=== PATIENT | male | born 1990 | race Two or more races ===

== ENCOUNTER → 2021-01-23 14:27 | Outpatient (BNVA) | payer OTHER, MEDICARE, SELFPAY | PROVIDERS: PCP Internal Medicine; Visit Provider Internal Medicine | DX: I50.9 Heart failure, unspecified (principal); E66.01 Morbid (severe) obesity due to excess calories; E11.8 Type 2 diabetes mellitus with unspecified complications | CPT/HCPCS: 93005; 99202 ==

== ENCOUNTER 2021-05-31 10:37 | Emergency (ER) | payer OTHER, SELFPAY ==
--- NOTE | ~2021-05-31 | XR_ITS ---
EXAMINATION: XR CHEST CLINICAL INFORMATION: Shortness of breath COMPARISON: 06/20/2018 TECHNIQUE: Frontal view of the chest was obtained. FINDINGS: No significant abnormality is noted involving the heart, lungs, mediastinum, bony thorax or soft tissues. XR/XR chest 1V IMPRESSION: Unremarkable examination.
[2021-05-31 11:16] VITALS: BP 125/59; PULSE 120; RESP 22; TEMP 35.5; O2SAT 93; BMI 57.6
--- NOTE | 2021-05-31 12:25 | ECG_ITS ---
Test Reason : SOB Blood Pressure : / mmHG Vent. Rate : 102 BPM Atrial Rate : 102 BPM P-R Int : 146 ms QRS Dur : 078 ms QT Int : 332 ms P-R-T Axes : 034 002 013 degrees QTc Int : 432 ms Sinus tachycardia Otherwise normal ECG Heart rate has increased Referred By: Marilyn No Electronically Signed By:SUJATHA CORBETT MD
--- NOTE | 2021-05-31 12:40 | ED.GENADULT ---
HPI - General Adult General Chief complaint: General Medical Stated complaint: facial pain, lt leg pain, hand numbness Time Seen by Provider: 05/31/21 11:54 History of Present Illness HPI narrative: Patient is a 30-year-old male with a history diabetes morbid obesity history fatty liver. History of congestive heart failure. Presents today with having generalized body aches. Leg swelling. Arm pain. Jaw pain. Generalized malaise. Patient did not receive his coronavirus vaccine. Positive feeling weak. No new medication. Patient been compliant with medication. He is not on any blood thinners. He is from home. Related Data Home Medications Medication Instructions Recorded Confirmed insulin glargine U-300 conc 300 24 unit SUBCUT BEDTIME ml 11/01/20 01/23/21 unit/mL (3 mL) subcutaneous pen insulin lispro 100 unit/mL 8 unit SUBCUT TID 11/01/20 01/23/21 subcutaneous pen (Humalog KwikPen (U-100) Insulin) Previous Rx's Medication Instructions Recorded carvedilol 3.125 mg tablet 3.125 mg PO BID 30 Days #60 tab 11/01/20 furosemide 40 mg tablet 40 mg PO DAILY 30 Days #30 tab 11/01/20 lisinopril 2.5 mg tablet 2.5 mg PO DAILY 30 Days #30 tab 11/01/20 blood sugar diagnostic (FreeStyle #100 ea 01/03/21 Lite Strips) lancets 28 gauge (FreeStyle #100 ea 01/03/21 Lancets) Allergies Allergy/AdvReac Type Severity Reaction Status Date / Time morphine AdvReac Unknown projectile Verified 01/23/21 14:41 vomiting Review of Systems Review of Systems: Positive generalized malaise Question minimal cough Positive leg swelling Positive arm swelling Positive chronic shortness of breath All systems reviewed otherwise negative Yes all other systems are reviewed and are negative [facility] Past Medical History Medical History (Updated 05/31/21 @ 13:59 by Marilyn No MD) Congestive heart failure (CHF) Diabetes mellitus Hypertriglyceridemia Morbid obesity with BMI of 50.0-59.9, adult Non-alcoholic fatty liver disease Surgical History History of ankle surgery (~06/29/12) Hx of excision of mass (~03/30/18) Family History Family History Mother IBS (irritable bowel syndrome) Father No problems noted. Social History Social History (Updated 01/23/21 @ 14:40 by HELEN Vizcaino) Alcohol intake: never Patient Tobacco Use Status: Never used Tobacco Advance Directives: No Advance Directives Information Provided: No Physical Exam Vital Signs: Vital Signs: Last Vital Signs Temp 96 F L 05/31/21 11:16 Pulse 120 H 05/31/21 11:16 Resp 22 H 05/31/21 11:16 BP 125/59 L 05/31/21 11:16 Pulse Ox 93 05/31/21 11:16 Body Mass Index 57.6 Appearance: Alert. Oriented X3. No acute distress. Eyes: Pupils equal, round and reactive to light. ENT: Pharynx normal. Neck: Normal inspection. Neck supple. No lymph nodes noted. No crepitus CVS: Normal heart rate and rhythm. Pulses normal. Normal S1 and S2 Respiratory: No respiratory distress. Breath sounds normal. No Wheezing. No rales Abdomen: Soft and nontender. No rigidity. No distention. good BS x4 Skin: Skin warm and dry. Normal skin color. Normal skin turgor. Extremities: No lower extremity edema. Neurovascular intact to all extremities. No Lacerations. No Rash Neuro: Oriented X 3. No motor deficit. No sensory deficit. Moving all extermities. No slurred speech Medical Decision Making MDM Narrative Medical decision making narrative: Patient's BNP is normal there is no evidence of congestive heart failure. EKG showed a sinus pattern heart rate was 100 CT QRS QT within normal limits. Patient's electrolytes unremarkable. COVID test was negative. Sugar was 300. Will need follow-up on an outpatient basis. Patient is in stable condition. Will discharge home. Lab Data Result diagrams: 05/31/21 12:56 05/31/21 12:56 Labs: Lab Results 05/31/21 05/31/21 05/31/21 Range/Units 12:56 12:56 12:56 WBC 10.5 (4.8-10.8) X10*3/uL RBC 5.19 (4.60-5.80) X10*6/uL Hgb 14.8 (14.0-18.0) g/dl Hct 46.2 (42.0-52.0) % MCV 89.0 (80.0-98.0) fL MCH 28.5 (27.0-33.0) pg MCHC 32.0 (31.0-36.0) g/dl RDW 11.8 (11.0-16.0) % Plt Count 296 (160-400) X10*3/uL MPV 11.0 (9.4-12.4) fL Immature Gran % (Auto) 0.5 H (0.0-0.4) % Neut % (Auto) 65.4 (45-73) % Lymph % (Auto) 24.8 (20-40) % [place] % (Auto) 6.8 (2-11) % Eos % (Auto) 1.9 (0-4) % Baso % (Auto) 0.6 (0-2) % Lymph # (Auto) 2.6 (1.2-4.9) X10*3/uL [place] # (Auto) 0.7 (0.1-1.2) X10*3/uL Eos # (Auto) 0.2 (0.0-0.4) X10*3/uL Baso # (Auto) 0.1 (0.0-0.2) X10*3/uL Abs Immat Gran (auto) 0.05 H (0.00-0.03) X10*3/uL Absolute Neuts (auto) 6.9 (2.0-8.3) x10*3/uL Absolute Nucleated RBC 0.000 (0.0-0.012) X10*3/uL Nucleated RBC % (auto) 0.0 (0.0-0.2) /100WBC Sodium 134 L (135-145) mmol/L Potassium 4.6 (3.3-5.1) mmol/L Chloride 100 (96-108) mmol/L Carbon Dioxide 23 (22-29) mmol/L Anion Gap 16 (12-20) BUN 11 (9-16) mg/dL Creatinine 1.13 (0.5-1.4) mg/dL Estim Creat Clear Calc 162.3 Estimated GFR > 60 Random Glucose 307 H (60-115) mg/dL Calcium 9.0 (8.4-10.2) mg/dL Total Bilirubin 0.8 (0.0-1.0) mg/dL Direct Bilirubin 0.3 (0.0-0.5) mg/dL AST 50 H (5-37) U/L ALT 156 H (0-40) U/L Alkaline Phosphatase 91 (39-117) U/L Troponin I High Sens (<3.5-35.0) ng/L B-Natriuretic Peptide < 10 (<100) pg/mL Total Protein 7.1 (6.5-8.0) g/dL Albumin 4.4 (3.5-5.0) g/dL Influenza Type A (PCR) (Negative) Influenza Type B (PCR) (Negative) RSV RNA Qual (PCR) (Negative) SARS-CoV-2 RNA (RT-PCR) (Negative) 05/31/21 05/31/21 Range/Units 12:56 12:57 WBC (4.8-10.8) X10*3/uL RBC (4.60-5.80) X10*6/uL Hgb (14.0-18.0) g/dl Hct (42.0-52.0) % MCV (80.0-98.0) fL MCH (27.0-33.0) pg MCHC (31.0-36.0) g/dl RDW (11.0-16.0) % Plt Count (160-400) X10*3/uL MPV (9.4-12.4) fL Immature Gran % (Auto) (0.0-0.4) % Neut % (Auto) (45-73) % Lymph % (Auto) (20-40) % [place] % (Auto) (2-11) % Eos % (Auto) (0-4) % Baso % (Auto) (0-2) % Lymph # (Auto) (1.2-4.9) X10*3/uL [place] # (Auto) (0.1-1.2) X10*3/uL Eos # (Auto) (0.0-0.4) X10*3/uL Baso # (Auto) (0.0-0.2) X10*3/uL Abs Immat Gran (auto) (0.00-0.03) X10*3/uL Absolute Neuts (auto) (2.0-8.3) x10*3/uL Absolute Nucleated RBC (0.0-0.012) X10*3/uL Nucleated RBC % (auto) (0.0-0.2) /100WBC Sodium (135-145) mmol/L Potassium (3.3-5.1) mmol/L Chloride (96-108) mmol/L Carbon Dioxide (22-29) mmol/L Anion Gap (12-20) BUN (9-16) mg/dL Creatinine (0.5-1.4) mg/dL Estim Creat Clear Calc Estimated GFR Random Glucose (60-115) mg/dL Calcium (8.4-10.2) mg/dL Total Bilirubin (0.0-1.0) mg/dL Direct Bilirubin (0.0-0.5) mg/dL AST (5-37) U/L ALT (0-40) U/L Alkaline Phosphatase (39-117) U/L Troponin I High Sens 3.7 (<3.5-35.0) ng/L B-Natriuretic Peptide (<100) pg/mL Total Protein (6.5-8.0) g/dL Albumin (3.5-5.0) g/dL Influenza Type A (PCR) NEGATIVE (Negative) Influenza Type B (PCR) NEGATIVE (Negative) RSV RNA Qual (PCR) NEGATIVE (Negative) SARS-CoV-2 RNA (RT-PCR) NEGATIVE (Negative) Discharge Plan Discharge Clinical Impression: Type 2 diabetes mellitus with unspecified complications, Morbid obesity due to excess calories Patient Disposition: Home, Self-Care Instructions: Diabetes and Exercise (ED), Diabetes and Nutrition (ED) Prescriptions: No Action (DME) FreeStyle Lite Strips Strip See Rx Instructions .ROUTE .MEDSUPPLY Qty: 100 RF: 12 (DME) lancets [FreeStyle Lancets] 28 gauge misc See Rx Instructions .ROUTE .MEDSUPPLY Qty: 100 RF: 12 insulin lispro [Humalog KwikPen Insulin] 100 unit/mL insulin pen 8 unit subcut TID RF: 0 insulin glargine U-300 conc 300 unit/mL (3 mL) insulin pen 24 unit subcut BEDTIME RF: 0 carvedilol 3.125 mg tablet 3.125 mg PO BID 30 Days Qty: 60 RF: 3 furosemide 40 mg tablet 40 mg PO DAILY 30 Days Qty: 30 RF: 3 lisinopril 2.5 mg tablet 2.5 mg PO DAILY 30 Days Qty: 30 RF: 3 Referrals: Antonio Ames MD [Primary Care Provider] - 2 days
[2021-05-31 13:05] LABS: MANUAL DIFF FLAG NO
[2021-05-31 13:07] LABS: Basophils Absolute Auto 0.1 X10*3/uL (0.0-0.2); Basophils Percent Auto 0.6 % (0-2); Eosinophils Absolute Auto 0.2 X10*3/uL (0.0-0.4); Eosinophils Percent Auto 1.9 % (0-4); Hematocrit 46.2 % (42.0-52.0); Hemoglobin 14.8 g/dl (14.0-18.0); Imm Gran Abs Auto 0.05 X10*3/uL (0.00-0.03); Imm Gran Pct Auto 0.5 % (0.0-0.4); Lymphocytes Absolute Auto 2.6 X10*3/uL (1.2-4.9); Lymphocytes Percent Auto 24.8 % (20-40); Mean Corpuscular Hemoglobin 28.5 pg (27.0-33.0); Monocytes Absolute Auto 0.7 X10*3/uL (0.1-1.2); Monocytes Percent Auto 6.8 % (2-11); Neutrophils Absolute Auto 6.9 x10*3/uL (2.0-8.3); Neutrophils Percent Auto 65.4 % (45-73); Platelet Count 296 X10*3/uL (160-400); Red Blood Count 5.19 X10*6/uL (4.60-5.80); Red Cell Distribution Width 11.8 % (11.0-16.0); White Blood Count 10.5 X10*3/uL (4.8-10.8)
[2021-05-31 13:24] LABS: B Type Natriuretic Peptide < 10 pg/mL (<100); Troponin-I High Sensitivity 3.7 ng/L (<3.5-35.0)
[2021-05-31 13:28] LABS: Alanine Aminotransferase 156 U/L (0-40); Albumin Level 4.4 g/dL (3.5-5.0); Alkaline Phosphatase 91 U/L (39-117); Anion Gap 16 (12-20); Aspartate Amino Transferase 50 U/L (5-37); Bilirubin Direct 0.3 mg/dL (0.0-0.5); Bilirubin Total 0.8 mg/dL (0.0-1.0); Blood Urea Nitrogen 11 mg/dL (9-16); Carbon Dioxide 23 mmol/L (22-29); Chloride 100 mmol/L (96-108); Creatinine Clr Calc Pharmacy 162.3; Estimated Glomerular Filt Rate > 60; Glucose Random 307 mg/dL (60-115); Potassium 4.6 mmol/L (3.3-5.1); Sodium 134 mmol/L (135-145); Total Protein 7.1 g/dL (6.5-8.0)
--- NOTE | 2021-05-31 13:41 | PC.NURSE ---
pt came to ed with c/o left lower back pain that radiates down his left leg. facial pain relating to toothache. sob when he ambulates short distances. left arm numbness that he said is chronic. pt stated this has been going on for a while and he was planning on going to the doctor on this coming Wednesday but he could not deal with the pain much longer. he denied headache/dizziness/n/v. no fever/chills. no apparent distress noted, pt alert and oriented, vss.
[2021-05-31 13:48] LABS: Influenza A PCR NEGATIVE (Negative); Influenza B PCR NEGATIVE (Negative); Resp Syncy Virus RNA Qual PCR NEGATIVE (Negative); SARS COV2 PCR INHOUSE NEGATIVE (Negative)
--- NOTE | 2021-05-31 14:29 | ED.GENADULT ---
HPI - General Adult General Chief complaint: General Medical Stated complaint: facial pain, lt leg pain, hand numbness Time Seen by Provider: 05/31/21 11:54 Related Data Home Medications Medication Instructions Recorded Confirmed insulin glargine U-300 conc 300 24 unit SUBCUT BEDTIME ml 11/01/20 01/23/21 unit/mL (3 mL) subcutaneous pen insulin lispro 100 unit/mL 8 unit SUBCUT TID 11/01/20 01/23/21 subcutaneous pen (Humalog KwikPen (U-100) Insulin) Previous Rx's Medication Instructions Recorded carvedilol 3.125 mg tablet 3.125 mg PO BID 30 Days #60 tab 11/01/20 furosemide 40 mg tablet 40 mg PO DAILY 30 Days #30 tab 11/01/20 lisinopril 2.5 mg tablet 2.5 mg PO DAILY 30 Days #30 tab 11/01/20 blood sugar diagnostic (FreeStyle #100 ea 01/03/21 Lite Strips) lancets 28 gauge (FreeStyle #100 ea 01/03/21 Lancets) Allergies Allergy/AdvReac Type Severity Reaction Status Date / Time morphine AdvReac Unknown projectile Verified 01/23/21 14:41 vomiting PMFSH Past Medical History Medical History (Updated 05/31/21 @ 13:59 by Marilyn No MD) Congestive heart failure (CHF) Diabetes mellitus Hypertriglyceridemia Morbid obesity with BMI of 50.0-59.9, adult Non-alcoholic fatty liver disease Surgical History History of ankle surgery (~06/29/12) Hx of excision of mass (~03/30/18) Family History Family History Mother IBS (irritable bowel syndrome) Father No problems noted. Social History Social History (Updated 01/23/21 @ 14:40 by HELEN Vizcaino) Alcohol intake: never Patient Tobacco Use Status: Never used Tobacco Advance Directives: No Advance Directives Information Provided: No Physical Exam Vital Signs: Vital Signs: Last Vital Signs Temp 96 F L 05/31/21 11:16 Pulse 120 H 05/31/21 11:16 Resp 22 H 05/31/21 11:16 BP 125/59 L 05/31/21 11:16 Pulse Ox 93 05/31/21 11:16 Body Mass Index 57.6 Medical Decision Making Lab Data Result diagrams: 05/31/21 12:56 05/31/21 12:56 Labs: Lab Results 05/31/21 05/31/21 05/31/21 Range/Units 12:56 12:56 12:56 WBC 10.5 (4.8-10.8) X10*3/uL RBC 5.19 (4.60-5.80) X10*6/uL Hgb 14.8 (14.0-18.0) g/dl Hct 46.2 (42.0-52.0) % MCV 89.0 (80.0-98.0) fL MCH 28.5 (27.0-33.0) pg MCHC 32.0 (31.0-36.0) g/dl RDW 11.8 (11.0-16.0) % Plt Count 296 (160-400) X10*3/uL MPV 11.0 (9.4-12.4) fL Immature Gran % (Auto) 0.5 H (0.0-0.4) % Neut % (Auto) 65.4 (45-73) % Lymph % (Auto) 24.8 (20-40) % [place] % (Auto) 6.8 (2-11) % Eos % (Auto) 1.9 (0-4) % Baso % (Auto) 0.6 (0-2) % Lymph # (Auto) 2.6 (1.2-4.9) X10*3/uL [place] # (Auto) 0.7 (0.1-1.2) X10*3/uL Eos # (Auto) 0.2 (0.0-0.4) X10*3/uL Baso # (Auto) 0.1 (0.0-0.2) X10*3/uL Abs Immat Gran (auto) 0.05 H (0.00-0.03) X10*3/uL Absolute Neuts (auto) 6.9 (2.0-8.3) x10*3/uL Absolute Nucleated RBC 0.000 (0.0-0.012) X10*3/uL Nucleated RBC % (auto) 0.0 (0.0-0.2) /100WBC Sodium 134 L (135-145) mmol/L Potassium 4.6 (3.3-5.1) mmol/L Chloride 100 (96-108) mmol/L Carbon Dioxide 23 (22-29) mmol/L Anion Gap 16 (12-20) BUN 11 (9-16) mg/dL Creatinine 1.13 (0.5-1.4) mg/dL Estim Creat Clear Calc 162.3 Estimated GFR > 60 Random Glucose 307 H (60-115) mg/dL Calcium 9.0 (8.4-10.2) mg/dL Total Bilirubin 0.8 (0.0-1.0) mg/dL Direct Bilirubin 0.3 (0.0-0.5) mg/dL AST 50 H (5-37) U/L ALT 156 H (0-40) U/L Alkaline Phosphatase 91 (39-117) U/L Troponin I High Sens (<3.5-35.0) ng/L B-Natriuretic Peptide < 10 (<100) pg/mL Total Protein 7.1 (6.5-8.0) g/dL Albumin 4.4 (3.5-5.0) g/dL Influenza Type A (PCR) (Negative) Influenza Type B (PCR) (Negative) RSV RNA Qual (PCR) (Negative) SARS-CoV-2 RNA (RT-PCR) (Negative) 05/31/21 05/31/21 Range/Units 12:56 12:57 WBC (4.8-10.8) X10*3/uL RBC (4.60-5.80) X10*6/uL Hgb (14.0-18.0) g/dl Hct (42.0-52.0) % MCV (80.0-98.0) fL MCH (27.0-33.0) pg MCHC (31.0-36.0) g/dl RDW (11.0-16.0) % Plt Count (160-400) X10*3/uL MPV (9.4-12.4) fL Immature Gran % (Auto) (0.0-0.4) % Neut % (Auto) (45-73) % Lymph % (Auto) (20-40) % [place] % (Auto) (2-11) % Eos % (Auto) (0-4) % Baso % (Auto) (0-2) % Lymph # (Auto) (1.2-4.9) X10*3/uL [place] # (Auto) (0.1-1.2) X10*3/uL Eos # (Auto) (0.0-0.4) X10*3/uL Baso # (Auto) (0.0-0.2) X10*3/uL Abs Immat Gran (auto) (0.00-0.03) X10*3/uL Absolute Neuts (auto) (2.0-8.3) x10*3/uL Absolute Nucleated RBC (0.0-0.012) X10*3/uL Nucleated RBC % (auto) (0.0-0.2) /100WBC Sodium (135-145) mmol/L Potassium (3.3-5.1) mmol/L Chloride (96-108) mmol/L Carbon Dioxide (22-29) mmol/L Anion Gap (12-20) BUN (9-16) mg/dL Creatinine (0.5-1.4) mg/dL Estim Creat Clear Calc Estimated GFR Random Glucose (60-115) mg/dL Calcium (8.4-10.2) mg/dL Total Bilirubin (0.0-1.0) mg/dL Direct Bilirubin (0.0-0.5) mg/dL AST (5-37) U/L ALT (0-40) U/L Alkaline Phosphatase (39-117) U/L Troponin I High Sens 3.7 (<3.5-35.0) ng/L B-Natriuretic Peptide (<100) pg/mL Total Protein (6.5-8.0) g/dL Albumin (3.5-5.0) g/dL Influenza Type A (PCR) NEGATIVE (Negative) Influenza Type B (PCR) NEGATIVE (Negative) RSV RNA Qual (PCR) NEGATIVE (Negative) SARS-CoV-2 RNA (RT-PCR) NEGATIVE (Negative) Discharge Plan Discharge Clinical Impression: Type 2 diabetes mellitus with unspecified complications, Morbid obesity due to excess calories Patient Disposition: Home, Self-Care Instructions: Diabetes and Nutrition (ED), Diabetes and Exercise (ED) Prescriptions: No Action (DME) FreeStyle Lite Strips Strip See Rx Instructions .ROUTE .MEDSUPPLY Qty: 100 RF: 12 (DME) lancets [FreeStyle Lancets] 28 gauge misc See Rx Instructions .ROUTE .MEDSUPPLY Qty: 100 RF: 12 insulin lispro [Humalog KwikPen Insulin] 100 unit/mL insulin pen 8 unit subcut TID RF: 0 insulin glargine U-300 conc 300 unit/mL (3 mL) insulin pen 24 unit subcut BEDTIME RF: 0 carvedilol 3.125 mg tablet 3.125 mg PO BID 30 Days Qty: 60 RF: 3 furosemide 40 mg tablet 40 mg PO DAILY 30 Days Qty: 30 RF: 3 lisinopril 2.5 mg tablet 2.5 mg PO DAILY 30 Days Qty: 30 RF: 3 Referrals: Antonio Ames MD [Primary Care Provider] - 2 days
[2021-05-31 14:31] VITALS: BP 121/81; PULSE 99; RESP 18; TEMP 37.1
--- NOTE | 2021-05-31 14:57 | PC.NURSE ---
pt medically cleared for discharge, discharge summary given and explained to pt, pt c/o of tooth pain, reports he will call dentist on Wednesday. pt alert and oriented, vss.
== END 2021-05-31 15:00 | disposition home or self-care (01) ==
PROVIDERS: Emergency Provider Emergency Medicine Emergency Medical Services; PCP Internal Medicine
DX: M79.10 Myalgia, unspecified site (principal); E11.9 Type 2 diabetes mellitus without complications; E66.01 Morbid (severe) obesity due to excess calories; R06.02 Shortness of breath; Z20.822 Contact with and (suspected) exposure to COVID-19; Z79.899 Other long term (current) drug therapy; Z79.4 Long term (current) use of insulin
CPT/HCPCS: 0241U; 36415; 71045; 80048; 80076; 83880; 84484; 85025; 93005; 99283; 99284

== ENCOUNTER 2021-11-14 20:46 | Emergency (ER) | payer OTHER, SELFPAY ==
[2021-11-14 21:23] VITALS: BP 113/81; PULSE 118; RESP 22; TEMP 37.1; O2SAT 98; BMI 53.1
--- NOTE | 2021-11-14 23:03 | ED_ITS ---
HPI - Dental/Oral General Chief complaint: Dental/Oral Stated complaint: jaw/dental pain Time Seen by Provider: 11/14/21 23:03 Source: patient Mode of arrival: ambulatory Limitations: no limitations History of Present Illness HPI Narrative: Patient's history of dental caries for some time lately getting worse since yesterday been feeling more pain in the right lower molar no fever no chills patient is planning to see a dentist soon Related Data Home Medications Medication Instructions Recorded Confirmed insulin glargine U-300 conc 300 See Rx Instructions SUBCUT BEDTIME 06/12/21 06/12/21 unit/mL (3 mL) subcutaneous pen ml insulin lispro 100 unit/mL 10 unit SUBCUT TID ml 06/12/21 06/12/21 subcutaneous pen (Humalog KwikPen (U-100) Insulin) Previous Rx's Medication Instructions Recorded carvedilol 3.125 mg tablet 3.125 mg PO BID 30 Days #60 tab 11/01/20 furosemide 40 mg tablet 40 mg PO DAILY 30 Days #30 tab 11/01/20 lisinopril 2.5 mg tablet 2.5 mg PO DAILY 30 Days #30 tab 11/01/20 amoxicillin 875 mg-potassium 1 tab PO BID 7 Days #14 tab 06/12/21 clavulanate 125 mg tablet (Augmentin) blood sugar diagnostic (FreeStyle #100 ea 06/12/21 Lite Strips) blood-glucose meter (FreeStyle #1 ea 06/12/21 [place]) lancets 28 gauge (FreeStyle #100 ea 06/12/21 Lancets) amoxicillin 875 mg-potassium 1 tab PO BID #20 tab 11/14/21 clavulanate 125 mg tablet oxycodone-acetaminophen 5 mg-325 1 tab PO Q6H PRN #20 tab 11/14/21 mg tablet (Percocet) Allergies Allergy/AdvReac Type Severity Reaction Status Date / Time morphine AdvReac Unknown projectile Verified 11/14/21 21:25 vomiting Review of Systems Review of Systems: Yes all other systems are reviewed and are negative PMFSH Past Medical History Medical History Congestive heart failure (CHF) Diabetes mellitus Hypertriglyceridemia Morbid obesity with BMI of 50.0-59.9, adult Non-alcoholic fatty liver disease Surgical History History of ankle surgery (~06/29/12) Hx of excision of mass (~03/30/18) Family History Family History Mother IBS (irritable bowel syndrome) Father No problems noted. Social History Social History Alcohol intake: never Patient Tobacco Use Status: Never used Tobacco Advance Directives: No Advance Directives Information Provided: Yes Physical Exam Vital Signs: Vital Signs: Last Vital Signs Temp 98.8 F 11/14/21 21:23 Pulse 118 H 11/14/21 21: Resp 22 H 11/14/21 21:23 BP 113/81 11/14/21 21:23 Pulse Ox 98 11/14/21 21:23 BMI result Body Mass Index 53.1 Const: General: well developed and in distress Orientation/consciousness: patient oriented x3 HEENT: Teeth image: 1. Caried tooth right lower 2nd molar patient does not have 3rd molar no gum swelling no pus discharge Throat: Yes posterior oropharynx normal Resp: Effort & Inspection: normal respiratory effort Auscultation: clear to auscultation bilaterally Cardio: Palpation: normal PMI Rate: regular rate Rhythm: regular rhythm Heart sounds: S1 normal heart sound present and S2 normal heart sound present Neuro: General: patient oriented x3 MDM - Dental/Oral MDM Narrative Medical decision making narrative: Patient with dental caries will give Augmentin and oxycodone advised to follow up with dentist Discharge Plan Discharge Clinical Impression: Dental caries Patient Disposition: Home, Self-Care Instructions: Toothache (ED) Additional Instructions: Take antibiotics and pain medicine as prescribed Follow up with dentist Prescriptions: New oxycodone-acetaminophen [Percocet] 5-325 mg tablet 1 tab PO Q6H PRN (Reason: pain) Qty: 20 0RF amoxicillin-pot clavulanate 875-125 mg tablet 1 tab PO BID Qty: 20 0RF No Action carvedilol 3.125 mg tablet 3.125 mg PO BID 30 Days Qty: 60 3RF Rx Instructions: must administer with a meal/food furosemide 40 mg tablet 40 mg PO DAILY 30 Days Qty: 30 3RF lisinopril 2.5 mg tablet 2.5 mg PO DAILY 30 Days Qty: 30 3RF insulin glargine U-300 conc 300 unit/mL (3 mL) insulin pen See Rx Instructions subcut BEDTIME 0RF Rx Instructions: subcut bedtime; insulin lispro [Humalog KwikPen Insulin] 100 unit/mL insulin pen 10 unit subcut TID 0RF (DME) FreeStyle Lite Strips Strip See Rx Instructions .ROUTE .MEDSUPPLY Qty: 100 12RF Rx Instructions: As directed- test blood sugar 3 times a day (DME) lancets [FreeStyle Lancets] 28 gauge misc See Rx Instructions .ROUTE .MEDSUPPLY Qty: 100 12RF Rx Instructions: As directed-test blood sugar 3 times a day (DME) blood-glucose meter [FreeStyle [place]] Kit See Rx Instructions .Route Qty: 1 0RF Rx Instructions: As directed amoxicillin-pot clavulanate [Augmentin] 875-125 mg tablet 1 tab PO BID 7 Days Qty: 14 0RF Interventions: ED Discharge Assessment Last Done: 11/14/21 23:30 Discharge Date/Time: 11/14/21 23:31
[2021-11-14] MEDS: Amoxicillin/Potassium Clav 875 MG TABLET PO (23:22)
== END 2021-11-14 23:31 | disposition home or self-care (01) ==
PROVIDERS: Emergency Provider Internal Medicine
DX: K02.9 Dental caries, unspecified (principal); K08.89 Other specified disorders of teeth and supporting structures; Z79.899 Other long term (current) drug therapy
CPT/HCPCS: 99283

== ENCOUNTER 2021-11-22 00:46 | Emergency (ER) | payer OTHER, SELFPAY ==
[2021-11-22 00:59] VITALS: BP 129/63; PULSE 116; RESP 20; TEMP 37.1; O2SAT 95; BMI 52.9
[2021-11-22] MEDS: Acetaminophen 325 MG TABLET 975 MG PO (01:16)
[2021-11-22] MEDS: Ketorolac Tromethamine 15 MG/ML VIAL IM (01:16)
--- NOTE | 2021-11-22 01:16 | ED.DENTAL ---
HPI - Dental/Oral General Chief complaint: Dental/Oral Stated complaint: dental pain Time Seen by Provider: 11/22/21 00:48 Source: patient Mode of arrival: ambulatory History of Present Illness HPI Narrative: 31-year-old male with history of diabetes and dental infection, last seen on 11/14 and at that time was discharged with Augmentin and Percocet. Patient states that he is able to breathe and swallow easily and does not have any difficulty with opening his mouth and denies any fever or chills but states that he has been taking the antibiotic daily and not twice a day. And is currently experiencing tooth discomfort, specifically at the right lower edge of his jaw. Related Data Home Medications Medication Instructions Recorded Confirmed insulin glargine U-300 conc 300 See Rx Instructions SUBCUT BEDTIME 06/12/21 06/12/21 unit/mL (3 mL) subcutaneous pen ml insulin lispro 100 unit/mL 10 unit SUBCUT TID ml 06/12/21 06/12/21 subcutaneous pen (Humalog KwikPen (U-100) Insulin) Previous Rx's Medication Instructions Recorded carvedilol 3.125 mg tablet 3.125 mg PO BID 30 Days #60 tab 11/01/20 furosemide 40 mg tablet 40 mg PO DAILY 30 Days #30 tab 11/01/20 lisinopril 2.5 mg tablet 2.5 mg PO DAILY 30 Days #30 tab 11/01/20 amoxicillin 875 mg-potassium 1 tab PO BID 7 Days #14 tab 06/12/21 clavulanate 125 mg tablet (Augmentin) blood sugar diagnostic (FreeStyle #100 ea 06/12/21 Lite Strips) blood-glucose meter (FreeStyle #1 ea 06/12/21 [place]) lancets 28 gauge (FreeStyle #100 ea 06/12/21 Lancets) amoxicillin 875 mg-potassium 1 tab PO BID #20 tab 11/14/21 clavulanate 125 mg tablet oxycodone-acetaminophen 5 mg-325 1 tab PO Q6H PRN #20 tab 11/14/21 mg tablet (Percocet) ketorolac 10 mg tablet 10 mg PO Q6H PRN 5 Days #20 tab 11/22/21 Allergies Allergy/AdvReac Type Severity Reaction Status Date / Time morphine AdvReac Unknown projectile Verified 11/14/21 21:25 vomiting Review of Systems Review of Systems: Pertinent positives and negatives as stated in HPI 10 point review of systems is otherwise negative. [facility] Past Medical History Source: nursing notes reviewed Medical History Congestive heart failure (CHF) Diabetes mellitus Hypertriglyceridemia Morbid obesity with BMI of 50.0-59.9, adult Non-alcoholic fatty liver disease Surgical History History of ankle surgery (~06/29/12) Hx of excision of mass (~03/30/18) Family History Family History Mother IBS (irritable bowel syndrome) Father No problems noted. Social History Social History Alcohol intake: never Patient Tobacco Use Status: Never used Tobacco Advance Directives: No Physical Exam Vital Signs: Vital Signs: Last Vital Signs Temp 98.8 F 11/22/21 00:59 Pulse 116 H 11/22/21 00:59 Resp 20 11/22/21 00:59 BP 129/63 11/22/21 00:59 Pulse Ox 95 11/22/21 00:59 BMI result Body Mass Index 52.9 VITAL SIGNS: Reviewed. GENERAL: Well developed, well nourished, in no acute distress. HEAD: Normocephalic/atraumatic EYES: PERRLA, EOMI EARS: Ext canals without abnormality OROPHARYNX: no oral lesions noted, posterior pharynx clear , dental infection noted at right lower posterior molar, no trismus or pooling of secretions, submandibular adenopathy NECK: Supple, no adenopathy LUNGS: Normal breath sounds. No adventitious sounds or accessory muscle use. SpO2<95> CARDIOVASCULAR: Regular rate and rhythm without noted murmurs ABDOMEN: Soft, non-tender, non-distended with bowel sounds. NEUROLOGIC: Alert and oriented x 4. Strength and sensation to light touch were grossly intact x 4. Course Course Course Narrative: 31-year-old male with history and clinical presentation consistent with dental infection and inappropriate use of antibiotics, patient was provided with counseling regarding the appropriate frequency the antibiotic, in addition he was instructed on using saline gargles and rinses within the mouth and provided with combination analgesics here in the emergency room. He does have a dental appointment for 11/24. He is otherwise discharged home in stable condition. Discharge Plan Discharge Clinical Impression: Dental infection, Diabetes mellitus Patient Disposition: Home, Self-Care Instructions: Dental Abscess (ED), Diabetes and Your Mouth (ED) Additional Instructions: 1. Resume all home medications as prescribed. 2. Please take the antibiotic twice a day until it is completely gone. 3. Keep your scheduled appointment with your dentist on 11/24. 4. Recommend saline gargles by using warm tap water with table salt, 3 to 4 times a day. Return to the emergency room if you experience sudden worsening of any of your symptoms. Prescriptions: New ketorolac 10 mg tablet 10 mg PO Q6H PRN (Reason: pain) 5 Days Qty: 20 0RF Rx Instructions: patient received Toradol in the emergency room. No Action oxycodone-acetaminophen [Percocet] 5-325 mg tablet 1 tab PO Q6H PRN (Reason: pain) Qty: 20 0RF amoxicillin-pot clavulanate 875-125 mg tablet 1 tab PO BID Qty: 20 0RF carvedilol 3.125 mg tablet 3.125 mg PO BID 30 Days Qty: 60 3RF Rx Instructions: must administer with a meal/food furosemide 40 mg tablet 40 mg PO DAILY 30 Days Qty: 30 3RF lisinopril 2.5 mg tablet 2.5 mg PO DAILY 30 Days Qty: 30 3RF insulin glargine U-300 conc 300 unit/mL (3 mL) insulin pen See Rx Instructions subcut BEDTIME 0RF Rx Instructions: subcut bedtime; insulin lispro [Humalog KwikPen Insulin] 100 unit/mL insulin pen 10 unit subcut TID 0RF (DME) FreeStyle Lite Strips Strip See Rx Instructions .ROUTE .MEDSUPPLY Qty: 100 12RF Rx Instructions: As directed- test blood sugar 3 times a day (DME) lancets [FreeStyle Lancets] 28 gauge misc See Rx Instructions .ROUTE .MEDSUPPLY Qty: 100 12RF Rx Instructions: As directed-test blood sugar 3 times a day (DME) blood-glucose meter [FreeStyle [place]] Kit See Rx Instructions .Route Qty: 1 0RF Rx Instructions: As directed amoxicillin-pot clavulanate [Augmentin] 875-125 mg tablet 1 tab PO BID 7 Days Qty: 14 0RF Referrals: Antonio Ames MD [Primary Care Provider] -
[2021-11-22 01:36] VITALS: PULSE 106
== END 2021-11-22 01:38 | disposition home or self-care (01) ==
PROVIDERS: Emergency Provider Student in an Organized Health Care Education/Training Program; PCP Internal Medicine
DX: K04.7 Periapical abscess without sinus (principal); E11.9 Type 2 diabetes mellitus without complications
CPT/HCPCS: 96372; 99284; J1885

== ENCOUNTER 2021-12-15 19:00 | Emergency (ER) | payer OTHER, SELFPAY ==
--- NOTE | ~2021-12-15 | XR_ITS ---
EXAMINATION: XR CHEST CLINICAL INFORMATION: Difficulty breathing COMPARISON: 05/31/2021 TECHNIQUE: 2 views of the chest were obtained. FINDINGS: Aside from hypoinflated lungs, no significant abnormality is noted involving the heart, lungs, mediastinum, bony thorax or soft tissues. XR/XR chest 2V IMPRESSION: No acute intrathoracic disease
[2021-12-15 19:11] VITALS: BP 118/88; BP 140/59; PULSE 105; PULSE 130; RESP 18; TEMP 37; O2SAT 90; O2SAT 94; BMI 54.1
--- NOTE | 2021-12-15 19:14 | ECG_ITS ---
Test Reason : ATHSMA Blood Pressure : / mmHG Vent. Rate : 103 BPM Atrial Rate : 103 BPM P-R Int : 154 ms QRS Dur : 088 ms QT Int : 336 ms P-R-T Axes : 028 -06 020 degrees QTc Int : 440 ms Sinus tachycardia Otherwise normal ECG When compared with ECG of 31-MAY-2021 12:46, No significant change was found Referred By: Generic ED Physician Electronically Signed By:Chevy Botello
--- NOTE | 2021-12-15 19:25 | ED.ASTHMA ---
HPI - Asthma General Chief Complaint: Asthma Stated Complaint: DIFF BREATHIN HR 180 PER EMS Time Seen by Provider: 12/15/21 19:25 Source: patient Mode of arrival: EMS Limitations: no limitations History of Present Illness HPI Narrative: patient complaining of chest pain and cough. Cough is a week long, chest pain started yesterday. Patient denies fever, not vaccinated against covid. Patient denies sick contacts. MD complaint: shortness of breath and wheezing Onset (ago): week(s) Severity: moderate Associated symptoms: productive cough Asthma History: childhood onset Related Data Home Medications Medication Instructions Recorded Confirmed insulin glargine U-300 conc 300 See Rx Instructions SUBCUT BEDTIME 06/12/21 06/12/21 unit/mL (3 mL) subcutaneous pen ml insulin lispro 100 unit/mL 10 unit SUBCUT TID ml 06/12/21 06/12/21 subcutaneous pen (Humalog KwikPen (U-100) Insulin) Previous Rx's Medication Instructions Recorded carvedilol 3.125 mg tablet 3.125 mg PO BID 30 Days #60 tab 11/01/20 furosemide 40 mg tablet 40 mg PO DAILY 30 Days #30 tab 11/01/20 lisinopril 2.5 mg tablet 2.5 mg PO DAILY 30 Days #30 tab 11/01/20 amoxicillin 875 mg-potassium 1 tab PO BID 7 Days #14 tab 06/12/21 clavulanate 125 mg tablet (Augmentin) blood sugar diagnostic (FreeStyle #100 ea 06/12/21 Lite Strips) blood-glucose meter (FreeStyle #1 ea 06/12/21 [place]) lancets 28 gauge (FreeStyle #100 ea 06/12/21 Lancets) amoxicillin 875 mg-potassium 1 tab PO BID #20 tab 11/14/21 clavulanate 125 mg tablet oxycodone-acetaminophen 5 mg-325 1 tab PO Q6H PRN #20 tab 11/14/21 mg tablet (Percocet) ketorolac 10 mg tablet 10 mg PO Q6H PRN 5 Days #20 tab 11/22/21 albuterol sulfate 90 mcg/actuation 2 puff INHALATION Q6H PRN #8.5 g 12/15/21 aerosol inhaler Allergies Allergy/AdvReac Type Severity Reaction Status Date / Time morphine AdvReac Unknown projectile Verified 11/14/21 21:25 vomiting Review of Systems Constitutional: Constitutional: Reports no additional constitutional complaints Eyes: Eyes: Reports no additional eye complaints ENT: Denies dizziness Cardiovascular: Cardiovascular: Reports no additional cardiovascular complaints Respiratory: Respiratory: Reports as per HPI Gastrointestinal: Gastrointestinal: Reports no additional gastrointestinal complaints Musculoskeletal: Musculoskeletal: Reports no additional musculoskeletal complaints Integumentary/Breasts: Skin/Breast: Denies rash Neurologic: Reports system reviewed and no additional complaints, except as documented, Denies dizziness and Denies Sensory deficit (Neuro) Psychiatric: Psychiatric: Denies anxiety [facility] Past Medical History Medical History Congestive heart failure (CHF) Diabetes mellitus Hypertriglyceridemia Morbid obesity with BMI of 50.0-59.9, adult Non-alcoholic fatty liver disease Surgical History History of ankle surgery (~06/29/12) Hx of excision of mass (~03/30/18) Family History Family History Mother IBS (irritable bowel syndrome) Father No problems noted. Social History Social History Alcohol intake: never Patient Tobacco Use Status: Never used Tobacco Use of substances other than those prescribed or required for medical reasons: No Advance Directives: No Advance Directives Information Provided: No Physical Exam Vital Signs: Vital Signs: Last Vital Signs Temp 98.7 F 12/15/21 21:37 Pulse 101 H 12/15/21 21:37 Resp 18 12/15/21 21:37 BP 106/66 12/15/21 21:37 Pulse Ox 95 12/15/21 21:37 BMI result Body Mass Index 54.1 Const: Nutritional Appearance: obese Orientation/consciousness: oriented to person and patient oriented x3 Limitations: no limitations HEENT: Head: Yes normal to inspection Ears: external ears normal General nose exam: Normal external nose present Mouth: Normal oral and palatal mucosa present and oropharynx normal Throat: Yes posterior oropharynx normal Eyes: General: appearance normal, both eyes and all related structures Neck: Other: supple Neck: Yes normal visual inspection Chest: Chest palpation & inspection: normal inspection of the chest Resp: Other: slight wheeze Cardio: Jugular venous distension: no JVD Rate: regular rate Rhythm: regular rhythm Heart sounds: S1 normal heart sound present and S2 normal heart sound present GI: Inspection: Yes normal to inspection Palpation (GI): Soft to palpation, nontender and No hepatosplenomegaly present Auscultation: normal bowel sounds : General: Yes no CVA tenderness Back/Spine/Pelvis: Back: no CVA tenderness Skin: General skin exam: no rashes or lesions noted Neuro: General: oriented to person and patient oriented x3 Cranial nerves: Yes CN's II-XII intact bilaterally Motor exam (neuro): 5/5 motor strength present throughout Sensory Exam: No Sensory deficit (Neuro) Extrem: General: Yes normal to inspection Psych: Appearance: grossly normal Course Reevaluation(s) Reevaluation #1: Patient breathing better, no pneumonia, no COVID on influenza will dc home with albuterol Time: 23:02 [facility] - Asthma Lab Data Result diagrams: 12/15/21 19:23 12/15/21 19:23 Labs: Lab Results 12/15/21 12/15/21 12/15/21 Range/Units 19:23 19:23 19:23 WBC 10.9 H (4.8-10.8) X10*3/uL RBC 4.91 (4.60-5.80) X10*6/uL Hgb 13.7 L (14.0-18.0) g/dl Hct 42.4 (42.0-52.0) % MCV 86.4 (80.0-98.0) fL MCH 27.9 (27.0-33.0) pg MCHC 32.3 (31.0-36.0) g/dl RDW 11.6 (11.0-16.0) % Plt Count 294 (160-400) X10*3/uL MPV 10.7 (9.4-12.4) fL Immature Gran % (Auto) 0.7 H (0.0-0.4) % Neut % (Auto) 72.8 (45-73) % Lymph % (Auto) 16.6 L (20-40) % [place] % (Auto) 7.4 (2-11) % Eos % (Auto) 2.1 (0-4) % Baso % (Auto) 0.4 (0-2) % Lymph # (Auto) 1.8 (1.2-4.9) X10*3/uL [place] # (Auto) 0.8 (0.1-1.2) X10*3/uL Eos # (Auto) 0.2 (0.0-0.4) X10*3/uL Baso # (Auto) 0.0 (0.0-0.2) X10*3/uL Abs Immat Gran (auto) 0.08 H (0.00-0.03) X10*3/uL Absolute Neuts (auto) 7.9 (2.0-8.3) x10*3/uL Absolute Nucleated RBC 0.000 (0.0-0.012) X10*3/uL Nucleated RBC % (auto) 0.0 (0.0-0.2) /100WBC Sodium 135 (135-145) mmol/L Potassium 4.3 (3.3-5.1) mmol/L Chloride 101 (96-108) mmol/L Carbon Dioxide 26 (22-29) mmol/L Anion Gap 12 (12-20) BUN 11 (9-16) mg/dL Creatinine 0.89 (0.5-1.4) mg/dL Estim Creat Clear Calc 196.5 Estimated GFR > 60 Random Glucose 235 H (60-115) mg/dL Calcium 9.2 (8.4-10.2) mg/dL Troponin I High Sens 4.9 (<3.5-35.0) ng/L B-Natriuretic Peptide < 10 (<100) pg/mL Influenza Type A (PCR) (Negative) Influenza Type B (PCR) (Negative) RSV RNA Qual (PCR) (Negative) SARS-CoV-2 RNA (RT-PCR) (Negative) 12/15/21 Range/Units 21:58 WBC (4.8-10.8) X10*3/uL RBC (4.60-5.80) X10*6/uL Hgb (14.0-18.0) g/dl Hct (42.0-52.0) % MCV (80.0-98.0) fL MCH (27.0-33.0) pg MCHC (31.0-36.0) g/dl RDW (11.0-16.0) % Plt Count (160-400) X10*3/uL MPV (9.4-12.4) fL Immature Gran % (Auto) (0.0-0.4) % Neut % (Auto) (45-73) % Lymph % (Auto) (20-40) % [place] % (Auto) (2-11) % Eos % (Auto) (0-4) % Baso % (Auto) (0-2) % Lymph # (Auto) (1.2-4.9) X10*3/uL [place] # (Auto) (0.1-1.2) X10*3/uL Eos # (Auto) (0.0-0.4) X10*3/uL Baso # (Auto) (0.0-0.2) X10*3/uL Abs Immat Gran (auto) (0.00-0.03) X10*3/uL Absolute Neuts (auto) (2.0-8.3) x10*3/uL Absolute Nucleated RBC (0.0-0.012) X10*3/uL Nucleated RBC % (auto) (0.0-0.2) /100WBC Sodium (135-145) mmol/L Potassium (3.3-5.1) mmol/L Chloride (96-108) mmol/L Carbon Dioxide (22-29) mmol/L Anion Gap (12-20) BUN (9-16) mg/dL Creatinine (0.5-1.4) mg/dL Estim Creat Clear Calc Estimated GFR Random Glucose (60-115) mg/dL Calcium (8.4-10.2) mg/dL Troponin I High Sens (<3.5-35.0) ng/L B-Natriuretic Peptide (<100) pg/mL Influenza Type A (PCR) NEGATIVE (Negative) Influenza Type B (PCR) NEGATIVE (Negative) RSV RNA Qual (PCR) NEGATIVE (Negative) SARS-CoV-2 RNA (RT-PCR) NEGATIVE (Negative) Imaging Data Chest x-ray: Radiologist's impression: FINDINGS: Aside from hypoinflated lungs, no significant abnormality is noted involving the heart, lungs, mediastinum, bony thorax or soft tissues. XR/XR chest 2V IMPRESSION: No acute intrathoracic disease Discharge Plan Discharge Clinical Impression: Acute bronchospasm Patient Disposition: Home, Self-Care Instructions: Bronchospasm (ED) Prescriptions: New albuterol sulfate 90 mcg/actuation HFA aerosol inhaler 2 puff inhalation Q6H PRN (Reason: shortness of breath or wheezing) Qty: 8.5 0RF No Action oxycodone-acetaminophen [Percocet] 5-325 mg tablet 1 tab PO Q6H PRN (Reason: pain) Qty: 20 0RF amoxicillin-pot clavulanate 875-125 mg tablet 1 tab PO BID Qty: 20 0RF ketorolac 10 mg tablet 10 mg PO Q6H PRN (Reason: pain) 5 Days Qty: 20 0RF Rx Instructions: patient received Toradol in the emergency room. carvedilol 3.125 mg tablet 3.125 mg PO BID 30 Days Qty: 60 3RF Rx Instructions: must administer with a meal/food furosemide 40 mg tablet 40 mg PO DAILY 30 Days Qty: 30 3RF lisinopril 2.5 mg tablet 2.5 mg PO DAILY 30 Days Qty: 30 3RF insulin glargine U-300 conc 300 unit/mL (3 mL) insulin pen See Rx Instructions subcut BEDTIME 0RF Rx Instructions: subcut bedtime; insulin lispro [Humalog KwikPen Insulin] 100 unit/mL insulin pen 10 unit subcut TID 0RF (DME) FreeStyle Lite Strips Strip See Rx Instructions .ROUTE .MEDSUPPLY Qty: 100 12RF Rx Instructions: As directed- test blood sugar 3 times a day (DME) lancets [FreeStyle Lancets] 28 gauge misc See Rx Instructions .ROUTE .MEDSUPPLY Qty: 100 12RF Rx Instructions: As directed-test blood sugar 3 times a day (DME) blood-glucose meter [FreeStyle [place]] Kit See Rx Instructions .Route Qty: 1 0RF Rx Instructions: As directed amoxicillin-pot clavulanate [Augmentin] 875-125 mg tablet 1 tab PO BID 7 Days Qty: 14 0RF Referrals: Antonio Ames MD [Primary Care Provider] - 3 days
[2021-12-15 19:29] LABS: MANUAL DIFF FLAG NO
[2021-12-15 19:32] LABS: Basophils Percent Auto 0.4 % (0-2); Eosinophils Absolute Auto 0.2 X10*3/uL (0.0-0.4); Eosinophils Percent Auto 2.1 % (0-4); Hematocrit 42.4 % (42.0-52.0); Hemoglobin 13.7 g/dl (14.0-18.0); Imm Gran Abs Auto 0.08 X10*3/uL (0.00-0.03); Imm Gran Pct Auto 0.7 % (0.0-0.4); Lymphocytes Absolute Auto 1.8 X10*3/uL (1.2-4.9); Lymphocytes Percent Auto 16.6 % (20-40); Mean Corpuscular HGB Conc 32.3 g/dl (31.0-36.0); Mean Corpuscular Hemoglobin 27.9 pg (27.0-33.0); Mean Corpuscular Volume 86.4 fL (80.0-98.0); Mean Platelet Volume 10.7 fL (9.4-12.4); Monocytes Absolute Auto 0.8 X10*3/uL (0.1-1.2); Monocytes Percent Auto 7.4 % (2-11); Neutrophils Absolute Auto 7.9 x10*3/uL (2.0-8.3); Neutrophils Percent Auto 72.8 % (45-73); Platelet Count 294 X10*3/uL (160-400); Red Blood Count 4.91 X10*6/uL (4.60-5.80); Red Cell Distribution Width 11.6 % (11.0-16.0); White Blood Count 10.9 X10*3/uL (4.8-10.8)
[2021-12-15 19:48] LABS: Anion Gap 12 (12-20); Blood Urea Nitrogen 11 mg/dL (9-16); Calcium 9.2 mg/dL (8.4-10.2); Carbon Dioxide 26 mmol/L (22-29); Chloride 101 mmol/L (96-108); Creatinine Clr Calc Pharmacy 196.5; Estimated Glomerular Filt Rate > 60; Glucose Random 235 mg/dL (60-115); Potassium 4.3 mmol/L (3.3-5.1); Sodium 135 mmol/L (135-145)
[2021-12-15] MEDS: Albuterol Sulfate 90 MCG 8 GM INHALER 4 PUFF INHALE (20:16)
[2021-12-15 20:18] LABS: B Type Natriuretic Peptide < 10 pg/mL (<100); Troponin-I High Sensitivity 4.9 ng/L (<3.5-35.0)
[2021-12-15 21:37] VITALS: BP 106/66; PULSE 101; RESP 18; TEMP 37.1; O2SAT 95
[2021-12-15 22:47] LABS: Influenza A PCR NEGATIVE (Negative); Influenza B PCR NEGATIVE (Negative); Resp Syncy Virus RNA Qual PCR NEGATIVE (Negative); SARS COV2 PCR INHOUSE NEGATIVE (Negative)
[2021-12-15 23:20] LABS: Glucose, Whole Blood 178 mg/dL (60-115)
== END 2021-12-15 23:19 | disposition home or self-care (01) ==
PROVIDERS: Emergency Provider Emergency Medicine; PCP Internal Medicine
DX: J98.01 Acute bronchospasm (principal); R06.02 Shortness of breath; Z20.822 Contact with and (suspected) exposure to COVID-19; E11.9 Type 2 diabetes mellitus without complications; Z79.4 Long term (current) use of insulin
CPT/HCPCS: 0241U; 36415; 71046; 80048; 82947; 83880; 84484; 85025; 93005; 99284

== ENCOUNTER 2022-03-11 04:17 | Emergency (ER) | payer OTHER, SELFPAY ==
[2022-03-11] VITALS (9 sets, daily range): BP systolic 100–144; BP diastolic 58–88; PULSE 85–114; RESP 15–20; TEMP 36.6–37.1; O2SAT 91–95; BMI 55.5
[2022-03-11 04:30] LABS: Glucose, Whole Blood 241 mg/dL (60-115)
--- NOTE | 2022-03-11 05:06 | ED_ITS ---
HPI - General Adult General Chief complaint: General Medical Stated complaint: anxiety attack Time Seen by Provider: 03/11/22 05:04 Source: patient Limitations: altered mental status (Drowsiness/intoxicated) History of Present Illness HPI narrative: This is a 31-year-old male who has history of type 2 diabetes, morbid obesity. The patient had taken an edible at home, which supposedly he had not done before. The patient developed anxiety and then upon arrival to the emergency department had nausea and did vomit. Patient is feeling somewhat better now. Denies any chest pain or shortness of breath. Denies abdominal pain. He does still have some nausea. Per EMS the patient had eaten half of a 400 mg THC Brownie. Patient reportedly had not consumed an edible before. Patient did not vomit at home per his mother. Related Data Home Medications Medication Instructions Recorded Confirmed insulin glargine U-300 conc 300 See Rx Instructions subcut BEDTIME 06/12/21 06/12/21 unit/mL (3 mL) subcutaneous pen insulin lispro 100 unit/mL 10 unit subcut TID 06/12/21 06/12/21 subcutaneous pen (Humalog KwikPen (U-100) Insulin) Previous Rx's Medication Instructions Recorded carvedilol 3.125 mg tablet 3.125 mg PO BID 30 days #60 tabs 11/01/20 furosemide 40 mg tablet 40 mg PO DAILY 30 days #30 tabs 11/01/20 lisinopril 2.5 mg tablet 2.5 mg PO DAILY 30 days #30 tabs 11/01/20 amoxicillin 875 mg-potassium 1 tab PO BID 7 days #14 tabs 06/12/21 clavulanate 125 mg tablet (Augmentin) blood sugar diagnostic (FreeStyle #100 ea 06/12/21 Lite Strips) blood-glucose meter (FreeStyle #1 ea 06/12/21 Nunda kit) lancets 28 gauge (FreeStyle #100 ea 06/12/21 Lancets) amoxicillin 875 mg-potassium 1 tab PO BID #20 tabs 11/14/21 clavulanate 125 mg tablet oxycodone-acetaminophen 5 mg-325 1 tab PO Q6H PRN pain #20 tabs 11/14/21 mg tablet (Percocet) ketorolac 10 mg tablet 10 mg PO Q6H PRN pain 5 days #20 11/22/21 tabs albuterol sulfate 90 mcg/actuation 2 puff inhalation Q6H PRN 12/15/21 aerosol inhaler shortness of breath or wheezing #8.5 grams Allergies Allergy/AdvReac Type Severity Reaction Status Date / Time morphine AdvReac Unknown projectile Verified 03/11/22 04:27 vomiting Review of Systems Review of Systems: Yes all other systems are reviewed and are negative Constitutional: Constitutional: Reports as per HPI and Denies fever(s) Eyes: Eyes: Reports as per HPI and Reports no additional eye complaints ENT: Reports system reviewed and no additional complaints, except as documented, Reports as per HPI, Denies nasal congestion, Denies nasal discharge and Denies sore throat Cardiovascular: Cardiovascular: Reports as per HPI, Denies chest pain and Denies dyspnea Respiratory: Respiratory: Reports as per HPI, Denies cough and Denies dyspnea Gastrointestinal: Gastrointestinal: Reports as per HPI, Denies abdominal pain, Denies diarrhea, Reports nausea and Reports vomiting Genitourinary: Genitourinary: Reports as per HPI, Denies hematuria, Denies dysuria and Denies urinary frequency Musculoskeletal: Musculoskeletal: Reports no additional musculoskeletal complaints and Denies numbness Integumentary/Breasts: Skin/Breast: Reports as per HPI and Denies rash Neurologic: Reports as per HPI, Denies focal weakness and Denies numbness Psychiatric: Psychiatric: Reports no additional psychiatric complaints and Reports as per HPI Endocrine: Endocrine: Reports no additional endocrine complaints and Reports as per HPI Hematologic/Lymphatic: Hematologic/Lymphatic: Reports no additional hematologic/lymphatic complaints, Reports as per HPI and Reports other (No peripheral edema) [facility] Past Medical History Medical History Congestive heart failure (CHF) Diabetes mellitus Hypertriglyceridemia Morbid obesity with BMI of 50.0-59.9, adult Non-alcoholic fatty liver disease Surgical History History of ankle surgery (~06/29/12) Hx of excision of mass (~03/30/18) Family History Family History Mother IBS (irritable bowel syndrome) Father No problems noted. Social History Social History Alcohol intake: current Alcohol intake frequency: 0-2 drinks per day Patient Tobacco Use Status: Never used Tobacco Smoked in Last 30 Days: No Use of substances other than those prescribed or required for medical reasons: Yes Substance Use Type: Marijuana Last Used Substance: Just Prior to Admission Any prior treatment program specific to substance use: No Advance Directives: No Physical Exam ED Vital Signs: Vital Signs - 24 hr 03/11/22 04:23 03/11/22 04:53 03/11/22 05:23 Temperature 98.7 F Pulse Rate 98 108 H 104 H Respiratory Rate 20 20 20 Blood Pressure 129/72 110/77 126/82 Pulse Oximetry 92 94 94 Oxygen Delivery Method Nasal Cannula Nasal Cannula Nasal Cannula Oxygen Flow Rate 4 4 03/11/22 05:48 Temperature Pulse Rate 103 H Respiratory Rate 20 Blood Pressure 134/58 L Pulse Oximetry 93 Oxygen Delivery Method Room Air Oxygen Flow Rate BMI result Body Mass Index 55.5 Const Other: Patient very drowsy, sleeping son are slightly. Patient had initially appeared dysphoric, then had vomiting General: no acute distress Orientation/consciousness: patient oriented x3 HENMT Head: Yes normal to inspection General nose exam: Normal external nose present Mouth: moist mucous membranes Throat: Yes posterior oropharynx normal, Yes tonsils normal and Yes uvula midline Eyes Eyelids: Yes eyelids normal Conjunctivae: conjunctivae normal Pupils: Equal, round and reactive pupils present Neck Neck: Yes supple Resp Effort & Inspection: normal respiratory effort Auscultation: clear to auscultation bilaterally Cardio Rate: regular rate Rhythm: regular rhythm Heart sounds: S1 normal heart sound present, S2 normal heart sound present, no gallops, no murmurs and no rubs GI Inspection: No distended Palpation (GI): Soft to palpation and nontender Auscultation: normal bowel sounds Skin General skin exam: other (Warm and dry) Neuro General: patient oriented x3 and CN's II-XI intact bilaterally Cranial nerves: Yes Equal, round and reactive pupils present Extrem General: Yes no pedal edema Psych Affect: normal affect Attitude: cooperative Medical Decision Making [facility] Narrative Medical decision making narrative: Patient with morbid obesity, type 2 diabetes, felt very dysphoric after eating a cannabis edible, then developed nausea and vomiting here times 1 episode, brought up somewhat digested food. Patient subsequently fell asleep. Pulse oximetry is low but given the patient's somnolence and his obesity, this is not surprising. Patient likely has degree of Pickwickian syndrome, also sleep apnea. Lab Data Labs: Lab Results 03/11/22 Range/Units 04:25 POC Glucose 241 H (60-115) mg/dL Discharge Plan Discharge Clinical Impression: Vomiting, Cannabis intoxication Patient Disposition: Home, Self-Care Instructions: Acute Nausea and Vomiting (ED), Anxiety (ED) Additional Instructions: Avoid cannabis products. Continue current medications. Return for any new or worsened symptoms. Follow up with your primary care physician. Prescriptions: No Action oxycodone-acetaminophen [Percocet] 5-325 mg tablet 1 tab PO Q6H PRN (Reason: pain) Qty: 20 0RF amoxicillin-pot clavulanate 875-125 mg tablet 1 tab PO BID Qty: 20 0RF albuterol sulfate 90 mcg/actuation HFA aerosol inhaler 2 puff inhalation Q6H PRN (Reason: shortness of breath or wheezing) Qty: 8.5 0RF ketorolac 10 mg tablet 10 mg PO Q6H PRN (Reason: pain) 5 Days Qty: 20 0RF Rx Instructions: patient received Toradol in the emergency room. carvedilol 3.125 mg tablet 3.125 mg PO BID 30 Days Qty: 60 3RF Rx Instructions: must administer with a meal/food furosemide 40 mg tablet 40 mg PO DAILY 30 Days Qty: 30 3RF lisinopril 2.5 mg tablet 2.5 mg PO DAILY 30 Days Qty: 30 3RF insulin glargine U-300 conc 300 unit/mL (3 mL) insulin pen See Rx Instructions subcut BEDTIME Rx Instructions: subcut bedtime; insulin lispro [Humalog KwikPen Insulin] 100 unit/mL insulin pen 10 unit subcut TID (DME) FreeStyle Lite Strips Strip See Rx Instructions .ROUTE .MEDSUPPLY Qty: 100 12RF Rx Instructions: As directed- test blood sugar 3 times a day (DME) lancets [FreeStyle Lancets] 28 gauge misc See Rx Instructions .ROUTE .MEDSUPPLY Qty: 100 12RF Rx Instructions: As directed-test blood sugar 3 times a day (DME) blood-glucose meter [FreeStyle Nunda] Kit See Rx Instructions .Route Qty: 1 0RF Rx Instructions: As directed amoxicillin-pot clavulanate [Augmentin] 875-125 mg tablet 1 tab PO BID 7 Days Qty: 14 0RF
[2022-03-11] MEDS: Ondansetron ODT 4 MG TAB.RAPDIS TRANSLINGU (05:23)
--- NOTE | 2022-03-11 05:53 | PC.NURSE ---
Shortly after arrival to ED, pt vomited approximately 500ml into emesis bag & floor. Pt was apologetic regarding vomiting. Pt admits to consuming approximately 1/3 of an 'edible' with marijuana in it. Pt has never consumed an edible before. Pt was diaphoretic upon arrival. Hx of CHF, Diabetes, Obesity. Pt is sleepy and occasionally snoring. EMS placed the patient on oxygen at 2LPM via nasal cannula. Pt does not use oxygen at home at baseline. On 2LPM oxygen, patient's pulse oximeter reads 88-92%. On 4LPM oxygen, patient's pulse oximeter reads 93+%. Zofran given as ordered for nausea. Spoke with regarding obtaining any labs, however advises to monitor without need for labs to be drawn at this time. Will continue to monitor.
== END 2022-03-11 16:50 | disposition home or self-care (01) ==
PROVIDERS: Emergency Provider Emergency Medicine
DX: F12.920 Cannabis use, unspecified with intoxication, uncomplicated (principal); R11.10 Vomiting, unspecified; F41.9 Anxiety disorder, unspecified; E11.9 Type 2 diabetes mellitus without complications; E66.01 Morbid (severe) obesity due to excess calories; Z68.43 Body mass index [BMI] 50.0-59.9, adult
CPT/HCPCS: 82947; 99283; 99284

== ENCOUNTER → 2022-10-21 15:04 | Outpatient (REF) | payer OTHER, SELFPAY ==
--- NOTE | 2022-10-21 15:08 | CA_ITS ---
Transthoracic Echocardiogram Patient (Last, First, Middle): Timbo Cifuentes J Gender: Male Date of : 1990 Age: 32 Procedure Date: 10/21/2022 Procedure Type: Transthoracic Echocardiogram Location: OP Height: 180.34 cm Weight: 169.65 kg BSA: 2.75 m2 Heart Rate: 95 bpm BP: 120 / 80 mmHg Furniture Duster: DAMIR Referring MD: Karly WETZEL Symptoms: I50.9 - Heart failure, unspecified Study Quality: Fair ECG Rhythm: Sinus Conclusions: - The left ventricular systolic function is mildly decreased. The calculated ejection fraction is 49% by biplane method. - No obvious valvular pathology seen on this study. Findings Left Ventricle Normal left ventricular cavity size. The left ventricular systolic function is mildly decreased. The calculated ejection fraction is 49% by biplane method. There is mild global hypokinesis. Diastolic function is normal for age. There is mild septal asymmetric hypertrophy. Right Ventricle Normal right ventricular cavity size. There is mildly decreased right ventricular systolic function. Atria Both atria are normal in size. Aortic Valve There is a normal trileaflet aortic valve. There is no aortic valve stenosis. There is no aortic valve regurgitation. Mitral Valve The mitral valve appears normal. There is no mitral valve regurgitation. There is no mitral valve stenosis. Pulmonic Valve The pulmonic valve is likely normal. Tricuspid Valve There is no tricuspid valve regurgitation. Tricuspid regurgitation envelope is inadequate for calculation of right ventricular systolic pressure. Great Vessels The asc aorta is normal in size. Venous The inferior vena cava is mildly dilated and collapses greater than 50% with inspiration. Pericardium/Pleural There is no evidence of pericardial effusion. Prior Study Comparison No prior study available for comparison. Recommendations, Care & Conclusions No obvious valvular pathology seen on this study. Measurements 2D Linear Measurements IVSd: 1.27 0.6-0.9/0.6-1.0 cm LVIDd: 5.09 3.9-5.3/4.2-5.9 cm LVIDd Index: 1.85 2.4-3.2/2.2-3.1 cm/m2 LVIDs: 3.93 2.0-3.6 cm LVPWd: 1.00 0.7-1.1 cm LA Diam: 3.30 2.7-3.8/3.0-4.0 cm LAIDs Index: 1.20 1.5-2.3 cm/m2 LV Mass: 277.15 67-162/88-224 g LV Mass Index: 100.78 43-95/49-115 g/m2 LVOT Diam: 2.30 3.0+(-)1.3 cm 2D Systolic Function EF 4C: 49.30 >55% EF 2C: 47.90 >55% EF BiP: 49.30 >55% Mitral Valve MV Pk E: 0.68 MV PK A: 0.86 MV Decel Time: 223.00 E/A: 0.80 E'Lateral: 9.14 E'Medial: 10.90 E/E' Med: 6.20 E/E' Lat: 7.40 PHT: 65.00 MVA PHT: 3.38 Decel [place]: 3.03 Aortic Valve AoV Pk Jonathan: 1.13 AoV Mn Jonathan: 0.81 AoV VTI: 0.18 AoV Pk Grad: 5.00 Aov Mn Grad: 3.00 SHANTANU Cont.VTI: 4.38 LVOT LVOT Pk Jonathan: 1.06 LVOT Mn Jonathan: 0.80 LVOT VTI: 0.19 LVOT Pk Grad: 4.00 LVOT Mn Grad: 3.00 LVOT Diam: 2.30 LVOT Area: 4.15 Diastolic Function MV Pk E: 0.68 MV Pk A: 0.86 E/A: 0.80 E'Medial: 10.90 E/E' Med: 6.20 E' Laterial: 9.14 E/E' Lat: 7.40 Right Ventricle TAPSE (mm): 14.10 TVS' Jonathan: 15.00 Tricuspid Valve RA Press: 8.00 Great Vessels Aorta Sinus of Valsalva: 3.90 2.0-3.5 cm Ao Asc: 3.00 2.1-3.4 cm Pulmonary Valve PV Pk Jonathan: 1.06 Peak PV Grad: 4.00 Updated in Other Vendor System with Status of Final Richardson Levine MD electronically signed on 10/22/2022 10:26:34 AM with status of Final
--- NOTE | 2022-10-21 15:09 | ECG_ITS ---
Test Reason : CHEST PAIN Blood Pressure : / mmHG Vent. Rate : 105 BPM Atrial Rate : 105 BPM P-R Int : 140 ms QRS Dur : 078 ms QT Int : 342 ms P-R-T Axes : 054 014 037 degrees QTc Int : 452 ms Sinus tachycardia Otherwise normal ECG When compared with ECG of 15-DEC-2021 19:29, No significant change was found Referred By: Karly Benjamin Electronically Signed By:NICK TORRES
== END ==
LOC: HO.SL 15:04
PROVIDERS: Visit Provider Nurse Practitioner Family
DX: G47.33 Obstructive sleep apnea (adult) (pediatric) (principal); R07.9 Chest pain, unspecified; I50.9 Heart failure, unspecified; R06.83 Snoring
CPT/HCPCS: 93005; 93306; 95806

== ENCOUNTER 2022-11-12 08:56 | Inpatient (IN) | payer OTHER, SELFPAY ==
[2022-11-12] VITALS (9 sets, daily range): BP systolic 107–158; BP diastolic 56–95; PULSE 87–105; RESP 12–24; TEMP 36.6–37.1; O2SAT 85–98; BMI 53.1; BMI 53.0
--- NOTE | ~2022-11-12 | CT_ITS ---
EXAMINATION: CT ANGIOGRAM OF THE CHEST WITH CONTRAST (CT PULMONARY ANGIOGRAM FOR PE) CLINICAL INFORMATION: Hypoxia. PE? Pneumonia? COMPARISON: Chest radiograph from 11/12/2022. Abdomen CT from 12/16/2019. TECHNIQUE: Prior to contrast administration, noncontrast localization images were obtained. Subsequently, multidetector volumetric imaging was performed from the thoracic inlet to below the diaphragms following the administration of 71 mL Omnipaque 350 intravenous contrast. No contrast reaction reported. Sagittal, coronal, and MIP oblique sagittal reformatted images were obtained on the CT workstation, uploaded to PACS, and reviewed. This CT examination was performed using dose optimization techniques as appropriate, variously including the following: *Automated exposure control *Adjustment of mA and/or kV according to patient size (this includes techniques or standardized protocols for targeted exams where dose is matched to indication/reason for exam; i.e. extremities or head) *Use of iterative reconstruction technique DLP: Total exam dose-length product 567 mGy-cm FINDINGS: LUNGS AND PLEURA: Trachea and central airways are widely patent and normal in caliber. Minimal hazy opacity of atelectasis in dependent aspect of each lung. No focal consolidation. No pulmonary edema, pneumothorax or pleural effusion. QUALITY OF STUDY/CONTRAST BOLUS: Satisfactory. PULMONARY ARTERIES: The pulmonary arteries are normal in size. Streak artifact from dense contrast within the superior vena cava partially interferes with evaluation of the arterial branch to the anterior right upper lobe. No embolic filling defects are identified within the main, lobar or segmental vessels. OTHER CARDIOVASCULAR: The heart size is normal. No pericardial effusion. The thoracic aorta is normal; no aneurysm or dissection. MEDIASTINUM/LOWER NECK: No mediastinal mass. The esophagus and visualized portion of the thyroid gland are normal. LYMPHATICS: No pathologic sized axillary, hilar or mediastinal lymph nodes. UPPER ABDOMEN: No contrast reflux into the inferior vena cava. Large body habitus. The spleen measures up to 16.8 cm maximum dimension (16.4 cm on 12/16/2019). There is chronic hepatomegaly and diffuse hepatic steatosis. OSSEOUS STRUCTURES: No acute or suspicious osseous abnormality. CT/CT angio chest PE protocol IMPRESSION: * No acute findings. No evidence of pulmonary embolism, pneumonia or pleural effusion. * Large body habitus with evidence of hepatic steatosis and chronic hepatosplenomegaly.
--- NOTE | ~2022-11-12 | XR_ITS ---
EXAMINATION: XR CHEST CLINICAL INFORMATION: Chest pain COMPARISON: 12/15/2021 TECHNIQUE: 2 views of the chest were obtained. FINDINGS: Reactive leads overlie the chest. The lungs are well expanded. There is no focal consolidation, edema, or effusion. No pneumothorax. The cardiomediastinal silhouette is within normal limits. No acute osseous abnormality. XR/XR chest 2V IMPRESSION: Clear lungs.
--- NOTE | 2022-11-12 08:59 | ECG_ITS ---
Test Reason : cp Blood Pressure : / mmHG Vent. Rate : 108 BPM Atrial Rate : 108 BPM P-R Int : 144 ms QRS Dur : 084 ms QT Int : 334 ms P-R-T Axes : 043 002 031 degrees QTc Int : 447 ms Sinus tachycardia Otherwise normal ECG When compared with ECG of 21-OCT-2022 15:13, No significant change was found Referred By: Generic ED Physician Electronically Signed By:NICK TORRES
--- NOTE | 2022-11-12 09:30 | ED_ITS ---
HPI - Chest Pain General Chief Complaint: Chest Pain Stated Complaint: chest pains/SOB Time Seen by Provider: 11/12/22 09:12 Source: patient Mode of arrival: ambulatory Limitations: no limitations History of Present Illness HPI narrative: 32-year-old male with past medical history of severe obesity, CHF, diabetes, nonalcoholic fatty liver, presents to ED for chest pain since last night described as sharp stabbing and some pleurisy. Patient denies any URI symptoms. Patient denies any leg swelling, calf pain, coughing up blood. Patient denies any recent long travel or recent surgery. Patient is not on estrogen hormone Related Data Home Medications Medication Instructions Recorded Confirmed insulin glargine U-300 conc 300 See Rx Instructions subcut BEDTIME 06/12/21 06/12/21 unit/mL (3 mL) subcutaneous pen Previous Rx's Medication Instructions Recorded blood sugar diagnostic (FreeStyle #100 ea 06/12/21 Lite Strips) blood-glucose meter (FreeStyle #1 ea 06/12/21 [place] kit) lancets 28 gauge (FreeStyle #100 ea 06/12/21 Lancets) albuterol sulfate 90 mcg/actuation 2 puff inhalation Q6H PRN 12/15/21 aerosol inhaler shortness of breath or wheezing #8.5 grams blood-glucose meter #1 ea 09/01/22 carvedilol 3.125 mg tablet 3.125 mg PO BID 30 days #60 tabs 10/22/22 furosemide 40 mg tablet 40 mg PO DAILY 30 days #30 tabs 10/22/22 insulin lispro 100 unit/mL 10 unit (0.1 mL) subcut TID #15 mL 10/22/22 subcutaneous pen (Humalog KwikPen (U-100) Insulin) lisinopril 2.5 mg tablet 2.5 mg PO DAILY 30 days #30 tabs 10/22/22 Allergies Allergy/AdvReac Type Severity Reaction Status Date / Time morphine AdvReac Unknown projectile Verified 11/12/22 09:02 vomiting Review of Systems Review of Systems: pleuritic chest pain Yes all other systems are reviewed and are negative [facility] Past Medical History Medical History (Updated 11/12/22 @ 15:59 by RUPESH Ivy) Chest pain Congestive heart failure (CHF) Diabetes mellitus Hypertriglyceridemia Left ventricular ejection fraction of 40-49% Morbid obesity with BMI of 50.0-59.9, adult Non-alcoholic fatty liver disease Obstructive sleep apnea syndrome, mild Snoring Surgical History History of ankle surgery (~06/29/12) Hx of excision of mass (~03/30/18) Family History Family History (Updated 10/05/22 @ 13:13 by DAMARI Ewing) Mother IBS (irritable bowel syndrome) Father Heart problem Sister Crohn disease Paternal Grandfather Cancer Social History Social History (Updated 10/05/22 @ 13:00 by HELEN French) Housing: Apartment Alcohol intake: former Patient Tobacco Use Status: Never used Tobacco Smoked in Last 30 Days: No e-Cigarette/Vaping Use: Former Use Second Hand Smoke Exposure: No Use of substances other than those prescribed or required for medical reasons: No Substance Use Type: Marijuana Advance Directives: No service: No Current occupational status: unemployed Cognitive needs: No Hearing needs: No Vision needs: Yes Physical Exam Vital Signs: Vital Signs: Last Vital Signs Temp 97.9 F 11/12/22 13:41 Pulse 95 11/12/22 15:39 Resp 14 11/12/22 15:39 BP 107/56 L 11/12/22 15:39 Pulse Ox 94 11/12/22 15:39 O2 Del Method Nasal Cannula 11/12/22 15:39 O2 Flow Rate 2 11/12/22 13:41 BMI result Body Mass Index 53.1 Const: General: cooperative, healthy appearing, comfortable, no acute distress, well developed, alert, awake and Physically active Orientation/consciousness: oriented to person, oriented to place and patient or iented x3 HEENT: Head: Yes normal to inspection, Yes No palpable skull fracture present, Yes normocephalic, Yes atraumatic and No abrasion Eyes: General: appearance normal, both eyes and all related structures Neck: Neck: Yes normal visual inspection, Yes full ROM, Yes no lymphadenopathy, Yes no meningeal signs, Yes trachea midline, Yes supple, No anterior neck swelling and No tender Chest: Chest palpation & inspection: normal inspection of the chest Chest/axillae images: 1. Positive for chest wall tenderness on palpation. Negative for crepitus, rash, mass, or ecchymosis. Resp: Effort & Inspection: normal respiratory effort and able to speak in complete sentences Auscultation: clear to auscultation bilaterally Cardio: Jugular venous distension: no JVD Heart sounds: S1 normal heart sound present and S2 normal heart sound present GI: Inspection: Yes normal to inspection and No abdominal wall ecchymosis Palpation (GI): Soft to palpation, not firm, nontender, no guarding and not rigid : General: No CVA tenderness and Yes no CVA tenderness Back/Spine/Pelvis: Back: no CVA tenderness, No CVA tenderness and No back tenderness Skin: General skin exam: no rashes or lesions noted and elasticity normal Neuro: General: oriented to person, oriented to place, patient oriented x3, gait normal, tone normal, moves all extremities, Normal light touch and pain sensation, no meningeal signs, no focal motor deficits, CN's II-XI intact bilaterally and normal sensation to monofilament Extrem: Other: Patient morbidly obese. Lower extremities negative for pitting edema. Negative for calf tenderness. Psych: Appearance: grossly normal, well kempt and not disheveled Course Course Course Narrative: Labs EKG chest x-ray and dimer ordered. Reevaluation(s) Reevaluation #1: Initially EKG does show sinus tach no STEMI. Patient 1st troponin negative. Patient BNP negative. Perc score 1 D-dimer negative. During evaluation patient became hypoxic on room air O2 sat 86% t. Lungs re-examine negative for any wheezing, rales, rhonchi and sounds clear. No leg swelling or pitting edema. Patient placed on 2 L oxygen. SARS and VBG ordered. Patient still will be sent for chest CTA to rule out PE although D-dimer negative due to patient having moment of hypoxia. On 2 L O2 saturation is 96% Time: 10:49 Reevaluation #2: Chest CTA came back negative for PE. Patient admitted to the ED for hypoxia. Mother states notice patient shortness of breath on exertion patient placed back on oxygen. Medications Administered Discontinued Medications Generic Name Dose Route Start Last Admin Trade Name Freq PRN Reason Stop Dose Admin Albuterol/Ipratropium 3 ml 11/12/22 12:20 11/12/22 12:34 Albuterol/Iprat 2.5/0.5mg 3 Ml Ampul.Neb INHALE 11/12/22 12:21 3 ml ONCE ONE Administration Sodium Chloride 1,000 mls @ 999 mls/hr 11/12/22 10:14 11/12/22 11:41 Ns IV 11/12/22 11:14 Infused .Q1H1M STA Infusion Iohexol 100 ml 11/12/22 11:50 11/12/22 11:51 Iohexol 350 Mg/Ml 100 Ml Infus..Btl IV 11/12/22 11:51 71 ml ONCE ONE Administration Medical Decision Making Medical Decision Making [facility] Narrative: 32-year-old male presents to ED for left-sided chest pain with pleurisy since last night. Patient also states chest pain and shortness of breath on inspiration. Patient denies any URI symptoms. Patient denies any recent leg swelling or calf pain. Patient became hypoxic during ED visit although BNP, troponin, and D-dimer came back negative. EKG negative STEMI. Patient was sent for chest CT to treat came back negative for PE pneumonia or fluid overload. Patient admitted for hypoxia. Differential Diagnosis Differential Diagnoses: The differential diagnosis associated with the presentation includes (Pneumonia, pulmonary embolus, heart failure, myocardial infarction,) Admission/Observation Consideration of admission/observation: Escalation of care including admission/observation considered Patient admitted Consult Healthcare Provider Management of the patient was discussed with: Hospitalist Lab Data [facility] Lab Attestation statement: I reviewed the patient's lab results. 11/12/22 09:36 11/12/22 09:36 Labs: Lab Results 11/12/22 11/12/22 11/12/22 Range/Units 09:36 09:36 09:36 WBC 8.5 (4.8-10.8) X10*3/uL RBC 5.19 (4.60-5.80) X10*6/uL Hgb 14.5 (14.0-18.0) g/dl Hct 44.8 (42.0-52.0) % MCV 86.3 (80.0-98.0) fL MCH 27.9 (27.0-33.0) pg MCHC 32.4 (31.0-36.0) g/dl RDW 11.3 (11.0-16.0) % Plt Count 289 (160-400) X10*3/uL MPV 10.7 (9.4-12.4) fL Immature Gran % (Auto) 0.4 (0.0-0.4) % Neut % (Auto) 60.0 (45-73) % Lymph % (Auto) 28.7 (20-40) % [place] % (Auto) 8.0 (2-11) % Eos % (Auto) 2.2 (0-4) % Baso % (Auto) 0.7 (0-2) % Lymph # (Auto) 2.4 (1.2-4.9) X10*3/uL [place] # (Auto) 0.7 (0.1-1.2) X10*3/uL Eos # (Auto) 0.2 (0.0-0.4) X10*3/uL Baso # (Auto) 0.1 (0.0-0.2) X10*3/uL Abs Immat Gran (auto) 0.03 (0.00-0.03) X10*3/uL Absolute Neuts (auto) 5.1 (2.0-8.3) x10*3/uL Absolute Nucleated RBC 0.000 (0.0-0.012) X10*3/uL Nucleated RBC % (auto) 0.0 (0.0-0.2) /100WBC PT 12.2 (10.0-13.1) SEC INR 1.1 (0.9-1.1) APTT 39.7 H (26.0-36.4) SEC D-Dimer High Sensitivty < 150 NG/ML VBG pH (7.32-7.43) VBG pCO2 mmHg VBG pO2 mmHg VBG HCO3 (22-26) mmol/L VBG O2 Saturation % VBG Base Excess Sodium 134 L (135-145) mmol/L Potassium 4.5 (3.3-5.1) mmol/L Chloride 99 (96-108) mmol/L Carbon Dioxide 27 (22-29) mmol/L Anion Gap 13 (12-20) BUN 16 (9-16) mg/dL Creatinine 1.22 (0.5-1.4) mg/dL Estim Creat Clear Calc 140.5 Estimated GFR > 60 POC Glucose (60-115) mg/dL Random Glucose 465 H* (60-115) mg/dL Calcium 9.1 (8.4-10.2) mg/dL Total Bilirubin 0.7 (0.0-1.0) mg/dL AST 38 H (5-37) U/L ALT 132 H (0-40) U/L Alkaline Phosphatase 99 (39-117) U/L Troponin I High Sens (<3.5-35.0) ng/L B-Natriuretic Peptide (<100) pg/mL Total Protein 6.5 (6.5-8.0) g/dL Albumin 4.0 (3.5-5.0) g/dL Acetone, Qual Negative (Negative) Influenza Type A (PCR) (Negative) Influenza Type B (PCR) (Negative) RSV RNA Qual (PCR) (Negative) SARS-CoV-2 RNA (RT-PCR) (Negative) 11/12/22 11/12/22 11/12/22 Range/Units 09:36 09:36 10:58 WBC (4.8-10.8) X10*3/uL RBC (4.60-5.80) X10*6/uL Hgb (14.0-18.0) g/dl Hct (42.0-52.0) % MCV (80.0-98.0) fL MCH (27.0-33.0) pg MCHC (31.0-36.0) g/dl RDW (11.0-16.0) % Plt Count (160-400) X10*3/uL MPV (9.4-12.4) fL Immature Gran % (Auto) (0.0-0.4) % Neut % (Auto) (45-73) % Lymph % (Auto) (20-40) % [place] % (Auto) (2-11) % Eos % (Auto) (0-4) % Baso % (Auto) (0-2) % Lymph # (Auto) (1.2-4.9) X10*3/uL [place] # (Auto) (0.1-1.2) X10*3/uL Eos # (Auto) (0.0-0.4) X10*3/uL Baso # (Auto) (0.0-0.2) X10*3/uL Abs Immat Gran (auto) (0.00-0.03) X10*3/uL Absolute Neuts (auto) (2.0-8.3) x10*3/uL Absolute Nucleated RBC (0.0-0.012) X10*3/uL Nucleated RBC % (auto) (0.0-0.2) /100WBC PT (10.0-13.1) SEC INR (0.9-1.1) APTT (26.0-36.4) SEC D-Dimer High Sensitivty NG/ML VBG pH (7.32-7.43) VBG pCO2 mmHg VBG pO2 mmHg VBG HCO3 (22-26) mmol/L VBG O2 Saturation % VBG Base Excess Sodium (135-145) mmol/L Potassium (3.3-5.1) mmol/L Chloride (96-108) mmol/L Carbon Dioxide (22-29) mmol/L Anion Gap (12-20) BUN (9-16) mg/dL Creatinine (0.5-1.4) mg/dL Estim Creat Clear Calc Estimated GFR POC Glucose (60-115) mg/dL Random Glucose (60-115) mg/dL Calcium (8.4-10.2) mg/dL Total Bilirubin (0.0-1.0) mg/dL AST (5-37) U/L ALT (0-40) U/L Alkaline Phosphatase (39-117) U/L Troponin I High Sens < 2.7 (<3.5-35.0) ng/L B-Natriuretic Peptide < 10 (<100) pg/mL Total Protein (6.5-8.0) g/dL Albumin (3.5-5.0) g/dL Acetone, Qual (Negative) Influenza Type A (PCR) NEGATIVE (Negative) Influenza Type B (PCR) NEGATIVE (Negative) RSV RNA Qual (PCR) NEGATIVE (Negative) SARS-CoV-2 RNA (RT-PCR) NEGATIVE (Negative) 11/12/22 11/12/22 11/12/22 Range/Units 11:08 12:54 14:47 WBC (4.8-10.8) X10*3/uL RBC (4.60-5.80) X10*6/uL Hgb (14.0-18.0) g/dl Hct (42.0-52.0) % MCV (80.0-98.0) fL MCH (27.0-33.0) pg MCHC (31.0-36.0) g/dl RDW (11.0-16.0) % Plt Count (160-400) X10*3/uL MPV (9.4-12.4) fL Immature Gran % (Auto) (0.0-0.4) % Neut % (Auto) (45-73) % Lymph % (Auto) (20-40) % [place] % (Auto) (2-11) % Eos % (Auto) (0-4) % Baso % (Auto) (0-2) % Lymph # (Auto) (1.2-4.9) X10*3/uL [place] # (Auto) (0.1-1.2) X10*3/uL Eos # (Auto) (0.0-0.4) X10*3/uL Baso # (Auto) (0.0-0.2) X10*3/uL Abs Immat Gran (auto) (0.00-0.03) X10*3/uL Absolute Neuts (auto) (2.0-8.3) x10*3/uL Absolute Nucleated RBC (0.0-0.012) X10*3/uL Nucleated RBC % (auto) (0.0-0.2) /100WBC PT (10.0-13.1) SEC INR (0.9-1.1) APTT (26.0-36.4) SEC D-Dimer High Sensitivty NG/ML VBG pH 7.36 (7.32-7.43) VBG pCO2 50 mmHg VBG pO2 60 mmHg VBG HCO3 29 H (22-26) mmol/L VBG O2 Saturation 87.0 % VBG Base Excess TNP Sodium (135-145) mmol/L Potassium (3.3-5.1) mmol/L Chloride (96-108) mmol/L Carbon Dioxide (22-29) mmol/L Anion Gap (12-20) BUN (9-16) mg/dL Creatinine (0.5-1.4) mg/dL Estim Creat Clear Calc Estimated GFR POC Glucose 339 H (60-115) mg/dL Random Glucose (60-115) mg/dL Calcium (8.4-10.2) mg/dL Total Bilirubin (0.0-1.0) mg/dL AST (5-37) U/L ALT (0-40) U/L Alkaline Phosphatase (39-117) U/L Troponin I High Sens < 2.7 (<3.5-35.0) ng/L B-Natriuretic Peptide (<100) pg/mL Total Protein (6.5-8.0) g/dL Albumin (3.5-5.0) g/dL Acetone, Qual (Negative) Influenza Type A (PCR) (Negative) Influenza Type B (PCR) (Negative) RSV RNA Qual (PCR) (Negative) SARS-CoV-2 RNA (RT-PCR) (Negative) Independent Interpretation I performed an independent interpretation of an: EKG (Sinus tachycardia. Ventricular rate 108. Peer interval 144. QRS 84. QTC 447. Negative STEMI) Critical Care Time Critical Care Time Critical Care Time: Yes Total Critical Care Time: 60 Attestation: Patient became hypoxic. Patient placed on oxygen. Chest CT negative PE. Patient given albuterol inhaler. Patient admitted to the hospital. Discharge Plan Discharge Clinical Impression: Hypoxia Patient Disposition: Admitted As Inpatient
[2022-11-12 09:42] LABS: MANUAL DIFF FLAG NO
[2022-11-12 09:44] LABS: Basophils Absolute Auto 0.1 X10*3/uL (0.0-0.2); Basophils Percent Auto 0.7 % (0-2); Eosinophils Absolute Auto 0.2 X10*3/uL (0.0-0.4); Eosinophils Percent Auto 2.2 % (0-4); Hematocrit 44.8 % (42.0-52.0); Hemoglobin 14.5 g/dl (14.0-18.0); Imm Gran Abs Auto 0.03 X10*3/uL (0.00-0.03); Imm Gran Pct Auto 0.4 % (0.0-0.4); Lymphocytes Absolute Auto 2.4 X10*3/uL (1.2-4.9); Lymphocytes Percent Auto 28.7 % (20-40); Mean Corpuscular HGB Conc 32.4 g/dl (31.0-36.0); Mean Corpuscular Hemoglobin 27.9 pg (27.0-33.0); Mean Corpuscular Volume 86.3 fL (80.0-98.0); Mean Platelet Volume 10.7 fL (9.4-12.4); Monocytes Absolute Auto 0.7 X10*3/uL (0.1-1.2); Neutrophils Absolute Auto 5.1 x10*3/uL (2.0-8.3); Platelet Count 289 X10*3/uL (160-400); Red Blood Count 5.19 X10*6/uL (4.60-5.80); Red Cell Distribution Width 11.3 % (11.0-16.0); White Blood Count 8.5 X10*3/uL (4.8-10.8)
[2022-11-12 10:04] LABS: B Type Natriuretic Peptide < 10 pg/mL (<100)
[2022-11-12 10:08] LABS: Alanine Aminotransferase 132 U/L (0-40); Alkaline Phosphatase 99 U/L (39-117); Anion Gap 13 (12-20); Aspartate Amino Transferase 38 U/L (5-37); Bilirubin Total 0.7 mg/dL (0.0-1.0); Blood Urea Nitrogen 16 mg/dL (9-16); Calcium 9.1 mg/dL (8.4-10.2); Carbon Dioxide 27 mmol/L (22-29); Chloride 99 mmol/L (96-108); Creatinine Clr Calc Pharmacy 140.5; Estimated Glomerular Filt Rate > 60; Glucose Random 465 mg/dL (60-115); Potassium 4.5 mmol/L (3.3-5.1); Sodium 134 mmol/L (135-145); Total Protein 6.5 g/dL (6.5-8.0)
[2022-11-12 10:11] LABS: INTERNATIONAL NORM RATIO 1.1 (0.9-1.1); Prothrombin Time 12.2 SEC (10.0-13.1)
[2022-11-12 10:12] LABS: Troponin-I High Sensitivity < 2.7 ng/L (<3.5-35.0)
[2022-11-12 10:14] LABS: Partial Thromboplastin Time 39.7 SEC (26.0-36.4)
[2022-11-12 10:22] LABS: D Dimer High Sensitivity < 150 NG/ML
[2022-11-12 10:23] LABS: Acetone, serum QL Negative (Negative)
[2022-11-12] MEDS: 0.9 % Sodium Chloride 1,000 ML 999 ML IV (10:37)
--- NOTE | 2022-11-12 10:49 | PC.NURSE ---
pt desat to 86% room air, pt tachypnia, reports some SOB. lungs clear. childhood hx of asthma. Graeme GODDARD aware. placed on 2L NC
[2022-11-12 11:18] LABS: VBG HCO3 29 mmol/L (22-26); VBG pCO2 50 mmHg; VBG pH 7.36 (7.32-7.43); VBG pO2 60 mmHg
[2022-11-12 11:18] LABS: Venous Blood Gas Refer to POC result
[2022-11-12 11:50] LABS: Influenza A PCR NEGATIVE (Negative); Influenza B PCR NEGATIVE (Negative); Resp Syncy Virus RNA Qual PCR NEGATIVE (Negative); SARS COV2 PCR INHOUSE NEGATIVE (Negative)
[2022-11-12] MEDS: iohexoL 350 MG/ML 100 ML INFUS..BTL IV (11:51)
[2022-11-12] MEDS: Albuterol/Iprat 2.5/0.5MG 3 ML AMPUL.NEB INHALE (12:34)
[2022-11-12 13:23] LABS: Troponin-I High Sensitivity < 2.7 ng/L (<3.5-35.0)
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
[2022-11-12 14:50] LABS: Glucose, Whole Blood 339 mg/dL (60-115)
--- NOTE | 2022-11-12 16:19 | PHA.MEDREC ---
Pharmacy Consult ? Medication Reconciliation Patient states he was prescribed insulin Lantus and Novolog about 2 years ago but it was never started. Pharmacy has completed the medication reconciliation.
--- NOTE | 2022-11-12 16:20 | PC.NURSE ---
pt [facility] [place] Blanche Infante
--- NOTE | 2022-11-12 16:55 | PM.EVENT ---
Event Note Date of Service: 11/13/22 Event Note: Patient seen and examined with APC. Patient has intermittent short of breath and question atypical chest tightness which is more as stabbing and pleuritic -? Seems like going on and off from couple of years In addition he says short of breath in the night years to wake up and also he can move 3 pillows from couple of years in the night. ? Also seems to be a compliance issue because patient does not seems to follow out patiently Currently his chest pain is improved, denies any shortness of breath , Sat dropped to 86 range earlier as per ED documentation Lab imaging, EKG reviewed. EKG seems fine, mild tachycardia, troponin negative, CTA negative for pulmonary embolism. CBC fine, LFTs slightly elevated question chronic, hyperglycemia. Physical exam and assessment and plan coordinated in APCs note, Agree with the plan in addition: ? A typical chest pain, and intermittent shortness of breath: Last echo EF was around 49% and some global dysfunction Currently chest pain seems to be improved, troponin negative Will check with Cardiology in the morning ? Question also component of sleep apnea/may need car Pulmonary input also. Patient is morbidly obese: Strongly encouraged Time Spent With Patient Time: Total time managing care of this patient today ____ minutes.
[2022-11-12] MEDS: Aspirin Enteric Coated 81 MG TABLET.DR 162 MG PO (18:02)
[2022-11-12] MEDS: Enoxaparin Sodium 40 MG/0.4 ML SYRINGE SUBCUT (18:02)
[2022-11-12 18:08] LABS: Estimated Average Glucose 189 mg/dL; Hemoglobin A1c % 8.2 %
--- NOTE | 2022-11-12 19:30 | PC.NURSE ---
report given to [facility] RN. pt to go to bed [address] [facility]
[2022-11-12 20:10] LABS: Glucose, Whole Blood 341 mg/dL (60-115)
[2022-11-12] MEDS: carvediloL 3.125 MG TABLET PO (20:33)
[2022-11-12] MEDS: Insulin Lispro 100 UNIT/ML 3 ML VIAL SUBCUT (20:33)
[2022-11-13 03:49] VITALS: BP 136/67; PULSE 94; RESP 20; TEMP 36.4; O2SAT 94
[2022-11-13] MEDS: Omeprazole 20 MG CAPSULE.DR PO (05:51)
[2022-11-13 07:17] LABS: Glucose, Whole Blood 217 mg/dL (60-115)
[2022-11-13] MEDS: Aspirin 81 MG TAB.CHEW PO (07:52)
[2022-11-13] MEDS: lisinopriL 2.5 MG TABLET PO (07:54)
[2022-11-13] MEDS: carvediloL 3.125 MG TABLET PO (07:57)
[2022-11-13] MEDS: Furosemide 40 MG TABLET PO (07:57)
[2022-11-13] MEDS: 0.9 % Sodium Chloride Flush 3 ML SYRINGE IVFLUSH (07:58)
[2022-11-13] MEDS: Insulin Lispro 100 UNIT/ML 3 ML VIAL SUBCUT ×2 (07:58→11:21)
[2022-11-13 08:00] VITALS: BP 116/62; PULSE 78; RESP 20; TEMP 36.3; O2SAT 98
--- NOTE | 2022-11-13 09:49 | MHC.CM.PN ---
CM ATTEMPTED TO SEE PT WHO IS SLEEPING AND DOES NOT WAKE DESPITE CM ATTEMPTS CM WILL REVISIT LATER TODAY
--- NOTE | 2022-11-13 10:03 | PM.CNCAR ---
History of Present Illness History of Present Illness Date of Service: 11/13/22 Chief complaint: chest pains/SOB Narrative: This is a cardiology consultation regarding chest pain. He was seen in clinic in the past but no active follow-up. He has had a prior hospitalization at [facility] for cardiac issues-heart failure,. At that time, was apparently told that his heart function was in the 40s. Then also diagnosed with diabetes and put on insulin. Morbidly obese. Chronically short of breath. Current admission is because of chest pain that seems pleuritic in nature. Every time he takes a breath it hurts chest. That led to hospitalization. He is being treated for hypoxic respiratory failure. The ER home O2 sats was 86% room air. Then put on oxygen. He was negative for viral panel. CTA was also unremarkable. Subsequently, admitted with a diagnosis of acute hypoxic respiratory failure and chest pain. Currently, he states he is feeling better. However, very sleepy during evaluation. Review of Systems Review of Systems: Yes all other systems are reviewed and are negative Constitutional: Constitutional: Reports as per HPI and Reports no additional constitutional complaints Eyes: Eyes: Reports as per HPI and Denies no additional eye complaints ENT: Denies system reviewed and no additional complaints, except as documented and Reports as per HPI Cardiovascular: Cardiovascular: Reports as per HPI, Reports no additional cardiovascular complaints, Denies acrocyanosis, Denies cool extremities, Denies chest pain, Denies leg edema, Denies lightheadedness, Denies palpitations and Denies dyspnea Respiratory: Respiratory: Reports as per HPI, Denies no additional respiratory complaints and Denies dyspnea Gastrointestinal: Gastrointestinal: Reports as per HPI and Denies no additional gastrointestinal complaints Genitourinary: Genitourinary: Reports no additional male genitourinary complaints and Reports as per HPI Musculoskeletal: Musculoskeletal: Reports no additional musculoskeletal complaints and Reports as per HPI Integumentary/Breasts: Skin/Breast: Reports system reviewed and no additional complaints, except as docu Neurologic: Reports system reviewed and no additional complaints, except as documented and Reports as per HPI Psychiatric: Psychiatric: Reports no additional psychiatric complaints and Reports as per HPI Endocrine: Endocrine: Reports no additional endocrine complaints, Reports as per HPI and Denies palpitations Hematologic/Lymphatic: Hematologic/Lymphatic: Reports no additional hematologic/lymphatic complaints and Reports as per HPI Allergic/Immunologic: Allergic/Immunologic: Reports no additional allergic/immunologic complaints and Reports as per HPI PMFSH Past Medical History Medical History Chest pain Congestive heart failure (CHF) Diabetes mellitus Hypertriglyceridemia Left ventricular ejection fraction of 40-49% Morbid obesity with BMI of 50.0-59.9, adult Non-alcoholic fatty liver disease Obstructive sleep apnea syndrome, mild Snoring Family History Family History Mother IBS (irritable bowel syndrome) Father Heart problem Sister Crohn disease Paternal Grandfather Cancer Surgical History Surgical History History of ankle surgery (~06/29/12) Hx of excision of mass (~03/30/18) Social History Social History Household Members: None Housing: Apartment Do you presently have visiting nurse or other home services: Yes ([employer] to 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) Alcohol intake: former Patient Tobacco Use Status: Never used Tobacco Smoked in Last 30 Days: No e-Cigarette/Vaping Use: Former Use Second Hand Smoke Exposure: No Use of substances other than those prescribed or required for medical reasons: No Substance Use Type: Marijuana Currently Displaying Signs/Symptoms of Drug Intoxication Withdrawal: No Have you been hit, kicked, punched, or otherwise hurt by someone within the past year? If so, by whom?: No Do you feel safe in your current relationship?: No Current Relationship Is there a partner from a previous relationship who is making you feel unsafe now?: No Are you made to feel afraid or neglected: No Advance Directives: No Do you have thoughts of harming others: None Do you have a plan to hurt others: No Plan Recently lost weight without trying: No How much weight loss: Not applicable Eating poorly because of decreased appetite: No Nutrition screen score: 0 Nutrition Risks: No Nutritional Risk Poor oral hygiene: No service: No Current occupational status: unemployed Cognitive needs: No Hearing needs: No Vision needs: Yes Meds Allergies Allergy/AdvReac Type Severity Reaction Status Date / Time morphine AdvReac Unknown projectile Verified 11/12/22 09:02 vomiting Active Medications: Current Medications Acetaminophen (Acetaminophen 325 Mg Tablet) 650 mg PO Q6H PRN PRN Reason: Pain, Mild (Pain Scale 1-3) Albuterol Sulfate (Albuterol Sulfate 90 Mcg 8 Gm Inhaler) 2 puff INHALE Q6H PRN PRN Reason: shortness of breath or wheezing Aspirin (Aspirin Enteric Coated 81 Mg Tablet.) 162 mg PO DAILY [facility] Last Admin: 11/13/22 08:40 Dose: Not Given Aspirin (Aspirin 81 Mg Tab.Chew) 81 mg PO DAILY [facility] Last Admin: 11/13/22 07:52 Dose: 81 mg Carvedilol (Carvedilol 3.125 Mg Tablet) 3.125 mg PO BID [facility]; Protocol Last Admin: 11/13/22 07:57 Dose: 3.125 mg Docusate Sodium (Docusate Sodium 100 Mg Capsule) 100 mg PO DAILY PRN PRN Reason: Constipation Enoxaparin Sodium (Enoxaparin Sodium 40 Mg/0.4 Ml Syringe) 40 mg SUBCUT Q24H [facility] Last Admin: 11/12/22 18:02 Dose: 40 mg Furosemide (Furosemide 40 Mg Tablet) 40 mg PO DAILY [facility]; Protocol Last Admin: 11/13/22 07:57 Dose: 40 mg Glucose (Glucose Gel 15 Gm Gel..Gram.) 15 gm PO Q15M PRN; Protocol PRN Reason: per Hypoglycemia Standing Ord. Dextrose (D10) 250 mls @ 750 mls/hr IV Q15M PRN; Protocol PRN Reason: per Hypoglycemia Standing Ord. Insulin Human Lispro (Insulin Lispro 100 Unit/Ml 3 Ml Vial) 0 unit SUBCUT QIDACHS [facility]; Protocol Last Admin: 11/13/22 07:58 Dose: 4 unit Lisinopril (Lisinopril 2.5 Mg Tablet) 2.5 mg PO DAILY [facility]; Protocol Last Admin: 11/13/22 07:54 Dose: 2.5 mg Omeprazole (Omeprazole 20 Mg Capsule.) 20 mg PO BID@0630,1630 [facility] Last Admin: 11/13/22 05:51 Dose: 20 mg Ondansetron HCl (Ondansetron Hcl 4 Mg/2 Ml Vial) 4 mg IVPUSH Q8H PRN PRN Reason: Nausea and Vomiting Pharmacy Consult (Consult Rx Perform Med Rec) 1 each MISCELLANE ONCE PRN PRN Reason: Consult order Sodium Chloride (0.9 % Sodium Chloride Flush 3 Ml Syringe) 3 ml IVFLUSH QSHIFT [facility] Last Admin: 11/13/22 07:58 Dose: 3 ml Physical Exam Vital Signs: Vital Signs: Last Vital Signs Temp 97.3 F 11/13/22 08:00 Pulse 78 11/13/22 08:00 Resp 20 11/13/22 08:00 BP 116/62 11/13/22 08:00 Pulse Ox 98 11/13/22 08:00 O2 Del Method Room Air 11/13/22 08:00 O2 Flow Rate 3 11/13/22 03:49 BMI result Body Mass Index 53.0 Const: General: comfortable and no acute distress Orientation/consciousness: patient oriented x3 HEENT: Other: Unremarkable Head: Yes normal to inspection Neck: Neck: Yes normal visual inspection Chest: Chest palpation & inspection: normal inspection of the chest Resp: Auscultation: clear to auscultation bilaterally Cardio: Palpation: normal PMI Heart sounds: S1 normal heart sound present, S2 normal heart sound present, no gallops, no murmurs and no rubs GI: Palpation (GI): Soft to palpation Back/Spine/Pelvis: Other: unremarkable Skin: General skin exam: no rashes or lesions noted Neuro: General: patient oriented x3 Extrem: General: Yes normal to inspection Psych: Mental Status: mental status grossly normal Objective Labs and Meds 11/12/22 09:36 11/12/22 09:36 Lab results: Laboratory Results - last 24 hr 11/12/22 11/12/22 11/12/22 09:36 09:36 09:36 PT 12.2 INR 1.1 APTT 39.7 H D-Dimer High Sensitivty < 150 VBG pH VBG pCO2 VBG pO2 VBG HCO3 VBG O2 Saturation VBG Base Excess Sodium 134 L Potassium 4.5 Chloride 99 Carbon Dioxide 27 Anion Gap 13 BUN 16 Creatinine 1.22 Estim Creat Clear Calc 140.5 Estimated GFR > 60 POC Glucose Random Glucose 465 H* Estimat Average Glucose Hemoglobin A1c % Calcium 9.1 Total Bilirubin 0.7 AST 38 H ALT 132 H Alkaline Phosphatase 99 Troponin I High Sens < 2.7 B-Natriuretic Peptide Total Protein 6.5 Albumin 4.0 Acetone, Qual Negative Influenza Type A (PCR) Influenza Type B (PCR) RSV RNA Qual (PCR) SARS-CoV-2 RNA (RT-PCR) 11/12/22 11/12/2211/12/23 09:36 09:36 10:58 PT INR APTT D-Dimer High Sensitivty VBG pH VBG pCO2 VBG pO2 VBG HCO3 VBG O2 Saturation VBG Base Excess Sodium Potassium Chloride Carbon Dioxide Anion Gap BUN Creatinine Estim Creat Clear Calc Estimated GFR POC Glucose Random Glucose Estimat Average Glucose 189 Hemoglobin A1c % 8.2 Calcium Total Bilirubin AST ALT Alkaline Phosphatase Troponin I High Sens B-Natriuretic Peptide < 10 Total Protein Albumin Acetone, Qual Influenza Type A (PCR) NEGATIVE Influenza Type B (PCR) NEGATIVE RSV RNA Qual (PCR) NEGATIVE SARS-CoV-2 RNA (RT-PCR) NEGATIVE 11/12/22 11/12/22 11/12/22 11:08 12:54 14:47 PT INR APTT D-Dimer High Sensitivty VBG pH 7.36 VBG pCO2 50 VBG pO2 60 VBG HCO3 29 H VBG O2 Saturation 87.0 VBG Base Excess TNP Sodium Potassium Chloride Carbon Dioxide Anion Gap BUN Creatinine Estim Creat Clear Calc Estimated GFR POC Glucose 339 H Random Glucose Estimat Average Glucose Hemoglobin A1c % Calcium Total Bilirubin AST ALT Alkaline Phosphatase Troponin I High Sens < 2.7 B-Natriuretic Peptide Total Protein Albumin Acetone, Qual Influenza Type A (PCR) Influenza Type B (PCR) RSV RNA Qual (PCR) SARS-CoV-2 RNA (RT-PCR) 11/12/22 11/13/22 20:06 07:12 PT INR APTT D-Dimer High Sensitivty VBG pH VBG pCO2 VBG pO2 VBG HCO3 VBG O2 Saturation VBG Base Excess Sodium Potassium Chloride Carbon Dioxide Anion Gap BUN Creatinine Estim Creat Clear Calc Estimated GFR POC Glucose 341 H 217 H Random Glucose Estimat Average Glucose Hemoglobin A1c % Calcium Total Bilirubin AST ALT Alkaline Phosphatase Troponin I High Sens B-Natriuretic Peptide Total Protein Albumin Acetone, Qual Influenza Type A (PCR) Influenza Type B (PCR) RSV RNA Qual (PCR) SARS-CoV-2 RNA (RT-PCR) ECG Interpretation: EKG with sinus tachycardia, 108/Min; no significant ST-T changes and otherwise unremarkable. Normal LA and corrected QT. Imaging Radiologist's impression: Impressions Chest X-Ray 11/12/22 09:50 IMPRESSION: Clear lungs. Chest CTA 11/12/22 11:40 IMPRESSION: * No acute findings. No evidence of pulmonary embolism, pneumonia or pleural effusion. * Large body habitus with evidence of hepatic steatosis and chronic hepatosplenomegaly. Assessment and Plan (1) Chest pain: Status: Acute (2) Hypoxia: Status: Acute (3) Morbid obesity due to excess calories: Status: Acute (4) Type 2 diabetes mellitus with unspecified complications: Status: Acute Plan EKG without any acute changes. High sensitivity troponins are less than 2.7 both sides. Well within normal limits. Prior troponins from last year in the year before also within normal limits. Echocardiogram with LVEF of 49%. No valvular issues. Stress test ordered in the past through clinic but never completed. Chest pain the current admission seems non anginal and rather pleuritic. In fact he is also tender when I touch his chest. No evidence of acute coronary syndrome. With regard to cardiac testing, based on risk factors, can pursue further workup as outpatient if patient willing. Stress disorder in 2020 but not followed through. Time Spent With Patient Time: Total time managing care of this patient today 60 minutes. This includes time spent in review of chart, laboratory data, imaging studies, review of telemetry, counseling patient, discussion with hospitalist, documentation, coordination of care. Procedures Date of Service Date of Service: 11/13/22
[2022-11-13 11:06] VITALS: BP 131/71; PULSE 77; RESP 18; TEMP 36.4; O2SAT 93
[2022-11-13 11:14] LABS: Glucose, Whole Blood 274 mg/dL (60-115)
--- NOTE | 2022-11-13 12:14 | P.CDIM_ITS ---
PROVIDER RESPONSE TEXT: To clarify, the appropriate diagnosis supported by the clinical indicators: Mild intermittent: mild intermittent QUERY TEXT: PHYSICIAN'S DOCUMENTATION REQUEST Date of Query: 11/13/2022 08:44 AM EDT Patient Name: Timbo Cifuentes Admit Date: 11/12/2022 Dear aDmi Mar, A review of the medical record indicates additional documentation may be needed. Please review below and update the documentation accordingly. The diagnosis of asthma was documented in the record on 11/12/22. Additional clinical indicators from the record include: Per H&P: Asthma Patient with childhood asthma, has not regularly used albuterol inhaler for a long time Lungs CTA, no wheezing noted on exam Continue home inhaler p.r.n. Based on the above, please clarify in the Progress Notes further specificity regarding the type and a cuity of the asthma: Mild intermittent Please specify if with or without acute exacerbation or status asthmaticus Mild persistent Please specify if with or without acute exacerbation or status asthmaticus Moderate persistent Please specify if with or without acute exacerbation or status asthmaticus Severe persistent Please specify if with or without acute exacerbation or status asthmaticus Exercise induced Please specify if with or without acute exacerbation or status asthmaticus Chronic obstructive asthma and indicate if with acute lower respiratory infection Please specify if with or without acute exacerbation or status asthmaticus Asthma with underlying COPD and indicate if with acute lower respiratory infection Please specify if with or without acute exacerbation or status asthmaticus Other (explain) Clinically unable to determine (explain) Thank you, Kristie Brewster RN Use of terms such as suspected, likely, concern for, or probable (associated with a specific diagnosi s that is being evaluated, monitored, or treated as if it exists) are acceptable and can be coded in the inpatient se tting, when documented at the time of discharge. Please use your independent medical judgment in providing your response. THIS QUERY IS PART OF THE PERMANENT MEDICAL RECORD
[2022-11-13 14:07] VITALS: PULSE 101; PULSE 109; O2SAT 93; O2SAT 95
--- NOTE | 2022-11-13 14:28 | P.CONPL_ITS ---
History of Present Illness History of Present Illness Consult date: 11/13/22 Chief complaint: Nocturnal hypoxemia Narrative: 32-year-old gentleman with underlying morbid obesity, systolic congestive heart failure, diabetes mellitus, recent diagnosis of mild obstructive sleep apnea with significant nocturnal hypoxemia admitted on 11/12/2022 with coronary syndrome rule out and pulmonary evaluation was requested secondary to chronic dyspnea and nocturnal hypoxemia. Patient has had ambulatory supplemental oxygen evaluation and does not require supplemental oxygen to maintain normal oximetry with exertion. Review of Systems Constitutional: Constitutional: Reports daytime sleepiness, Denies excessive sweating, Reports fatigue, Denies fever(s), Reports lethargy, Denies malaise, D enies night sweats, Reports snoring and Denies weight loss Eyes: Eyes: Denies blurry vision and Denies itchy eyes ENT: Denies nasal congestion, Denies post nasal drip, Denies sinus pain, Denies sinus pressure and Denies other ( Thrush) Cardiovascular: Cardiovascular: Denies chest pain, Denies pedal edema, Denies dyspnea, Reports dyspnea on exertion, Denies orthopnea and Denies paroxysmal nocturnal dyspnea Respiratory: Respiratory: Denies cough, Denies hemoptysis, Denies excessive phlegm production, Denies dyspnea, Reports dyspnea on exertion, Reports snoring and Denies wheezing Gastrointestinal: Gastrointestinal: Denies abdominal pain and Denies heartburn Musculoskeletal: Musculoskeletal: Denies myalgias, Denies arthralgias and Denies joint swelling Integumentary/Breasts: Skin/Breast: Denies rash Neurologic: Denies memory loss and Denies seizure-like activity Psychiatric: Psychiatric: Denies abnormal sleep pattern, Denies anxiety and Denies memory loss Endocrine: Endocrine: Denies excessive sweating, Reports fatigue and Denies heat intolerance Hematologic/Lymphatic: Hematologic/Lymphatic: Denies easy bruising Allergic/Immunologic: Allergic/Immunologic: Denies itchy eyes, Denies seasonal rhinorrhea and Denies wheezing PMFSH Past Medical History Medical History Chest pain Congestive heart failure (CHF) Diabetes mellitus Hypertriglyceridemia Left ventricular ejection fraction of 40-49% Morbid obesity with BMI of 50.0-59.9, adult Non-alcoholic fatty liver disease Obstructive sleep apnea syndrome, mild Snoring Family History Family History Mother IBS (irritable bowel syndrome) Father Heart problem Sister Crohn disease Paternal Grandfather Cancer Surgical History Surgical History History of ankle surgery (~06/29/12) Hx of excision of mass (~03/30/18) Social History Social History Household Members: None Housing: Apartment Do you presently have visiting nurse or other home services: Yes ([employer] to 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) Alcohol intake: former Patient Tobacco Use Status: Never used Tobacco e-Cigarette/Vaping Use: Former Use Second Hand Smoke Exposure: No Substance Use Type: Marijuana service: No Current occupational status: unemployed Cognitive needs: No Hearing needs: No Vision needs: Yes Meds Allergies Allergy/AdvReac Type Severity Reaction Status Date / Time morphine AdvReac Unknown projectile Verified 11/12/22 09:02 vomiting Active Medications: Current Medications Acetaminophen (Acetaminophen 325 Mg Tablet) 650 mg PO Q6H PRN PRN Reason: Pain, Mild (Pain Scale 1-3) Albuterol Sulfate (Albuterol Sulfate 90 Mcg 8 Gm Inhaler) 2 puff INHALE Q6H PRN PRN Reason: shortness of breath or wheezing Aspirin (Aspirin Enteric Coated 81 Mg Tablet.Dr) 162 mg PO DAILY [facility] Last Admin: 11/13/22 08:40 Dose: Not Given Aspirin (Aspirin 81 Mg Tab.Chew) 81 mg PO DAILY [facility] Last Admin: 11/13/22 07:52 Dose: 81 mg Carvedilol (Carvedilol 3.125 Mg Tablet) 3.125 mg PO BID [facility]; Protocol Last Admin: 11/13/22 07:57 Dose: 3.125 mg Docusate Sodium (Docusate Sodium 100 Mg Capsule) 100 mg PO DAILY PRN PRN Reason: Constipation Enoxaparin Sodium (Enoxaparin Sodium 40 Mg/0.4 Ml Syringe) 40 mg SUBCUT Q24H [facility] Last Admin: 11/12/22 18:02 Dose: 40 mg Furosemide (Furosemide 40 Mg Tablet) 40 mg PO DAILY [facility]; Protocol Last Admin: 11/13/22 07:57 Dose: 40 mg Glucose (Glucose Gel 15 Gm Gel..Gram.) 15 gm PO Q15M PRN; Protocol PRN Reason: per Hypoglycemia Standing Ord. Dextrose (D10) 250 mls @ 750 mls/hr IV Q15M PRN; Protocol PRN Reason: per Hypoglycemia Standing Ord. Insulin Human Lispro (Insulin Lispro 100 Unit/Ml 3 Ml Vial) 0 unit SUBCUT QIDACHS [facility]; Protocol Last Admin: 11/13/22 11:21 Dose: 6 unit Lisinopril (Lisinopril 2.5 Mg Tablet) 2.5 mg PO DAILY [facility]; Protocol Last Admin: 11/13/22 07:54 Dose: 2.5 mg Metformin HCl (Metformin Hcl 500 Mg Tablet) 500 mg PO DAILY [facility] Omeprazole (Omeprazole 20 Mg Capsule.Dr) 20 mg PO BID@0630,1630 [facility] Last Admin: 11/13/22 05:51 Dose: 20 mg Ondansetron HCl (Ondansetron Hcl 4 Mg/2 Ml Vial) 4 mg IVPUSH Q8H PRN PRN Reason: Nausea and Vomiting Pharmacy Consult (Consult Rx Perform Med Rec) 1 each MISCELLANE ONCE PRN PRN Reason: Consult order Sodium Chloride (0.9 % Sodium Chloride Flush 3 Ml Syringe) 3 ml IVFLUSH QSHIFT [facility] Last Admin: 11/13/22 07:58 Dose: 3 ml Physical Exam Vital Signs: Vital Signs: Last Vital Signs Temp 97.6 F 11/13/22 11:06 Pulse 77 11/13/22 11:06 Resp 18 11/13/22 11:06 BP 131/71 11/13/22 11:06 Pulse Ox 93 11/13/22 11:06 O2 Del Method Room Air 11/13/22 11:06 O2 Flow Rate 3 11/13/22 03:49 BMI result Body Mass Index 53.0 Const: General: no acute distress and alert Nutritional Appearance: obese HEENT: Head: Yes atraumatic Eyes: General: appearance normal, both eyes and all related structures Sclerae: sclerae normal EOM: EOMs intact bilaterally Neck: Neck: Yes supple Lymphatic: no lymphadenopathy noted Resp: Effort & Inspection: normal respiratory effort and no use of accessory muscles Auscultation: clear to auscultation bilaterally Cardio: Rate: regular rate Rhythm: regular rhythm Heart sounds: no gallops, no murmurs and no rubs GI: Palpation (GI): Soft to palpation and Other GI palpation findings present ( nontender) Skin: General skin exam: other ( warm) Rashes: no rashes Extrem: General: No clubbing, No cyanosis and Yes edema ( Trace bilateral) Results Laboratory Findings 11/12/22 09:36 11/12/22 09:36 ABG, PT/INR, D-dimer: PT/INR, D-dimer PT 12.2 SEC (10.0-13.1) 11/12/22 09:36 INR 1.1 (0.9-1.1) 11/12/22 09:36 Abnormal lab findings: Abnormal Labs 11/12/22 11/12/22 11/12/22 09:36 09:36 11:08 APTT 39.7 H VBG HCO3 29 H Sodium 134 L POC Glucose Random Glucose 465 H* AST 38 H ALT 132 H 11/12/22 11/12/22 11/13/22 14:47 20:06 07:12 APTT VBG HCO3 Sodium POC Glucose 339 H 341 H 217 H Random Glucose AST ALT 11/13/22 11:08 APTT VBG HCO3 Sodium POC Glucose 274 H Random Glucose AST ALT Assessment and Plan (1) Obstructive sleep apnea syndrome, mild: Status: Acute (2) Nocturnal hypoxemia: Status: Acute Plan Impression: 32-year-old gentleman with underlying morbid obesity with newly diagnosed obstructive sleep apnea and underlying systolic heart failure admitted for coronary syndrome ruled out. Patient recently diagnosed with sleep apnea, however has note started on CPAP yet. His sleep study significant for nocturnal hypoxemia. During this hospitalization patient had an ambulatory oxygen evaluation and at this time he does not require supplemental oxygen to maintain normal oximetry with exertion. Recommendation: outpatient follow-up with the provider who ordered sleep study to start on CPAP therapy and assess for residual overnight hypoxia while on CPAP therapy. Time Spent With Patient Time: Total time managing care of this patient today ____ minutes. Procedures Date of Service Date of Service: 11/13/22
--- NOTE | 2022-11-13 14:43 | MHC.CM.PN ---
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
[2022-11-13 16:00] VITALS: BP 121/63; PULSE 92; RESP 20; TEMP 36.7; O2SAT 94
== END 2022-11-13 19:00 | disposition home or self-care (01) | DRG 154 ==
LOC: HO.ED 15:59 → HO.EDOVER 16:56 → HO.IMC 19:10
PROVIDERS: Physician Assistant; Admitting Provider Student in an Organized Health Care Education/Training Program; Emergency Provider Emergency Medicine; PCP Nurse Practitioner Family; Visit Provider Internal Medicine
DX: G47.33 Obstructive sleep apnea (adult) (pediatric) (principal); J96.01 Acute respiratory failure with hypoxia; I50.22 Chronic systolic (congestive) heart failure; Z68.43 Body mass index [BMI] 50.0-59.9, adult; K76.0 Fatty (change of) liver, not elsewhere classified; E66.01 Morbid (severe) obesity due to excess calories; E11.65 Type 2 diabetes mellitus with hyperglycemia; J45.40 Moderate persistent asthma, uncomplicated; Z20.822 Contact with and (suspected) exposure to COVID-19; Z88.5 Allergy status to narcotic agent; Z79.84 Long term (current) use of oral hypoglycemic drugs; Z79.899 Other long term (current) drug therapy
CPT/HCPCS: 0241U; 36415; 71046; 71275; 80053; 82009; 82803; 82947; 83036; 83880; 84484; 85025; 85379; 85610; 85730; 93005; 94640; 99285; J1650; Q9967

== ENCOUNTER → 2022-11-23 10:51 | Outpatient (REF) | payer OTHER, SELFPAY ==
--- NOTE | 2022-11-23 13:03 | CA_ITS ---
Acquisition Time: 2022-11-23 13:19:14 Total Exercise Time: 00:06:17 Test Indications: CP, SOB Medications: SEE H Protocol: CATHERINE Max HR: 150 BPM 79% of Pred: 188 BPM Max BP: 138/074 mmHG Max Work Load: 7.4 METS Exercise stress test with exrercise 6 min 17 sec of Catherine protocol, achieving 79% MPHR, with moderate to severe sob and report of body pain with request to stop, No chest discomfort, without arrythmia, with normotensive response to exercise, without EKG changes meeting criteria for ischemia at acheived workload however accuracy to assess for ischemia is decreased due to inability to acheive 85% MPHR. In recovery his sob gradually improved back to baseline. Test reviewed with Dr Levine Referred By: Richardson Levine Overread By: LI POMPA
== END ==
LOC: HO.CARD 10:51
PROVIDERS: PCP Nurse Practitioner Family; Visit Provider Internal Medicine
DX: R07.9 Chest pain, unspecified (principal)
CPT/HCPCS: 93017

== ENCOUNTER → 2022-12-02 12:23 | Outpatient (BNVA) | payer OTHER, SELFPAY | PROVIDERS: PCP Nurse Practitioner Family; Referring Provider Nurse Practitioner Family; Visit Provider Internal Medicine | DX: I50.9 Heart failure, unspecified (principal); R94.39 Abnormal result of other cardiovascular function study; E11.8 Type 2 diabetes mellitus with unspecified complications; E66.01 Morbid (severe) obesity due to excess calories; Z68.43 Body mass index [BMI] 50.0-59.9, adult | CPT/HCPCS: 93005; 99212 ==

== ENCOUNTER 2023-02-15 16:21 | Outpatient (REF) | payer OTHER, SELFPAY ==
[2023-02-15 17:51] LABS: Hematocrit 46.3 % (42.0-52.0); Hemoglobin 14.6 g/dl (14.0-18.0); Mean Corpuscular HGB Conc 31.5 g/dl (31.0-36.0); Mean Corpuscular Hemoglobin 28.2 pg (27.0-33.0); Mean Corpuscular Volume 89.6 fL (80.0-98.0); Mean Platelet Volume 11.3 fL (9.4-12.4); Platelet Count 308 X10*3/uL (160-400); Red Blood Count 5.17 X10*6/uL (4.60-5.80); Red Cell Distribution Width 11.7 % (11.0-16.0)
[2023-02-15 18:00] LABS: Estimated Average Glucose 137 mg/dL; Hemoglobin A1c % 6.4 %
[2023-02-15 18:17] LABS: Anion Gap 11 (12-20); Blood Urea Nitrogen 13 mg/dL (9-16); Calcium 9.8 mg/dL (8.4-10.2); Carbon Dioxide 29 mmol/L (22-29); Chloride 102 mmol/L (96-108); Estimated Glomerular Filt Rate > 60; Glucose Random 239 mg/dL (60-115); Potassium 4.1 mmol/L (3.3-5.1); Sodium 138 mmol/L (135-145)
[2023-02-15 18:52] LABS: INTERNATIONAL NORM RATIO 1.1 (0.9-1.1); Prothrombin Time 12.7 SEC (10.0-13.1)
== END 2023-02-15 16:22 | disposition home or self-care (01) ==
LOC: HO.LAB 16:21
PROVIDERS: PCP Nurse Practitioner Family; Visit Provider Internal Medicine
DX: E11.65 Type 2 diabetes mellitus with hyperglycemia (principal); I25.10 Atherosclerotic heart disease of native coronary artery without angina pectoris; R94.39 Abnormal result of other cardiovascular function study
CPT/HCPCS: 36415; 80048; 83036; 85027; 85610

== ENCOUNTER 2023-03-25 12:22 | Outpatient (REF) | payer OTHER, SELFPAY ==
[2023-03-25 12:41] LABS: MANUAL DIFF FLAG NO
[2023-03-25 13:43] LABS: Basophils Absolute Auto 0.1 X10*3/uL (0.0-0.2); Basophils Percent Auto 0.5 % (0-2); Eosinophils Absolute Auto 0.3 X10*3/uL (0.0-0.4); Eosinophils Percent Auto 3.1 % (0-4); Hematocrit 43.5 % (42.0-52.0); Hemoglobin 14.3 g/dl (14.0-18.0); Imm Gran Abs Auto 0.04 X10*3/uL (0.00-0.03); Imm Gran Pct Auto 0.4 % (0.0-0.4); Lymphocytes Absolute Auto 2.9 X10*3/uL (1.2-4.9); Lymphocytes Percent Auto 31.4 % (20-40); Mean Corpuscular HGB Conc 32.9 g/dl (31.0-36.0); Mean Corpuscular Hemoglobin 28.8 pg (27.0-33.0); Mean Corpuscular Volume 87.7 fL (80.0-98.0); Mean Platelet Volume 11.8 fL (9.4-12.4); Monocytes Absolute Auto 0.5 X10*3/uL (0.1-1.2); Monocytes Percent Auto 5.8 % (2-11); Neutrophils Absolute Auto 5.4 x10*3/uL (2.0-8.3); Neutrophils Percent Auto 58.8 % (45-73); Platelet Count 313 X10*3/uL (160-400); Red Blood Count 4.96 X10*6/uL (4.60-5.80); Red Cell Distribution Width 11.5 % (11.0-16.0); White Blood Count 9.2 X10*3/uL (4.8-10.8)
[2023-03-25 13:48] LABS: INTERNATIONAL NORM RATIO 1.1 (0.9-1.1); Prothrombin Time 13.4 SEC (11.1-13.3)
[2023-03-25 14:18] LABS: Anion Gap 12 (12-20); Blood Urea Nitrogen 14 mg/dL (9-16); Calcium 9.4 mg/dL (8.4-10.2); Carbon Dioxide 26 mmol/L (22-29); Chloride 102 mmol/L (96-108); Estimated Glomerular Filt Rate > 60; Glucose Random 269 mg/dL (60-115); Potassium 4.1 mmol/L (3.3-5.1); Sodium 136 mmol/L (135-145)
== END 2023-03-25 12:23 | disposition home or self-care (01) ==
LOC: HO.LAB 12:22
PROVIDERS: PCP Nurse Practitioner Family; Visit Provider Internal Medicine
DX: R07.9 Chest pain, unspecified (principal); R94.39 Abnormal result of other cardiovascular function study
CPT/HCPCS: 36415; 80048; 85025; 85610

== ENCOUNTER → 2023-04-01 23:59 | Outpatient (BNV) | payer OTHER, SELFPAY | PROVIDERS: PCP Nurse Practitioner Family; Visit Provider Internal Medicine Cardiovascular Disease | DX: I20.8 Other forms of angina pectoris (principal); I50.20 Unspecified systolic (congestive) heart failure; R93.1 Abnormal findings on diagnostic imaging of heart and coronary circulation | CPT/HCPCS: 93458; 99152 ==

== ENCOUNTER 2023-04-13 13:36 | Outpatient (AMB) | payer OTHER, SELFPAY ==
--- NOTE | 2023-04-13 13:50 | A.OFFPC_ITS ---
Vital Signs 04/13/23 13:52 Height 5 ft 11 in Weight 376 lb 6 oz BMI 52.5 BP 126/72 Blood Pressure Location Rt brachial Position Sitting Pulse 90 Pulse Source Pulse Oximeter Pulse Oximetry (%) 93 Oxygen Delivery Method Room Air Intake Visit Reasons: 3 Month F/Up Intake Note: Patient is here to follow up on Cardio Cath, DM, CHF, Hypertriglyceridemia. Equipment Service Associate Required: No Teacher Of The Visually Impaired: Not Required per policy Accompanied by: Self / Same As Patient Allergies morphine Adverse Reaction (Unknown, Verified 04/13/23 14:12) projectile vomiting Medication List - Last Reconciled 04/13/23 by DAMARI Ewing albuterol sulfate 90 mcg/actuation 2 puffs inhalation Q6H PRN blood sugar diagnostic (FreeStyle Lite Strips) As directed- test blood sugar 3 times a day blood-glucose meter As directed carvedilol 3.125 mg PO BID 30 days dulaglutide (Trulicity) 0.75 mg (0.5 mL) subcut QWEEK furosemide 40 mg PO DAILY 30 days lancets (FreeStyle Lancets) As directed-test blood sugar 3 times a day lisinopril 2.5 mg PO DAILY 30 days Tobacco use date assessed: 04/13/23 Dental Screening Dental Screen Date: 04/13/23 Did you have a dental visit in the last 12 months?: No Did you have a dental problem in the last 6 months where you did not have access to dental care?: No Was dental information given to patient?: Patient has dentist HPI HPI Comments History of Present Illness Details This 32-year-old male patient presents today for physical exam, last seen in December. Medical history significant for congestive heart failure, diabetes type 2, nonalcoholic fatty liver disease, hypertriglyceridemia. Review of the notes and patient has been seen by cardiology stress test:he was able to exercise for 7.4 Mets on Darshan protocol.? He reached 79% of max predicted heart rate.? Had moderate to severe shortness of breath and generalized pain everywhere.? No clear-cut EKG evidence of ischemia. Given patient multiple risk factors, ongoing SOB cardiology is recommending diagnostic Cardiac cath, patient reports had it done on April 03. 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 Patient reports his glucometer broke and that he has been out of trulicity x 1 month. HGB A1c drawn in office today 7.7%. One-month supply Trulicity sent to patient's pharmacy with 6 refills. New glucometer prescription sent to patient's pharmacy. Patient follows with [facility] therapy for anxiety and depression [facility] Medical History Chest pain Congestive heart failure (CHF) Diabetes mellitus Hypertriglyceridemia Left ventricular ejection fraction of 40-49% Morbid obesity with BMI of 50.0-59.9, adult Non-alcoholic fatty liver disease Obstructive sleep apnea syndrome, mild Snoring Surgical History Hx of excision of mass (~03/30/18) History of ankle surgery (~06/29/12) Family History Mother IBS (irritable bowel syndrome) Father Heart problem Sister Crohn disease Paternal Grandfather Cancer Social History Household Members: None Housing: Apartment Do you presently have visiting nurse or other home services: Yes ([employer] to 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) Alcohol intake: former Patient Tobacco Use Status: Never used Tobacco e-Cigarette/Vaping Use: Former Use Second Hand Smoke Exposure: No Substance Use Type: Marijuana service: No Current occupational status: unemployed Cognitive needs: No Hearing needs: No Vision needs: Yes Questionnaire Thrive Questionnaire Date Thrive assessed: 10/05/22 SUDHAKAR-7 AMB Questionnaire SUDHAKAR-7 Date SUDHAKAR - 7 assessed: 01/11/23 Source: Developed by Drs. Cm Rebolledo, Juanita Izquierdo, Horace Hall and colleagues, with an educational lise from [employer]. Review of Systems Const Denies chills, Denies fatigue, Denies fever(s) and Denies poor appetite Eyes Denies no additional complaints ENT Reports Normal hearing present Card Denies chest pain, Denies syncope, Denies rapid heart rate and Denies dyspnea Resp Denies cough and Denies dyspnea GI Denies change in stool character, Denies constipation, Denies diarrhea, Denies nausea and Denies vomiting Denies dysuria, Denies urinary frequency and Denies urinary urgency Neuro Reports Normal hearing present, Denies confusion and Denies syncope Psych Denies confusion Endo Denies fatigue Physical exam (Primary Care) Vital Signs: Last Vital Signs Pulse 90 04/13/23 13:52 BP 126/72 04/13/23 13:52 Pulse Ox 93 04/13/23 13:52 Oxygen Delivery Method Room Air 04/13/23 13:52 BMI result Body Mass Index 52.5 Tobacco/Smoking Status: Tobacco use Status Tobacco use date assessed 04/13/23 04/13/23 14:00 Patient Tobacco Use Status Never used Tobacco 04/13/23 13:51 e-Cigarette/Vaping Use Former Use 04/13/23 13:51 Thrive Assessment: Date of Thrive Assessment Date Thrive assessed 10/05/22 04/13/23 13:51 Const General: No confusion Orientation/consciousness: No confusion HENMT Head: Yes normocephalic and Yes atraumatic Eyes Conjunctivae: conjunctivae normal Chest Chest palpation & inspection: normal inspection of the chest Resp Effort & Inspection: normal respiratory effort Auscultation: clear to auscultation bilaterally, no crackles, no rhonchi and no wheezes Cardio Rate: regular rate Rhythm: regular rhythm Heart sounds: S1 normal heart sound present and S2 normal heart sound present GI Inspection: Yes normal to inspection Neuro General: No confusion Cranial nerves: Yes Normal hearing present Extrem General: No edema Results AMB Hemoglobin A1c AMB Hemoglobin A1c 7.7 % Last Edit by HELEN Hannah on 04/13/23 14:30 Results Reviewed Results Reviewed: Laboratory Last Values Hgb A1c (Clinic) 7.7 % (4.0-6.0) H 04/13/23 14:29 Assessment and Plan Assessment & Plan (1) Type 2 diabetes mellitus with unspecified complications: Code(s): E11.8 - Type 2 diabetes mellitus with unspecified complications Plan: Continue on Trulicity 0.75 mg weekly. A1c 7.7%, increase likely related to patient being on Trulicity x1 month. Rx sent to patient's pharmacy for one-month supply of Trulicity with 6 refills. Patient educated to decrease the amount of carbohydrate intake such as pasta, bread, rice and potatoes are all sugar in addition to the sweet stuff. Remember that fruits are good but they also have sugar.Hemoglobin A1c goal of less than 6.5% (2) Obstructive sleep apnea syndrome, mild: Code(s): G47.33 - Obstructive sleep apnea (adult) (pediatric) Plan: Continue on albuterol p.r.n.. (3) Congestive heart failure (CHF): Code(s): I50.9 - Heart failure, unspecified Qualifiers: Heart failure chronicity: chronic Heart failure type: unspecified Qualified Code(s): I50.9 - Heart failure, unspecified Plan: Continue on carvedilol and Lasix 40 mg daily. Continue to follow with Cardiology. (4) Hypertriglyceridemia: Code(s): E78.1 - Pure hyperglyceridemia Plan: Avoid fried foods, chicken skin, eggs, butter,margarine, pastries and?? red meat. (5) Abnormal stress test: Code(s): R94.39 - Abnormal result of other cardiovascular function study Plan: Continue to follow with Cardiology. Patient is a follow-up from cardiac catheterization on 04/15/2023. Plan Follow-up in 3 months. Orders: Orders AMB Hemoglobin A1c 04/13/23 E11.8 - Type 2 diabetes mellitus with unspecified complications Medications: Refilled blood sugar diagnostic (FreeStyle Lite Strips) As directed- test blood sugar 3 times a day 100 ea 12RF E11.9 - Type 2 diabetes mellitus without complications blood-glucose meter As directed 1 ea 0RF dulaglutide (Trulicity) 0.75 mg (0.5 mL) subcut QWEEK 2 mL 6RF E11.8 - Type 2 diabetes mellitus with unspecified complications lancets (FreeStyle Lancets) As directed-test blood sugar 3 times a day 100 ea 12RF E11.9 - Type 2 diabetes mellitus without complications blood-glucose meter (FreeStyle [place] kit) As directed 1 ea 0RF Coding Level of Care Code Est Pt Level 4 (37941) Diagnoses Type 2 diabetes mellitus with unspecified complications E11.8 Obstructive sleep apnea syndrome, mild G47.33 Chronic congestive heart failure, unspecified heart failure type I50.9 Heart failure chronicity: chronic Heart failure type: unspecified Hypertriglyceridemia E78.1 Abnormal stress test R94.39
[2023-04-13 13:52] VITALS: BP 126/72; PULSE 90; O2SAT 93; BMI 52.5
== END 2023-04-13 14:38 | disposition home or self-care (01) ==
PROVIDERS: PCP Nurse Practitioner Family; Visit Provider Nurse Practitioner Family
DX: E11.8 Type 2 diabetes mellitus with unspecified complications (principal)
CPT/HCPCS: 83036; 99214

== ENCOUNTER 2023-04-15 13:35 | Outpatient (AMB) | payer OTHER, SELFPAY ==
[2023-04-15 13:37] VITALS: BP 122/72; PULSE 96; BMI 52.4
--- NOTE | 2023-04-15 13:37 | A.OFFVIS_ITS ---
Intake Vital Signs 04/15/23 13:37 Height 5 ft 11 in Weight 375 lb 10.683 oz BMI 52.4 BP 122/72 Blood Pressure Location Lt brachial Position Sitting Pulse 96 Pulse Source Pulse Oximeter Intake Visit Reasons: Follow up post cardiac cath Intake Note: f/u post cath Cash Applications Coordinator Required: No Allergies morphine Adverse Reaction (Unknown, Verified 04/15/23 13:40) projectile vomiting Medication List - Last Reconciled 04/15/23 by Halle Hanson, FLATWORK ASSEMBLER-C albuterol sulfate 90 mcg/actuation 2 puffs inhalation Q6H PRN blood sugar diagnostic (FreeStyle Lite Strips) As directed- test blood sugar 3 times a day blood-glucose meter As directed blood-glucose meter (FreeStyle Worth kit) As directed carvedilol 3.125 mg PO BID 30 days dulaglutide (Trulicity) 0.75 mg (0.5 mL) subcut QWEEK furosemide 40 mg PO DAILY 30 days lancets (FreeStyle Lancets) As directed-test blood sugar 3 times a day lisinopril 2.5 mg PO DAILY 30 days HPI Follow up post cardiac cath HPI Details Timbo is a 32-year-old male with past medical history of morbid obesity, hyperlipidemia, diabetes, mild obstructive sleep apnea, diastolic heart failure presents for follow-up after recent cardiac catheterization. Today he reports he is doing well overall. He has some shortness of breath with exertion which is not new. He denies any chest discomfort at rest or with activity. No palpitations, dizziness, presyncope, syncope, falls. No PND, orthopnea or edema. He tells me he did not need to wear mask for his sleep apnea as it was mild. He is aware of the would need to lose weight and is thinking about starting some routine exercise. He tells me he is not interested in the bariatric program at this time. He has not been taking his medications as directed. He tells me he needs to start taking care of himself. FORMERLY [facility], [facility]–1983 Medical History Obstructive sleep apnea syndrome, mild Left ventricular ejection fraction of 40-49% Snoring Chest pain Morbid obesity with BMI of 50.0-59.9, adult Non-alcoholic fatty liver disease Hypertriglyceridemia Diabetes mellitus Congestive heart failure (CHF) Surgical History Hx of excision of mass (~03/30/18) History of ankle surgery (~06/29/12) Family History Mother IBS (irritable bowel syndrome) Father Heart problem Sister Crohn disease Paternal Grandfather Cancer Social History Household Members: None Housing: Apartment Do you presently have visiting nurse or other home services: Yes (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 to 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) Alcohol intake: former Patient Tobacco Use Status: Never used Tobacco e-Cigarette/Vaping Use: Former Use Second Hand Smoke Exposure: No Substance Use Type: Marijuana service: No Current occupational status: unemployed Cognitive needs: No Hearing needs: No Vision needs: Yes Review of Systems Const All systems reviewed & are unremarkable except as noted in HPI and below ENT Denies dizziness Card Denies chest pain, Denies chest pain at rest, Denies chest pain with activity, Denies rapid heart rate, Denies pedal edema, Denies edema, Denies leg edema, Denies lightheadedness, Denies palpitations, Denies dyspnea, Reports dyspnea on exertion and Denies orthopnea Resp Denies cough, Denies dyspnea and Reports dyspnea on exertion GI Denies hematochezia and Denies change in stool character Musc Denies abnormal gait, Denies limited range of motion, Denies muscle cramps, Denies muscle weakness, Denies numbness, Denies radiating pain into limb, Denies stiffness and Denies tingling Neuro Denies abnormal gait, Denies dizziness, Denies numbness and Denies tingling Endo Denies palpitations Physical Exam Vital Signs: Last Vital Signs Pulse 96 04/15/23 13:37 BP 122/72 04/15/23 13:37 BMI result Body Mass Index 52.4 Const Other: Morbidly obese General: cooperative, comfortable and no acute distress Orientation/consciousness: patient oriented x3 Resp Effort & Inspection: normal respiratory effort Auscultation: clear to auscultation bilaterally, no crackles, no rales, no rhonchi and no wheezes Cardio Jugular venous distension: no JVD Rate: regular rate Rhythm: regular rhythm Heart sounds: S1 normal heart sound present, S2 normal heart sound present, no gallops, no murmurs and no rubs Neuro General: patient oriented x3 Extrem General: Yes normal to inspection and No no pedal edema Psych Appearance: grossly normal Mental Status: mental status grossly normal Speech and movement: Normal speech and movement present Assessment & Plan Assessment & Plan (1) Left ventricular ejection fraction of 40-49%: Code(s): R94.30 - Abnormal result of cardiovascular function study, unspecified Plan: Echocardiogram done 10/21/2022 showing EF 49%, mild Asymmetric septal hypertrophy, mild decrease in the RV systolic function. An exercise stress test was done on 11/23/2022 with exercise 6 minute 17 seconds, moderate to severe shortness of breath, no EKG changes however mildly limited in assessment for ischemia due to max heart rate 70 9% mph are. He then underwent a cardiac catheterization on 04/01/2023 which showed normal coronary arteries. His cardiomyopathy is nonischemic. It may be related to his morbid obesity, sleep apnea. Reviewed all the above with him. He admits to some shortness of breath with activity but overall this symptom is stable. On examination he has no clinical signs indicating decompensated heart failure. He tells me he has not been taking his medications. Recommend restart of meds as ordered, including carvedilol and lisinopril for neurohormonal modulation. His Lasix he can use p.r.n. for shortness of breath or leg edema. He tells me he will work on weight loss, increasing his physical activity. He is not interested in the [facility] bariatric program at this time. He is aware of the dietary changes he needs to make but just needs to take the steps moving forward. The importance of weight loss in his current and future care reviewed. Cardiology follow-up in 6 months, sooner if needed (2) Congestive heart failure (CHF): Code(s): I50.9 - Heart failure, unspecified Qualifiers: Heart failure type: unspecified Heart failure chronicity: chronic Qualified Code(s): I50.9 - Heart failure, unspecified Plan: Compensated at present (3) Obstructive sleep apnea syndrome, mild: Code(s): G47.33 - Obstructive sleep apnea (adult) (pediatric) (4) Morbid obesity with BMI of 50.0-59.9, adult: Code(s): E66.01 - Morbid (severe) obesity due to excess calories; Z68.43 - Body mass index [BMI] 50.0-59.9, adult Coding Level of Care Code Est Pt Level 4 (83471) Diagnoses Left ventricular ejection fraction of 40-49% R94.30 Chronic congestive heart failure, unspecified heart failure type I50.9 Heart failure type: unspecified Heart failure chronicity: chronic Obstructive sleep apnea syndrome, mild G47.33 Morbid obesity with BMI of 50.0-59.9, adult E66.01; Z68.43 Time Spent (min) 26
== END 2023-04-15 14:09 | disposition home or self-care (01) ==
LOC: HO.HCS 13:36
PROVIDERS: PCP Nurse Practitioner Family; Visit Provider Nurse Practitioner Family
DX: R94.30 Abnormal result of cardiovascular function study, unspecified (principal); I50.9 Heart failure, unspecified; G47.33 Obstructive sleep apnea (adult) (pediatric); E66.01 Morbid (severe) obesity due to excess calories; Z68.43 Body mass index [BMI] 50.0-59.9, adult
CPT/HCPCS: 99214

== ENCOUNTER → 2023-04-15 13:35 | Outpatient (BNVA) | payer OTHER, SELFPAY | PROVIDERS: PCP Nurse Practitioner Family; Visit Provider Nurse Practitioner Family | DX: R94.30 Abnormal result of cardiovascular function study, unspecified (principal); I50.9 Heart failure, unspecified; G47.33 Obstructive sleep apnea (adult) (pediatric); E66.01 Morbid (severe) obesity due to excess calories; Z68.43 Body mass index [BMI] 50.0-59.9, adult | CPT/HCPCS: 99212 ==

== ENCOUNTER 2023-07-03 22:45 | Emergency (ER) | payer OTHER, SELFPAY ==
--- NOTE | ~2023-07-03 | XR_ITS ---
EXAMINATION: XR CHEST CLINICAL INFORMATION: Shortness of breath. COMPARISON: 11/12/2022 TECHNIQUE: Frontal view of the chest was obtained. FINDINGS: No significant abnormality is noted involving the heart, lungs, mediastinum, bony thorax or soft tissues. XR/XR chest 1V IMPRESSION: Unremarkable examination.
[2023-07-03 22:51] VITALS: BP 118/74; PULSE 108; RESP 16; TEMP 36.6; O2SAT 95; BMI 52.1
--- NOTE | 2023-07-03 22:56 | ECG_ITS ---
Test Reason : SOB Blood Pressure : / mmHG Vent. Rate : 103 BPM Atrial Rate : 103 BPM P-R Int : 150 ms QRS Dur : 080 ms QT Int : 330 ms P-R-T Axes : 050 004 028 degrees QTc Int : 432 ms Sinus tachycardia Otherwise normal ECG When compared with ECG of 12-NOV-2022 08:59, No significant change was found Referred By: Generic ED Physician Electronically Signed By:NICK TORRES
[2023-07-03 23:45] LABS: MANUAL DIFF FLAG NO
[2023-07-03 23:46] LABS: Basophils Absolute Auto 0.1 X10*3/uL (0.0-0.2); Basophils Percent Auto 0.6 % (0-2); Eosinophils Absolute Auto 0.2 X10*3/uL (0.0-0.4); Eosinophils Percent Auto 2.2 % (0-4); Hemoglobin 14.4 g/dl (14.0-18.0); Imm Gran Abs Auto 0.04 X10*3/uL (0.00-0.03); Imm Gran Pct Auto 0.5 % (0.0-0.4); Lymphocytes Absolute Auto 2.2 X10*3/uL (1.2-4.9); Lymphocytes Percent Auto 26.1 % (20-40); Mean Corpuscular HGB Conc 32.7 g/dl (31.0-36.0); Mean Corpuscular Hemoglobin 28.1 pg (27.0-33.0); Mean Corpuscular Volume 85.9 fL (80.0-98.0); Mean Platelet Volume 10.8 fL (9.4-12.4); Monocytes Absolute Auto 0.5 X10*3/uL (0.1-1.2); Monocytes Percent Auto 5.7 % (2-11); Neutrophils Absolute Auto 5.4 x10*3/uL (2.0-8.3); Neutrophils Percent Auto 64.9 % (45-73); Platelet Count 326 X10*3/uL (160-400); Red Blood Count 5.12 X10*6/uL (4.60-5.80); Red Cell Distribution Width 11.5 % (11.0-16.0); White Blood Count 8.3 X10*3/uL (4.8-10.8)
[2023-07-04 00:03] LABS: Anion Gap 13 (12-20); Blood Urea Nitrogen 13 mg/dL (9-16); Calcium 9.2 mg/dL (8.4-10.2); Carbon Dioxide 23 mmol/L (22-29); Chloride 103 mmol/L (96-108); Creatinine Clr Calc Pharmacy 133.3; Estimated Glomerular Filt Rate > 60; Potassium 4.4 mmol/L (3.3-5.1); Sodium 135 mmol/L (135-145)
[2023-07-04 00:12] LABS: Troponin-I High Sensitivity < 2.7 ng/L (<3.5-35.0)
[2023-07-04 00:14] LABS: Glucose Random 370 mg/dL (60-115)
--- NOTE | 2023-07-04 00:15 | ED.GENADULT ---
HPI - General Adult General Chief complaint: Dyspnea Stated complaint: elevated blood sugar,sob Time Seen by Provider: 07/03/23 23:34 Source: patient Mode of arrival: ambulatory History of Present Illness HPI narrative: 32-year-old male who presents with concerns regarding shortness of breath, coughing and reports sick contacts, he also has noted that he has elevated blood sugar levels but then recalls that he has not taken his Trulicity shot for 2 weeks. Related Data Previous Rx's Medication Instructions Recorded carvedilol 3.125 mg tablet 3.125 mg PO BID 30 days #60 tabs 10/22/22 furosemide 40 mg tablet 40 mg PO DAILY 30 days #30 tabs 10/22/22 lisinopril 2.5 mg tablet 2.5 mg PO DAILY 30 days #30 tabs 10/22/22 albuterol sulfate 90 mcg/actuation 2 puff inhalation Q6H PRN 11/13/22 aerosol inhaler shortness of breath or wheezing #8.5 grams blood sugar diagnostic (FreeStyle #100 ea 04/13/23 Lite Strips) blood-glucose meter #1 ea 04/13/23 blood-glucose meter (FreeStyle #1 ea 04/13/23 Andrews kit) dulaglutide 0.75 mg/0.5 mL 0.75 mg (0.5 mL) subcut QWEEK #2 mL 04/13/23 subcutaneous pen injector (Trulicity) lancets 28 gauge (FreeStyle #100 ea 04/13/23 Lancets) blood sugar diagnostic (OneTouch #100 ea 05/13/23 Ultra Test strips) blood-glucose meter #1 ea 05/13/23 lancets #100 ea 05/13/23 benzonatate 200 mg capsule 200 mg PO BID PRN cough #10 caps 07/04/23 Allergies Allergy/AdvReac Type Severity Reaction Status Date / Time morphine AdvReac Unknown projectile Verified 04/15/23 13:40 vomiting Review of Systems Review of Systems: Pertinent positives and negatives as stated in [facility] Past Medical History Source: nursing notes reviewed Medical History Obstructive sleep apnea syndrome, mild Left ventricular ejection fraction of 40-49% Snoring Chest pain Morbid obesity with BMI of 50.0-59.9, adult Non-alcoholic fatty liver disease Hypertriglyceridemia Diabetes mellitus Congestive heart failure (CHF) Surgical History Hx of excision of mass (~03/30/18) History of ankle surgery (~06/29/12) Family History Family History Mother IBS (irritable bowel syndrome) Father Heart problem Sister Crohn disease Paternal Grandfather Cancer Social History Social History Household Members: None Housing: Apartment Do you presently have visiting nurse or other home services: Yes (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) Alcohol intake: former Patient Tobacco Use Status: Never used Tobacco e-Cigarette/Vaping Use: Former Use Second Hand Smoke Exposure: No Substance Use Type: Marijuana Advance Directives: No Advance Directives Information Provided: No service: No Current occupational status: unemployed Cognitive needs: No Hearing needs: No Vision needs: Yes Physical Exam ED Vital Signs: Vital Signs - 24 hr 07/03/23 22:51 07/04/23 00:48 Temperature 97.8 F 98.2 F Pulse Rate 108 H 87 Respiratory Rate 16 18 Blood Pressure 118/74 108/69 Pulse Oximetry 95 96 Oxygen Delivery Method Room Air Room Air BMI result Body Mass Index 52.1 VITAL SIGNS: Reviewed. GENERAL: Elevated BMI, Well developed, well nourished, in no acute distress. HEAD: Normocephalic/atraumatic EYES: PERRLA, EOMI EARS: Ext canals without abnormality NOSE: Nares patent bilateral OROPHARYNX: no oral lesions noted, posterior pharynx clear NECK: Supple, no adenopathy LUNGS: Normal breath sounds. No adventitious sounds or accessory muscle use. SpO2<95> CARDIOVASCULAR: Regular rate and rhythm without noted murmurs ABDOMEN: Soft, non-tender, non-distended with bowel sounds. MUSCULOSKELETAL: No tenderness, deformities, or effusions noted on gross inspection. EXTREMITIES: No cyanosis, clubbing or edema. SKIN: Inspection of the skin reveals no rashes NEUROLOGIC: Alert and oriented x 4. Strength and sensation to light touch were grossly intact x 4. Medical Decision Making Medical Decision Making MDM Narrative: 32-year-old male with history and clinical presentation, DDX: Viral syndrome, CHF, pneumonia, poor medication compliance leading to hyperglycemia I reviewed all investigations and hematologic indices are negative for leukocytosis/left shift/anemia/thrombocytopenia. Chemistry indices do not demonstrate and SINA or electrolyte derangements. Patient is noted to be hyperglycemic without clinical or laboratory evidence to suggest DKA or HHS. Troponin/BNP is undetectable. Viral testing is negative for influenza/COVID. Chest x-ray not significant for venous congestion or infiltrate and otherwise my interpretation is in agreement with radiology's impression. There are no acute findings on EKG. My interpretation is patient likely has a viral illness that he is recovering from that is resulted in persistent cough with chest wall pain. He is otherwise discharged home with recommendations for Tylenol and ibuprofen as well as instructions to resume Trulicity. Patient will receive 6 units of subcutaneous lispro prior to discharge. Differential Diagnosis Differential Diagnoses: The differential diagnosis associated with the presentation includes Please see the discussion above Admission/Observation Consideration of admission/observation: Escalation of care including admission/observation considered Please see the discussion above Lab Data MDM Lab Attestation statement: I reviewed the patient's lab results. Please see the discussion above 07/03/23 23:38 07/03/23 23:38 Labs: Lab Results 07/03/23 Range/Units 23:38 WBC 8.3 (4.8-10.8) X10*3/uL RBC 5.12 (4.60-5.80) X10*6/uL Hgb 14.4 (14.0-18.0) g/dl Hct 44.0 (42.0-52.0) % MCV 85.9 (80.0-98.0) fL MCH 28.1 (27.0-33.0) pg MCHC 32.7 (31.0-36.0) g/dl RDW 11.5 (11.0-16.0) % Plt Count 326 (160-400) X10*3/uL MPV 10.8 (9.4-12.4) fL Immature Gran % (Auto) 0.5 H (0.0-0.4) % Neut % (Auto) 64.9 (45-73) % Lymph % (Auto) 26.1 (20-40) % [place] % (Auto) 5.7 (2-11) % Eos % (Auto) 2.2 (0-4) % Baso % (Auto) 0.6 (0-2) % Lymph # (Auto) 2.2 (1.2-4.9) X10*3/uL [place] # (Auto) 0.5 (0.1-1.2) X10*3/uL Eos # (Auto) 0.2 (0.0-0.4) X10*3/uL Baso # (Auto) 0.1 (0.0-0.2) X10*3/uL Abs Immat Gran (auto) 0.04 H (0.00-0.03) X10*3/uL Absolute Neuts (auto) 5.4 (2.0-8.3) x10*3/uL Absolute Nucleated RBC 0.000 (0.0-0.012) X10*3/uL Nucleated RBC % (auto) 0.0 (0.0-0.2) /100WBC Sodium 135 (135-145) mmol/L Potassium 4.4 (3.3-5.1) mmol/L Chloride 103 (96-108) mmol/L Carbon Dioxide 23 (22-29) mmol/L Anion Gap 13 (12-20) BUN 13 (9-16) mg/dL Creatinine 1.27 (0.5-1.4) mg/dL Estim Creat Clear Calc 133.3 Estimated GFR > 60 Random Glucose 370 H* (60-115) mg/dL Calcium 9.2 (8.4-10.2) mg/dL Troponin I High Sens < 2.7 (<3.5-35.0) ng/L B-Natriuretic Peptide < 10 (<100) pg/mL Influenza Type A (PCR) NEGATIVE (Negative) Influenza Type B (PCR) NEGATIVE (Negative) RSV RNA Qual (PCR) NEGATIVE (Negative) SARS-CoV-2 RNA (RT-PCR) NEGATIVE (Negative) Independent Interpretation I performed an independent interpretation of an: EKG Interpretation: Sinus tachycardia, HR-103, no STEMI, IL/QRS/QTC is within normal limits. Radiology Impression Discussion of test interpretation with radiology: I have reviewed the radiologist's reading. Radiologist Impression: Please see the discussion above External Record Review External record reviewed: Outpatient record, Prior outpatient labs and Prior outpatient radiology Chronic Conditions Patient?s care impacted by: Diabetes and Hypertension Critical Care Time Critical Care Time Critical Care Time: Yes Total Critical Care Time: 30 Attestation: I personally attest to this time spent taking care of the patient. Discharge Plan Discharge Clinical Impression: Viral syndrome, Breath shortness Patient Disposition: Home, Self-Care Instructions: Viral Syndrome (ED), Shortness of Breath (ED) Additional Instructions: 1. Resume all home medications as prescribed. 2. I have given you a prescription for Tessalon and this should help with your cough. 3. Please follow-up with your primary care doctor on Wednesday morning. Return to the ER for any acute worsening of your symptoms. Prescriptions: New benzonatate 200 mg capsule 200 mg PO BID PRN (Reason: cough) Qty: 10 0RF No Action carvedilol 3.125 mg tablet 3.125 mg PO BID 30 Days Qty: 60 3RF Rx Instructions: must administer with a meal/food furosemide 40 mg tablet 40 mg PO DAILY 30 Days Qty: 30 3RF lisinopril 2.5 mg tablet 2.5 mg PO DAILY 30 Days Qty: 30 3RF (DME) blood-glucose meter Kit See Rx Instructions .Route Qty: 1 0RF Rx Instructions: As directed (DME) OneTouch Ultra Test Strip See Rx Instructions .Route Qty: 100 1RF Rx Instructions: As directed up to three times per day (DME) lancets Misc See Rx Instructions .Route Qty: 100 1RF Rx Instructions: As directed up to threetimes per day albuterol sulfate 90 mcg/actuation HFA aerosol inhaler 2 puff inhalation Q6H PRN (Reason: shortness of breath or wheezing) Qty: 8.5 0RF (DME) FreeStyle Lite Strips Strip See Rx Instructions .ROUTE .MEDSUPPLY Qty: 100 12RF Rx Instructions: As directed- test blood sugar 3 times a day (DME) blood-glucose meter Kit See Rx Instructions .Route Qty: 1 0RF Rx Instructions: As directed (DME) lancets [FreeStyle Lancets] 28 gauge misc See Rx Instructions .ROUTE .MEDSUPPLY Qty: 100 12RF Rx Instructions: As directed-test blood sugar 3 times a day Trulicity 0.75 mg/0.5 mL pen injector 0.75 mg subcut QWEEK Qty: 2 6RF (DME) blood-glucose meter [FreeStyle Andrews] Kit See Rx Instructions .Route Qty: 1 0RF Rx Instructions: As directed
[2023-07-04 00:23] LABS: Influenza A PCR NEGATIVE (Negative); Influenza B PCR NEGATIVE (Negative); Resp Syncy Virus RNA Qual PCR NEGATIVE (Negative); SARS COV2 PCR INHOUSE NEGATIVE (Negative)
[2023-07-04 00:44] LABS: B Type Natriuretic Peptide < 10 pg/mL (<100)
[2023-07-04 00:48] VITALS: BP 108/69; PULSE 87; RESP 18; TEMP 36.8; O2SAT 96
[2023-07-04] MEDS: Insulin Lispro 100 UNIT/ML 3 ML VIAL 6 UNIT SUBCUT (00:58)
== END 2023-07-04 01:14 | disposition home or self-care (01) ==
PROVIDERS: Emergency Provider Student in an Organized Health Care Education/Training Program
DX: B34.9 Viral infection, unspecified (principal); R06.02 Shortness of breath; R07.9 Chest pain, unspecified; R05.9 Cough, unspecified; E11.65 Type 2 diabetes mellitus with hyperglycemia; I50.9 Heart failure, unspecified; Z20.822 Contact with and (suspected) exposure to COVID-19; Z20.828 Contact with and (suspected) exposure to other viral communicable diseases
CPT/HCPCS: 0241U; 36415; 71045; 80048; 83880; 84484; 85025; 93005; 99284

== ENCOUNTER → 2023-07-03 22:56 | Outpatient (BNV) | payer OTHER, SELFPAY | PROVIDERS: Emergency Provider Student in an Organized Health Care Education/Training Program; Visit Provider Internal Medicine | DX: R00.0 Tachycardia, unspecified (principal) | CPT/HCPCS: 93010 ==

== ENCOUNTER 2023-07-16 16:09 | Emergency (ER) | payer OTHER, SELFPAY ==
--- NOTE | ~2023-07-16 | XR_ITS ---
EXAMINATION: XR CHEST CLINICAL INFORMATION: Cough COMPARISON: Chest x-ray July 03, 2023 TECHNIQUE: Frontal portable view of the chest was obtained. 1717 hours FINDINGS: No significant abnormality is noted involving the heart, lungs, mediastinum, bony thorax or soft tissues. XR/XR chest 1V IMPRESSION: Unremarkable examination.
--- NOTE | 2023-07-16 16:17 | ED.GENADULT ---
HPI - General Adult General Chief complaint: Upper Respiratory Symptoms Stated complaint: Flu like symptoms Time Seen by Provider: 07/16/23 16:45 Source: patient Mode of arrival: ambulatory Limitations: no limitations History of Present Illness HPI narrative: Patient with history of diabetes, CHF been complaining of body cough fever malaise last 3 days no abdominal pain no chest pain feels congested patient lives alone on arrival patient temperature was 100.5 degrees poor oral intake feel tired and weak Related Data Previous Rx's Medication Instructions Recorded carvedilol 3.125 mg tablet 3.125 mg PO BID 30 days #60 tabs 10/22/22 furosemide 40 mg tablet 40 mg PO DAILY 30 days #30 tabs 10/22/22 lisinopril 2.5 mg tablet 2.5 mg PO DAILY 30 days #30 tabs 10/22/22 albuterol sulfate 90 mcg/actuation 2 puff inhalation Q6H PRN 11/13/22 aerosol inhaler shortness of breath or wheezing #8.5 grams blood sugar diagnostic (FreeStyle #100 ea 04/13/23 Lite Strips) blood-glucose meter #1 ea 04/13/23 blood-glucose meter (FreeStyle #1 ea 04/13/23 [place] kit) dulaglutide 0.75 mg/0.5 mL 0.75 mg (0.5 mL) subcut QWEEK #2 mL 04/13/23 subcutaneous pen injector ([facility]) lancets 28 gauge (FreeStyle #100 ea 04/13/23 Lancets) blood sugar diagnostic (OneTouch #100 ea 05/13/23 Ultra Test strips) blood-glucose meter #1 ea 05/13/23 lancets #100 ea 05/13/23 benzonatate 200 mg capsule 200 mg PO BID PRN cough #10 caps 07/04/23 albuterol sulfate 90 mcg/actuation 2 puff inhalation Q4-6H PRN 07/16/23 aerosol inhaler (ProAir HFA) shortness of breath or wheezing #8.5 grams benzonatate 200 mg capsule 200 mg PO TID PRN cough #30 caps 07/16/23 cefuroxime axetil 500 mg tablet 500 mg PO BID 10 days #20 tabs 07/16/23 Allergies Allergy/AdvReac Type Severity Reaction Status Date / Time morphine AdvReac Unknown projectile Verified 04/15/23 13:40 vomiting Review of Systems Review of Systems: Yes all other systems are reviewed and are negative [facility] Past Medical History Medical History Obstructive sleep apnea syndrome, mild Left ventricular ejection fraction of 40-49% Snoring Chest pain Morbid obesity with BMI of 50.0-59.9, adult Non-alcoholic fatty liver disease Hypertriglyceridemia Diabetes mellitus Congestive heart failure (CHF) Surgical History Hx of excision of mass (~03/30/18) History of ankle surgery (~06/29/12) Family History Family History Mother IBS (irritable bowel syndrome) Father Heart problem Sister Crohn disease Paternal Grandfather Cancer Social History Social History Household Members: None Housing: Apartment Do you presently have visiting nurse or other home services: Yes (FARE ENFORCEMENT OFFICER to 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) Alcohol intake: former Patient Tobacco Use Status: Never used Tobacco Smoked in Last 30 Days: No e-Cigarette/Vaping Use: Former Use Second Hand Smoke Exposure: No Use of substances other than those prescribed or required for medical reasons: No Substance Use Type: Marijuana Advance Directives: No Advance Directives Information Provided: No service: No Current occupational status: unemployed Cognitive needs: No Hearing needs: No Vision needs: Yes Physical Exam ED Vital Signs: Vital Signs - 24 hr 07/16/23 16:18 07/16/23 18:37 07/16/23 19:31 Temperature 100.5 F H 98.7 F Pulse Rate 130 H 106 H 98 Respiratory Rate 20 20 21 H Blood Pressure 119/80 Pulse Oximetry 93 94 Oxygen Delivery Method Room Air Room Air BMI result Body Mass Index 51.8 Appearance: Alert. Oriented X3. Obese Eyes: No pallor or icterus ENT: Pharynx normal. Oral Mucosa moist Neck: Normal inspection. Neck supple. CVS: Normal heart rate and rhythm. Pulses normal. Respiratory: No respiratory distress. Equal air entry bilateral, no wheezing/rales/rhonchi Abdomen: Soft and nontender. Bowel sounds are present, no mass palpable, no CVA tenderness Skin: Skin warm and dry. Normal skin color. Normal skin turgor. Extremities: No lower extremity edema. No calf tenderness Neuro: Oriented X 3. Course Course Course Narrative: RME performed by Leti Min PA-C. Patient is a 32 year old assigned male at presenting to the emergency department feeling sick over the last 3 days. Patient is a diabetic. Labs, imaging, and swabs ordered. Patient placed back in the waiting room pending room availability and results. Medications Administered Discontinued Medications Generic Name Dose Route Start Last Admin Trade Name Freq PRN Reason Stop Dose Admin Acetaminophen 650 mg 07/16/23 16:49 07/16/23 16:52 Acetaminophen 325 Mg Tablet PO 07/16/23 16:50 650 mg ONCE ONE Administration Albuterol Sulfate 2.5 mg/ 0 mg 07/16/23 19:04 07/16/23 19:30 Albuterol/Ipratropium 3 ml INHALE 07/16/23 19:05 1 dose ONCE ONE Administration Sodium Chloride 1,000 mls @ 999 mls/hr 07/16/23 17:25 07/16/23 17:35 Ns IV 07/16/23 18:25 999 mls/hr .Q1H1M ONE Administration Ceftriaxone Sodium 1 gm/ 50 mls @ 100 mls/hr 07/16/23 18:07 07/16/23 20:15 Sodium Chloride IV 07/16/23 18:36 Infused ONCE ONE Infusion Ketorolac Tromethamine 30 mg 07/16/23 17:24 07/16/23 17:36 Ketorolac Tromethamine 30 Mg/Ml Vial IVPUSH 07/16/23 17:25 30 mg ONCE ONE Administration Medical Decision Making Medical Decision Making [facility] Narrative: Patient's sleep apnea not on CPAP machine at with history of asthma and diabetes comes here for cough for last 3 days workup is negative for CHF pneumonia , negative for COVID flu and RSV the patient has bronchitis Differential Diagnosis Differential Diagnoses: The differential diagnosis associated with the presentation includes Lab Data 07/16/23 16:47 07/16/23 16:47 Labs: Lab Results 07/16/23 07/16/23 Range/Units 16:42 16:47 WBC 6.1 (4.8-10.8) X10*3/uL RBC 5.15 (4.60-5.80) X10*6/uL Hgb 14.3 (14.0-18.0) g/dl Hct 44.4 (42.0-52.0) % MCV 86.2 (80.0-98.0) fL MCH 27.8 (27.0-33.0) pg MCHC 32.2 (31.0-36.0) g/dl RDW 11.4 (11.0-16.0) % Plt Count 220 D (160-400) X10*3/uL MPV 10.4 (9.4-12.4) fL Immature Gran % (Auto) 1.0 H (0.0-0.4) % Neut % (Auto) 77.1 H (45-73) % Lymph % (Auto) 12.5 L (20-40) % [place] % (Auto) 8.7 (2-11) % Eos % (Auto) 0.2 (0-4) % Baso % (Auto) 0.5 (0-2) % Lymph # (Auto) 0.8 L (1.2-4.9) X10*3/uL [place] # (Auto) 0.5 (0.1-1.2) X10*3/uL Eos # (Auto) 0.0 (0.0-0.4) X10*3/uL Baso # (Auto) 0.0 (0.0-0.2) X10*3/uL Abs Immat Gran (auto) 0.06 H (0.00-0.03) X10*3/uL Absolute Neuts (auto) 4.7 (2.0-8.3) x10*3/uL Absolute Nucleated RBC 0.000 (0.0-0.012) X10*3/uL Nucleated RBC % (auto) 0.0 (0.0-0.2) /100WBC PT 15.9 H (11.1-13.3) SEC INR 1.3 H (0.9-1.1) APTT 35.1 (26.0-36.4) SEC Sodium 131 L (135-145) mmol/L Potassium 4.7 (3.3-5.1) mmol/L Chloride 99 (96-108) mmol/L Carbon Dioxide 23 (22-29) mmol/L Anion Gap 14 (12-20) BUN 12 (9-16) mg/dL Creatinine 1.26 (0.5-1.4) mg/dL Estim Creat Clear Calc 134.0 Estimated GFR > 60 Random Glucose 162 H (60-115) mg/dL Calcium 9.1 (8.4-10.2) mg/dL Magnesium 1.7 (1.6-2.6) mg/dL Total Bilirubin 2.5 H (0.0-1.0) mg/dL AST 82 H (5-37) U/L ALT 114 H (0-40) U/L Alkaline Phosphatase 71 (39-117) U/L Troponin I High Sens 5.0 D (<3.5-35.0) ng/L B-Natriuretic Peptide < 10 (<100) pg/mL Total Protein 7.6 (6.5-8.0) g/dL Albumin 4.1 (3.5-5.0) g/dL Influenza Type A (PCR) NEGATIVE (Negative) Influenza Type B (PCR) NEGATIVE (Negative) RSV RNA Qual (PCR) NEGATIVE (Negative) SARS-CoV-2 RNA (RT-PCR) NEGATIVE (Negative) Discharge Plan Discharge Clinical Impression: Acute bronchitis Patient Disposition: Home, Self-Care Instructions: Acute Bronchitis (ED) Additional Instructions: Take antibiotic and cough drops as prescribed Follow with PCP for sleep apnea Continue inhaler and rest of medication Prescriptions: New benzonatate 200 mg capsule 200 mg PO TID PRN (Reason: cough) Qty: 30 0RF cefuroxime axetil 500 mg tablet 500 mg PO BID 10 Days Qty: 20 0RF albuterol sulfate [ProAir HFA] 90 mcg/actuation HFA aerosol inhaler 2 puff inhalation Q4-6H PRN (Reason: shortness of breath or wheezing) Qty: 8.5 0RF No Action carvedilol 3.125 mg tablet 3.125 mg PO BID 30 Days Qty: 60 3RF Rx Instructions: must administer with a meal/food furosemide 40 mg tablet 40 mg PO DAILY 30 Days Qty: 30 3RF lisinopril 2.5 mg tablet 2.5 mg PO DAILY 30 Days Qty: 30 3RF (DME) blood-glucose meter Kit See Rx Instructions .Route Qty: 1 0RF Rx Instructions: As directed (DME) TaposéTouch Ultra Test Strip See Rx Instructions .Route Qty: 100 1RF Rx Instructions: As directed up to three times per day (DME) lancets Misc See Rx Instructions .Route Qty: 100 1RF Rx Instructions: As directed up to threetimes per day benzonatate 200 mg capsule 200 mg PO BID PRN (Reason: cough) Qty: 10 0RF albuterol sulfate 90 mcg/actuation HFA aerosol inhaler 2 puff inhalation Q6H PRN (Reason: shortness of breath or wheezing) Qty: 8.5 0RF (DME) FreeStyle Lite Strips Strip See Rx Instructions .ROUTE .MEDSUPPLY Qty: 100 12RF Rx Instructions: As directed- test blood sugar 3 times a day (DME) blood-glucose meter Kit See Rx Instructions .Route Qty: 1 0RF Rx Instructions: As directed (DME) lancets [FreeStyle Lancets] 28 gauge misc See Rx Instructions .ROUTE .MEDSUPPLY Qty: 100 12RF Rx Instructions: As directed-test blood sugar 3 times a day Trulicity 0.75 mg/0.5 mL pen injector 0.75 mg subcut QWEEK Qty: 2 6RF (DME) blood-glucose meter [FreeStyle [place]] Kit See Rx Instructions .Route Qty: 1 0RF Rx Instructions: As directed
[2023-07-16 16:18] VITALS: BP 119/80; PULSE 130; RESP 20; TEMP 38.1; O2SAT 93; BMI 51.8
--- NOTE | 2023-07-16 16:18 | ECG_ITS ---
Test Reason : DIZZINESS Blood Pressure : / mmHG Vent. Rate : 121 BPM Atrial Rate : 121 BPM P-R Int : 156 ms QRS Dur : 078 ms QT Int : 296 ms P-R-T Axes : 052 007 043 degrees QTc Int : 420 ms Sinus tachycardia Septal infarct , age undetermined Abnormal ECG When compared with ECG of 03-JUL-2023 23:35, No significant change was found Referred By: Leti Min Electronically Signed By:KISHOR WHEELER MD
[2023-07-16 16:52] LABS: MANUAL DIFF FLAG NO
[2023-07-16] MEDS: Acetaminophen 325 MG TABLET 650 MG PO (16:52)
[2023-07-16 16:53] LABS: Basophils Percent Auto 0.5 % (0-2); Eosinophils Percent Auto 0.2 % (0-4); Hematocrit 44.4 % (42.0-52.0); Hemoglobin 14.3 g/dl (14.0-18.0); Imm Gran Abs Auto 0.06 X10*3/uL (0.00-0.03); Lymphocytes Absolute Auto 0.8 X10*3/uL (1.2-4.9); Lymphocytes Percent Auto 12.5 % (20-40); Mean Corpuscular HGB Conc 32.2 g/dl (31.0-36.0); Mean Corpuscular Hemoglobin 27.8 pg (27.0-33.0); Mean Corpuscular Volume 86.2 fL (80.0-98.0); Mean Platelet Volume 10.4 fL (9.4-12.4); Monocytes Absolute Auto 0.5 X10*3/uL (0.1-1.2); Monocytes Percent Auto 8.7 % (2-11); Neutrophils Absolute Auto 4.7 x10*3/uL (2.0-8.3); Neutrophils Percent Auto 77.1 % (45-73); Platelet Count 220 X10*3/uL (160-400); Red Blood Count 5.15 X10*6/uL (4.60-5.80); Red Cell Distribution Width 11.4 % (11.0-16.0); White Blood Count 6.1 X10*3/uL (4.8-10.8)
[2023-07-16 16:58] LABS: INTERNATIONAL NORM RATIO 1.3 (0.9-1.1); Prothrombin Time 15.9 SEC (11.1-13.3)
[2023-07-16 17:01] LABS: Partial Thromboplastin Time 35.1 SEC (26.0-36.4)
[2023-07-16 17:11] LABS: Alanine Aminotransferase 114 U/L (0-40); Albumin Level 4.1 g/dL (3.5-5.0); Alkaline Phosphatase 71 U/L (39-117); Anion Gap 14 (12-20); Aspartate Amino Transferase 82 U/L (5-37); Bilirubin Total 2.5 mg/dL (0.0-1.0); Blood Urea Nitrogen 12 mg/dL (9-16); Calcium 9.1 mg/dL (8.4-10.2); Carbon Dioxide 23 mmol/L (22-29); Chloride 99 mmol/L (96-108); Estimated Glomerular Filt Rate > 60; Glucose Random 162 mg/dL (60-115); Magnesium 1.7 mg/dL (1.6-2.6); Potassium 4.7 mmol/L (3.3-5.1); Sodium 131 mmol/L (135-145); Total Protein 7.6 g/dL (6.5-8.0)
[2023-07-16 17:13] LABS: B Type Natriuretic Peptide < 10 pg/mL (<100)
[2023-07-16 17:34] LABS: Influenza A PCR NEGATIVE (Negative); Influenza B PCR NEGATIVE (Negative); Resp Syncy Virus RNA Qual PCR NEGATIVE (Negative); SARS COV2 PCR INHOUSE NEGATIVE (Negative)
[2023-07-16] MEDS: 0.9 % Sodium Chloride 1,000 ML 999 ML IV (17:35)
[2023-07-16] MEDS: Ketorolac Tromethamine 30 MG/ML VIAL IVPUSH (17:36)
[2023-07-16 18:37] VITALS: PULSE 106; RESP 20; TEMP 37.1; O2SAT 94
[2023-07-16] MEDS: cefTRIAXone sodium 1 GM in 0.9 % Sodium Chloride 50 ML IV (18:38)
[2023-07-16] MEDS: Albuterol Sulfate 2.5 MG, Albuterol/Iprat 2.5/0.5MG 3 ML 3 ML INHALE (19:30)
[2023-07-16 19:31] VITALS: PULSE 98; RESP 21; O2SAT 93
== END 2023-07-16 20:48 | disposition home or self-care (01) ==
PROVIDERS: Physician Assistant Medical; Emergency Provider Internal Medicine
DX: J20.9 Acute bronchitis, unspecified (principal); Z20.822 Contact with and (suspected) exposure to COVID-19; Z20.828 Contact with and (suspected) exposure to other viral communicable diseases; E11.9 Type 2 diabetes mellitus without complications; I50.9 Heart failure, unspecified; J45.909 Unspecified asthma, uncomplicated; E66.9 Obesity, unspecified; Z68.43 Body mass index [BMI] 50.0-59.9, adult; G47.33 Obstructive sleep apnea (adult) (pediatric); Z99.89 Dependence on other enabling machines and devices; Z79.85 Long-term (current) use of injectable non-insulin antidiabetic drugs; Z79.899 Other long term (current) drug therapy
CPT/HCPCS: 0241U; 36415; 71045; 80053; 83735; 83880; 84484; 85025; 85610; 85730; 93005; 94640; 96361; 96374; 99285; J0696; J1885

== ENCOUNTER → 2023-07-16 16:18 | Outpatient (BNV) | payer OTHER, SELFPAY | PROVIDERS: Emergency Provider Internal Medicine; Visit Provider Internal Medicine Cardiovascular Disease | DX: R42 Dizziness and giddiness (principal) | CPT/HCPCS: 93010 ==

== ENCOUNTER 2023-10-12 13:45 | Outpatient (AMB) | payer OTHER, SELFPAY ==
[2023-10-12 14:48] VITALS: BP 110/78; PULSE 115; BMI 53.7
--- NOTE | 2023-10-12 14:48 | A.OFFVIS_ITS ---
Intake Vital Signs 10/12/23 14:48 Height 5 ft 11 in Weight 385 lb 5.888 oz BMI 53.7 BP 110/78 Blood Pressure Location Lt brachial Position Sitting Pulse 115 H Intake Visit Reasons: 6 mth f/up DC Intake Note: 6 month follow up Nitrogen Operator Required: No Accompanied by: Self / Same As Patient Allergies morphine Adverse Reaction (Unknown, Verified 10/12/23 14:49) projectile vomiting Medication List - Last Reconciled 10/12/23 by Richardson Levine MD albuterol sulfate 90 mcg/actuation 2 puffs inhalation Q6H PRN albuterol sulfate 90 mcg/actuation (ProAir HFA) 2 puffs inhalation Q4-6H PRN blood sugar diagnostic (FreeStyle Lite Strips) As directed- test blood sugar 3 times a day blood sugar diagnostic (OneTouch Ultra Test strips) As directed up to three times per day blood-glucose meter As directed blood-glucose meter As directed blood-glucose meter (FreeStyle [place] kit) As directed carvedilol 3.125 mg PO BID 30 days cefuroxime axetil 500 mg PO BID dulaglutide (Trulicity) 0.75 mg (0.5 mL) subcut QWEEK furosemide 40 mg PO DAILY 30 days lancets (FreeStyle Lancets) As directed-test blood sugar 3 times a day lancets As directed up to threetimes per day lisinopril 2.5 mg PO DAILY 30 days HPI HPI Comments History of Present Illness Details Timbo returns for follow-up. He was seen in 2020 regarding congestive heart failure. At that time, he was admitted to [facility] for shortness of breath. Then per patient, he was told that his heart function was in the 40s. Then diagnosed with congestive heart failure and he has been on diuretics. Around that time, he was also diagnosed with diabetes. He is morbidly obese. On insulin. He does get extremely anxious coming to see doctors. Hence his heart rate is quite high. Even today he is very jittery and anxious. He states for the most part he is doing fine. Some shortness of breath with moderate to severe activity. No angina. [facility] Medical History Obstructive sleep apnea syndrome, mild Left ventricular ejection fraction of 40-49% Snoring Chest pain Morbid obesity with BMI of 50.0-59.9, adult Non-alcoholic fatty liver disease Hypertriglyceridemia Diabetes mellitus Congestive heart failure (CHF) Surgical History Hx of excision of mass (~03/30/18) History of ankle surgery (~06/29/12) Family History Mother IBS (irritable bowel syndrome) Father Heart problem Sister Crohn disease Paternal Grandfather Cancer Social History Household Members: None Housing: Apartment Do you presently have visiting nurse or other home services: Yes (TELEHEALTH DIRECTOR to 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) Alcohol intake: former Patient Tobacco Use Status: Never used Tobacco e-Cigarette/Vaping Use: Former Use Second Hand Smoke Exposure: No Substance Use Type: Marijuana service: No Current occupational status: unemployed Cognitive needs: No Hearing needs: No Vision needs: Yes Review of Systems Const Denies weakness ENT Denies dizziness Card Denies chest pain, Denies chest pain with activity, Denies syncope, Denies rapid heart rate, Denies pedal edema, Denies edema, Denies leg edema, Denies lightheadedness, Denies palpitations, Denies dyspnea, Denies dyspnea on exertion and Denies orthopnea Resp Denies cough, Denies dyspnea and Denies dyspnea on exertion GI Denies hematochezia and Denies change in stool character Musc Denies abnormal gait, Denies muscle cramps, Denies muscle weakness, Denies numbness, Denies radiating pain into limb and Denies tingling Neuro Denies abnormal gait, Denies dizziness, Denies syncope, Denies numbness, Denies tingling and Denies weakness Endo Denies palpitations Physical Exam Vital Signs: Last Vital Signs Pulse 115 H 10/12/23 14:48 BP 110/78 10/12/23 14:48 BMI result Body Mass Index 53.7 Const General: comfortable and no acute distress Orientation/consciousness: patient oriented x3 HEENT Other: Unremarkable Head: Yes normal to inspection Neck Neck: Yes normal visual inspection Chest Chest palpation & inspection: normal inspection of the chest Resp Auscultation: clear to auscultation bilaterally Cardio Palpation: normal PMI Heart sounds: S1 normal heart sound present, S2 normal heart sound present, no gallops, no murmurs and no rubs GI Palpation (GI): Soft to palpation Back/Spine/Pelvis Other: unremarkable Skin General skin exam: no rashes or lesions noted Neuro General: patient oriented x3 Extrem General: Yes normal to inspection Psych Mental Status: mental status grossly normal Assessment & Plan Assessment & Plan (1) Cardiomyopathy: Code(s): I42.9 - Cardiomyopathy, unspecified (2) Morbid obesity due to excess calories: Code(s): E66.01 - Morbid (severe) obesity due to excess calories (3) Type 2 diabetes mellitus with unspecified complications: Code(s): E11.8 - Type 2 diabetes mellitus with unspecified complications Plan Cardiac studies reviewed. Echocardiogram from last year with LVEF of 49%. Mild global hypokinesis. Otherwise unremarkable. In the cardiac catheterization from last year, normal coronary arteries. Mildly increased LVEDP. Overall, mild nonischemic cardiomyopathy, diabetes, obesity. He is currently on a small dose of carvedilol/lisinopril and that may be continued. Otherwise, clinically no volume overload and his cardiac BNP is also less than 10. No need to change diuretics. Needs to lose weight and optimize diabetes control. Last available hemoglobin A1c is 7.7%. We can see him back in 1 year with another echocardiogram. Orders: Orders CA echo transthoracic complete 1 Year I42.9 - Cardiomyopathy, unspecified Medications: Changed From cefuroxime axetil 500 mg PO BID 10 days 20 tabs 0RF To cefuroxime axetil 500 mg PO BID Coding Level of Care Code Est Pt Level 4 (86701) Diagnoses Cardiomyopathy I42.9 Morbid obesity due to excess calories E66.01 Type 2 diabetes mellitus with unspecified complications E11.8
== END 2023-10-12 15:01 | disposition home or self-care (01) ==
PROVIDERS: PCP Nurse Practitioner Family; Visit Provider Internal Medicine
DX: I42.9 Cardiomyopathy, unspecified (principal); E66.01 Morbid (severe) obesity due to excess calories; E11.8 Type 2 diabetes mellitus with unspecified complications
CPT/HCPCS: 99214

== ENCOUNTER → 2023-10-12 13:45 | Outpatient (BNVA) | payer OTHER, SELFPAY | PROVIDERS: PCP Nurse Practitioner Family; Visit Provider Internal Medicine | DX: I42.9 Cardiomyopathy, unspecified (principal); E11.8 Type 2 diabetes mellitus with unspecified complications; E66.01 Morbid (severe) obesity due to excess calories; Z68.43 Body mass index [BMI] 50.0-59.9, adult; Z79.4 Long term (current) use of insulin | CPT/HCPCS: 99212 ==

== ENCOUNTER 2024-01-19 12:58 | Outpatient (AMB) | payer OTHER, SELFPAY ==
--- NOTE | 2024-01-19 13:06 | MHC.PC.OV ---
Vital Signs 01/19/24 13:08 Height 5 ft 11 in Weight 369 lb 8 oz BMI 51.5 BP 132/68 Blood Pressure Location Lt brachial Position Sitting Pulse 97 Pulse Source Pulse Oximeter Pulse Oximetry (%) 94 Oxygen Delivery Method Room Air Intake Visit Reasons: annual exam-establish [facility] patient Intake Note: Patient is here today for a physical and TESSIE from [facility]. Complaint of numbness in both thumbs. [employer] Required: No Subcontract Manager: Not Required per policy Accompanied by: Self / Same As Patient Allergies morphine Adverse Reaction (Unknown, Verified 01/19/24 13:41) projectile vomiting Medication List - Last Reconciled 01/19/24 by Kuldip Robertson MD albuterol sulfate 90 mcg/actuation (ProAir HFA) 2 puffs inhalation Q4-6H PRN blood sugar diagnostic (OneTouch Ultra Test strips) As directed up to three times per day blood-glucose meter As directed carvedilol 3.125 mg PO BID 30 days dulaglutide (Trulicity) 0.75 mg (0.5 mL) subcut QWEEK furosemide 40 mg PO DAILY 30 days lancets As directed up to threetimes per day lisinopril 2.5 mg PO DAILY 30 days Tobacco use date assessed: 01/19/24 Dental Screening Dental Screen Date: 01/19/24 Did you have a dental visit in the last 12 months?: No Did you have a dental problem in the last 6 months where you did not have access to dental care?: No Was dental information given to patient?: Patient has dentist HPI annual exam-[facility] patient HPI Details 33-year-old male presents to the office to discuss his medical condition. I am assuming his care as his provider has left the practice. Patient is giving history of mood disorder. Currently he has on no medications for the same. In the past he has been on lithium and other medications that he can not remember. He has an appointment with a new therapist. Patient feels anxious and reports short-term loss of memory. Patient gives history of diabetes. He has not been taking his medications in the last few weeks. Requesting a refill on the Trulicity. Checked his blood sugars recently and it was 405. Patient also has history of congestive heart failure. Requests a refill on medications. Does not report any symptoms of shortness of breath. [facility] Medical History Obstructive sleep apnea syndrome, mild Left ventricular ejection fraction of 40-49% Snoring Chest pain Morbid obesity with BMI of 50.0-59.9, adult Non-alcoholic fatty liver disease Hypertriglyceridemia Diabetes mellitus Congestive heart failure (CHF) Surgical History History of tooth extraction Hx of excision of mass (~03/30/18) History of ankle surgery (~06/29/12) Family History Mother IBS (irritable bowel syndrome) Father Heart problem Sister Crohn disease Paternal Grandfather Cancer Social History Household Members: None Housing: Apartment Do you presently have visiting nurse or other home services: Yes ([employer] to 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) Alcohol intake: former Patient Tobacco Use Status: Never used Tobacco e-Cigarette/Vaping Use: Former Use Second Hand Smoke Exposure: No Substance Use Type: Marijuana service: No Current occupational status: unemployed Cognitive needs: No Hearing needs: No Vision needs: Yes Questionnaire PHQ-9 Over the last 2 weeks, how often have you been bothered by any of the following problems? 1. Little interest or pleasure in doing things: more than half the days 2. Feeling down, depressed, or hopeless: more than half the days 3. Trouble falling or staying asleep, or sleeping too much: nearly every day 4. Feeling tired or having little energy: nearly every day 5. Poor appetite or overeating: nearly every day 6. Feeling bad about yourself - or that you are a failure or have let yourself or your family down: more than half the days 7. Trouble concentrating on things, such as reading the newspaper or watching television: nearly every day 8. Moving or speaking so slowly that other people could have noticed. Or the opposite - being so fidgety or restless that you have been moving around a lot more than usual: not at all 9. Thoughts that you would be better off or of hurting yourself in some way: more than half the days (thought) Total score: 20 Depression Screening Interpretation: Positive Depression Screening Done: Yes Source: Developed by Drs. Cm Rebolledo, Horace De Los Santos and colleagues, with an educational lise from [employer]. Thrive Questionnaire Date Thrive assessed: 01/19/24 I am a: Patient What is your living situation today?: I have a steady place to live Within the past 12 months, did the food you bought not last and you didn't have the money to get more?: Never true Within the past 12 months, did you worry whether your food would run out before you got money to buy more?: Never true Do you have trouble paying for medicines?: No Do you have trouble getting transportation to medical appointments?: No Do you have trouble paying your heating and electricity bill?: No Do you have trouble taking care of your child, family member or friend?: No Do you have trouble with day-to-day activities such as bathing, preparing meals, shopping, managing finances, etc.?: No Are you currently unemployed and looking for a job?: No Are you interested in more education?: No Currently or been in a relationship where the following occur: no concerns reported THRIVE Score: 0 AUDIT C Alcohol Use Questionnaire (AUDIT-C) 1. How often do you have a drink containing alcohol?: Never 2. How many drinks containing alcohol do you have on a typical day when you are drinking?: 1 or 2 Total Score: 0 SUDHAKAR-7 AMB Questionnaire SUDHAKAR-7 Date SUDHAKAR - 7 assessed: 01/19/24 Feeling nervous, anxious, or on edge: 3 = Nearly every day Not being able to stop or control worryin = Nearly every day Worrying too much about different things: 3 = Nearly every day Trouble relaxin = Nearly every day Being so restless that it is hard to sit still: 2 = More than half the days Becoming easily annoyed or irritable: 2 = More than half the days Feeling afraid as if something awful might happen: 3 = Nearly every day Total SUDHAKAR-7 score (0-4 normal; 5-9 mild; 10-14 moderate; 15-21 severe): 19 Source: Developed by Juanita Mehta Kurt Kroenke and colleagues, with an educational lise from [employer]. Physical exam (Primary Care) BMI result Body Mass Index 51.5 BMI Assessment/Plan discussion: High (1 lb per week weight loss suggested.) BMI High, discussed plan: lifestyle, weight reduction, dietary and physical activity Tobacco/Smoking Status: Tobacco use Status Tobacco use date assessed 04/13/23 10/12/23 15:00 Patient Tobacco Use Status Never used Tobacco 10/12/23 15:00 e-Cigarette/Vaping Use Former Use 10/12/23 15:00 Depression Screening Interpretation: Positive Thrive Assessment: Date of Thrive Assessment Date Thrive assessed 10/05/22 10/12/23 15:00 Currently or been in a relationship where the following occur: no concerns reported Const General: cooperative and healthy appearing Nutritional Appearance: well nourished Orientation/consciousness: patient oriented x3 Limitations: no limitations HENMT Head: Yes normal to inspection Eyes General: appearance normal, both eyes and all related structures Neck Neck: Yes normal visual inspection Chest Chest palpation & inspection: normal palpation of entire chest wall Resp Effort & Inspection: normal respiratory effort Neuro General: patient oriented x3 Results AMB Hemoglobin A1c AMB Hemoglobin A1c 8.8 % Last Edit by HELEN Hannah on 01/19/24 13:32 Assessment and Plan Assessment & Plan (1) Type 2 diabetes mellitus with unspecified complications: Code(s): E11.8 - Type 2 diabetes mellitus with unspecified complications Plan: A1c is greater than 8. Trulicity reordered. Jardiance added to the regimen. This should help with the left ventricular dysfunction 2. Patient would like to get his anxiety addressed before he wants to address the problem of diabetes. (2) Morbid obesity due to excess calories: Code(s): E66.01 - Morbid (severe) obesity due to excess calories (3) Generalized anxiety disorder: Code(s): F41.1 - Generalized anxiety disorder Plan: Patient is had history of mood disorder in the past and is not on any medications. He declines to take any medications currently. Prefers to see the therapist. I asked him to re visit and come back here in a month. Orders: Orders AMB Hemoglobin A1c Today E11.65 - Type 2 diabetes mellitus with hyperglycemia, E11.8 - Type 2 diabetes mellitus with unspecified complications Medications: Refilled dulaglutide (Trulicity) 0.75 mg (0.5 mL) subcut QWEEK 2 mL 6RF E11.8 - Type 2 diabetes mellitus with unspecified complications Coding Level of Care Code Est Pt Level 4 (63915) Complex EM visit Add On G2211 Diagnoses Type 2 diabetes mellitus with unspecified complications E11.8 Morbid obesity due to excess calories E66.01 Generalized anxiety disorder F41.1
[2024-01-19 13:08] VITALS: BP 132/68; PULSE 97; O2SAT 94; BMI 51.5
== END 2024-01-19 13:39 | disposition home or self-care (01) ==
PROVIDERS: PCP Nurse Practitioner Family; Visit Provider Internal Medicine
DX: E11.8 Type 2 diabetes mellitus with unspecified complications (principal); E66.01 Morbid (severe) obesity due to excess calories; E11.65 Type 2 diabetes mellitus with hyperglycemia; Z68.43 Body mass index [BMI] 50.0-59.9, adult; F41.1 Generalized anxiety disorder
CPT/HCPCS: 83036; 99214; G2211

== ENCOUNTER 2024-02-12 23:54 | Emergency (ER) | payer OTHER, SELFPAY ==
--- NOTE | ~2024-02-12 | CT_ITS ---
EXAMINATION: CT HEAD WITHOUT CONTRAST CT CERVICAL SPINE WITHOUT CONTRAST CLINICAL INFORMATION: Trauma. Pain. COMPARISON: None available. TECHNIQUE: Contiguous axial imaging was performed through the head and cervical spine without intravenous administration of contrast. Sagittal and coronal reformatted images also obtained. This CT examination was performed using dose optimization techniques as appropriate, variously including the following: *Automated exposure control *Adjustment of mA and/or kV according to patient size (this includes techniques or standardized protocols for targeted exams where dose is matched to indication/reason for exam; i.e. extremities or head) *Use of iterative reconstruction technique DLP: 1664 mGy-cm FINDINGS: The lateral, third and fourth ventricles are normally outlined. The cortical sulci and basal cisterns are normally outlined as well. There is no acute territorial defect, hemorrhage or midline shift. The extra-axial spaces are unremarkable. Calvarium/scalp: Intact. Maxillofacial sinuses and mastoids: There is a lobular mucosal thickening of the maxillary sinuses. The remaining maxillofacial sinuses and mastoids are clear. Cervical spine: There is mild reversal of the expected cervical spine curvature. There is mild diffuse cervical disc degenerative change with mild loss of disc space, mild endplate change and minimal osteophyte formation without significant spinal canal and neuroforaminal narrowing. The bone mineralization is normal. No fracture is seen. The soft tissues are unremarkable. CT/CT head/brain wo IV con IMPRESSION: 1. No acute intracranial pathology. 2. No acute cervical spine abnormality. Mild degenerative changes of the cervical spine.
--- NOTE | ~2024-02-12 | CT_ITS ---
EXAMINATION: CT HEAD WITHOUT CONTRAST CT CERVICAL SPINE WITHOUT CONTRAST CLINICAL INFORMATION: Trauma. Pain. COMPARISON: None available. TECHNIQUE: Contiguous axial imaging was performed through the head and cervical spine without intravenous administration of contrast. Sagittal and coronal reformatted images also obtained. This CT examination was performed using dose optimization techniques as appropriate, variously including the following: *Automated exposure control *Adjustment of mA and/or kV according to patient size (this includes techniques or standardized protocols for targeted exams where dose is matched to indication/reason for exam; i.e. extremities or head) *Use of iterative reconstruction technique DLP: 1664 mGy-cm FINDINGS: The lateral, third and fourth ventricles are normally outlined. The cortical sulci and basal cisterns are normally outlined as well. There is no acute territorial defect, hemorrhage or midline shift. The extra-axial spaces are unremarkable. Calvarium/scalp: Intact. Maxillofacial sinuses and mastoids: There is a lobular mucosal thickening of the maxillary sinuses. The remaining maxillofacial sinuses and mastoids are clear. Cervical spine: There is mild reversal of the expected cervical spine curvature. There is mild diffuse cervical disc degenerative change with mild loss of disc space, mild endplate change and minimal osteophyte formation without significant spinal canal and neuroforaminal narrowing. The bone mineralization is normal. No fracture is seen. The soft tissues are unremarkable. CT/CT cervical spine wo IV con IMPRESSION: 1. No acute intracranial pathology. 2. No acute cervical spine abnormality. Mild degenerative changes of the cervical spine.
[2024-02-13 00:08] VITALS: BP 123/71; PULSE 95; RESP 18; TEMP 36.8; O2SAT 96; BMI 52.7
[2024-02-13 00:41] LABS: MANUAL DIFF FLAG NO
[2024-02-13 00:44] LABS: Basophils Percent Auto 0.4 % (0-2); Eosinophils Absolute Auto 0.3 X10*3/uL (0.0-0.4); Eosinophils Percent Auto 2.9 % (0-4); Hematocrit 40.8 % (42.0-52.0); Hemoglobin 13.6 g/dl (14.0-18.0); Imm Gran Abs Auto 0.07 X10*3/uL (0.00-0.03); Imm Gran Pct Auto 0.7 % (0.0-0.4); Lymphocytes Absolute Auto 2.5 X10*3/uL (1.2-4.9); Lymphocytes Percent Auto 26.8 % (20-40); Mean Corpuscular HGB Conc 33.3 g/dl (31.0-36.0); Mean Corpuscular Hemoglobin 29.1 pg (27.0-33.0); Mean Corpuscular Volume 87.2 fL (80.0-98.0); Mean Platelet Volume 10.6 fL (9.4-12.4); Monocytes Absolute Auto 0.6 X10*3/uL (0.1-1.2); Monocytes Percent Auto 6.3 % (2-11); Neutrophils Absolute Auto 5.9 x10*3/uL (2.0-8.3); Neutrophils Percent Auto 62.9 % (45-73); Platelet Count 312 X10*3/uL (160-400); Red Blood Count 4.68 X10*6/uL (4.60-5.80); Red Cell Distribution Width 11.8 % (11.0-16.0); White Blood Count 9.4 X10*3/uL (4.8-10.8)
[2024-02-13 00:53] VITALS: BP 119/71; PULSE 84
[2024-02-13 00:55] VITALS: BP 106/56; PULSE 95
[2024-02-13 00:56] VITALS: BP 101/51; PULSE 97
[2024-02-13 01:01] LABS: Alanine Aminotransferase 113 U/L (0-40); Albumin Level 4.6 g/dL (3.5-5.0); Alkaline Phosphatase 76 U/L (39-117); Anion Gap 15 (12-20); Aspartate Amino Transferase 52 U/L (5-37); Bilirubin Total 0.9 mg/dL (0.0-1.0); Blood Urea Nitrogen 18 mg/dL (9-16); Carbon Dioxide 23 mmol/L (22-29); Chloride 106 mmol/L (96-108); Creatinine Clr Calc Pharmacy 139.7; Estimated Glomerular Filt Rate > 60; Glucose Random 173 mg/dL (60-115); Potassium 4.1 mmol/L (3.3-5.1); Sodium 140 mmol/L (135-145); Total Protein 7.4 g/dL (6.5-8.0)
--- NOTE | 2024-02-13 01:01 | ED_ITS ---
HPI - General Adult General Chief complaint: Dizziness Stated complaint: dizzy- fell and hit head Time Seen by Provider: 02/13/24 01:01 History of Present Illness ED Provider: Coby DALE narrative: The patient is a 33-year-old male who says that he was in his backyard helping his mother move some heavy things. He says that he had just finished moving something heavy when he stood up and felt lightheaded. He says that he ?blacked out? and fell backwards striking the back of his head dirt. He came to with a headache and neck pain. He also has some pains in his back but his most severe pains are in his head and his neck. No numbness, tingling, weakness, burning in his extremities. The patient says that he has a history of type 2 diabetes and also history of heart failure but he says he is sometimes not very compliant with his medications. He says his last bowel movement was yesterday and that the stool looked very dark. Related Data Previous Rx's ?Medication ?Instructions ?Recorded blood-glucose meter #1 ea 05/13/23 lancets #100 ea 05/13/23 albuterol sulfate 90 mcg/actuation 2 puff inhalation Q4-6H PRN 07/16/23 aerosol inhaler (ProAir HFA) shortness of breath or wheezing #8.5 grams blood sugar diagnostic (OneTouch #100 ea 01/19/24 Ultra Test strips) carvedilol 3.125 mg tablet 3.125 mg PO BID 30 days #60 tabs 01/19/24 dulaglutide 0.75 mg/0.5 mL 0.75 mg (0.5 mL) subcut QWEEK #2 mL 01/19/24 subcutaneous pen injector (Trulicity) empagliflozin 25 mg tablet 25 mg PO DAILY #90 tabs 01/19/24 (Jardiance) furosemide 40 mg tablet 40 mg PO DAILY 90 days #90 tabs 01/19/24 lisinopril 2.5 mg tablet 2.5 mg PO DAILY 90 days #90 tabs 01/19/24 Allergies Allergy/AdvReac Type Severity Reaction Status Date / Time morphine AdvReac Unknown projectile Verified 02/13/24 00:12 vomiting Review of Systems 2 Review of Systems: Yes all other systems are reviewed and are negative [facility] Past Medical History Medical History Obstructive sleep apnea syndrome, mild Left ventricular ejection fraction of 40-49% Snoring Chest pain Morbid obesity with BMI of 50.0-59.9, adult Non-alcoholic fatty liver disease Hypertriglyceridemia Diabetes mellitus Congestive heart failure (CHF) Surgical History History of tooth extraction Hx of excision of mass (~03/30/18) History of ankle surgery (~06/29/12) Family History Family History Mother IBS (irritable bowel syndrome) Father Heart problem Sister Crohn disease Paternal Grandfather Cancer Social History Social History Household Members: None Housing: Apartment Do you presently have visiting nurse or other home services: Yes ([employer] to 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) Alcohol intake: former Patient Tobacco Use Status: Never used Tobacco Smoked in Last 30 Days: No e-Cigarette/Vaping Use: Former Use Second Hand Smoke Exposure: No Substance Use Type: Marijuana Advance Directives: No Advance Directives Information Provided: No Do you have a plan to hurt others: No Plan service: No Current occupational status: unemployed Cognitive needs: No Hearing needs: No Vision needs: Yes Physical Exam ED Vital Signs: Vital Signs - 24 hr 02/13/24 00:08 02/13/24 00:53 02/13/24 00:55 Temperature 98.3 F Pulse Rate 95 84 95 Respiratory Rate 18 Blood Pressure 123/71 119/71 106/56 L Pulse Oximetry 96 Oxygen Delivery Method Room Air 02/13/24 00:56 02/13/24 01:19 Temperature 98.3 F Pulse Rate 97 97 Respiratory Rate 18 Blood Pressure 101/51 L 101/51 L Pulse Oximetry 96 Oxygen Delivery Method Room Air BMI result Body Mass Index 52.7 Const Other: The patient is very large 33-year-old who was awake and alert. GCS is 15. Complaining of a headache. HENMT Other: No obvious signs of trauma to the head or the face. No raccoon eyes. No webb sign. No hemotympanum. There is tenderness to the occipital scalp Eyes Other: Pupils are round equal, conjunctivae clear, extraocular movements intact Neck Other: There is posterior C-spine midline tenderness and pain with range of motion Chest Other: No chest wall tenderness Resp Effort & Inspection: normal respiratory effort Auscultation: clear to auscultation bilaterally Cardio Rate: regular rate Rhythm: regular rhythm Heart sounds: S1 normal heart sound present and S2 normal heart sound present GI Other: Abdomen is soft and nontender. Rectal exam revealed pale brown, obviously non melenic stool. Back/Spine/Pelvis Other: No midline vertebral tenderness in the thoracic or lumbar spine Skin Other: Skin is intact Neuro Other: The patient is awake and alert. He seems photophobic. Cranial nerves 2-12 are intact. He moves his extremities symmetrically and appropriately. He is neurologically intact Extrem Other: No signs of trauma to the extremities. No deformity Medical Decision Making Medical Decision Making MDM Narrative: The patient is a very pleasant 33-year-old male who had a syncopal episode while doing some work in his backyard. He seems to describe blacking out after he stood up, falling backwards and hitting his head. This was very likely an orthostatic mechanism with regard to his syncope. He has a negative head CT and a negative cervical spine CT. EKG is unremarkable. Describes having a dark stool yesterday but his stool today does not look melenic at all. I think he may be discharged to resume his regular medications and follow up his regular doctor. Lab Data 02/13/24 00:37 02/13/24 00:37 Labs: Lab Results 02/13/24 Range/Units 00:37 WBC 9.4 (4.8-10.8) X10*3/uL RBC 4.68 (4.60-5.80) X10*6/uL Hgb 13.6 L (14.0-18.0) g/dl Hct 40.8 L (42.0-52.0) % MCV 87.2 (80.0-98.0) fL MCH 29.1 (27.0-33.0) pg MCHC 33.3 (31.0-36.0) g/dl RDW 11.8 (11.0-16.0) % Plt Count 312 D (160-400) X10*3/uL MPV 10.6 (9.4-12.4) fL Immature Gran % (Auto) 0.7 H (0.0-0.4) % Neut % (Auto) 62.9 (45-73) % Lymph % (Auto) 26.8 (20-40) % [place] % (Auto) 6.3 (2-11) % Eos % (Auto) 2.9 (0-4) % Baso % (Auto) 0.4 (0-2) % Lymph # (Auto) 2.5 (1.2-4.9) X10*3/uL [place] # (Auto) 0.6 (0.1-1.2) X10*3/uL Eos # (Auto) 0.3 (0.0-0.4) X10*3/uL Baso # (Auto) 0.0 (0.0-0.2) X10*3/uL Abs Immat Gran (auto) 0.07 H (0.00-0.03) X10*3/uL Absolute Neuts (auto) 5.9 (2.0-8.3) x10*3/uL Absolute Nucleated RBC 0.000 (0.0-0.012) X10*3/uL Nucleated RBC % (auto) 0.0 (0.0-0.2) /100WBC Sodium 140 (135-145) mmol/L Potassium 4.1 (3.3-5.1) mmol/L Chloride 106 (96-108) mmol/L Carbon Dioxide 23 (22-29) mmol/L Anion Gap 15 (12-20) BUN 18 H (9-16) mg/dL Creatinine 1.21 (0.5-1.4) mg/dL Estim Creat Clear Calc 139.7 Estimated GFR > 60 Random Glucose 173 H (60-115) mg/dL Calcium 10.0 D (8.4-10.2) mg/dL Total Bilirubin 0.9 (0.0-1.0) mg/dL AST 52 H (5-37) U/L ALT 113 H (0-40) U/L Alkaline Phosphatase 76 (39-117) U/L Total Protein 7.4 (6.5-8.0) g/dL Albumin 4.6 (3.5-5.0) g/dL Discharge Plan Discharge Clinical Impression: Syncope, Head injury, Cervical strain Patient Disposition: Home, Self-Care Additional Instructions: Your testing in the emergency room today is reassuring. Please plan on resuming your normal medications. You may use ibuprofen and acetaminophen as needed for discomfort. Please follow up soon with your regular doctor. Return to the emergency room if worse. Prescriptions: No Action (DME) blood-glucose meter Kit See Rx Instructions .Route Qty: 1 0RF Rx Instructions: As directed (DME) lancets Misc See Rx Instructions .Route Qty: 100 1RF Rx Instructions: As directed up to threetimes per day albuterol sulfate [ProAir HFA] 90 mcg/actuation HFA aerosol inhaler 2 puff inhalation Q4-6H PRN (Reason: shortness of breath or wheezing) Qty: 8.5 0RF lisinopril 2.5 mg tablet 2.5 mg PO DAILY 90 Days Qty: 90 1RF furosemide 40 mg tablet 40 mg PO DAILY 90 Days Qty: 90 1RF Trulicity 0.75 mg/0.5 mL pen injector 0.75 mg subcut QWEEK Qty: 2 6RF carvedilol 3.125 mg tablet 3.125 mg PO BID 30 Days Qty: 60 3RF Rx Instructions: must administer with a meal/food (DME) OneTouch Ultra Test Strip See Rx Instructions .Route Qty: 100 1RF Rx Instructions: As directed up to three times per day Jardiance 25 mg tablet 25 mg PO DAILY Qty: 90 1RF Print Language: Kinyarwanda
--- NOTE | 2024-02-13 01:16 | ECG_ITS ---
Test Reason : SYNCOPE Blood Pressure : / mmHG Vent. Rate : 084 BPM Atrial Rate : 084 BPM P-R Int : 160 ms QRS Dur : 086 ms QT Int : 362 ms P-R-T Axes : 045 007 030 degrees QTc Int : 427 ms Normal sinus rhythm Normal ECG When compared with ECG of 16-JUL-2023 17:10, Criteria for Septal infarct are no longer Present Referred By: Primo Tenorio Electronically Signed By:KISHOR WHEELER MD
[2024-02-13 01:19] VITALS: BP 101/51; PULSE 97; RESP 18; TEMP 36.8; O2SAT 96
[2024-02-13 03:04] VITALS: BP 139/84; PULSE 85; RESP 16; TEMP 36.9; O2SAT 94
== END 2024-02-13 03:06 | disposition home or self-care (01) ==
PROVIDERS: Emergency Provider Emergency Medicine
DX: S09.90XA Unspecified injury of head, initial encounter (principal); S16.1XXA Strain of muscle, fascia and tendon at neck level, initial encounter; R55 Syncope and collapse; R42 Dizziness and giddiness; M54.2 Cervicalgia; R51.9 Headache, unspecified; E11.9 Type 2 diabetes mellitus without complications; W01.10XA Fall on same level from slipping, tripping and stumbling with subsequent striking against unspecified object, initial encounter; Y93.9 Activity, unspecified; Y92.007 Garden or yard of unspecified non-institutional (private) residence as the place of occurrence of the external cause; Y99.8 Other external cause status; Z91.148 Patient's other noncompliance with medication regimen for other reason; Z79.899 Other long term (current) drug therapy; Z79.85 Long-term (current) use of injectable non-insulin antidiabetic drugs
CPT/HCPCS: 36415; 70450; 72125; 80053; 85025; 93005; 99283; 99284

== ENCOUNTER → 2024-02-13 01:16 | Outpatient (BNV) | payer OTHER, SELFPAY | PROVIDERS: Emergency Provider Emergency Medicine; Visit Provider Internal Medicine Cardiovascular Disease | DX: R55 Syncope and collapse (principal) | CPT/HCPCS: 93010 ==

== ENCOUNTER 2024-04-14 15:46 | Emergency (ER) | payer OTHER, SELFPAY ==
--- NOTE | ~2024-04-14 | XR_ITS ---
EXAMINATION: XR CHEST CLINICAL INFORMATION: Left-sided chest pain. COMPARISON: July 16, 2023 TECHNIQUE: 2 views of the chest were obtained. FINDINGS: The lungs are well expanded. No focal consolidation. No pleural effusion. Cardiac silhouette is unchanged. XR/XR chest 2V IMPRESSION: No acute abnormality. Electronically signed by: Shekhar Cadena MD 04/14/2024 04:32 PM EDT RP
--- NOTE | 2024-04-14 15:48 | ECG_ITS ---
Test Reason : CHEST PAIN Blood Pressure : / mmHG Vent. Rate : 085 BPM Atrial Rate : 085 BPM P-R Int : 160 ms QRS Dur : 080 ms QT Int : 356 ms P-R-T Axes : 028 -04 015 degrees QTc Int : 423 ms Normal sinus rhythm Normal ECG When compared with ECG of 13-FEB-2024 01:52, No significant change was found Referred By: Domenica Lara Electronically Signed By:MAIN MOCK
[2024-04-14 16:02] VITALS: BP 125/71; PULSE 180; RESP 18; TEMP 36.8; O2SAT 98; BMI 52.4
--- NOTE | 2024-04-14 16:04 | ED.CHESTPAIN ---
HPI - Chest Pain General Chief Complaint: Chest Pain Stated Complaint: cp-l arm pain Time Seen by Provider: 04/14/24 16:11 Source: patient Mode of arrival: ambulatory Limitations: no limitations History of Present Illness ED Provider: Dr. Caprice Baez HPI narrative: Patient comes to the ED complaining of three days of chest pain. Today approximately 7 hrs ago, patient started having left arm pain. Patient is known to have past medical history of CHF, cardiomyopathy and severe anxiety in medical offices or hospital. Patient attributes his chest pain to anxiety. Patient says that the last three days have been particularly stressful. Patient denies SOB Related Data Previous Rx's ?Medication ?Instructions ?Recorded blood-glucose meter #1 ea 05/13/23 lancets #100 ea 05/13/23 albuterol sulfate 90 mcg/actuation 2 puff inhalation Q4-6H PRN 07/16/23 aerosol inhaler (ProAir HFA) shortness of breath or wheezing #8.5 grams blood sugar diagnostic (OneTouch #100 ea 01/19/24 Ultra Test strips) carvedilol 3.125 mg tablet 3.125 mg PO BID 30 days #60 tabs 01/19/24 dulaglutide 0.75 mg/0.5 mL 0.75 mg (0.5 mL) subcut QWEEK #2 mL 01/19/24 subcutaneous pen injector (Trulicity) empagliflozin 25 mg tablet 25 mg PO DAILY #90 tabs 01/19/24 (Jardiance) furosemide 40 mg tablet 40 mg PO DAILY 90 days #90 tabs 01/19/24 lisinopril 2.5 mg tablet 2.5 mg PO DAILY 90 days #90 tabs 01/19/24 Allergies Allergy/AdvReac Type Severity Reaction Status Date / Time morphine AdvReac Unknown projectile Verified 04/14/24 16:04 vomiting Review of Systems Review of Systems: Constitutional : No Weight loss, No Fever, No Chills, No Night Sweats, No Fatigue, No Malaise ENT/Mouth : No Hearing loss, No Ear Pain, No Nasal Congestion, No Sinus Pain, No Hoarseness, No sore throat, No Rhinorrhea, No Swallowing Difficulty Eyes: No Eye Pain, No Swelling, No Redness, No Foreign Body, No Discharge, No Vision Changes Cardiovascular : Complaining of Chest Pain for more 72 hours, No SOB, No Dyspnea on Exertion, No Orthopnea, No Edema, No Palpitations Respiratory : No Cough, No Sputum, No Wheezing, No Smoke Exposure, No Dyspnea Gastrointestinal : No Nausea, No Vomiting, No Diarrhea, No Constipation, No abdominal Pain, No Hematochezia, No Melena Genitourinary : no irregular bleeding, No Dysuria, No Urinary Frequency, No Hematuria, No Urinary Incontinence, No Urgency, No Flank Pain, No Urinary Flow Changes, No Hesitancy Musculoskeletal : No joint pain, No Myalgias, No Joint Swelling Skin : No Skin Lesions, No rash Neuro : No Weakness, No Numbness, No Paresthesias, No Loss of Consciousness, No Dizziness, No Headache Psych : No Anxiety/Panic, No Depression, No SI/HI/AH/VH, No Social Issues, Heme/Lymph: No Bruising, No Bleeding,No Lymphadenopathy Endocrine : No Polyuria, No Polydipsia, No Temperature Intolerance PMFSH Past Medical History Medical History Obstructive sleep apnea syndrome, mild Left ventricular ejection fraction of 40-49% Snoring Chest pain Morbid obesity with BMI of 50.0-59.9, adult Non-alcoholic fatty liver disease Hypertriglyceridemia Diabetes mellitus Congestive heart failure (CHF) Surgical History History of tooth extraction Hx of excision of mass (~03/30/18) History of ankle surgery (~06/29/12) Family History Family History Mother IBS (irritable bowel syndrome) Father Heart problem Sister Crohn disease Paternal Grandfather Cancer Social History Social History Household Members: None Housing: Apartment Do you presently have visiting nurse or other home services: Yes (RESOURCE CONSERVATION MANAGER to 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) Alcohol intake: former Patient Tobacco Use Status: Never used Tobacco e-Cigarette/Vaping Use: Former Use Second Hand Smoke Exposure: No Substance Use Type: Marijuana Advance Directives: No Advance Directives Information Provided: No Do you have a plan to hurt others: No Plan service: No Current occupational status: unemployed Cognitive needs: No Hearing needs: No Vision needs: Yes Physical Exam Vital Signs: Vital Signs: Last Vital Signs Temp 98.9 F 04/14/24 17:57 Pulse 84 04/14/24 17:57 Resp 20 04/14/24 17:57 BP 119/77 04/14/24 17:57 Pulse Ox 95 04/14/24 17:57 O2 Del Method Room Air 04/14/24 17:57 BMI result Body Mass Index 52.4 Const: Other: Appearance: Alert. Oriented X3. No acute distress. Eyes: Pupils equal, round and reactive to light. ENT: Pharynx normal. Neck: Normal inspection. Neck supple. No lymph nodes noted. No crepitus CVS: Normal heart rate and rhythm. Pulses normal. Normal S1 and S2 Respiratory: No respiratory distress. Breath sounds normal. No Wheezing. No rales Abdomen: Soft and nontender. No rigidity. No distention. Skin: Skin warm and dry. Normal skin color. Normal skin turgor. Extremities: No lower extremity edema. No Lacerations. No Rash Neuro: Oriented X 3. No motor deficit. No sensory deficit. Moving all extremities. No slurred speech. CN 2 through 12 grossly intact Psych: calm, cooperative, normal affect Course Course Course Narrative: This is a Rapid Medical Examination (RME) performed by Janet Lara PA-C in triage. Full HPI, ROS, assessment and treatment plan per primary provider in the Main ED. 33 yo male hx of cardiomyopathy, congestive heart failure, type 2 diabetes, morbid obesity, HDL here w/ sharp/ stabbing left sided chest pain radiating to shoulder blade x few days, worsening today. initially attributed it to recent stress/ anxiety. glucose 405 this morning. ran out of aspirin. 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 Patient brought back to main ED bed. Plan: Labs, EKG, chest x-ray Medical Decision Making Medical Decision Making MDM Narrative: Patient has been on the monitor, no arrhythmias noted. When patient arrived and I told that his EKG looked good, patient stated that he instantaneously started feeling better. Most likely, his discomfort is likely secondary to anxiety. My interpretation of labs, hematology at baseline, T bili slightly elevated 1.5, chronically elevated AST and ALT, likely to fatty liver, no abdominal pain. Troponin and BNP negative -patient's symptoms have been present for over 72 hours. -I discussed the above-mentioned with the patient, patient feels better -of note, it was recorded that when patient came in, patient's heart rate was in the 180s. However, when his heart rate was checked again, it was actually 84. Patient denies any palpitations/heart pounding. -there is a chance that patient may have episodes of SVT? Patient was here on the monitor for 2 hours, no arrhythmias were detected. Patient instructed to follow-up with his PCP and with his animal health technician Dr. Levine. Patient may need a Holter monitor Differential Diagnosis Differential Diagnoses: The differential diagnosis associated with the presentation includes (ACS, anxiety, CHF) Admission/Observation Consideration of admission/observation: Escalation of care including admission/observation considered (Given patient's past medical history, observation was considered) Lab Data MDM Lab Attestation statement: I reviewed the patient's lab results. 04/14/24 16:21 04/14/24 16:21 Labs: Lab Results 04/14/24 Range/Units 16:21 WBC 9.2 (4.8-10.8) X10*3/uL RBC 5.25 (4.60-5.80) X10*6/uL Hgb 15.0 (14.0-18.0) g/dl Hct 45.5 (42.0-52.0) % MCV 86.7 (80.0-98.0) fL MCH 28.6 (27.0-33.0) pg MCHC 33.0 (31.0-36.0) g/dl RDW 11.3 (11.0-16.0) % Plt Count 305 (160-400) X10*3/uL MPV 10.7 (9.4-12.4) fL Immature Gran % (Auto) 0.5 H (0.0-0.4) % Neut % (Auto) 70.0 (45-73) % Lymph % (Auto) 21.4 (20-40) % Jack % (Auto) 6.0 (2-11) % Eos % (Auto) 1.6 (0-4) % Baso % (Auto) 0.5 (0-2) % Lymph # (Auto) 2.0 (1.2-4.9) X10*3/uL Jack # (Auto) 0.6 (0.1-1.2) X10*3/uL Eos # (Auto) 0.2 (0.0-0.4) X10*3/uL Baso # (Auto) 0.1 (0.0-0.2) X10*3/uL Abs Immat Gran (auto) 0.05 H (0.00-0.03) X10*3/uL Absolute Neuts (auto) 6.4 (2.0-8.3) x10*3/uL Absolute Nucleated RBC 0.000 (0.0-0.012) X10*3/uL Nucleated RBC % (auto) 0.0 (0.0-0.2) /100WBC PT 12.7 H (10.9-12.4) SEC INR 1.1 (0.9-1.1) Sodium 137 (135-145) mmol/L Potassium 4.3 (3.3-5.1) mmol/L Chloride 104 (96-108) mmol/L Carbon Dioxide 26 (22-29) mmol/L Anion Gap 11 L (12-20) BUN 11 (9-16) mg/dL Creatinine 0.81 (0.5-1.4) mg/dL Estim Creat Clear Calc 208.0 Estimated GFR > 60 Random Glucose 195 H (60-115) mg/dL Calcium 9.3 D (8.4-10.2) mg/dL Magnesium 2.0 (1.6-2.6) mg/dL Total Bilirubin 1.5 H (0.0-1.0) mg/dL AST 75 H (5-37) U/L ALT 157 H (0-40) U/L Alkaline Phosphatase 83 (39-117) U/L Troponin I High Sens < 2.7 (<3.5-35.0) ng/L B-Natriuretic Peptide < 10 (<100) pg/mL Total Protein 7.6 (6.5-8.0) g/dL Albumin 4.4 (3.5-5.0) g/dL Lipase 44 (8-78) U/L Independent Interpretation I performed an independent interpretation of an: Plain X-Ray Radiology Impression Discussion of test interpretation with radiology: I have reviewed the radiologist's reading. Radiologist Impression: The lungs are well expanded. No focal consolidation. No pleural effusion. Cardiac silhouette is unchanged. XR/XR chest 2V IMPRESSION: No acute abnormality. Critical Care Time Critical Care Time Critical Care Time: Yes Total Critical Care Time: 35 Attestation: Please follow-up with your primary care physician tomorrow. If you have any worsening or new symptoms, please return to the emergency room or call 911 Discharge Plan Discharge Clinical Impression: Atypical chest pain Patient Disposition: Home, Self-Care Instructions: Chest Pain (ED), Anxiety (ED) Additional Instructions: Please follow-up with your primary care physician tomorrow. If you have any worsening or new symptoms, please return to the emergency room or call 911 Prescriptions: No Action (DME) blood-glucose meter Kit See Rx Instructions .Route Qty: 1 0RF Rx Instructions: As directed (DME) [facility] See Rx Instructions .Route Qty: 100 1RF Rx Instructions: As directed up to threetimes per day albuterol sulfate [ProAir HFA] 90 mcg/actuation HFA aerosol inhaler 2 puff inhalation Q4-6H PRN (Reason: shortness of breath or wheezing) Qty: 8.5 0RF lisinopril 2.5 mg tablet 2.5 mg PO DAILY 90 Days Qty: 90 1RF furosemide 40 mg tablet 40 mg PO DAILY 90 Days Qty: 90 1RF Trulicity 0.75 mg/0.5 mL pen injector 0.75 mg subcut QWEEK Qty: 2 6RF carvedilol 3.125 mg tablet 3.125 mg PO BID 30 Days Qty: 60 3RF Rx Instructions: must administer with a meal/food (DME) OneTouch Ultra Test Strip See Rx Instructions .Route Qty: 100 1RF Rx Instructions: As directed up to three times per day Jardiance 25 mg tablet 25 mg PO DAILY Qty: 90 1RF Referrals: Richardson Levine MD [Physician] - 04/14/24 7:05 pm Interventions: ED Discharge Assessment Last Done: 04/14/24 19:04 Print Language: Vietnamese
[2024-04-14 16:26] LABS: MANUAL DIFF FLAG NO
[2024-04-14 16:30] LABS: Basophils Absolute Auto 0.1 X10*3/uL (0.0-0.2); Basophils Percent Auto 0.5 % (0-2); Eosinophils Absolute Auto 0.2 X10*3/uL (0.0-0.4); Eosinophils Percent Auto 1.6 % (0-4); Hematocrit 45.5 % (42.0-52.0); Imm Gran Abs Auto 0.05 X10*3/uL (0.00-0.03); Imm Gran Pct Auto 0.5 % (0.0-0.4); Lymphocytes Percent Auto 21.4 % (20-40); Mean Corpuscular Hemoglobin 28.6 pg (27.0-33.0); Mean Corpuscular Volume 86.7 fL (80.0-98.0); Mean Platelet Volume 10.7 fL (9.4-12.4); Monocytes Absolute Auto 0.6 X10*3/uL (0.1-1.2); Neutrophils Absolute Auto 6.4 x10*3/uL (2.0-8.3); Platelet Count 305 X10*3/uL (160-400); Red Blood Count 5.25 X10*6/uL (4.60-5.80); Red Cell Distribution Width 11.3 % (11.0-16.0); White Blood Count 9.2 X10*3/uL (4.8-10.8)
[2024-04-14 16:35] LABS: INTERNATIONAL NORM RATIO 1.1 (0.9-1.1); Prothrombin Time 12.7 SEC (10.9-12.4)
[2024-04-14 16:44] LABS: Alanine Aminotransferase 157 U/L (0-40); Albumin Level 4.4 g/dL (3.5-5.0); Alkaline Phosphatase 83 U/L (39-117); Anion Gap 11 (12-20); Aspartate Amino Transferase 75 U/L (5-37); Bilirubin Total 1.5 mg/dL (0.0-1.0); Blood Urea Nitrogen 11 mg/dL (9-16); Calcium 9.3 mg/dL (8.4-10.2); Carbon Dioxide 26 mmol/L (22-29); Chloride 104 mmol/L (96-108); Estimated Glomerular Filt Rate > 60; Glucose Random 195 mg/dL (60-115); Lipase 44 U/L (8-78); Potassium 4.3 mmol/L (3.3-5.1); Sodium 137 mmol/L (135-145); Total Protein 7.6 g/dL (6.5-8.0)
[2024-04-14 16:49] LABS: B Type Natriuretic Peptide < 10 pg/mL (<100)
[2024-04-14 16:55] LABS: Troponin-I High Sensitivity < 2.7 ng/L (<3.5-35.0)
[2024-04-14 17:57] VITALS: BP 119/77; PULSE 84; RESP 20; TEMP 37.2; O2SAT 95
[2024-04-14 19:04] VITALS: BP 119/77; PULSE 84; RESP 20; TEMP 37.2; O2SAT 95
== END 2024-04-14 19:05 | disposition home or self-care (01) ==
PROVIDERS: Physician Assistant Medical; Emergency Provider Emergency Medicine; PCP Internal Medicine
DX: R07.89 Other chest pain (principal); M79.602 Pain in left arm; R06.02 Shortness of breath; Z79.899 Other long term (current) drug therapy
CPT/HCPCS: 36415; 71046; 80053; 83690; 83735; 83880; 84484; 85025; 85610; 93005; 99284

== ENCOUNTER 2024-07-12 08:42 | Outpatient (AMB) | payer OTHER, SELFPAY ==
[2024-07-12 08:46] VITALS: BP 118/82; PULSE 114; O2SAT 93; BMI 51.2
--- NOTE | 2024-07-12 08:46 | A.OFFPC_ITS ---
Vital Signs 07/12/24 08:46 Height 5 ft 11 in Weight 367 lb BMI 51.2 BP 118/82 Blood Pressure Location Lt brachial Position Sitting Pulse 114 H Pulse Source Pulse Oximeter Pulse Oximetry (%) 93 Oxygen Delivery Method Room Air Intake Visit Reasons: Diabetes follow-up [place] Required: No Accompanied by: Self / Same As Patient Allergies morphine Adverse Reaction (Unknown, Verified 07/12/24 08:46) projectile vomiting Tobacco use date assessed: 07/12/24 Dental Screening Dental Screen Date: 07/12/24 Did you have a dental visit in the last 12 months?: Yes Did you have a dental problem in the last 6 months where you did not have access to dental care?: No Was dental information given to patient?: Patient has dentist [facility] Medical History (Updated 07/12/24 @ 09:22 by Kuldip Robertson MD) Endogenous depression Obstructive sleep apnea syndrome, mild Left ventricular ejection fraction of 40-49% Snoring Chest pain Morbid obesity with BMI of 50.0-59.9, adult Non-alcoholic fatty liver disease Hypertriglyceridemia Diabetes mellitus Congestive heart failure (CHF) Surgical History History of tooth extraction Hx of excision of mass (~03/30/18) History of ankle surgery (~06/29/12) Family History Mother IBS (irritable bowel syndrome) Father Heart problem Sister Crohn disease Paternal Grandfather Cancer Social History Household Members: None Housing: Apartment Do you presently have visiting nurse or other home services: Yes (TREASURY REPRESENTATIVE to 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) Alcohol intake: former Patient Tobacco Use Status: Never used Tobacco e-Cigarette/Vaping Use: Former Use Second Hand Smoke Exposure: No Substance Use Type: Marijuana service: No Current occupational status: unemployed Cognitive needs: No Hearing needs: No Vision needs: Yes Questionnaire PHQ-9 Over the last 2 weeks, how often have you been bothered by any of the following problems? 1. Little interest or pleasure in doing things: more than half the days 2. Feeling down, depressed, or hopeless: more than half the days 3. Trouble falling or staying asleep, or sleeping too much: nearly every day 4. Feeling tired or having little energy: nearly every day 5. Poor appetite or overeating: nearly every day 6. Feeling bad about yourself - or that you are a failure or have let yourself or your family down: more than half the days 7. Trouble concentrating on things, such as reading the newspaper or watching television: nearly every day 8. Moving or speaking so slowly that other people could have noticed. Or the opposite - being so fidgety or restless that you have been moving around a lot more than usual: not at all 9. Thoughts that you would be better off or of hurting yourself in some way: more than half the days (thought) Total score: 20 Depression Screening Interpretation: Positive Depression Screening Done: Yes Source: Developed by Drs. Cm Rebolledo, Jaunita Izquierdo, Horace Hall and colleagues, with an educational lise from [employer]. Thrive Questionnaire Date Thrive assessed: 07/12/24 I am a: Patient What is your living situation today?: I have a steady place to live Within the past 12 months, did the food you bought not last and you didn't have the money to get more?: Never true Within the past 12 months, did you worry whether your food would run out before you got money to buy more?: Never true Do you have trouble paying for medicines?: No Do you have trouble getting transportation to medical appointments?: No Do you have trouble paying your heating and electricity bill?: No Do you have trouble taking care of your child, family member or friend?: No Do you have trouble with day-to-day activities such as bathing, preparing meals, shopping, managing finances, etc.?: No Are you currently unemployed and looking for a job?: No Are you interested in more education?: No Please select the resources that you would like help with: None Currently or been in a relationship where the following occur: No concerns repor srinath THRIVE Score: 0 AUDIT C Alcohol Use Questionnaire (AUDIT-C) 1. How often do you have a drink containing alcohol?: Never 2. How many drinks containing alcohol do you have on a typical day when you are drinking?: 1 or 2 3. How often do you have six or more drinks on one occasion?: Never Total Score: 0 SUDHAKAR-7 AMB Questionnaire SUDHAKAR-7 Date SUDHAKAR - 7 assessed: 07/12/24 Feeling nervous, anxious, or on edge: 3 = Nearly every day Not being able to stop or control worryin = Nearly every day Worrying too much about different things: 3 = Nearly every day Trouble relaxin = Nearly every day Being so restless that it is hard to sit still: 2 = More than half the days Becoming easily annoyed or irritable: 2 = More than half the days Feeling afraid as if something awful might happen: 3 = Nearly every day Total SUDHAKAR-7 score (0-4 normal; 5-9 mild; 10-14 moderate; 15-21 severe): 19 Source: Developed by Drs. Cm Rebolledo, Juanita Izquierdo, Horace Hall and colleagues, with an educational lise from [employer]. Physical exam (Primary Care) Vital Signs: Last Vital Signs Pulse 114 H 07/12/24 08:46 BP 118/82 07/12/24 08:46 Pulse Ox 93 07/12/24 08:46 Oxygen Delivery Method Room Air 07/12/24 08:46 BMI result Body Mass Index 51.2 Tobacco/Smoking Status: Tobacco use Status Tobacco use date assessed 07/12/24 07/12/24 08:51 Patient Tobacco Use Status Never used Tobacco 07/12/24 08:51 e-Cigarette/Vaping Use Former Use 07/12/24 08:51 PHQ-9: PHQ-9 Score PHQ-9: Total score 20 07/12/24 09:23 Depression Screening Interpretation: Positive Thrive Assessment: Date of Thrive Assessment Date Thrive assessed 07/12/24 07/12/24 08:51 Currently or been in a relationship where the following occur: No concerns reported Results AMB Hemoglobin A1c AMB Hemoglobin A1c 8.4 % Last Edit by CALE James on 07/12/24 09:13 Results Reviewed Results Reviewed: Laboratory Last Values Hgb A1c (Clinic) 8.4 % (4.0-6.0) H 07/12/24 08:53 Coding Level of Care Code Est Pt Level 4 (93553) Complex EM visit Add On G2211 Diagnoses Chronic congestive heart failure, unspecified heart failure type I50.9 Heart failure chronicity: chronic Heart failure type: unspecified Type 2 diabetes mellitus with unspecified complications E11.8 Morbid obesity with BMI of 50.0-59.9, adult E66.01; Z68.43 Upper respiratory tract infection J06.9 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 (2) Type 2 diabetes mellitus with unspecified complications: Code(s): E11.8 - Type 2 diabetes mellitus with unspecified complications Category: Medical Plan: A1c is greater than 8. Non compliance is the reason. New script for glucometer sent. (3) Morbid obesity with BMI of 50.0-59.9, adult: Code(s): E66.01 - Morbid (severe) obesity due to excess calories; Z68.43 - Body mass index [BMI] 50.0-59.9, adult Category: Medical Plan: Counselling on the importance of diet and exercise done (4) Upper respiratory tract infection: Code(s): J06.9 - Acute upper respiratory infection, unspecified (5) Endogenous depression: Code(s): F33.2 - Major depressive disorder, recurrent severe without psychotic features Category: Medical Plan: This is untreated. Patient is attending therapy but not taking any medications and declining medications. His Brain Fog , poor compliance with medications, diet and exercise is related to this. Plan History of Present Illness The patient is a 33-year-old male presenting with symptoms indicative of a respiratory infection, including a persistent cough and shortness of breath. The patient reports these symptoms began recently and feels they may be related to a cold. Additionally, the patient has a history of diabetes mellitus, which is currently poorly managed due to irregular medication adherence. The patient broke his glucose meter and has been unable to regularly monitor blood glucose levels. The patient takes Trulicity weekly but frequently forgets to take Jardiance due to technological reminders failing. Furthermore, the patient experiences persistent fatigue and brain fog, which they suspect may be linked to sleep apnea. A previous home sleep study indicated mild apnea, but it was deemed insufficient for a CPAP machine. The patient also has a longstanding history of depression and anxiety, managed by seeing a therapist, and has chosen to remain off medications for mental health. Social History - Lives alone but currently has custody of daughter due to court orders. - Engages in walking the dog and cleaning house as forms of physical activity. - Tries to exercise but is hindered by fatigue. - Diet consists of prepared meals from a delivery service, with sporadic meal consumption. - Denies smoking, alcohol, and illicit drug use. Review of Systems - Respiratory: Reports cough. - Respiratory: Reports difficulty breathing. - Neurological: Reports fatigue. - Neurological: Reports brain fog. Physical Exam General: Appearance normal, both eyes and all related structures Nutritional Appearance: Well nourished Orientation/consciousness: Patient oriented x3 Limitations: No limitations Head: Normal to inspection Neck: Normal visual inspection Chest: Normal palpation of entire chest wall Respiratory: Shortness of breath noted, cough present Neurology: Patient oriented x3 Results - Tests: Previous home sleep study indicated mild sleep apnea. Plan - Provide prescription for antibiotics to address respiratory infection. - Issue a new glucose meter to allow for regular blood sugar monitoring. - Emphasize the importance of strict adherence to diabetes medications, specifically ensuring regular intake of Jardiance and Trulicity, using phone alarms for reminders. - Encourage daily physical activity, such as walking for 30 minutes, to better manage diabetes and improve overall health. - Continue therapy sessions for depression and anxiety management. - Reassess the need for further evaluation regarding sleep apnea if symptoms persist after three months. Patient was informed and verbally consented to the use of an ambient scribe for clinic note documentation during this visit. Discussion Notes I discussed the importance of controlling the patient's diabetes mellitus through regular medication adherence and monitoring of blood glucose levels. We reviewed the use of a glucose meter and set a plan for obtaining a new one. I emphasized starting with manageable steps, like physical activity, to improve health outcomes. We talked about continuing therapy for mental health management. I informed the patient about the likely diagnosis of a respiratory infection and the need for antibiotics. Follow-up recommendations include reassessing sleep apnea symptoms in three months and the need for potential further evaluation. We also reviewed flu vaccination status and its importance for future prevention. Patient Instructions - Take prescribed antibiotics as directed for the respiratory infection. - Set phone alarms to remind you to take Jardiance and Trulicity as prescribed. - Monitor your blood sugar regularly using the new glucose meter. - Engage in at least 30 minutes of walking daily. - Continue regular therapy sessions to manage mental health. - Follow up in three months to reassess conditions and discuss any ongoing symptoms, including potential sleep apnea evaluation. Orders: Orders AMB Hemoglobin A1c Today Z13.9 - Encounter for screening, unspecified
== END 2024-07-12 09:10 | disposition home or self-care (01) ==
PROVIDERS: PCP Internal Medicine; Visit Provider Internal Medicine
DX: I50.9 Heart failure, unspecified (principal); E11.8 Type 2 diabetes mellitus with unspecified complications; E66.01 Morbid (severe) obesity due to excess calories; Z68.43 Body mass index [BMI] 50.0-59.9, adult; F33.2 Major depressive disorder, recurrent severe without psychotic features; J06.9 Acute upper respiratory infection, unspecified

== ENCOUNTER → 2024-07-12 08:42 | Outpatient (BNVA) | payer OTHER, SELFPAY | PROVIDERS: PCP Internal Medicine; Visit Provider Internal Medicine | DX: I50.9 Heart failure, unspecified (principal); E11.8 Type 2 diabetes mellitus with unspecified complications; J06.9 Acute upper respiratory infection, unspecified; F33.2 Major depressive disorder, recurrent severe without psychotic features; E66.01 Morbid (severe) obesity due to excess calories; Z68.43 Body mass index [BMI] 50.0-59.9, adult; Z71.3 Dietary counseling and surveillance | CPT/HCPCS: 83036; 96127; 99212 ==

== ENCOUNTER 2024-08-02 10:01 | Outpatient (AMB) | payer OTHER, SELFPAY ==
--- NOTE | 2024-08-02 10:07 | MHC.PC.OV ---
Vital Signs 08/02/24 10:09 Height 5 ft 11 in Weight 368 lb BMI 51.3 BP 120/80 Blood Pressure Location Lt brachial Position Sitting Pulse 95 Pulse Source Pulse Oximeter Pulse Oximetry (%) 93 Oxygen Delivery Method Room Air Intake Visit Reasons: overdue 1 month f/u Intake Note: Patient is here to follow up on DM, CHF, ALEISHA. 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 per policy Accompanied by: Self / Same As Patient Allergies morphine Adverse Reaction (Unknown, Verified 08/02/24 10:35) projectile vomiting Medication List - Last Reconciled 08/02/24 by Kuldip Robertson MD albuterol sulfate 90 mcg/actuation (ProAir HFA) 2 puffs inhalation Q4-6H PRN blood sugar diagnostic (OneTouch Ultra Test strips) As directed up to three times per day blood-glucose meter As directed blood-glucose meter (OneTouch Ultra2 Meter) As directed carvedilol 3.125 mg PO BID 30 days dulaglutide (Trulicity) 0.75 mg (0.5 mL) subcut QWEEK empagliflozin (Jardiance) 25 mg PO DAILY furosemide 40 mg PO DAILY 90 days lancets As directed up to three times a day lisinopril 2.5 mg PO DAILY 90 days Tobacco use date assessed: 08/02/24 Dental Screening Dental Screen Date: 08/02/24 Did you have a dental visit in the last 12 months?: Yes Did you have a dental problem in the last 6 months where you did not have access to dental care?: No Was dental information given to patient?: Patient has dentist HPI overdue 1 month f/u HPI Details 33-year-old male presents to the office to discuss his chronic medical condition. Patient has been diagnosed with diabetes. Recently I started him on Trulicity and Jardiance. Patient is not able to recall if he is compliant with medications. He checks his blood sugars infrequently. Last time he checked his blood sugar it was 128. Has not made any changes to his diet since last office visit. Despite counseling he has not started exercising. Patient believes he has obstructive sleep apnea. A recent sleep study was inconclusive and patient believes it was due to inappropriate or inaccurate recording. He would like to be tested in the laboratory. Continues to be sleepy today. Reports that he could not sleep at night because of his dog. [facility]LY [facility] Medical History Endogenous depression Obstructive sleep apnea syndrome, mild Left ventricular ejection fraction of 40-49% Snoring Chest pain Morbid obesity with BMI of 50.0-59.9, adult Non-alcoholic fatty liver disease Hypertriglyceridemia Diabetes mellitus Congestive heart failure (CHF) Surgical History History of tooth extraction Hx of excision of mass (~03/30/18) History of ankle surgery (~06/29/12) Family History Mother IBS (irritable bowel syndrome) Father Heart problem Sister Crohn disease Paternal Grandfather Cancer Social History Household Members: None Housing: Apartment Do you presently have visiting nurse or other home services: Yes (METER/RELAY TECHNICIAN to 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) Alcohol intake: former Patient Tobacco Use Status: Never used Tobacco e-Cigarette/Vaping Use: Former Use Second Hand Smoke Exposure: No Substance Use Type: Marijuana service: No Current occupational status: unemployed Cognitive needs: No Hearing needs: No Vision needs: Yes Questionnaire PHQ-9 Over the last 2 weeks, how often have you been bothered by any of the following problems? 1. Little interest or pleasure in doing things: more than half the days 2. Feeling down, depressed, or hopeless: more than half the days 3. Trouble falling or staying asleep, or sleeping too much: nearly every day 4. Feeling tired or having little energy: nearly every day 5. Poor appetite or overeating: nearly every day 6. Feeling bad about yourself - or that you are a failure or have let yourself or your family down: more than half the days 7. Trouble concentrating on things, such as reading the newspaper or watching television: nearly every day 8. Moving or speaking so slowly that other people could have noticed. Or the opposite - being so fidgety or restless that you have been moving around a lot more than usual: not at all 9. Thoughts that you would be better off or of hurting yourself in some way: more than half the days (thought) Total score: 20 Depression Screening Interpretation: Positive Depression Screening Done: Yes Source: Developed by Drs. Cm Rebolledo, Horace De Los Santos and colleagues, with an educational lise from [employer]. Thrive Questionnaire Date Thrive assessed: 08/02/24 I am a: Patient What is your living situation today?: I have a steady place to live Within the past 12 months, did the food you bought not last and you didn't have the money to get more?: Never true Within the past 12 months, did you worry whether your food would run out before you got money to buy more?: Never true Do you have trouble paying for medicines?: No Do you have trouble getting transportation to medical appointments?: No Do you have trouble paying your heating and electricity bill?: No Do you have trouble taking care of your child, family member or friend?: No Do you have trouble with day-to-day activities such as bathing, preparing meals, shopping, managing finances, etc.?: No Are you currently unemployed and looking for a job?: No Are you interested in more education?: No Please select the resources that you would like help with: None Currently or been in a relationship where the following occur: No concerns reported THRIVE Score: 0 AUDIT C Alcohol Use Questionnaire (AUDIT-C) 1. How often do you have a drink containing alcohol?: Never Total Score: 0 SUDHAKAR-7 AMB Questionnaire SUDHAKAR-7 Date SUDHAKAR - 7 assessed: 08/02/24 Feeling nervous, anxious, or on edge: 0 = Not at all Not being able to stop or control worryin = Not at all Worrying too much about different things: 0 = Not at all Trouble relaxin = Not at all Being so restless that it is hard to sit still: 0 = Not at all Becoming easily annoyed or irritable: 0 = Not at all Feeling afraid as if something awful might happen: 0 = Not at all Total SUDHAKAR-7 score (0-4 normal; 5-9 mild; 10-14 moderate; 15-21 severe): 0 Source: Developed by Juanita Mehta Kurt Kroenke and colleagues, with an educational lise from [employer]. Physical exam (Primary Care) Vital Signs: Last Vital Signs Pulse 95 08/02/24 10:09 BP 120/80 08/02/24 10:09 Pulse Ox 93 08/02/24 10:09 Oxygen Delivery Method Room Air 08/02/24 10:09 Care Plan Goal for BP management: BP is in range. Continue meds at same dosage. BMI result Body Mass Index 51.3 BMI Assessment/Plan discussion: High (one pound per week wieght loss) BMI High, discussed plan: lifestyle, weight reduction, dietary and physical activity Tobacco/Smoking Status: Tobacco use Status Tobacco use date assessed 08/02/24 08/02/24 10:16 Patient Tobacco Use Status Never used Tobacco 08/02/24 10:16 e-Cigarette/Vaping Use Former Use 08/02/24 10:16 PHQ-9: PHQ-9 Score PHQ-9: Total score 20 08/02/24 10:16 Depression Screening Interpretation: Positive Thrive Assessment: Date of Thrive Assessment Date Thrive assessed 08/02/24 08/02/24 10:16 Currently or been in a relationship where the following occur: No concerns reported Coding Level of Care Code Est Pt Level 4 (43940) Complex EM visit Add On G2211 Diagnoses Endogenous depression F33.2 Chronic congestive heart failure, unspecified heart failure type I50.9 Heart failure type: unspecified Heart failure chronicity: chronic Cardiomyopathy I42.9 Type 2 diabetes mellitus with unspecified complications E11.8 Morbid obesity with BMI of 50.0-59.9, adult E66.01; Z68.43 Morbid obesity due to excess calories E66.01 Assessment & Plan Assessment & Plan (1) Endogenous depression: Code(s): F33.2 - Major depressive disorder, recurrent severe without psychotic features Category: Medical Plan: Patient is seeing a mental health worker. (2) Congestive heart failure (CHF): Code(s): I50.9 - Heart failure, unspecified Category: Medical Qualifiers: Heart failure type: unspecified Heart failure chronicity: chronic Qualified Code(s): I50.9 - Heart failure, unspecified Plan: Patient sees a rn family. (3) Cardiomyopathy: Code(s): I42.9 - Cardiomyopathy, unspecified Category: Medical Plan: Patient sees a rn family. (4) Type 2 diabetes mellitus with unspecified complications: Code(s): E11.8 - Type 2 diabetes mellitus with unspecified complications Category: Medical Plan: Continue medications at same dosage. I encouraged him to get his glucometer and medications with him in the next visit. (5) Morbid obesity with BMI of 50.0-59.9, adult: Code(s): E66.01 - Morbid (severe) obesity due to excess calories; Z68.43 - Body mass index [BMI] 50.0-59.9, adult Category: Medical Plan: Patient could have obstructive sleep apnea. A formal sleep evaluation will be requested. (6) Morbid obesity due to excess calories: Code(s): E66.01 - Morbid (severe) obesity due to excess calories Category: Medical Plan: As above
[2024-08-02 10:09] VITALS: BP 120/80; PULSE 95; O2SAT 93; BMI 51.3
== END 2024-08-02 10:34 | disposition home or self-care (01) ==
PROVIDERS: PCP Internal Medicine; Visit Provider Internal Medicine
DX: E11.8 Type 2 diabetes mellitus with unspecified complications (principal); F33.2 Major depressive disorder, recurrent severe without psychotic features; I50.9 Heart failure, unspecified; I42.9 Cardiomyopathy, unspecified; E66.01 Morbid (severe) obesity due to excess calories; Z68.43 Body mass index [BMI] 50.0-59.9, adult

== ENCOUNTER → 2024-08-02 10:01 | Outpatient (BNVA) | payer OTHER, SELFPAY | PROVIDERS: PCP Internal Medicine; Visit Provider Internal Medicine | DX: F33.2 Major depressive disorder, recurrent severe without psychotic features (principal); I50.9 Heart failure, unspecified; I42.9 Cardiomyopathy, unspecified; E11.8 Type 2 diabetes mellitus with unspecified complications; E66.01 Morbid (severe) obesity due to excess calories; Z68.43 Body mass index [BMI] 50.0-59.9, adult; Z71.3 Dietary counseling and surveillance | CPT/HCPCS: 96127; 99212 ==

== ENCOUNTER 2024-09-07 14:34 | Outpatient (AMB) | payer OTHER, SELFPAY ==
--- OUTSIDE RECORDS SUMMARY | 2024-09-07 14:41 | XMS_ITS | Clinical Summary ---
Author Organization [facility] Address [address] [place] [address] Care Team Providers Care Lead Warehouse Associate Name Role Phone Andrzej Beach MD Primary Care Provider [phone] Allergies No known active allergies Active Problems Problem Noted Date Diagnosed Date ADHD (attention deficit hyperactivity disorder) 07/14/2024 Bipolar 2 disorder 07/14/2024 PTSD (post-traumatic stress disorder) 07/14/2024 Inversion sprain of ankle 10/25/2010 Closed fracture of lateral malleolus 04/18/2010 Surgical History Surgery Date Site/Laterality Comments ADENOIDECTOMY PROCEDURE: HISTORICAL ADENOIDECTOMY; COMMENT: As child TONSILLECTOMY PROCEDURE: HISTORICAL TONSILLECTOMY TYMPANOSTOMY TUBE PLACEMENT PROCEDURE: HISTORICAL PE TUBES Medical History Medical History Date Comments ADHD (attention deficit hype ractivity disorder) DX:ADHD (attention deficit h yperactivity disorder) Bipolar 2 disorder (CMS/HCC) DX: Bipolar 2 disorder (HCC) PTSD (post-traumatic stress disorder) DX:PTSD (post-traumatic stress disorder) Family History Medical History Relation Name Comments Depression Maternal Grandfather Depression Paternal Grandmother Relation Name Status Comments Maternal Grandfather Paternal Grandmother Social History Tobacco Use Types Packs/Day Years Used Date Smoking Tobacco: Never Alcohol Use Standard Drinks/Week Comments No 0 (1 standard drink = 0.6 oz pur e alcohol) Sex and Gender Information Value Date Recorded Sex Assigned at Not on file Legal Sex Male 4:48 PM EST Gender Identity Not on file Sexual Orientation Not on file Obstetrics History Plan of Treatment Health Maintenance Due Date Last Done Comments DTaP,Tdap,and Td Vaccines (1 - Tdap) 2009 Hepatitis B Vaccines (1 of 3 - 19+ 3-dose series) 2009 Depression Screening 06/24/2022 HIV Screening 06/24/2022 Hepatitis C Screening 06/24/2022 Social Influencers of Health Screening 06/24/2022 COVID-19 Vaccine ( - 2023-2 5 season) 2024 Influenza Vaccine (#1) 2024 HIB Vaccines Aged Out No longer eligi ble based on patient's age to complete this topic HPV Vaccines Aged Out No longer eligi ble based on patient's age to complete this topic Hepatitis A Vaccines Aged Out No long er eligible based on patient's age to complete this topic IPV Vaccines Aged Out No longer eligi ble based on patient's age to complete this topic MMR Vaccines Aged Out No longer eligi ble based on patient's age to complete this topic Meningococcal ACWY Vaccine Aged Out N o longer eligible based on patient's age to complete this topic Pneumococcal Vaccine: Pediat rics (0 to 5 Years) and At-Risk Patients (6 to 64 Years) Aged Out No longer eligible b ased on patient's age to complete this topic RSV Immunization Patients Un dulce 20 months Aged Out No longer eligible b ased on patient's age to complete this topic Varicella Vaccines Aged Out No longer eligible based on patient's age to complete this topic Care Teams Lead Warehouse Associate Relationship Specialty Start Date End Date Andrzej Beach MD [address] [place] [id number] PCP - General Internal Medicine 03/25/12
--- OUTSIDE RECORDS SUMMARY | 2024-09-07 14:41 | XMS_ITS | Clinical Summary ---
Author Organization [employer] Address [address] [place] [address] Care Team Providers Care Plate Finisher Name Role Phone Unavailable Primary Care Provider Unavailabl e Allergies Active Allergy Reactions Criticality Noted Date Comments Morphine Nausea 12/17/2023 Medications albuterol 108 (90 Base) MCG/ACT inhaler INHALE 2 PUFFS INTO THE LUNGS EVERY 4 TO 6 HOURS NEEDED FOR SHORTNESS OF BREATH OR WHEEZING. 3 Active Trulicity 0.75 MG/0.5ML solution pen-injector INJECT 0.75 MG (0.5 ML) SUBCUTANEOUSLY WEEKLY Active Social History Tobacco Use Types Packs/Day Years Used Date Smoking Tobacco: Never Smokeless Tobacco: Never Tobacco Cessation:Counseling Given: Not Answered Alcohol Use Standard Drinks/Week Comments Not Currently 0 (1 standard drink = 0.6 oz pur e alcohol) Sex and Gender Information Value Date Recorded Sex Assigned at Male 12/17/2023 11:57 AM EDT Legal Sex Male 11:52 AM EDT Gender Identity Male 12/17/2023 11:57 AM EDT Sexual Orientation Choose not to disclose 2023 11:57 AM EDT Last Filed Vital Signs Vital Sign Reading Time Taken Comments Blood Pressure 160/90 12/17/2023 1:02 PM EDT Pulse - - Temperature - - Respiratory Rate - - Oxygen Saturation - - Inhaled Oxygen Concentration - - Weight - - Height - - Body Mass Index - - Plan of Treatment Health Maintenance Due Date Last Done Comments Dental Oral Exam 1990 Dental Prophylaxis 1990 Dental X-Ray: Bitewings 1990 Dental X-Ray: Full Mouth 1990 Depression Screening 1990 HIV Screening 1990 Lipid Panel 1990 SDOH Screening 1990 Alcohol/Substance Use Screening 2002 Family Planning (PISQ) 2005 Hepatitis C Screening 2008 Pneumococcal Vaccine: Pediatrics (0 to 5 Years) and At-Risk Patients (6 to 49) Years) (1 of 2 - PCV) 2009 COVID-19 Vaccine (1 - 2023- season) 2024 Influenza Vaccine (#1) 2024 Tobacco Screening 12/16/2024 12/17/2023 DTaP/Tdap/Td Vaccines (7 - Td or Tdap) 10/29/2025 10/30/2015, 10/25/2000, 05/02/1999, Additional history exists Zoster Vaccines (1 of 2) 2040 RSV Patients and Patients Aged 60 years or older (1 - 1-dose 75+ series) 2065 IPV Vaccines Completed 05/12/1996, 06/26, 08/10/1991, Additional history exists Hepatitis B Vaccines Completed 12/14/2005, 12/16/2004, 10/25/2000 HIB Vaccines Aged Out No longer eligi ble based on patient's age to complete this topic HPV Vaccines Aged Out No longer eligi ble based on patient's age to complete this topic Hepatitis A Vaccines Aged Out No long er eligible based on patient's age to complete this topic Meningococcal Vaccine Aged Out No med mónica eligible based on patient's age to complete this topic RSV under 20 months Aged Out No longe r eligible based on patient's age to complete this topic Rotavirus Vaccines Aged Out No longer eligible based on patient's age to complete this topic Insurance [facility] - [facility] [place] [address]
--- NOTE | 2024-09-07 15:04 | A.OFFPC_ITS ---
Vital Signs 09/07/24 15:05 Height 5 ft 11 in Weight 363 lb 2 oz BMI 50.6 BP 124/62 Blood Pressure Location Lt brachial Position Sitting Pulse 98 Pulse Source Pulse Oximeter Temp 97.5 F Temp Source Temporal Artery Scan Pulse Oximetry (%) 95 Oxygen Delivery Method Room Air Intake Visit Reasons: 1 month f/u Intake Note: Patient is here to follow up on DM. Bdr Required: No Sales Team Member: Not Required per policy Accompanied by: Self / Same As Patient Allergies morphine Adverse Reaction (Unknown, Verified 09/07/24 17:06) projectile vomiting Medication List - Last Reconciled 09/07/24 by Fiordaliza Tavera PA-C albuterol sulfate 90 mcg/actuation (ProAir HFA) 2 puffs inhalation Q4-6H PRN blood sugar diagnostic ([employer] Ultra Test strips) As directed up to three times per day blood-glucose meter As directed blood-glucose meter (OneTouch Ultra2 Meter) As directed carvedilol 3.125 mg PO BID 30 days dulaglutide (Trulicity) 0.75 mg (0.5 mL) subcut QWEEK empagliflozin (Jardiance) 25 mg PO DAILY furosemide 40 mg PO DAILY 90 days lancets (2-In-1 Lancet Device) As directed lancets As directed up to three times a day lisinopril 2.5 mg PO DAILY 90 days Tobacco use date assessed: 09/07/24 Dental Screening Dental Screen Date: 08/02/24 [facility] Medical History Endogenous depression Obstructive sleep apnea syndrome, mild Left ventricular ejection fraction of 40-49% Snoring Chest pain Morbid obesity with BMI of 50.0-59.9, adult Non-alcoholic fatty liver disease Hypertriglyceridemia Diabetes mellitus Congestive heart failure (CHF) Surgical History History of tooth extraction Hx of excision of mass (~03/30/18) History of ankle surgery (~06/29/12) Family History Mother IBS (irritable bowel syndrome) Father Heart problem Sister Crohn disease Paternal Grandfather Cancer Social History Household Members: None Housing: Apartment Do you presently have visiting nurse or other home services: Yes ([employer] to 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) Alcohol intake: former Patient Tobacco Use Status: Never used Tobacco e-Cigarette/Vaping Use: Former Use Second Hand Smoke Exposure: No Substance Use Type: Marijuana service: No Current occupational status: unemployed Cognitive needs: No Hearing needs: No Vision needs: Yes Questionnaire Thrive Questionnaire Date Thrive assessed: 08/02/24 SUDHAKAR-7 AMB Questionnaire SUDHAKAR-7 Date SUDHAKAR - 7 assessed: 08/02/24 Source: Developed by Drs. Cm Rebolledo, Juanita Izquierdo, Horace Hall and colleagues, with an educational lise from [employer]. Physical exam (Primary Care) Vital Signs: Last Vital Signs Temp 97.5 F 09/07/24 15:05 Pulse 98 09/07/24 15:05 BP 124/62 09/07/24 15:05 Pulse Ox 95 09/07/24 15:05 Oxygen Delivery Method Room Air 09/07/24 15:05 Care Plan Goal for BP management: <130/80 at goal BMI result Body Mass Index 50.6 BMI Assessment/Plan discussion: High BMI High, discussed plan: lifestyle, weight reduction, dietary, physical activity and alcohol moderation Tobacco/Smoking Status: Tobacco use Status Tobacco use date assessed 09/07/24 09/07/24 15:09 Patient Tobacco Use Status Never used Tobacco 09/07/24 15:09 e-Cigarette/Vaping Use Former Use 09/07/24 15:09 Thrive Assessment: Date of Thrive Assessment Date Thrive assessed 08/02/24 09/07/24 15:09 Coding Level of Care Code Est Pt Level 4 (11655) Complex EM visit Add On G2211 Diagnoses Uncontrolled diabetes mellitus E11.65 Diabetes mellitus E11.9 Cardiomyopathy I42.9 Endogenous depression F33.2 Obstructive sleep apnea syndrome, mild G47.33 Left ventricular ejection fraction of 40-49% R94.30 Type 2 diabetes mellitus with unspecified complications E11.8 Hypertriglyceridemia E78.1 Chronic congestive heart failure, unspecified heart failure type I50.9 Heart failure type: unspecified Heart failure chronicity: chronic Assessment & Plan Assessment & Plan (1) Uncontrolled diabetes mellitus: Code(s): E11.65 - Type 2 diabetes mellitus with hyperglycemia Category: Medical Plan: Patient to return in 2 weeks with his glucometer, and all his medications. Patient to continue Jardiance 25 mg daily, Trulicity 0.5 mL subQ weekly. Condition is chronic and stable continue to monitor. (2) Diabetes mellitus: Code(s): E11.9 - Type 2 diabetes mellitus without complications Category: Medical Plan: Patient to return in 2 weeks with his glucometer, and all his medications. Patient to continue Jardiance 25 mg daily, Trulicity 0.5 mL subQ weekly. Condition is chronic and stable continue to monitor. (3) Cardiomyopathy: Code(s): I42.9 - Cardiomyopathy, unspecified Category: Medical Plan: Condition is chronic and stable continue to monitor. (4) Endogenous depression: Code(s): F33.2 - Major depressive disorder, recurrent severe without psychotic features Category: Medical Plan: Condition is chronic and stable continue to monitor. (5) Obstructive sleep apnea syndrome, mild: Code(s): G47.33 - Obstructive sleep apnea (adult) (pediatric) Category: Medical Plan: Condition is chronic and stable continue to monitor. (6) Left ventricular ejection fraction of 40-49%: Code(s): R94.30 - Abnormal result of cardiovascular function study, unspecified Category: Medical Plan: Condition is chronic and stable continue to monitor. (7) Type 2 diabetes mellitus with unspecified complications: Code(s): E11.8 - Type 2 diabetes mellitus with unspecified complications Category: Medical Plan: see above (8) Hypertriglyceridemia: Code(s): E78.1 - Pure hyperglyceridemia Category: Medical Plan: Condition is chronic and stable continue to monitor. (9) Congestive heart failure (CHF): Code(s): I50.9 - Heart failure, unspecified Category: Medical Qualifiers: Heart failure type: unspecified Heart failure chronicity: chronic Qualified Code(s): I50.9 - Heart failure, unspecified Plan: Patient to continue carvedilol 3.125 mg b.i.d. D, furosemide 40 mg daily. Condition is chronic and stable continue to monitor. Plan Plan - Confirm current medication regimen, including diabetes management medications, at the next visit. - Evaluate blood glucose readings and ensure the patient has appropriate lancets and supplies for monitoring. - Advise continuation of Trulicity and Jardiance prescriptions. - Encourage compliance with carvedilol and lisinopril dosing twice daily as prescribed. - Re-evaluate A1c levels and possibly initiate lab work to assess current diabetes control. - Encourage regular exercise but ensure patient is aware of gradually increasing intensity to avoid excessive soreness. Orders: Orders Comprehensive [place]. Panel Fast Today Z00.00 - Encounter for general adult medical examination without abnormal findings Hemoglobin A1c Today Z00.00 - Encounter for general adult medical examination without abnormal findings Lipid Panel Today Z00.00 - Encounter for general adult medical examination without abnormal findings Liver Panel Today Z00.00 - Encounter for general adult medical examination without abnormal findings Magnesium Today Z00.00 - Encounter for general adult medical examination without abnormal findings Vitamin B12 and Folate Today Z00.00 - Encounter for general adult medical examination without abnormal findings Vitamin D 25-OH Total Today Z00.00 - Encounter for general adult medical examination without abnormal findings TSH reflex Free T4 Today Z00.00 - Encounter for general adult medical examination without abnormal findings Complete Blood Count Auto Diff Today Z00.00 - Encounter for general adult medical examination without abnormal findings C Reactive Protein Today Z00.00 - Encounter for general adult medical examination without abnormal findings Medications: New lancets (2-In-1 Lancet Device) As directed 200 ea 3RF E11.65 - Type 2 diabetes mellitus with hyperglycemia, E11.9 - Type 2 diabetes mellitus without complications Refilled empagliflozin (Jardiance) 25 mg PO DAILY 90 tabs 1RF Patient Instructions: Patient Instructions - Bring your glucose meter and all medications to your next appointment in one to two weeks. - Continue taking Jardiance 25 mg daily and Trulicity weekly as prescribed. - Resume taking carvedilol and lisinopril twice a day as per prescription. - Maintain regular exercise but allow your body to adapt to avoid excessive m uscle soreness. - Monitor your blood sugar daily and record the results. - Avoid foods high in sugar and inform the clinic if there are concerns about blood sugar levels. - Schedule blood work on a day when you can fast, if possible. Scribe Plan - Not visible on output: History of Present Illness The patient is a 34-year-old male presenting for a follow-up on Type 2 Diabetes Mellitus management. He was previously started on Trulicity and Jardiance by Dr. Robertson. The patient reports previous challenges in monitoring his blood glucose due to a broken glucose meter, which has now been replaced with a OneTouch Ultra 2. His recent blood sugar reading two days ago was 180 mg/dL, but his usual range is between 140-90 mg/dL. He occasionally forgets his diabetic status and consumes foods with high sugar content, such as barbecue sauce. His regimen includes Trulicity at 0.5 mL once weekly, Jardiance 25 mg daily, lisinopril, and carvedilol. The patient also reports a recent initiation of an exercise regimen, which has led to increased fatigue and muscle soreness. He has historically used Lantus pens and Metformin, but these were discontinued. Additionally, he admits occasional non-compliance with his carvedilol regimen, taking it only once daily instead of twice due to forgetfulness. Social History - Regularly exercises and recently started going to the gym, reporting jogging and weight training. - Experiences occasional non-compliance with medication regimen due to ADHD leading to forgetfulness. - Has a 13-year-old child. Review of Systems - General: Reports feeling extremely tired and sore. - Gastrointestinal: Denies constipation but mentions frequent bowel movements. Physical Exam Appearance: Alert. Oriented X3. No acute distress. Head: Normal external exam. Normocephalic. Atraumatic. Eyes: Pupils are equal, round, and reactive to light. Extraocular movements intact. Conjunctiva and sclera normal. Eyelids normal. Ears: External auditory canal normal. Tympanic membranes normal. Throat: Pharynx normal. Uvula midline. Moist mucous membranes. Neck: Normal inspection. Neck supple. Full range of motion. No adenopathy. Thyroid Normal. No meningeal signs. No neck mass noted. Cardiovascular: Normal heart rate and rhythm. Heart sound normal. No murmurs noted. Pulses normal throughout. Respiratory: No respiratory distress. Painless inspiration. Breath sounds normal. No wheezes/rales/rhonchi noted. Chest nontender. No accessory muscle usage noted or decreased air movement noted. Abdomen: Soft and nontender. Bowel sounds normal in all 4 quadrants. No distention noted. No organomegaly noted. No visible injury noted. Back: No costovertebral angle tenderness. Full range of motion noted. Skin: Skin warm and dry. Normal skin color. Normal skin turgor. No rashes/lesions/lacerations noted. Extremities: No lower extremity edema. Extremities exhibit normal range of motion. Extremities nontender. Neuro: Oriented X 3. No motor deficit. No sensory deficit. Reflexes normal. Plan - Confirm current medication regimen, including diabetes management medications, at the next visit. - Evaluate blood glucose readings and ensure the patient has appropriate lancets and supplies for monitoring. - Advise continuation of Trulicity and Jardiance prescriptions. - Encourage compliance with carvedilol and lisinopril dosing twice daily as prescribed. - Re-evaluate A1c levels and possibly initiate lab work to assess current diabetes control. - Encourage regular exercise but ensure patient is aware of gradually increasing intensity to avoid excessive soreness. Patient was informed and verbally consented to the use of an ambient scribe for clinic note documentation during this visit. Discussion Notes During the visit, I discussed the patient's current management for Type 2 Diabetes Mellitus, including the importance of regular blood glucose monitoring and medication compliance. I explained how blood glucose levels affect long-term cardiovascular health and emphasized lifestyle modifications such as a balanced diet and consistent exercise. We reviewed the benefits of Jardiance and Trulicity in controlling diabetes and potential side effects. I advised him to resume twice-daily dosing of carvedilol and lisinopril to manage his hypertension effectively. I reinforced the necessity of bringing his medication list and glucose monitoring device to the next appointment for further evaluation. A follow-up visit was suggested within one to two weeks for reassessment and potential blood work. Patient Instructions - Bring your glucose meter and all medications to your next appointment in one to two weeks. - Continue taking Jardiance 25 mg daily and Trulicity weekly as prescribed. - Resume taking carvedilol and lisinopril twice a day as per prescription. - Maintain regular exercise but allow your body to adapt to avoid excessive muscle soreness. - Monitor your blood sugar daily and record the results. - Avoid foods high in sugar and inform the clinic if there are concerns about blood sugar levels. - Schedule blood work on a day when you can fast, if possible.
[2024-09-07 15:05] VITALS: BP 124/62; PULSE 98; TEMP 36.4; O2SAT 95; BMI 50.6
--- OUTSIDE RECORDS SUMMARY | 2024-09-07 15:16 | XMS_ITS | Clinical Summary ---
Author Organization [employer] Address [address] [place] [address] Care Team Providers Care Block Making Machine Operator Name Role Phone Unavailable Primary Care Provider [...] to complete this topic Insurance DENTAL - [facility] [place] [phone]
--- OUTSIDE RECORDS SUMMARY | 2024-09-07 15:16 | XMS_ITS | Clinical Summary ---
Author Organization [facility] Address [address] [place] [address] Care Team Providers Care Box Blank Machine Operator Helper Name Role Phone Andrzej Beach MD Primary Care Provider [phone] Allergies No known active allergies Active Problems [...] age to complete this topic Care Teams Box Blank Machine Operator Helper Relationship Specialty Start Date End Date Andrzej Beach MD [address] [place] [id number] PCP - General Internal Medicine 03/25/12
== END 2024-09-07 15:33 | disposition home or self-care (01) ==
PROVIDERS: PCP Internal Medicine; Visit Provider Physician Assistant Medical
DX: E11.65 Type 2 diabetes mellitus with hyperglycemia (principal); E11.9 Type 2 diabetes mellitus without complications; I42.9 Cardiomyopathy, unspecified; F33.2 Major depressive disorder, recurrent severe without psychotic features; G47.33 Obstructive sleep apnea (adult) (pediatric); R94.30 Abnormal result of cardiovascular function study, unspecified; E11.8 Type 2 diabetes mellitus with unspecified complications; E78.1 Pure hyperglyceridemia; I50.9 Heart failure, unspecified

== ENCOUNTER → 2024-09-07 14:37 | Outpatient (BNVA) | payer OTHER, SELFPAY | PROVIDERS: PCP Internal Medicine; Visit Provider Physician Assistant Medical | DX: E11.65 Type 2 diabetes mellitus with hyperglycemia (principal); I42.9 Cardiomyopathy, unspecified; F33.2 Major depressive disorder, recurrent severe without psychotic features; G47.33 Obstructive sleep apnea (adult) (pediatric); R94.30 Abnormal result of cardiovascular function study, unspecified; E78.1 Pure hyperglyceridemia | CPT/HCPCS: 99212 ==

== ENCOUNTER → 2024-10-05 15:02 | Outpatient (REF) | payer OTHER, SELFPAY ==
--- NOTE | 2024-10-05 15:09 | CA_ITS ---
Transthoracic Echocardiogram Patient (Last, First, Middle): Timbo Cifuentes J Gender: Male Date of : 1990 Age: 34 Procedure Date: 10/05/2024 Procedure Type: Transthoracic Echocardiogram Location: OP Height: 180.34 cm Weight: 167.83 kg BSA: 2.74 m2 Heart Rate: bpm BP: 108 / 66 mmHg Skiver Hand: TO Referring MD: Richardson Levine MD Symptoms: I42.9 - Cardiomyopathy, unspecified Study Quality: Fair/Contrast Conclusions: - Visually estimated LVEF about 40%. - No obvious valvular pathology seen on this study. Findings Procedure Information Contrast agent, definity, is being given per protocol without apparent complications. Left Ventricle Normal left ventricular cavity size. There is normal left ventricular wall thickness. The left ventricular systolic function is mild to moderately decreased. There is moderate global hypokinesis. Diastolic function is normal for age. Visually estimated LVEF about 40%. Right Ventricle Normal right ventricular cavity size and systolic function. Atria Both atria are normal in size. Aortic Valve There is a normal trileaflet aortic valve. There is no aortic valve stenosis. There is no aortic valve regurgitation. Mitral Valve The mitral valve appears normal. There is no mitral valve regurgitation. There is no mitral valve stenosis. Pulmonic Valve The pulmonic valve is likely normal. Tricuspid Valve There is trace tricuspid valve regurgitation. There is no evidence of pulmonary hypertension. Great Vessels The asc aorta is normal in size. Venous The inferior vena cava was not well visualized. Pericardium/Pleural There is no evidence of pericardial effusion. Prior Study Comparison No significant change compared to prior study dated: 10/21/2022. LVEF lower than previously reported but visually no major change. Recommendations, Care & Conclusions No obvious valvular pathology seen on this study. Measurements 2D Linear Measurements IVSd: 0.86 0.6-0.9/0.6-1.0 cm LVIDd: 5.31 3.9-5.3/4.2-5.9 cm LVIDd Index: 1.94 2.4-3.2/2.2-3.1 cm/m2 LVIDs: 4.28 2.0-3.6 cm LVPWd: 0.84 0.7-1.1 cm LA Diam: 3.30 2.7-3.8/3.0-4.0 cm LAIDs Index: 1.20 1.5-2.3 cm/m2 LV Mass: 201.32 67-162/88-224 g LV Mass Index: 73.47 43-95/49-115 g/m2 LVOT Diam: 2.50 3.0+(-)1.3 cm 2D Systolic Function EF 4C: 40.90 >55% EF 2C: 45.80 >55% EF BiP: 43.70 >55% Mitral Valve MV Pk E: 0.48 MV PK A: 0.72 MV Decel Time: 109.00 E/A: 0.70 E'Lateral: 7.94 E'Medial: 6.42 E/E' Med: 7.50 E/E' Lat: 6.10 PHT: 32.00 MVA PHT: 6.88 Decel Yolo: 4.46 Aortic Valve AoV Pk Jonathan: 1.48 AoV Mn Jonathan: 1.03 AoV VTI: 0.24 AoV Pk Grad: 9.00 Aov Mn Grad: 5.00 SHANTANU Cont.VTI: 2.11 LVOT LVOT Pk Jonathan: 0.66 LVOT Mn Jonathan: 0.43 LVOT VTI: 0.11 LVOT Pk Grad: 2.00 LVOT Mn Grad: 1.00 LVOT Diam: 2.50 LVOT Area: 4.91 Diastolic Function MV Pk E: 0.48 MV Pk A: 0.72 E/A: 0.70 E'Medial: 6.42 E/E' Med: 7.50 E' Laterial: 7.94 E/E' Lat: 6.10 Right Ventricle TAPSE (mm): 24.20 TVS' Jonathan: 13.10 Great Vessels Aorta Sinus of Valsalva: 3.59 2.0-3.5 cm Ao Asc: 3.10 2.1-3.4 cm Updated in Other Vendor System with Status of Final Richardson Levine MD electronically signed on 10/07/2024 11:17:17 AM with status of Final
--- OUTSIDE RECORDS SUMMARY | 2024-10-05 18:49 | XMS_ITS | Clinical Summary ---
Author Organization [facility] Address [address] [place] [address] Care Team Providers Care Regulator Inspector Name Role Phone Andrzej Beach MD Primary Care Provider [phone] Allergies No known active allergies Active Problems [...] patient's age to complete this topic Meningococcal B Vacine Aged Out No lo nger eligible based on patient's age to complete [...] age to complete this topic Care Teams Regulator Inspector Relationship Specialty Start Date End Date Andrzej Beach MD [address] [place] [id number] PCP - General Internal Medicine 03/25/12
--- OUTSIDE RECORDS SUMMARY | 2024-10-05 18:49 | XMS_ITS | Clinical Summary ---
Author Organization [employer] Address [address] [facility] [address] [place] [address] Care Team Providers Care Calculus Teacher Name Role Phone Unavailable Primary Care Provider [...] complete this topic Insurance DENTAL - [facility] [place] [phone]
== END ==
LOC: HO.CARD 15:02
PROVIDERS: PCP Internal Medicine; Visit Provider Internal Medicine
DX: I42.9 Cardiomyopathy, unspecified (principal)
CPT/HCPCS: 93306; Q9957

== ENCOUNTER → 2024-10-05 15:09 | Outpatient (BNV) | payer OTHER, SELFPAY | PROVIDERS: PCP Internal Medicine; Visit Provider Internal Medicine | DX: I42.8 Other cardiomyopathies (principal) | CPT/HCPCS: 93306 ==

== ENCOUNTER 2024-10-12 12:47 | Outpatient (AMB) | payer OTHER, SELFPAY ==
[2024-10-12 13:20] VITALS: BP 140/90; PULSE 95; BMI 50.9
--- NOTE | 2024-10-12 13:20 | A.OFFVIS_ITS ---
Vital Signs 10/12/24 13:20 Height 5 ft 11 in Weight 364 lb 10.313 oz BMI 50.9 BP 140/90 H Blood Pressure Location Lt brachial Position Sitting Pulse 95 Pulse Source Monitor Intake Visit Reasons: 1 yr f/up s/p echo Retail Business Development Manager Required: No Crate Maker: Crate Maker Present Accompanied by: Mother Allergies morphine Adverse Reaction (Unknown, Verified 10/12/24 13:23) projectile vomiting Medication List - Last Reconciled 10/12/24 by SALEEM Ordaz albuterol sulfate 90 mcg/actuation (ProAir HFA) 2 puffs inhalation Q4-6H PRN blood sugar diagnostic (OneTouch Ultra Test strips) As directed up to three times per day blood-glucose meter As directed blood-glucose meter ([employer] ServicesTouch Ultra2 Meter) As directed carvedilol 3.125 mg PO BID 30 days dulaglutide (Trulicity) 0.75 mg (0.5 mL) subcut QWEEK furosemide 40 mg PO DAILY 90 days lancets As directed up to three times a day lancets (Accu-Chek Fastclix Lancet Drum) As directed lisinopril 2.5 mg PO DAILY 90 days HPI HPI 1 yr f/up s/p echo: Details: Timbo is a 34-year-old male with past medical history of morbid obesity, diabetes, mild obstructive sleep apnea with hypoxia, Congestive heart failure 2020, cardiomyopathy who presents for follow-up. Today he reports he has been having significant issues with his sleep. He does not sleep well during the night and wakes up with his head feeling foggy. Then he can not wait to lay back down and go back to sleep. His mother is present and expresses much concern that she has witnessed him have apnea and she is fearful for him. This seems to be controlling his life as he has no motivation to do anything else. He has some shortness of breath with exertion. No PND, orthopnea or edema. No chest discomfort at rest or with activity. He describes a few episodes where he says everything went blank . He does not believe he has had syncope. He is having difficulty concentrating. He has brief heart palpitations that catch his attention. Mostly sedentary. Mother states he has not been taking his meds as directed. He says he forgets frequently. REPLACED BY [facility] Medical History Endogenous depression Obstructive sleep apnea syndrome, mild Left ventricular ejection fraction of 40-49% Snoring Chest pain Morbid obesity with BMI of 50.0-59.9, adult Non-alcoholic fatty liver disease Hypertriglyceridemia Diabetes mellitus Congestive heart failure (CHF) Surgical History History of tooth extraction Hx of excision of mass (~03/30/18) History of ankle surgery (~06/29/12) Family History Mother IBS (irritable bowel syndrome) Father Heart problem Sister Crohn disease Paternal Grandfather Cancer Social History Household Members: None Housing: Apartment Do you presently have visiting nurse or other home services: Yes (TECHNICIAN TERMINAL AND REPEATER to 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) Alcohol intake: former Patient Tobacco Use Status: Never used Tobacco e-Cigarette/Vaping Use: Former Use Second Hand Smoke Exposure: No Substance Use Type: Marijuana service: No Current occupational status: unemployed Cognitive needs: No Hearing needs: No Vision needs: Yes Review of Systems Const Details: hypersomnia - morbidly obese All systems reviewed & are unremarkable except as noted in HPI and below Reports fatigue, Reports lethargy, Reports malaise and Reports stops breathing during sleep (witnessed by mother) ENT Denies dizziness Card Denies chest pain, Denies chest pain at rest, Denies chest pain with activity, Reports rapid heart rate (palpitations), Denies pedal edema, Denies edema, Denies leg edema, Denies lightheadedness, Denies palpitations, Reports dyspnea, Denies dyspnea on exertion and Denies orthopnea Resp Denies cough, Reports dyspnea and Denies dyspnea on exertion GI Denies hematochezia and Denies change in stool character Musc Denies abnormal gait, Denies limited range of motion, Denies muscle cramps, Den ies muscle weakness, Denies numbness, Denies radiating pain into limb, Denies stiffness and Denies tingling Neuro Denies abnormal gait, Denies dizziness, Denies numbness and Denies tingling Endo Reports fatigue and Denies palpitations Physical Exam Vital Signs: Last Vital Signs Pulse 95 10/12/24 13:20 BP 140/90 H 10/12/24 13:20 BMI result Body Mass Index 50.9 Const Other: morbidly obese General: cooperative and no acute distress Orientation/consciousness: patient oriented x3 Neck Neck: Yes normal visual inspection and Yes no JVD Resp Effort & Inspection: normal respiratory effort Auscultation: clear to auscultation bilaterally, no rales, no rhonchi and no wheezes Cardio Rate: regular rate Rhythm: regular rhythm Heart sounds: S1 normal heart sound present, S2 normal heart sound present, no gallops, no murmurs and no rubs Neuro General: patient oriented x3 Extrem General: Yes normal to inspection, No no pedal edema and No calf tenderness Psych Appearance: grossly normal Mental Status: mental status grossly normal Speech and movement: Normal speech and movement present Office Procedures EKG Details: Today, read by me, Normal sinus rhythm, rate 95, QTc 427ms [id number], Complete Assessment & Plan Assessment & Plan (1) Cardiomyopathy: Code(s): I42.9 - Cardiomyopathy, unspecified Category: Medical Plan: History of nonischemic cardiomyopathy. Cardiac catheterization from 04/01/2023 showed normal coronary arteries. Last echo done 10/05/2024 shows EF 40%, no valve abnormalities. He has morbid obesity and untreated sleep apnea both of which can contribute to cardiomyopathy. He has not been taking his meds as directed. For ease of medication management will have him stop carvedilol since it is a b.i.d. medication. Will change him to metoprolol XL 50 mg daily. Will change lisinopril to 5 mg daily, up from 2.5 mg daily. Continue Lasix 40 mg daily. The importance of each medication reviewed with him. Signs and symptoms of heart failure reviewed. (2) Left ventricular ejection fraction of 40-49%: Code(s): R94.30 - Abnormal result of cardiovascular function study, unspecified Category: Medical Plan: As above, current EF 40%. Prior echo showed EF 49%. (3) Obstructive sleep apnea syndrome, mild: Code(s): G47.33 - Obstructive sleep apnea (adult) (pediatric) Category: Medical Plan: Home sleep study done on 10/28/2022 as ordered by PCP. It states mild obstructive sleep apnea that can be treated with conservative measures however due to associated hypoxemia patient would benefit from CPAP therapy. He has not had follow-up on this. He reports symptoms of altered sleep, hypersomnia, difficulty concentrating. His mother is present and confirms witnessed apnea. Will order in-lab sleep study with CPAP titration and plan to refer back to pulmonology. (4) Palpitations: Code(s): R00.2 - Palpitations Category: Medical Plan: Report of intermittent heart palpitations. With his untreated sleep apnea and morbid obesity he is at increased risk for atrial fibrillation. Will check a Holter monitor. Plan to call him with results once available. (5) Congestive heart failure (CHF): Code(s): I50.9 - Heart failure, unspecified Category: Medical Qualifiers: Heart failure chronicity: chronic Heart failure type: unspecified Qualified Code(s): I50.9 - Heart failure, unspecified Plan: Congestive heart failure admission 2020. He has not had recurrent Congestive heart failure since that time. He is maintained on Lasix 40 mg daily. He reports compliance with the Lasix only. Signs and symptoms of heart failure reviewed with him. (6) Morbid obesity due to excess calories: Code(s): E66.01 - Morbid (severe) obesity due to excess calories Category: Medical Plan: The patient is aware of the need to lose weight. Will work on treating the sleep apnea 1st since that is urgent. He then may be motivated to work on increasing physical activity and weight loss. (7) Elevated BP without diagnosis of hypertension: Code(s): R03.0 - Elevated blood-pressure reading, without diagnosis of hypertension Category: Medical Plan: Blood pressure elevated today at 140/90. Med changes made as above. Plan Time spent on chart review, documentation, interview and assessment Orders: Orders ECG 3 day holter monitor Today R00.2 - Palpitations RT PSG in-lab sleep titration Today G47.33 - Obstructive sleep apnea (adult) (pediatric), G47.34 - Idiopathic sleep related nonobstructive alveolar hy poventilation Medications: New lisinopril dose increase 5 mg PO DAILY 90 tabs 1RF metoprolol succinate ER Stop Carvedilol Start Metoprolol 50 mg PO DAILY 90 tabs 1RF Discontinued carvedilol must administer with a meal/food Discontinued Reason: Doctor's Order 3.125 mg PO BID 30 days 60 tabs 3RF I50.9 - Heart failure, unspecified lisinopril Discontinued Reason: Doctor's Order 2.5 mg PO DAILY 90 days 90 tabs 1RF I50.9 - Heart failure, unspecified Coding Level of Care Code Est Pt Level 4 (82972) Complex EM visit Add On G2211 Diagnoses Cardiomyopathy I42.9 Left ventricular ejection fraction of 40-49% R94.30 Obstructive sleep apnea syndrome, mild G47.33 Palpitations R00.2 Chronic congestive heart failure, unspecified heart failure type I50.9 Heart failure chronicity: chronic Heart failure type: unspecified Morbid obesity due to excess calories E66.01 Elevated BP without diagnosis of hypertension R03.0 CPT Codes EKG - CPT: 65582-[id number], Complete ([id number]) Time Spent (min) 28
--- OUTSIDE RECORDS SUMMARY | 2024-10-12 15:11 | XMS_ITS | Clinical Summary ---
Author Organization [facility] Address [address] [place] [address] Care Team Providers Care Street Car Mechanic Name Role Phone Andrzej Beach MD Primary Care Provider [phone] Allergies No known active allergies Active Problems [...] age to complete this topic Care Teams Street Car Mechanic Relationship Specialty Start Date End Date Andrzej Beach MD [address] [place] [id number] PCP - General Internal Medicine 03/25/12
--- OUTSIDE RECORDS SUMMARY | 2024-10-12 15:11 | XMS_ITS | Clinical Summary ---
Author Organization [employer] Address [address] [facility] [address] [place] [address] Care Team Providers Care Yarn Spinner Name Role Phone Unavailable Primary Care Provider [...] to complete this topic Insurance DENTAL - [facility] [place] [id number]
== END 2024-10-12 14:04 | disposition home or self-care (01) ==
LOC: HO.HCS 12:48
PROVIDERS: PCP Nurse Practitioner Family; Visit Provider Nurse Practitioner Family
DX: I42.9 Cardiomyopathy, unspecified (principal); R94.30 Abnormal result of cardiovascular function study, unspecified; G47.33 Obstructive sleep apnea (adult) (pediatric); R00.2 Palpitations; I50.9 Heart failure, unspecified; E66.01 Morbid (severe) obesity due to excess calories; R03.0 Elevated blood-pressure reading, without diagnosis of hypertension
CPT/HCPCS: 93010; 99214; G2211

== ENCOUNTER → 2024-10-12 12:47 | Outpatient (BNVA) | payer OTHER, SELFPAY | PROVIDERS: PCP Nurse Practitioner Family; Visit Provider Nurse Practitioner Family | DX: I50.9 Heart failure, unspecified (principal); I42.9 Cardiomyopathy, unspecified; G47.33 Obstructive sleep apnea (adult) (pediatric); G47.34 Idiopathic sleep related nonobstructive alveolar hypoventilation; E66.01 Morbid (severe) obesity due to excess calories; E11.9 Type 2 diabetes mellitus without complications; R94.30 Abnormal result of cardiovascular function study, unspecified; R00.2 Palpitations; R03.0 Elevated blood-pressure reading, without diagnosis of hypertension; Z68.43 Body mass index [BMI] 50.0-59.9, adult | CPT/HCPCS: 93005; 99212 ==

== ENCOUNTER → 2024-10-27 13:00 | Outpatient (REF) | payer OTHER, SELFPAY ==
--- OUTSIDE RECORDS SUMMARY | 2024-10-27 14:50 | XMS_ITS | Clinical Summary ---
Author Organization [employer] Address [address] [facility] [address] [place] [address] Care Team Providers Care Scarfer Operator Name Role Phone Unavailable Primary Care [...] to complete this topic Insurance DENTAL - [facility] [place] [id number]
--- OUTSIDE RECORDS SUMMARY | 2024-10-27 14:50 | XMS_ITS | Clinical Summary ---
Author Organization [facility] Address [address] [place] [address] Care Team Providers Care Heat Treat Technician Name Role Phone Andrzej Beach MD Primary Care Provider [phone] Allergies No known active allergies Active Problems [...] age to complete this topic Care Teams Heat Treat Technician Relationship Specialty Start Date End Date Andrzej Beach MD [address] [place] [id number] PCP - General Internal Medicine 03/25/12
== END ==
LOC: HO.CARD 13:00
PROVIDERS: PCP Nurse Practitioner Family; Visit Provider Nurse Practitioner Family
DX: R00.2 Palpitations (principal)
CPT/HCPCS: 93242

== ENCOUNTER → 2024-11-14 19:30 | Outpatient (REF) | payer OTHER, SELFPAY ==
--- OUTSIDE RECORDS SUMMARY | 2024-11-14 21:35 | XMS_ITS | Clinical Summary ---
Author Organization [facility] Address [address] [place] [address] Care Team Providers Care Etiologist Name Role Phone Andrzej Beach MD Primary Care Provider [phone] Allergies No known active allergies Active Problems Problem Noted Date Diagnosed Date ADHD (attention deficit hyperactivity disorder) 07/14/2024 Bipolar 2 disorder (CMS/HCC V24, CMS/HCC V28) PTSD (post-traumatic stress disorder) 07/14/2024 Inversion sprain of ankle 10/25/2010 Closed fracture of lateral malleolus 04/18/2010 Surgical History Surgery Date Site/Laterality Comments ADENOIDECTOMY PROCEDURE: HISTORICAL ADENOIDECTOMY; COMMENT: As child TONSILLECTOMY PROCEDURE: HISTORICAL TONSILLECTOMY TYMPANOSTOMY TUBE PLACEMENT PROCEDURE: HISTORICAL PE TUBES Medical History Medical History Date Comments ADHD (attention deficit hype ractivity disorder) DX:ADHD (attention deficit h yperactivity disorder) Bipolar 2 disorder (CMS/HCC V24, CMS/HCC V28) DX:Bipolar 2 disorder (HCC) PTSD (post-traumatic stress disorder) [...] Influencers of Health Screening 06/24/2022 COVID-19 Vaccine (1 - 2023-2 5 season) 2024 Influenza Vaccine (Season Ended) 2025 HIB Vaccines Aged Out No longer eligi [...] age to complete this topic Meningococcal B Vaccine Aged Out No l onger eligible based on patient's age to complete [...] age to complete this topic Care Teams Etiologist Relationship Specialty Start Date End Date Andrzej Beach MD [address] [place] [address] PCP - General Internal Medicine 03/25/12
--- OUTSIDE RECORDS SUMMARY | 2024-11-14 21:35 | XMS_ITS | Clinical Summary ---
Author Organization [employer] Address [address] [facility] [address] [place] [address] Care Team Providers Care Transportation Job Titles Name Role Phone Unavailable Primary Care Provider [...] to complete this topic Insurance DENTAL [place] [address]
== END ==
LOC: HO.SL 19:30
PROVIDERS: PCP Internal Medicine; Visit Provider Nurse Practitioner Family
DX: G47.33 Obstructive sleep apnea (adult) (pediatric) (principal)
CPT/HCPCS: 95810

== ENCOUNTER → 2024-11-14 22:32 | Outpatient (BNV) | payer OTHER, SELFPAY | PROVIDERS: PCP Internal Medicine; Visit Provider Internal Medicine | DX: G47.33 Obstructive sleep apnea (adult) (pediatric) (principal) | CPT/HCPCS: 95810 ==

== ENCOUNTER 2025-02-26 22:19 | Emergency (ER) | payer OTHER, SELFPAY ==
--- NOTE | ~2025-02-26 | XR_ITS ---
CLINICAL HISTORY: Pain with ambulation 4 view right knee Comparison: None provided Findings: No acute fractures or dislocations. The joint spaces appear preserved No significant joint effusion. No radiopaque foreign body. IMPRESSION: 1. No acute fracture or dislocation injury identified at the right knee. This document has been electronically signed by: Foster Mustafa MD on 02/27/2025 00:49:58
[2025-02-26 22:27] VITALS: BP 151/75; PULSE 89; RESP 18; TEMP 36.2; O2SAT 94; BMI 50.3
--- NOTE | 2025-02-26 22:31 | ECG_ITS ---
Test Reason : CHEST PAIN Blood Pressure : */* mmHG Vent. Rate : 85 BPM Atrial Rate : 85 BPM P-R Int : 160 ms QRS Dur : 86 ms QT Int : 348 ms P-R-T Axes : 40 -2 24 degrees QTcB Int : 414 ms Normal sinus rhythm Normal ECG When compared with ECG of 14-Apr-2024 16:08, No significant change was found Referred By: Generic ED Physician Electronically Signed By: NICK TORRES
[2025-02-26 22:58] LABS: MANUAL DIFF FLAG NO
[2025-02-26 23:00] LABS: Hematocrit 38.3 % (42.0-52.0); Hemoglobin 12.7 g/dl (14.0-18.0); Imm Gran Abs Auto 0.03 X10*3/uL (0.00-0.03); Imm Gran Pct Auto 0.3 % (0.0-0.4); Lymphocytes Absolute Auto 2.3 X10*3/uL (1.2-4.9); Mean Corpuscular HGB Conc 33.2 g/dl (31.0-36.0); Mean Corpuscular Hemoglobin 28.8 pg (27.0-33.0); Mean Corpuscular Volume 86.8 fL (80.0-98.0); NRBC Abs Auto 0.000 X10*3/uL (0.0-0.012); NRBC Pct Auto 0.0 /100WBC (0.0-0.2); Platelet Count 281 X10*3/uL (160-400); Red Blood Count 4.41 X10*6/uL (4.60-5.80); White Blood Count 8.7 X10*3/uL (4.8-10.8)
[2025-02-26 23:13] LABS: Alanine Aminotransferase 179 U/L (0-40); Albumin Level 4.0 g/dL (3.5-5.0); Alkaline Phosphatase 68 U/L (39-117); Anion Gap 11 (12-20); Aspartate Amino Transferase 218 U/L (5-37); Blood Urea Nitrogen 13 mg/dL (9-16); Calcium 8.8 mg/dL (8.4-10.2); Carbon Dioxide 27 mmol/L (22-29); Chloride 104 mmol/L (96-108); Creatinine Clr Calc Pharmacy 167.8; Estimated Glomerular Filt Rate > 60; Potassium 4.1 mmol/L (3.3-5.1); Sodium 138 mmol/L (135-145); Total Protein 6.6 g/dL (6.5-8.0)
[2025-02-26 23:20] LABS: Troponin-I High Sensitivity < 2.7 ng/L (<3.5-35.0)
[2025-02-26 23:22] LABS: B Type Natriuretic Peptide < 10 pg/mL (<100)
[2025-02-27 04:21] VITALS: BP 116/78; PULSE 85; RESP 18; TEMP 36.4; O2SAT 95
--- NOTE | 2025-02-27 04:30 | PC.NURSE ---
pt came in from waiting room, complaint of R knee pain and swelling. pain for over a week, pt aware he is carrying a lot of weight but wanted to come in and be sure. states chest pain developed when in waiting room and may have been attributed to anxiety while waiting. Pt states chest pain has subsided. EKG NSR
--- OUTSIDE RECORDS SUMMARY | 2025-02-27 04:45 | XMS_ITS | Encounter Summary ---
Author Organization [employer] Address [address] [facility] [address] [place] [address] Care Team Providers Care Associate Software Developer Name Role Phone Unavailable Primary Care Provider Unavailabl e Encounter Details Date Type Department Care Team (Late st Contact Info) Description 02/23/[address] [facility] [address], [place] [phone] Alexys Lagos MD [address] [place], [place] [phone] Social History Tobacco Use Types Packs/Day Years Used Date Smoking Tobacco: Never Smokeless Tobacco: Never Alcohol Use Standard Drinks/Week Comments Not Currently 0 (1 standard drink = 0.6 oz pur e alcohol) Sex and Gender Information Value Date Recorded Sex Assigned at Male 12/17/2023 11:57 AM EDT Legal Sex Male 11:52 AM EDT Gender Identity Male 12/17/2023 11:57 AM EDT Sexual Orientation Choose not to disclose 2023 11:57 AM EDT documented as of this encounter Miscellaneous Notes * Telephone Encounter - Carlita Adams - 02/23/2025 10:45 AM EDT Outgoing call to makayla jones pt appt , pt stated is currently not interested. documented in this encounter Plan of Treatment Not on file documented as of this encounter Visit Diagnoses Not on filedocumented in this encounter
--- NOTE | 2025-02-27 07:37 | ED.GENADULT ---
HPI - General Adult General Chief complaint: General Medical Stated complaint: left arm numbess, right knee swollen, rt eye pain Time Seen by Provider: 02/27/25 07:04 Source: patient and RN notes reviewed History of Present Illness ED Provider: Ivis Sweeney PA-C HPI narrative: 34-year-old male with history of obesity, ALEISHA, CHF, T2DM, hypertriglyceridemia, presents to the ED due to 1 week of right knee pain and swelling, right eye pain, left arm numbness. Patient states the right knee has been consistently swollen with a dull ache over the last week. Patient states he has experienced 3 episodes of left arm numbness, but has now resolved. Patient reports this numbness last approximately 1 hour, but has full functionality of the arm during these episodes. Patient states he has had 4 episodes of eye pain over the last 2 weeks, with last episode occurring last night before he presented to the ED. patient states the eye pain feels like pressure, lasts approximately 30 minutes, and resolves. Patient states he has been walking a lot over the last week reporting 3-4 miles a day stating he has been walking with his girlfriend to the bus stop, helping her move and getting all of her belongings into a new place of living. Lastly patient states he feels as if he has to ?push harder? to urinate over this past week. Patient states right eye pain, left arm numbness have resolved at this time. Denies chest pain, shortness of breath, abdominal pain, nausea, vomiting, diplopia, photophobia, headaches, black/tarry stool, urinary symptoms Related Data Previous Rx's ?Medication ?Instructions ?Recorded albuterol sulfate 90 mcg/actuation 2 puff inhalation Q4-6H PRN 07/16/23 aerosol inhaler (ProAir HFA) shortness of breath or wheezing #8.5 grams dulaglutide 0.75 mg/0.5 mL 0.75 mg (0.5 mL) subcut QWEEK #2 mL 01/19/24 subcutaneous pen injector ([facility]) blood sugar diagnostic (OneTouch #100 ea 07/12/24 Ultra Test strips) blood-glucose meter #1 ea 07/12/24 blood-glucose meter (OneTouch #1 ea 07/13/24 Ultra2 Meter) lancets 25 gauge #100 ea 08/02/24 furosemide 40 mg tablet 40 mg PO DAILY 90 days #90 tabs 08/03/24 lancets (Accu-Chek Fastclix Lancet #100 ea 09/12/24 Elvis) lisinopril 5 mg tablet 5 mg PO DAILY #90 tabs 10/12/24 metoprolol succinate 50 mg 50 mg PO DAILY #90 tabs 10/12/24 tablet,extended release 24 hr Allergies Allergy/AdvReac Type Severity Reaction Status Date / Time morphine AdvReac Unknown projectile Verified 02/26/25 22:30 vomiting Review of Systems Review of Systems: CONST: Negative for fever, body aches and chills. HENT: Negative for neck pain/stiffness, headache, congestion, sore throat, swelling. EYES: Negative for discharge/pain or vision changes. RESP: Negative for cough/hemoptysis and shortness of breath. CV: Negative chest pain, difficulty breathing, palpitations. ABD: Negative pain, nausea, vomiting. : Negative increase frequency, dysuria, blood in urine or stool. POS increased effort to empty bladder with urination MUSC: Negative for muscle aches, edema. POS R knee pain SKIN: Negative rash, lesions/sores. NEURO: Negative headache, dizziness, weakness. Yes all other systems are reviewed and are negative PMFSH Past Medical History Attestation statement: The following information was validated with the patient. Source: old records reviewed and nursing notes reviewed Medical History Endogenous depression Obstructive sleep apnea syndrome, mild Left ventricular ejection fraction of 40-49% Snoring Chest pain Morbid obesity with BMI of 50.0-59.9, adult Non-alcoholic fatty liver disease Hypertriglyceridemia Diabetes mellitus Congestive heart failure (CHF) Surgical History History of tooth extraction Hx of excision of mass (~03/30/18) History of ankle surgery (~06/29/12) Family History Family History Mother IBS (irritable bowel syndrome) Father Heart problem Sister Crohn disease Paternal Grandfather Cancer Social History Social History Household Members: None Housing: Apartment Do you presently have visiting nurse or other home services: Yes ([employer] to 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) Alcohol intake: former Patient Tobacco Use Status: Never used Tobacco Smoked in Last 30 Days: No e-Cigarette/Vaping Use: Former Use Second Hand Smoke Exposure: No Use of substances other than those prescribed or required for medical reasons: Yes Substance Use Type: Marijuana Advance Directives: No Do you have a plan to hurt others: No Plan service: No Current occupational status: unemployed Cognitive needs: No Hearing needs: No Vision needs: Yes Physical Exam ED Vital Signs: Vital Signs - 24 hr 02/26/25 22:27 02/27/25 04:21 02/27/25 07:44 Temperature 97.2 F 97.6 F 97.7 F Pulse Rate 89 85 72 Respiratory Rate 18 18 16 Blood Pressure 151/75 H 116/78 127/67 Pulse Oximetry 94 95 97 Oxygen Delivery Method Room Air Room Air 02/27/25 08:45 02/27/25 09:43 Temperature 97.7 F Pulse Rate 72 Respiratory Rate 16 Blood Pressure 127/67 Pulse Oximetry 95 95 Oxygen Delivery Method Room Air Room Air BMI result Body Mass Index 50.3 GENERAL APPEARANCE: ?AxOx4, disheveled appearing, no acute distress. HEENT: ?NC, AT. MMM. EOMI, clear conjunctiva, oropharynx clear. Bilateral tympanic membranes clear, without bulging, without erythema, without air bubbles, appropriate light reflex, mild erythema of external canal of right ear, however there is a lot of wax, no pain with tragal manipulation, no mastoid tenderness, no erythema of mastoid, no preauricular lymphadenopathy. NECK: ?Supple without lymphadenopathy.? No stiffness or restricted ROM. HEART:? Normal rate and regular rhythm, normal S1/S2, no m/r/g LUNGS:? CTAB, moving air well. No crackles or wheezes are heard. ABDOMEN: ?Soft, nontender, nondistended with good bowel sounds heard. BACK: No CVAT, no obvious deformity. EXTREMITIES: ?Without cyanosis, clubbing or edema. Right knee with mild nonpitting edema, TTP of superior, anterior patella, no joint line tenderness, no erythema, no warmth, no calf tenderness, Homans sign negative, no posterior knee tenderness, full ROM intact, SILT, strength 5/5 bilaterally, patient able to ambulate without ataxic gait. NEUROLOGICAL: ?Grossly nonfocal. Alert and oriented, moving all 4 extremities. Observed to ambulate with normal gait. Skin: ?Warm and dry without any rash. Medications Administered Discontinued Medications Generic Name Dose Route Start Last Admin Trade Name Rhoda PRN Reason Stop Dose Admin Acetaminophen 975 mg 02/27/25 07:39 02/27/25 08:07 Acetaminophen 325 Mg Tablet PO 02/27/25 07:40 975 mg ONCE ONE Administration Ketorolac Tromethamine 15 mg 02/27/25 07:39 02/27/25 08:07 Ketorolac Tromethamine 15 Mg/Ml Vial IM 02/27/25 07:40 15 mg ONCE ONE Administration Medical Decision Making Medical Decision Making MDM Narrative: 4-year-old male with history of obesity, ALEISHA, CHF, T2DM, hypertriglyceridemia, presents to the ED due to 1 week of right knee pain and swelling, right eye pain, left arm numbness. Patient states the right knee has been consistently swollen with a dull ache over the last week. Patient states he has experienced 3 episodes of left arm numbness, but has now resolved. Patient reports this numbness last approximately 1 hour, but has full functionality of the arm during these episodes. Patient states he has had 4 episodes of eye pain over the last 2 weeks, with last episode occurring last night before he presented to the ED. patient states the eye pain feels like pressure, lasts approximately 30 minutes, and resolves. Patient states he has been walking a lot over the last week reporting 3-4 miles a day stating he has been walking with his girlfriend to the bus stop, helping her move and getting all of her belongings into a new place of living. Lastly patient states he feels as if he has to ?push harder? to urinate over this past week. Patient states right eye pain, left arm numbness have resolved at this time. VSS, BP 127/67, pulse rate 72 beats per minute, respiratory rate 16 breaths per minute, patient afebrile with oral temp of 97.7?, O2 saturation 97% on room air. Physical exam reveals clear conjunctiva of the right eye, no exophthalmos, EOMI, pupils with appropriate consensual reaction, accommodating light, no visual disturbances, diplopia, loss of vision. Bilateral tympanic membranes with appropriate light reflex, without bulging, without evidence of fluid bubbles, right ear with mild erythema of the external canal, however there is a lot of dry flaking cerumen within the canal. No pain with tragal manipulation, no mastoid tenderness, no erythema/warmth of the mastoid- less likely mastoiditis. EKG reveals normal sinus rhythm, without ST elevation/depression, T-wave abnormality, initial troponin negative at <2.7, without chest pain- less likely ACS No focal neurological deficits noted, patient with 5/5 strength of bilateral upper extremities, 5/5 strength of bilateral lower extremities, no facial drooping, no speech slurring, no pronator drift, ambulating without ataxic gait, sensation to light touch intact of upper extremities and lower extremities. Right knee without visual abnormality, no bony abnormality palpated, with mild nonpitting edema, mild TTP of the anterior superior patella, no joint line tenderness, no calf tenderness, Homans sign negative, patient denies trauma/fall/injury- less likely fracture, dislocation. PVR negative, patient urinated and bladder scan negative for retained urine. UA reveals 250 urine glucose, 1+ leukocyte esterase, 6-10 urine WBCs, 0-2 squamous epithelial cells, with no bacteria, without nitrites, patient without dysuria, urinary frequency, suprapubic tenderness- no indication for antibiotic therapy. Labs without leukocytosis, H and H stable, POC glucose 154, no gap, transaminitis of 218/179, patient denies alcohol history, I believe this is probably elevated due to fatty liver since patient is significantly obese, no evidence of hepatomegaly on physical exam. Patient medicated with 975 mg Tylenol, 15 mg IM ketorolac. Patient states his knee pain is feeling much better at this time, is able to ambulate without pain. I counseled patient that he probably aggravated his knee with his increased walking of 3-4 miles a day, being obese and putting the stress on the knee can cause pain and swelling. Patient has good follow up with primary care provider, counseled patient to follow up due to intermittent numbness, eye pain, knee pain, and the need for good glucose control for eye protection. Patient states he will call PCP and make appointment for this week. VSS continue to be stable, patient ambulating without ataxic gait. Patient appropriate for discharge home for self-care, with Tylenol and Motrin to manage knee pain. While awaiting CPK results, patient did not want to wait for results, wanted to leave as his ride was in the department and did not want to walk home due to knee pain. Patient left the department, I counseled him that he will be called if CPK is elevated and needed additional treatment. CPK resulted back at 4,659 which is a significant elevation in indication of rhabdomyolysis. Labs without electrolyte abnormalities, urine without significant RBCs, creatinine 0.97. Patient was called and results were relayed to him, patient returning to ED for fluid resuscitation, possible admission. Differential Diagnosis Differential Diagnoses: The differential diagnosis associated with the presentation includes ACS Knee fracture Knee dislocation Strain of knee Conjunctivitis Otitis externa Mastoiditis Electrolyte abnormality Rhabdo Admission/Observation Consideration of admission/observation: Escalation of care including admission/observation considered Lab Data MDM Lab Attestation statement: I reviewed the patient's lab results. 02/26/25 22:41 02/26/25 22:41 Labs: Lab Results 02/26/25 02/27/25 02/27/25 Range/Units 22:41 07:51 07:53 WBC 8.7 (4.8-10.8) X10*3/uL RBC 4.41 L (4.60-5.80) X10*6/uL Hgb 12.7 L (14.0-18.0) g/dl Hct 38.3 L (42.0-52.0) % MCV 86.8 (80.0-98.0) fL MCH 28.8 (27.0-33.0) pg MCHC 33.2 (31.0-36.0) g/dl RDW 11.5 (11.0-16.0) % Plt Count 281 (160-400) X10*3/uL MPV 10.8 (9.4-12.4) fL Immature Gran % (Auto) 0.3 (0.0-0.4) % Neut % (Auto) 65.0 (45-73) % Lymph % (Auto) 25.8 (20-40) % Wheeler % (Auto) 6.1 (2-11) % Eos % (Auto) 2.2 (0-4) % Baso % (Auto) 0.6 (0-2) % Lymph # (Auto) 2.3 (1.2-4.9) X10*3/uL Wheeler # (Auto) 0.5 (0.1-1.2) X10*3/uL Eos # (Auto) 0.2 (0.0-0.4) X10*3/uL Baso # (Auto) 0.1 (0.0-0.2) X10*3/uL Abs Immat Gran (auto) 0.03 (0.00-0.03) X10*3/uL Absolute Neuts (auto) 5.7 (2.0-8.3) x10*3/uL Absolute Nucleated RBC 0.000 (0.0-0.012) X10*3/uL Nucleated RBC % (auto) 0.0 (0.0-0.2) /100WBC Sodium 138 (135-145) mmol/L Potassium 4.1 (3.3-5.1) mmol/L Chloride 104 (96-108) mmol/L Carbon Dioxide 27 (22-29) mmol/L Anion Gap 11 L (12-20) BUN 13 (9-16) mg/dL Creatinine 0.97 (0.5-1.4) mg/dL Estim Creat Clear Calc 167.8 Estimated GFR > 60 POC Glucose 154 H (60-115) mg/dL Random Glucose 319 H (60-115) mg/dL Calcium 8.8 (8.4-10.2) mg/dL Total Bilirubin 1.0 (0.0-1.0) mg/dL AST 218 H (5-37) U/L ALT 179 H (0-40) U/L Alkaline Phosphatase 68 (39-117) U/L Total Creatine Kinase 4659 H (38-174) U/L Troponin I High Sens < 2.7 (<3.5-35.0) ng/L B-Natriuretic Peptide < 10 (<100) pg/mL Total Protein 6.6 (6.5-8.0) g/dL Albumin 4.0 (3.5-5.0) g/dL Lipase 135 H (8-78) U/L Urine Color Yellow Urine Appearance Clear Urine pH 5.5 (5.0-9.0) Ur Specific [place] 1.025 (1.005-1.025) Urine Protein Negative (Neg-Trace) mg/dL Urine Glucose (UA) 250 H (Negative) mg/dL Urine Ketones Negative (Negative) mg/dL Urine Blood Negative (Negative) Urine Nitrite Negative (Negative) Ur Leukocyte Esterase Small (1+) H (Negative) Urine RBC 0-2 (0-2) /HPF Urine WBC 6-10 H (0-5) /HPF Ur Squamous Epith Cells 0-2 (0-2) /HPF Urine Bacteria None Seen (None Seen) Hyaline Casts 0-2 (0-2) /LPF Independent Interpretation I performed an independent interpretation of an: EKG and Plain X-Ray Interpretation: I independently interpreted the EKG which reveals normal sinus rhythm without ST elevation/depression Vent. Rate : 85 BPM Atrial Rate : 85 BPM P-R Int : 160 ms QRS Dur : 86 ms QT Int : 348 ms P-R-T Axes : 40 -2 24 degrees QTcB Int : 414 ms Normal sinus rhythm Normal ECG When compared with ECG of 14-Apr-2024 16:08, No significant change was found XR R Knee- without fracture, dislocation, joint effusion, degenerative changes, I agree with the radiologist's interpretation Radiology Impression Discussion of test interpretation with radiology: I have reviewed the radiologist's reading. Radiologist Impression: XR R knee Findings: No acute fractures or dislocations. The joint spaces appear preserved No significant joint effusion. No radiopaque foreign body. IMPRESSION: 1. No acute fracture or dislocation injury identified at the right knee. This document has been electronically signed by: Foster Mustafa MD on 02/27/2025 00:49:58 Dictated By: Foster Mustafa MD Signed By: <Electronically signed by Foster Mustafa MD in OV> 02/27/25 0050 External Record Review External record reviewed: Inpatient record, Office record and Outpatient record Chronic Conditions Patient?s care impacted by: Diabetes, Hypertension and Other (ALEISHA, CHF) Discharge Plan Discharge Clinical Impression: Knee pain Patient Disposition: Home, Self-Care Instructions: Knee Pain (ED) Additional Instructions: You were evaluated in the emergency department due to right knee pain, right eye pain, left arm numbness. Your labs were unremarkable, your POC glucose is 154, your EKG did not reveal any acute cardiac process, your initial troponin which is a laboratory test we due to evaluate stress and damage of the heart was negative. The x-ray of your right knee did not reveal any fracture, dislocation, degenerative changes. Your physical exam revealed some redness of your right external ear canal, however you had a lot of dry flaky wax there that is most likely causing the redness as your ear was not tender to pulling, you had no tenderness behind the ear when palpating, no evidence of fluid in the ear. Your urinalysis was negative for blood or infection however did have increased glucose. I believe the right knee pain is due to increased physical activity, as you stated you been were walking 3-4 miles per day helping her girlfriend. You were medicated with 975 mg of Tylenol, and 15 mg of intramuscular injection of ketorolac which is a strong NSAID, which had good effect on your pain. To manage his pain at home you should alternate 500 mg of Tylenol with 400 mg of ibuprofen every 6 hours, elevate the leg, ice the affected area several times per day, do gentle stretching and exercise of the right knee, and refrain from walking long distances until the knee pain has resolved. I do recommend that you follow up with your primary care doctor for further evaluation of your knee pain, ear pain, intermittent eye pain, and increased glucose in your urine. Please return to the emergency department if you experience visual loss, fevers over 100.4?, increased pain of the right knee, difficulty walking, chest pain, shortness of breath, increased pain of the right ear, or any other new/worsening/concerning symptoms. Prescriptions: No Action (DME) blood-glucose meter Kit See Rx Instructions .Route Qty: 1 0RF Rx Instructions: As directed (DME) OneTouch Ultra Test Strip See Rx Instructions .Route Qty: 100 1RF Rx Instructions: As directed up to three times per day (DME) blood-glucose meter [OneTouch Ultra2 Meter] [facility] See Rx Instructions .Route Qty: 1 0RF Rx Instructions: As directed (DME) lancets 25 gauge misc See Rx Instructions .Route Qty: 100 1RF Rx Instructions: As directed up to three times a day furosemide 40 mg tablet 40 mg PO DAILY 90 Days Qty: 90 1RF (DME) lancets [Accu-Chek Fastclix Lancet Drum] [facility] See Rx Instructions .Route Qty: 100 0RF Rx Instructions: As directed albuterol sulfate [ProAir HFA] 90 mcg/actuation HFA aerosol inhaler 2 puff inhalation Q4-6H PRN (Reason: shortness of breath or wheezing) Qty: 8.5 0RF Trulicity 0.75 mg/0.5 mL pen injector 0.75 mg subcut QWEEK Qty: 2 6RF metoprolol succinate 50 mg tablet extended release 24 hr 50 mg PO DAILY Qty: 90 1RF Rx Instructions: Stop Carvedilol Start Metoprolol lisinopril 5 mg tablet 5 mg PO DAILY Qty: 90 1RF Rx Instructions: dose increase Interventions: ED Discharge Assessment Last Done: 02/27/25 09:43 Discharge Date/Time: 02/27/25 09:46 Print Language: Trinidadian
[2025-02-27 07:44] VITALS: BP 127/67; PULSE 72; RESP 16; TEMP 36.5; O2SAT 97
--- NOTE | 2025-02-27 07:46 | PC.NURSE ---
PT A&O X4 VSS seenby provider- aware of plan.Pt ambulates to BR with limp due to knee pain, Otherwise NAD. Asking for POC and PO,
[2025-02-27 07:54] LABS: Glucose, Whole Blood 154 mg/dL (60-115)
[2025-02-27 08:04] LABS: Appearance Urine Clear; Glucose Urine UA 250 mg/dL (Negative); PH 5.5 (5.0-9.0); Specific Gravity - Urine 1.025 (1.005-1.025); UMIC TRIGGER UACC YES
[2025-02-27 08:07] LABS: UACC Culture Trigger YES
[2025-02-27 08:11] LABS: Lipase 135 U/L (8-78)
[2025-02-27 08:45] VITALS: O2SAT 95
[2025-02-27 09:43] VITALS: BP 127/67; PULSE 72; RESP 16; TEMP 36.5; O2SAT 95
== END 2025-02-27 09:46 | disposition home or self-care (01) ==
PROVIDERS: Emergency Provider Emergency Medicine; PCP Internal Medicine
DX: M25.561 Pain in right knee (principal); R20.0 Anesthesia of skin; M79.89 Other specified soft tissue disorders; H57.11 Ocular pain, right eye; G47.33 Obstructive sleep apnea (adult) (pediatric); E11.8 Type 2 diabetes mellitus with unspecified complications; I50.9 Heart failure, unspecified; E78.1 Pure hyperglyceridemia; Z79.899 Other long term (current) drug therapy
CPT/HCPCS: 36415; 73564; 80053; 81001; 81003; 82550; 82947; 83690; 83880; 84484; 85025; 87086; 93005; 96372; 99284; 99285; J1885

== ENCOUNTER → 2025-02-26 22:31 | Outpatient (BNV) | payer OTHER, SELFPAY | PROVIDERS: Emergency Provider Emergency Medicine; PCP Internal Medicine; Visit Provider Internal Medicine | DX: R07.9 Chest pain, unspecified (principal) | CPT/HCPCS: 93010 ==

== ENCOUNTER → 2025-02-26 23:45 | Outpatient (BNV) | payer OTHER, SELFPAY | PROVIDERS: PCP Internal Medicine; Visit Provider Radiology Diagnostic Radiology | DX: M25.561 Pain in right knee (principal) | CPT/HCPCS: 73564 ==

== ENCOUNTER 2025-02-27 11:17 | Inpatient (IN) | payer OTHER, SELFPAY ==
--- NOTE | 2025-02-27 | ECG_ITS ---
Test Reason : CHEST PAIN Blood Pressure : */* mmHG Vent. Rate : 59 BPM Atrial Rate : 59 BPM P-R Int : 150 ms QRS Dur : 86 ms QT Int : 404 ms P-R-T Axes : 54 10 28 degrees QTcB Int : 399 ms Sinus bradycardia Otherwise normal ECG When compared with ECG of 26-Feb-2025 22:31, No significant change was found Referred By: Shruti Joe Electronically Signed By: NICK TORRES
--- NOTE | ~2025-02-27 | XR_ITS ---
CLINICAL HISTORY: Chest pain 1 view chest x-ray Comparison: CR/RI/SR - XR CHEST 2 VIEWS - 04/14/24 16:12 EDT Findings: Normal size heart. No definite consolidation, significant pleural effusion or pneumothorax. No acute fracture. IMPRESSION: 1. No acute findings. This document has been electronically signed by: Carmita Pozo MD on 02/27/2025 18:21:50
--- NOTE | ~2025-02-27 | CT_ITS ---
CLINICAL HISTORY: Multiple events of left arm numbness and R eye ember CT head without contrast Comparison: None provided Findings: No intra-axial mass, midline shift, hydrocephalus, or acute hemorrhage. No significant atrophy-like change or white matter disease. Left maxillary sinus small mucous retention cyst/polyp. Otherwise sinuses and mastoid air cells are clear. The orbits are unremarkable. No acute skull fracture. IMPRESSION: 1. No acute intracranial findings. This document has been electronically signed by: Carmita Pozo MD on 02/27/2025 18:26:43
[2025-02-27 11:44] VITALS: BP 164/60; PULSE 84; RESP 16; TEMP 36.2; O2SAT 94; BMI 50.3
--- NOTE | 2025-02-27 11:46 | ED.RECABL ---
HPI - Recheck/Abnormal Lab/Rx General Chief Complaint: Recheck/Abnormal Lab/Rx Stated Complaint: Seen earlier, told to return Time Seen by Provider: 02/27/25 13:17 History of Present Illness ED Provider: Ivis Sweeney PA-C HPI narrative: 34-year-old male with history of obesity, ALEISHA, CHF, T2DM, hypertriglyceridemia, presents to the ED due to 1 week of right knee pain and swelling, right eye pain, left arm numbness. Patient states the right knee has been consistently swollen with a dull ache over the last week. Patient states he has experienced 3 episodes of left arm numbness, but has now resolved. Patient reports this numbness last approximately 1 hour, but has full functionality of the arm during these episodes. Patient states he has had 4 episodes of eye pain over the last 2 weeks, with last episode occurring last night before he presented to the ED. patient states the eye pain feels like pressure, lasts approximately 30 minutes, and resolves. Patient states he has been walking a lot over the last week reporting 3-4 miles a day stating he has been walking with his girlfriend to the bus stop, helping her move and getting all of her belongings into a new place of living. Lastly patient states he feels as if he has to ?push harder? to urinate over this past week. Patient states right eye pain, left arm numbness have resolved at this time. Denies chest pain, shortness of breath, abdominal pain, nausea, vomiting, diplopia, photophobia, headaches, black/tarry stool, urinary symptoms Patient seen earlier today (02/27/25) in the department. I was waiting CPK when patient was urgent to leave due to having a ride, not wanting to walk home due to right knee pain. Patient was discharged until he will be called back if lab result was abnormal. CPK resulted at 4,659 patient was instructed to return to department for fluid resucitation. Related Data Previous Rx's ?Medication ?Instructions ?Recorded albuterol sulfate 90 mcg/actuation 2 puff inhalation Q4-6H PRN 07/16/23 aerosol inhaler (ProAir HFA) shortness of breath or wheezing #8.5 grams dulaglutide 0.75 mg/0.5 mL 0.75 mg (0.5 mL) subcut QWEEK #2 mL 01/19/24 subcutaneous pen injector (Crowdrally) blood sugar diagnostic (OneTouch #100 ea 07/12/24 Ultra Test strips) blood-glucose meter #1 ea 07/12/24 blood-glucose meter (OneTouch #1 ea 07/13/24 Ultra2 Meter) lancets 25 gauge #100 ea 08/02/24 furosemide 40 mg tablet 40 mg PO DAILY 90 days #90 tabs 08/03/24 lancets (Accu-Chek Fastclix Lancet #100 ea 09/12/24 Drum) lisinopril 5 mg tablet 5 mg PO DAILY #90 tabs 10/12/24 metoprolol succinate 50 mg 50 mg PO DAILY #90 tabs 10/12/24 tablet,extended release 24 hr Allergies Allergy/AdvReac Type Severity Reaction Status Date / Time morphine AdvReac Unknown projectile Verified 02/27/25 11:45 vomiting [facility] Past Medical History Medical History Endogenous depression Obstructive sleep apnea syndrome, mild Left ventricular ejection fraction of 40-49% Snoring Chest pain Morbid obesity with BMI of 50.0-59.9, adult Non-alcoholic fatty liver disease Hypertriglyceridemia Diabetes mellitus Congestive heart failure (CHF) Surgical History History of tooth extraction Hx of excision of mass (~03/30/18) History of ankle surgery (~06/29/12) Family History Family History Mother IBS (irritable bowel syndrome) Father Heart problem Sister Crohn disease Paternal Grandfather Cancer Social History Social History Household Members: None Housing: Apartment Do you presently have visiting nurse or other home services: Yes (CUSTOM STUDIO COORDINATOR to 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) Alcohol intake: former Patient Tobacco Use Status: Never used Tobacco Smoked in Last 30 Days: No e-Cigarette/Vaping Use: Former Use Second Hand Smoke Exposure: No Use of substances other than those prescribed or required for medical reasons: No Substance Use Type: Marijuana Advance Directives: No Advance Directives Information Provided: Yes service: No Current occupational status: unemployed Cognitive needs: No Hearing needs: No Vision needs: Yes Physical Exam Vital Signs: Vital Signs: Last Vital Signs Temp 98.1 F 02/27/25 14:49 Pulse 67 02/27/25 14:49 Resp 18 02/27/25 14:49 BP 127/72 02/27/25 14:49 Pulse Ox 98 02/27/25 14:49 O2 Del Method Nasal Cannula 02/27/25 14:49 O2 Flow Rate 2 02/27/25 14:49 BMI result Body Mass Index 50.3 Course Course Course Narrative: This is a Rapid Medical Examination (RME) performed by Amari Lee PA-C in triage. Full HPI, ROS, assessment and treatment plan per primary provider in the Main ED. 34 yo male with history of obesity, ALEISHA, cardiomyopathy w/ EF 40%, DM2, presenting for abnormal labs. CK 4600. he states he goes to gym every night at midnight - walks 1 mile, lifts weights, and then goes on water jet massage table. has been going for 2 weeks. c/o chronic leg pain. last exercise was 3 days ago because of the pain Plan: repeat labs and IVF Medications Administered Discontinued Medications Generic Name Dose Route Start Last Admin Trade Name Freq PRN Reason Stop Dose Admin Lactated Ringer's 1,000 mls @ 999 mls/hr 02/27/25 12:00 02/27/25 15:35 Lr IV 02/27/25 13:00 Infused .Q1H1M BERTRAND Infusion Lactated Ringer's 1,000 mls @ 999 mls/hr 02/27/25 13:17 02/27/25 15:35 Lr IV 02/27/25 14:17 Infused .Q1H1M ONE Infusion Lactated Ringer's 1,000 mls @ 999 mls/hr 02/27/25 13:18 02/27/25 15:35 Lr IV 02/27/25 14:18 Infused .Q1H1M ONE Infusion Medical Decision Making Medical Decision Making MDM Narrative: 34-year-old male with history of obesity, ALEISHA, CHF, T2DM, hypertriglyceridemia, presents to the ED due to 1 week of right knee pain and swelling, right eye pain, left arm numbness. Patient states the right knee has been consistently swollen with a dull ache over the last week. Patient states he has experienced 3 episodes of left arm numbness, but has now resolved. Patient reports this numbness last approximately 1 hour, but has full functionality of the arm during these episodes. Patient states he has had 4 episodes of eye pain over the last 2 weeks, with last episode occurring last night before he presented to the ED. patient states the eye pain feels like pressure, lasts approximately 30 minutes, and resolves. Patient states he has been walking a lot over the last week reporting 3-4 miles a day stating he has been walking with his girlfriend to the bus stop, helping her move and getting all of her belongings into a new place of living. Lastly patient states he feels as if he has to ?push harder? to urinate over this past week. Patient states right eye pain, left arm numbness have resolved at this time. Denies chest pain, shortness of breath, abdominal pain, nausea, vomiting, diplopia, photophobia, headaches, black/tarry stool, urinary symptoms Patient seen earlier today (02/27/25) in the department. I was waiting CPK when patient was urgent to leave due to having a ride, not wanting to walk home due to right knee pain. Patient was discharged until he will be called back if lab result was abnormal. CPK resulted at 4,659 patient was instructed to return to department for fluid resucitation. Physical exam does not reveal fluid overload, no JVD, lungs clear to auscultation bilaterally, no pitting edema of lower extremities. CPK redrawn when patient returned to department, which resulted at 2699. Patient is started on 2 L IV fluids for fluid resuscitation. Differential Diagnosis Differential Diagnoses: The differential diagnosis associated with the presentation includes Rhabdomyolysis Electrolyte abnormality SINA Admission/Observation Consideration of admission/observation: Escalation of care including admission/observation considered Lab Data MDM Lab Attestation statement: I reviewed the patient's lab results. 02/27/25 11:57 02/27/25 11:57 Labs: Lab Results 02/27/25 02/27/25 02/27/25 Range/Units 11:57 15:35 16:39 WBC 7.5 (4.8-10.8) X10*3/uL RBC 4.53 L (4.60-5.80) X10*6/uL Hgb 12.9 L (14.0-18.0) g/dl Hct 39.6 L (42.0-52.0) % MCV 87.4 (80.0-98.0) fL MCH 28.5 (27.0-33.0) pg MCHC 32.6 (31.0-36.0) g/dl RDW 11.7 (11.0-16.0) % Plt Count 275 (160-400) X10*3/uL MPV 10.7 (9.4-12.4) fL Immature Gran % (Auto) 0.4 (0.0-0.4) % Neut % (Auto) 59.7 (45-73) % Lymph % (Auto) 28.9 (20-40) % [place] % (Auto) 7.5 (2-11) % Eos % (Auto) 2.8 (0-4) % Baso % (Auto) 0.7 (0-2) % Lymph # (Auto) 2.2 (1.2-4.9) X10*3/uL [place] # (Auto) 0.6 (0.1-1.2) X10*3/uL Eos # (Auto) 0.2 (0.0-0.4) X10*3/uL Baso # (Auto) 0.1 (0.0-0.2) X10*3/uL Abs Immat Gran (auto) 0.03 (0.00-0.03) X10*3/uL Absolute Neuts (auto) 4.5 (2.0-8.3) x10*3/uL Absolute Nucleated RBC 0.000 (0.0-0.012) X10*3/uL Nucleated RBC % (auto) 0.0 (0.0-0.2) /100WBC Sodium 138 (135-145) mmol/L Potassium 4.3 (3.3-5.1) mmol/L Chloride 102 (96-108) mmol/L Carbon Dioxide 28 (22-29) mmol/L Anion Gap 12 (12-20) BUN 14 (9-16) mg/dL Creatinine 0.89 (0.5-1.4) mg/dL Estim Creat Clear Calc 182.9 Estimated GFR > 60 Random Glucose 320 H (60-115) mg/dL Calcium 8.8 (8.4-10.2) mg/dL Magnesium 1.8 (1.6-2.6) mg/dL Total Bilirubin 1.3 H (0.0-1.0) mg/dL Direct Bilirubin 0.3 (0.0-0.5) mg/dL AST 176 H (5-37) U/L ALT 176 H (0-40) U/L Alkaline Phosphatase 70 (39-117) U/L Total Creatine Kinase 2699 H 2108 H (38-174) U/L B-Natriuretic Peptide < 10 (<100) pg/mL Total Protein 6.7 (6.5-8.0) g/dL Albumin 4.0 (3.5-5.0) g/dL Urine Color Yellow Urine Appearance Clear Urine pH 6.0 (5.0-9.0) Ur Specific [place] >= 1.030 H (1.005-1.025) Urine Protein Negative (Neg-Trace) mg/dL Urine Glucose (UA) >=1000 H (Negative) mg/dL Urine Ketones Negative (Negative) mg/dL Urine Blood Negative (Negative) Urine Nitrite Negative (Negative) Ur Leukocyte Esterase Negative (Negative) Urine RBC 0-2 (0-2) /HPF Urine WBC 0-5 (0-5) /HPF Ur Squamous Epith Cells 0-2 (0-2) /HPF Urine Bacteria None Seen (None Seen) Hyaline Casts 0-2 (0-2) /LPF External Record Review External record reviewed: Inpatient record, Office record and Outpatient record Chronic Conditions Patient?s care impacted by: Diabetes, Hypertension and Other (CHF) Critical Care Time Critical Care Time Total Critical Care Time: 48 Attestation: I personally provided 48 minutes of critical care time exclusively of separately billable procedures. The patient presented with rhabdomyolysis a potentially life-threatening condition associated with SINA, severe electrolyte disturbances, cardiac arrhythmias and volume shifts. Discharge Plan Discharge Clinical Impression: Rhabdomyolysis Patient Disposition: Home, Self-Care Additional Instructions: You were evaluated in the ED today due to elevated lab result of CPK. This is a lab that indicates muscle breakdown and waste within the body. When this happened the kidney has a hard time clearing the waste through the urine. Your labs did not show any indication of kidney injury today. Due to the elevated CPK, you were given 2 L of IV fluids as this is the mainstay treatment. Your lab was redrawn for comparison. Prescriptions: No Action (DME) blood-glucose meter Kit See Rx Instructions .Route Qty: 1 0RF Rx Instructions: As directed (DME) OneTouch Ultra Test Strip See Rx Instructions .Route Qty: 100 1RF Rx Instructions: As directed up to three times per day (DME) blood-glucose meter [OneTouch Ultra2 Meter] Misc See Rx Instructions .Route Qty: 1 0RF Rx Instructions: As directed (DME) lancets 25 gauge misc See Rx Instructions .Route Qty: 100 1RF Rx Instructions: As directed up to three times a day furosemide 40 mg tablet 40 mg PO DAILY 90 Days Qty: 90 1RF (DME) lancets [Accu-Chek Fastclix Lancet Drum] Misc See Rx Instructions .Route Qty: 100 0RF Rx Instructions: As directed albuterol sulfate [ProAir HFA] 90 mcg/actuation HFA aerosol inhaler 2 puff inhalation Q4-6H PRN (Reason: shortness of breath or wheezing) Qty: 8.5 0RF Trulicity 0.75 mg/0.5 mL pen injector 0.75 mg subcut QWEEK Qty: 2 6RF metoprolol succinate 50 mg tablet extended release 24 hr 50 mg PO DAILY Qty: 90 1RF Rx Instructions: Stop Carvedilol Start Metoprolol lisinopril 5 mg tablet 5 mg PO DAILY Qty: 90 1RF Rx Instructions: dose increase Print Language: Citizen Of [place]
[2025-02-27 12:02] LABS: MANUAL DIFF FLAG NO
[2025-02-27 12:04] LABS: Hematocrit 39.6 % (42.0-52.0); Hemoglobin 12.9 g/dl (14.0-18.0); Imm Gran Abs Auto 0.03 X10*3/uL (0.00-0.03); Imm Gran Pct Auto 0.4 % (0.0-0.4); Lymphocytes Absolute Auto 2.2 X10*3/uL (1.2-4.9); Mean Corpuscular HGB Conc 32.6 g/dl (31.0-36.0); Mean Corpuscular Hemoglobin 28.5 pg (27.0-33.0); Mean Corpuscular Volume 87.4 fL (80.0-98.0); NRBC Abs Auto 0.000 X10*3/uL (0.0-0.012); NRBC Pct Auto 0.0 /100WBC (0.0-0.2); Platelet Count 275 X10*3/uL (160-400); Red Blood Count 4.53 X10*6/uL (4.60-5.80); White Blood Count 7.5 X10*3/uL (4.8-10.8)
[2025-02-27 12:20] LABS: Alanine Aminotransferase 176 U/L (0-40); Albumin Level 4.0 g/dL (3.5-5.0); Alkaline Phosphatase 70 U/L (39-117); Anion Gap 12 (12-20); Aspartate Amino Transferase 176 U/L (5-37); Blood Urea Nitrogen 14 mg/dL (9-16); Calcium 8.8 mg/dL (8.4-10.2); Carbon Dioxide 28 mmol/L (22-29); Chloride 102 mmol/L (96-108); Creatinine Clr Calc Pharmacy 182.9; Estimated Glomerular Filt Rate > 60; Magnesium 1.8 mg/dL (1.6-2.6); Potassium 4.3 mmol/L (3.3-5.1); Sodium 138 mmol/L (135-145); Total Protein 6.7 g/dL (6.5-8.0)
[2025-02-27 12:23] LABS: B Type Natriuretic Peptide < 10 pg/mL (<100)
[2025-02-27 13:16] VITALS: BP 115/67; PULSE 75; RESP 18; TEMP 36.6; O2SAT 94
[2025-02-27] MEDS: Lactated Ringers 1,000 ML 999 ML IV ×3 (13:28)
--- OUTSIDE RECORDS SUMMARY | 2025-02-27 14:48 | XMS_ITS | Clinical Summary ---
Author Organization [facility] Address [address] [place] [address] Care Team Providers Care Backend Python Developer Name Role Phone Andrzej Beach MD Primary Care Provider [phone] Allergies No known active allergies Active Problems [...] of 3 - 19+ 3-dose series) 2009 HIV Screening 06/24/2022 Hepatitis C Screening 06/24/2022 Social Influencers of Health Screening 06/24/2022 COVID-19 Vaccine (1 - 2023-2 5 season) 2024 Depression Screening 07/26/2024 Influenza Vaccine (#1) 2025 HIB Vaccines Aged Out No longer [...] 5 Years) and At-Risk Patients (6 to 49 Years) Aged Out No longer eligible b ased on patient's age to complete this topic RSV Immunization Patients Un dulce 20 months Aged Out No longer eligible b ased on patient's age to complete this topic Varicella Vaccines Aged Out No longer eligible based on patient's age to complete this topic Care Teams Backend Python Developer Relationship Specialty Start Date End Date Andrzej Beach MD [address] [place] [address] PCP - General Internal Medicine 03/25/12
[2025-02-27 14:49] VITALS: BP 127/72; PULSE 67; RESP 18; TEMP 36.7; O2SAT 98
--- NOTE | 2025-02-27 16:45 | PM.IMHP ---
History of Present Illness Date of Service: 02/27/25 Attending physician on admission: Shruti Joe Chief Complaint: Abnormal labs Timbo Cifuentes is a 34 years old man with past medical history significant for obstructive sleep apnea, HFrEF (TTE September 2024 - EF 40%), type 2 diabetes mellitus and morbid obesity presents to the emergency department complaining of right knee pain and swelling over the last week. He denied trauma to the knee or prior history of knee swelling. He also reported having multiple episodes of right eye pain and blurry vision as well as left upper extremity numbness without weakness that has been going on and off for a month. He mentioned that recently he has been walking about 5 miles daily to help his girlfriend. He also reported going to the gym daily (last time he went was last ). He also complained of left-sided chest pain. Denied shortness on breath, fever or chills. He admits that he does not take his medications at times. He only uses Trulicity for diabetes and has not been using it for a while. The patient was seen earlier today in the ED but left the ED without knowing CPK resides. He was instructed to return to the emergency department after his CPK was found to to be 4659. He did not report illicit drug use. He denied any use of antibiotics. In the ED, he was found to have normal vital signs. Blood workup showed no leukocytosis. Hemoglobin is 12.9 and platelets 275. General electrolyte imbalances. BUN is 14 and creatinine 0.89. Glucose is 320. Total bilirubin is 1.3, transaminases are elevated, 176 each. Total CK is already decreasing from 4659 to 2108. BNP is less than 10. Right knee showed no acute fracture or dislocations. ECG yesterday showed normal sinus rhythm without acute ischemia. ED tx: LR 2 L bolus. Review of Systems Review of Systems: All 12 systems were reviewed and normal except as noted in HPI. [facility] Medical History Endogenous depression Obstructive sleep apnea syndrome, mild Left ventricular ejection fraction of 40-49% Snoring Chest pain Morbid obesity with BMI of 50.0-59.9, adult Non-alcoholic fatty liver disease Hypertriglyceridemia Diabetes mellitus Congestive heart failure (CHF) Family History Mother IBS (irritable bowel syndrome) Father Heart problem Sister Crohn disease Paternal Grandfather Cancer Surgical History History of tooth extraction Hx of excision of mass (~03/30/18) History of ankle surgery (~06/29/12) Social History Household Members: None Housing: Apartment Do you presently have visiting nurse or other home services: Yes (BLUEPRINTING AND PHOTOCOPY SUPERVISOR to 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) Alcohol intake: former Patient Tobacco Use Status: Never used Tobacco Smoked in Last 30 Days: No e-Cigarette/Vaping Use: Former Use Second Hand Smoke Exposure: No Use of substances other than those prescribed or required for medical reasons: No Substance Use Type: Marijuana Advance Directives: No Advance Directives Information Provided: Yes Nutrition Risks: No Nutritional Risk service: No Current occupational status: unemployed Cognitive needs: No Hearing needs: No Vision needs: Yes Meds Allergies Allergy/AdvReac Type Severity Reaction Status Date / Time morphine AdvReac Unknown projectile Verified 02/27/25 11:45 vomiting Active Medications: Current Medications Acetaminophen (Acetaminophen 325 Mg Tablet) 975 mg PO Q6H PRN PRN Reason: Pain, Mild 1-3,fever,headache Calcium Carbonate (Calcium Carbonate 750 Mg Tab.Chew) 750 mg PO Q4H PRN PRN Reason: Heartburn Dextrose (Dextrose 50 % 25 Gm/50 Ml Syringe) 25 gm IVPUSH Q15M PRN; Protocol PRN Reason: per Hypoglycemia Standing Ord. Enoxaparin Sodium (Enoxaparin Sodium 40 Mg/0.4 Ml Syringe) 40 mg SUBCUT Q24H BERTRAND Glucose (Glucose Gel 15 Gm Gel..Gram.) 15 gm PO Q15M PRN; Protocol PRN Reason: per Hypoglycemia Standing Ord. Lactated Ringer's (Lr) 1,000 mls @ 150 mls/hr IVCONT .Q6H40M BERTRAND Insulin Human Lispro (Insulin Lispro 100 Unit/Ml 3 Ml Vial) 0 unit SUBCUT QIDACHS BERTRAND; Protocol Magnesium Hydroxide (Milk Of Magnesia 30 Ml Oral.Susp) 30 ml PO DAILY PRN PRN Reason: Constipation Melatonin (Melatonin 3 Mg Tablet) 6 mg PO BEDTIME PRN PRN Reason: Insomnia Sodium Chloride (0.9 % Sodium Chloride Flush 3 Ml Syringe) 3 ml IVFLUSH QSHIFT BERTRAND Physical Exam Vital Signs and Narrative: Vital Signs: Last Vital Signs Temp 98.1 F 02/27/25 14:49 Pulse 67 02/27/25 14:49 Resp 18 02/27/25 14:49 BP 127/72 02/27/25 14:49 Pulse Ox 98 02/27/25 14:49 O2 Del Method Nasal Cannula 02/27/25 14:49 O2 Flow Rate 2 02/27/25 14:49 BMI result Body Mass Index 50.3 Constitutional - Awake and Alert, No apparent distress. Cooperative. Obese. HEENT - PER, EOMI Heart - RRR, No murmurs Lungs - Normal lung expansion, Normal respiratory effort, No respiratory distress, CTA bilaterally Abdomen - NT / ND; +BS; No rebound or guarding Extremities - Right knee: Tenderness over the medial aspect, no erythema, mild effusion, complete ROM. Musculoskeletal - Normal inspection, normal ROM Skin - Warm/Dry Neurological - Alert & oriented x3. Moving all extremities spontaneously. Normal speech. Psychological - Depressed affect Results Labs 02/27/25 11:57 02/27/25 11:57 Labs: Laboratory Results - last 24 hr 02/27/25 02/27/25 11:57 15:35 MCV 87.4 MCH 28.5 MCHC 32.6 RDW 11.7 Plt Count 275 MPV 10.7 Immature Gran % (Auto) 0.4 Neut % (Auto) 59.7 Lymph % (Auto) 28.9 [place] % (Auto) 7.5 Eos % (Auto) 2.8 Baso % (Auto) 0.7 Lymph # (Auto) 2.2 [place] # (Auto) 0.6 Eos # (Auto) 0.2 Baso # (Auto) 0.1 Abs Immat Gran (auto) 0.03 Absolute Neuts (auto) 4.5 Absolute Nucleated RBC 0.000 Nucleated RBC % (auto) 0.0 Anion Gap 12 Estim Creat Clear Calc 182.9 Estimated GFR > 60 Random Glucose 320 H Calcium 8.8 Magnesium 1.8 Total Bilirubin 1.3 H Direct Bilirubin 0.3 AST 176 H ALT 176 H Alkaline Phosphatase 70 Total Creatine Kinase 2699 H 2108 H B-Natriuretic Peptide < 10 Total Protein 6.7 Albumin 4.0 Assessment and Plan (1) Rhabdomyolysis: Qualifiers: Encounter type: initial encounter Rhabdomyolysis type: traumatic Qualified Code(s): T79.6XXA - Traumatic ischemia of muscle, initial encounter Status: Acute (2) Right knee pain: Qualifiers: Chronicity: acute Qualified Code(s): M25.561 - Pain in right knee Status: Acute Plan Timbo Cifuentes is a 34 y/o man presents with: Rhabdomyolysis, likely due strenuous exercise; renal function not affected. Continue IV fluids. Continue to monitor total CK. Right knee pain with some effusion. Right knee x-ray is negative. Apply ice and elevate extremity. Oxycodone as needed. Chest pain. ECG and troponin yesterday unremarkable. ECG today showed normal sinus rhythm without ischemia. Troponin today is negative. Essential hypertension. Continue lisinopril and metoprolol. Type 2 diabetes mellitus, uncontrolled. Hemoglobin A1c is 7.8%. BG checks before meals at bedtime. Insulin sliding scale. Start Lantus 10 mg subQ daily. Diabetic diet. Not using his Trulicity. Morbid obesity. BMI 50.3 kg/m2. Weight loss/lifestyle modifications. HFrEF (TTE September 2024, EF 40%). Not in acute decompensation. Furosemide on hold as the patient needs IV hydration for rhabdomyolysis. Hyperlipidemia. To consider starting statin if rhabdomyolysis resolves. Multiple events of right eye pain, blurry vision and left upper extremity numbness, asymptomatic right now. Head CT without contrast showed no acute intracranial findings. Will start tx with aspirin (pt is high risk for TIA/stroke). Code status: Full DVT prophylaxis: Lovenox Patient will need hospitalization for at least 2 midnights for rhabdomyolysis spent with IV fluids and close monitoring of total CK. Quality Stroke Does the patient have a stroke diagnosis?: No VTE Prior VTE?: No VTE Risk Level:: Medical - moderate - high VTE Device Contraindication: Treatment Not Indicated VTE Drug Contraindication: N/A - Med Ordered
[2025-02-27 16:49] LABS: Appearance Urine Clear; Glucose Urine UA >=1000 mg/dL (Negative); PH 6.0 (5.0-9.0); Specific Gravity - Urine >= 1.030 (1.005-1.025); UMIC TRIGGER UACC YES
[2025-02-27 16:58] LABS: Cannabinoid Screen Urine Not Detected (Not Detect)
[2025-02-27] MEDS: Lactated Ringers 1,000 ML 150 ML IVCONT (17:19)
[2025-02-27 17:21] VITALS: BP 129/74; PULSE 62; RESP 16; TEMP 36.7; O2SAT 95
[2025-02-27 18:05] LABS: Glucose, Whole Blood 200 mg/dL (60-115)
[2025-02-27 18:15] LABS: Hemoglobin A1C 212.9445 umol/L; Total Hemoglobin (HGBA1C) 3433.1869 umol/L
[2025-02-27] MEDS: Aspirin Enteric Coated 325 MG TABLET.DR PO (18:19)
[2025-02-27 18:27] LABS: Cholesterol 188 mg/dL (<200); HDL Cholesterol 27 mg/dL (>40); Triglycerides 205 mg/dL (<150)
[2025-02-27 18:28] LABS: Troponin-I High Sensitivity < 2.7 ng/L (<3.5-35.0)
[2025-02-27 18:34] LABS: D Dimer High Sensitivity < 150 NG/ML
[2025-02-27 18:42] LABS: Thyroid Stimulating Hormone 1.41 uIU/mL (0.32-4.0)
[2025-02-27 18:45] VITALS: BP 129/72; PULSE 76; RESP 18; O2SAT 94
--- NOTE | 2025-02-27 19:31 | PHA.MEDREC ---
Pharmacy Consult ? Medication Reconciliation Pharmacy has completed the medication reconciliation. Pt last took his meds roughly 2 months ago. Pt also believes that he is suppose to be taking Jardiance, but has not had it filled
[2025-02-27 20:33] LABS: Reflex LDLD? No
[2025-02-27 20:41] VITALS: BP 140/64; PULSE 78; RESP 20; TEMP 36.4; O2SAT 93
[2025-02-27 20:47] LABS: Glucose, Whole Blood 201 mg/dL (60-115)
[2025-02-28] MEDS: Lactated Ringers 1,000 ML 100 ML IVCONT ×3 (00:16→18:43)
[2025-02-28 00:59] VITALS: BP 115/80; PULSE 75; RESP 20; O2SAT 96
[2025-02-28 06:45] LABS: Hematocrit 40.5 % (42.0-52.0); Hemoglobin 13.0 g/dl (14.0-18.0); Imm Gran Abs Auto 0.03 X10*3/uL (0.00-0.03); Imm Gran Pct Auto 0.3 % (0.0-0.4); Lymphocytes Absolute Auto 2.9 X10*3/uL (1.2-4.9); MANUAL DIFF FLAG NO; Mean Corpuscular HGB Conc 32.1 g/dl (31.0-36.0); Mean Corpuscular Hemoglobin 28.5 pg (27.0-33.0); Mean Corpuscular Volume 88.8 fL (80.0-98.0); NRBC Abs Auto 0.000 X10*3/uL (0.0-0.012); NRBC Pct Auto 0.0 /100WBC (0.0-0.2); Platelet Count 279 X10*3/uL (160-400); Red Blood Count 4.56 X10*6/uL (4.60-5.80); White Blood Count 9.0 X10*3/uL (4.8-10.8)
[2025-02-28 06:51] LABS: Alanine Aminotransferase 156 U/L (0-40); Albumin Level 3.9 g/dL (3.5-5.0); Alkaline Phosphatase 64 U/L (39-117); Anion Gap 10 (12-20); Aspartate Amino Transferase 116 U/L (5-37); Blood Urea Nitrogen 13 mg/dL (9-16); Calcium 8.7 mg/dL (8.4-10.2); Carbon Dioxide 26 mmol/L (22-29); Chloride 107 mmol/L (96-108); Creatinine Clr Calc Pharmacy 206.1; Estimated Glomerular Filt Rate > 60; Magnesium 1.8 mg/dL (1.6-2.6); Potassium 4.0 mmol/L (3.3-5.1); Sodium 139 mmol/L (135-145); Total Protein 6.7 g/dL (6.5-8.0)
[2025-02-28 07:14] LABS: Glucose, Whole Blood 128 mg/dL (60-115)
[2025-02-28 07:58] VITALS: BP 113/61; PULSE 83; RESP 18; TEMP 36.6; O2SAT 94; BMI 51.3
[2025-02-28] MEDS: Insulin Glargine,Hum.rec.anlog 100 UNIT/ML 10 ML VIAL 10 UNIT SUBCUT (08:10)
[2025-02-28 08:11] VITALS: BP 113/61; PULSE 83
[2025-02-28 08:11] LABS: Glucose, Whole Blood 158 mg/dL (60-115)
[2025-02-28] MEDS: Metoprolol Succinate ER 50 MG TAB.ER.24H PO (08:11)
--- NOTE | 2025-02-28 08:38 | MHC.CM.PN ---
CM met with Patient at bedside and addressed IMM with him, providing Patient with the original and a copy has been placed on the chart. Patient lives in an apartment with his Girlfriend and her 2 year old twins and his Daughter. 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 Home/resume said services is Patient's goal and CM has initiated and will follow for dc planning. PCP is Dr. Robertson and Patient's Mother or Step-Father will transport to home at time of dc. Patient declined HCP.
--- NOTE | 2025-02-28 09:59 | P.CNNE_ITS ---
History of Present Illness Data of Consult Service Date: 02/28/25 Primary Care Provider: Kuldip Robertson MD HPI Reason for consult: Polymyositis 34 years old man with morbid obesity, type 2 diabetes, who started walking many miles a day couple of weeks ago and also doing some gym exercises. He came to hospital because of severe right knee pain stating that he could not walk because of pain. His workup revealed significantly high CPK level and he was being treated for that. Now he was feeling somewhat better. He also complain of intermittent right-sided headache behind his right eye going to the back lasting for an hour more and has happened few times during last couple of weeks. No recent cold or flu-like illness. Review of Systems 2 Review of Systems: No recent trauma or cold or flu-like illness PMFSH Past Medical History Medical History (Updated 02/28/25 @ 10:03 by Michael Vera MD) Rhabdomyolysis Endogenous depression Obstructive sleep apnea syndrome, mild Left ventricular ejection fraction of 40-49% Snoring Chest pain Morbid obesity with BMI of 50.0-59.9, adult Non-alcoholic fatty liver disease Hypertriglyceridemia Diabetes mellitus Congestive heart failure (CHF) Family History Family History Mother IBS (irritable bowel syndrome) Father Heart problem Sister Crohn disease Paternal Grandfather Cancer Surgical History Surgical History History of tooth extraction Hx of excision of mass (~03/30/18) History of ankle surgery (~06/29/12) Social History Social History Household Members: Significant Other and Children Housing: Apartment Do you presently have visiting nurse or other home services: Yes Alcohol intake: former Patient Tobacco Use Status: Never used Tobacco e-Cigarette/Vaping Use: Former Use Second Hand Smoke Exposure: No Substance Use Type: Marijuana service: No Current occupational status: unemployed Cognitive needs: No Hearing needs: No Vision needs: Yes Meds Allergies Allergy/AdvReac Type Severity Reaction Status Date / Time morphine AdvReac Unknown projectile Verified 02/27/25 11:45 vomiting Active Medications: Current Medications Acetaminophen (Acetaminophen 325 Mg Tablet) 975 mg PO Q6H PRN PRN Reason: Pain, Mild 1-3,fever,headache Aspirin (Aspirin 81 Mg Tab.Chew) 81 mg PO DAILY [facility] Last Admin: 02/28/25 08:11 Dose: 81 mg Calcium Carbonate (Calcium Carbonate 750 Mg Tab.Chew) 750 mg PO Q4H PRN PRN Reason: Heartburn Dextrose (Dextrose 50 % 25 Gm/50 Ml Syringe) 25 gm IVPUSH Q15M PRN; Protocol PRN Reason: per Hypoglycemia Standing Ord. Enoxaparin Sodium (Enoxaparin Sodium 40 Mg/0.4 Ml Syringe) 40 mg SUBCUT Q24H [facility] Last Admin: 02/28/25 08:10 Dose: 40 mg Glucose (Glucose Gel 15 Gm Gel..Gram.) 15 gm PO Q15M PRN; Protocol PRN Reason: per Hypoglycemia Standing Ord. Lactated Ringer's (Lr) 1,000 mls @ 100 mls/hr IVCONT .Q10H [facility] Last Admin: 02/28/25 08:11 Dose: 100 mls/hr Insulin Glargine (Insulin Glargine,Hum.Rec.Anlog 100 Unit/Ml 10 Ml Vial) 10 unit SUBCUT DAILY [facility] Last Admin: 02/28/25 08:10 Dose: 10 unit Insulin Human Lispro (Insulin Lispro 100 Unit/Ml 3 Ml Vial) 0 unit SUBCUT QIDACHS [facility]; Protocol Last Admin: 02/28/25 07:11 Dose: Not Given Lisinopril (Lisinopril 5 Mg Tablet) 5 mg PO DAILY [facility]; Protocol Last Admin: 02/28/25 08:11 Dose: 5 mg Magnesium Hydroxide (Milk Of Magnesia 30 Ml Oral.Susp) 30 ml PO DAILY PRN PRN Reason: Constipation Melatonin (Melatonin 3 Mg Tablet) 6 mg PO BEDTIME PRN PRN Reason: Insomnia Metoprolol Succinate (Metoprolol Succinate Er 50 Mg Tab.Er.24h) 50 mg PO DAILY [facility]; Protocol Last Admin: 02/28/25 08:11 Dose: 50 mg Ondansetron HCl (Ondansetron Hcl 4 Mg/2 Ml Vial) 4 mg IVPUSH Q6H PRN PRN Reason: Nausea and Vomiting Oxycodone HCl (Oxycodone Hcl Immed Release 5 Mg Tablet) 5 mg PO Q4H PRN PRN Reason: Knee pain Sodium Chloride (0.9 % Sodium Chloride Flush 3 Ml Syringe) 3 ml IVFLUSH QSHIFT [facility] Last Admin: 02/28/25 07:11 Dose: Not Given Home Medications ?Medication ?Instructions ?Recorded ?Confirmed ?Last Taken ?Type dulaglutide 0.75 mg/0.5 mL 0.75 mg subcut FR 02/27/25 02/27/25 Unknown History subcutaneous pen injector (Trulicity) lisinopril 2.5 mg tablet 2.5 mg PO DAILY 02/27/2512/17 Unknown History Physical Exam 2 Vital Signs: Vital Signs: Last Vital Signs Temp 98 F 02/28/25 07:58 Pulse 83 02/28/25 08:11 Resp 18 02/28/25 07:58 BP 113/61 02/28/25 08:11 Pulse Ox 94 02/28/25 07:58 O2 Del Method Room Air 02/28/25 07:58 O2 Flow Rate 2 02/27/25 14:49 BMI result Body Mass Index 51.3 Neuro: Other: He is alert and awake with normal spontaneity of speech fluency comprehension and affect. He is morbidly obese. Visual warren are full. Face is symmetrical. There was no pronator drift. Deep tendon reflexes are absent with flexor plantars. Speech is normal. Results Labs 02/28/25 06:23 02/28/25 06:23 Labs: Short CBC 02/27/25 02/28/25 Range/Units 11:57 06:23 WBC 7.5 9.0 (4.8-10.8) X10*3/uL Hgb 12.9 L 13.0 L (14.0-18.0) g/dl Hct 39.6 L 40.5 L (42.0-52.0) % Plt Count 275 279 (160-400) X10*3/uL BMP 02/27/25 02/28/25 11:57 06:23 Sodium 138 139 Potassium 4.3 4.0 Chloride 102 107 Carbon Dioxide 28 26 BUN 14 13 Creatinine 0.89 0.79 Calcium 8.8 8.7 Cardiac Enzymes 02/27/25 02/27/25 02/28/25 Range/Units 11:57 15:35 06:23 Total Creatine Kinase 2699 H 2108 H 1242 H (38-174) U/L Liver Function 02/27/25 02/28/25 Range/Units 11:57 06:23 Total Bilirubin 1.3 H 1.1 H (0.0-1.0) mg/dL Direct Bilirubin 0.3 (0.0-0.5) mg/dL AST 176 H 116 H (5-37) U/L ALT 176 H 156 H (0-40) U/L Alkaline Phosphatase 70 64 (39-117) U/L Albumin 4.0 3.9 (3.5-5.0) g/dL Urine 02/27/25 Range/Units 16:39 Urine Color Yellow Urine Appearance Clear Urine pH 6.0 (5.0-9.0) Ur Specific [place] >= 1.030 H (1.005-1.025) Urine Protein Negative (Neg-Trace) mg/dL Urine Glucose (UA) >=1000 H (Negative) mg/dL Assessment and Plan (1) Rhabdomyolysis: Qualifiers: Encounter type: initial encounter Rhabdomyolysis type: traumatic Q ualified Code(s): T79.6XXA - Traumatic ischemia of muscle, initial encounter Status: Acute 34 years old man who probably has multifactorial risk factor for rhabdomyolysis and then was involved with more than normal exercise regimen. CPK level was high and was improving. As far as any baseline myopathic processes concerned including polymyositis, it can be evaluated as an outpatient after repeating CPK level in couple of weeks time. If level is significantly high, further investigation is might be needed. Of note, in diabetic patients CPK level might stay mildly high. As far as headaches are concerned, migraine without aura is likely possibility and p.r.n. treatment with sumatriptan is recommended. (2) Migraine with aura, not intractable, without status migrainosus: Status: Acute Procedures Date of Service Date of Service: 02/28/25
[2025-02-28 11:28] VITALS: BP 109/76; PULSE 67; RESP 18; TEMP 36.5; O2SAT 95
[2025-02-28 11:46] LABS: Glucose, Whole Blood 163 mg/dL (60-115)
--- NOTE | 2025-02-28 14:20 | P.PNIM_ITS ---
Subjective Subjective Date of Service: 02/28/25 Interval History: intermittent R-sided WHITING with photophobia, sometimes with L-sided arm numbness c/o knee pain Review of Systems Review of Systems: Yes all other systems are reviewed and are negative Physical Exam 2 Vital Signs: Vital Signs: Last Vital Signs Temp 97.7 F 02/28/25 11:28 Pulse 67 02/28/25 11:28 Resp 18 02/28/25 11:28 BP 109/76 02/28/25 11:28 Pulse Ox 95 02/28/25 11:28 O2 Del Method Room Air 02/28/25 11:28 O2 Flow Rate 2 02/27/25 14:49 BMI result Body Mass Index 51.3 Gen: in no acute distress HEENT: sclera anicteric, moist mucus membranes Neck: supple Lungs: clear to auscultation bilaterally Heart: regular rate and rhythm, no murmurs Abd: soft, non-tender, non-distended, obese Ext: no edema Skin: warm/well-perfused Neuro: alert and oriented x3, no focal findings Psych: appropriate affect Objective Data Active Medications Acetaminophen (Acetaminophen 325 Mg Tablet) 975 mg PO Q6H PRN PRN Reason: Pain, Mild 1-3,fever,headache Aspirin (Aspirin 81 Mg Tab.Chew) 81 mg PO DAILY [facility] Last Admin: 02/28/25 08:11 Dose: 81 mg Documented By: JUS Calcium Carbonate (Calcium Carbonate 750 Mg Tab.Chew) 750 mg PO Q4H PRN PRN Reason: Heartburn Dextrose (Dextrose 50 % 25 Gm/50 Ml Syringe) 25 gm IVPUSH Q15M PRN; Protocol PRN Reason: per Hypoglycemia Standing Ord. Enoxaparin Sodium (Enoxaparin Sodium 40 Mg/0.4 Ml Syringe) 40 mg SUBCUT Q24H [facility] Last Admin: 02/28/25 08:10 Dose: 40 mg Documented By: JUS Glucose (Glucose Gel 15 Gm Gel..Gram.) 15 gm PO Q15M PRN; Protocol PRN Reason: per Hypoglycemia Standing Ord. Lactated Ringer's (Lr) 1,000 mls @ 100 mls/hr IVCONT .Q10H [facility] Last Admin: 02/28/25 08:11 Dose: 100 mls/hr Documented By: JUS Insulin Glargine (Insulin Glargine,Hum.Rec.Anlog 100 Unit/Ml 10 Ml Vial) 10 unit SUBCUT DAILY [facility] Last Admin: 02/28/25 08:10 Dose: 10 unit Documented By: JUS Insulin Human Lispro (Insulin Lispro 100 Unit/Ml 3 Ml Vial) 0 unit SUBCUT QIDACHS [facility]; Protocol Last Admin: 02/28/25 11:53 Dose: 2 unit Documented By: JUS Lisinopril (Lisinopril 5 Mg Tablet) 5 mg PO DAILY [facility]; Protocol Last Admin: 02/28/25 08:11 Dose: 5 mg Documented By: JUS Magnesium Hydroxide (Milk Of Magnesia 30 Ml Oral.Susp) 30 ml PO DAILY PRN PRN Reason: Constipation Melatonin (Melatonin 3 Mg Tablet) 6 mg PO BEDTIME PRN PRN Reason: Insomnia Metoprolol Succinate (Metoprolol Succinate Er 50 Mg Tab.Er.24h) 50 mg PO DAILY [facility]; Protocol Last Admin: 02/28/25 08:11 Dose: 50 mg Documented By: JUS Ondansetron HCl (Ondansetron Hcl 4 Mg/2 Ml Vial) 4 mg IVPUSH Q6H PRN PRN Reason: Nausea and Vomiting Oxycodone HCl (Oxycodone Hcl Immed Release 5 Mg Tablet) 5 mg PO Q4H PRN PRN Reason: Knee pain Sodium Chloride (0.9 % Sodium Chloride Flush 3 Ml Syringe) 3 ml IVFLUSH QSHIFT [facility] Last Admin: 02/28/25 07:11 Dose: Not Given Documented By: PANCHITO Non-Admin Reason: IV Running Sumatriptan Succinate (Sumatriptan Succinate 50 Mg Tablet) 50 mg PO DAILY MRX1 PRN PRN Reason: Migraine Headache Labs 02/28/25 06:23 02/28/25 06:23 Labs: Laboratory Results - last 24 hr 02/27/25 02/27/25 02/27/25 15:35 16:39 17:51 MCV MCH MCHC RDW Plt Count MPV Immature Gran % (Auto) Neut % (Auto) Lymph % (Auto) [place] % (Auto) Eos % (Auto) Baso % (Auto) Lymph # (Auto) [place] # (Auto) Eos # (Auto) Baso # (Auto) Abs Immat Gran (auto) Absolute Neuts (auto) Absolute Nucleated RBC Nucleated RBC % (auto) D-Dimer High Sensitivty Anion Gap Estim Creat Clear Calc Estimated GFR POC Glucose 200 H Random Glucose Estimat Average Glucose Hemoglobin A1c % Calcium Magnesium Total Bilirubin AST ALT Alkaline Phosphatase Total Creatine Kinase 2108 H Total Protein Albumin Triglycerides Cholesterol LDL Cholesterol, Calc HDL Cholesterol TSH Urine Color Yellow Urine Appearance Clear Urine pH 6.0 Ur Specific [place] >= 1.030 H Urine Protein Negative Urine Glucose (UA) >=1000 H Urine Ketones Negative Urine Blood Negative Urine Nitrite Negative Ur Leukocyte Esterase Negative Urine RBC 0-2 Urine WBC 0-5 Ur Squamous Epith Cells 0-2 Urine Bacteria None Seen Hyaline Casts 0-2 Urine Opiates Screen Not Detected Ur Buprenorphine Scrn Not Detected Ur Oxycodone Screen Not Detected Urine Methadone Screen Not Detected Urine Fentanyl Screen Not Detected Ur Barbiturates Screen Not Detected Ur Phencyclidine Scrn Not Detected Ur Amphetamines Screen Not Detected U Benzodiazepines Scrn Not Detected Urine Cocaine Screen Not Detected U Marijuana (THC) Screen Not Detected 02/27/25 02/27/25 02/28/25 18:00 20:39 06:23 MCV 88.8 MCH 28.5 MCHC 32.1 RDW 11.5 Plt Count 279 MPV 10.6 Immature Gran % (Auto) 0.3 Neut % (Auto) 57.4 Lymph % (Auto) 32.4 [place] % (Auto) 6.3 Eos % (Auto) 2.9 Baso % (Auto) 0.7 Lymph # (Auto) 2.9 [place] # (Auto) 0.6 Eos # (Auto) 0.3 Baso # (Auto) 0.1 Abs Immat Gran (auto) 0.03 Absolute Neuts (auto) 5.2 Absolute Nucleated RBC 0.000 Nucleated RBC % (auto) 0.0 D-Dimer High Sensitivty < 150 Anion Gap 10 L Estim Creat Clear Calc 206.1 Estimated GFR > 60 POC Glucose 201 H Random Glucose 165 H Estimat Average Glucose 177 Hemoglobin A1c % 7.8 H Calcium 8.7 Magnesium 1.8 Total Bilirubin 1.1 H AST 116 H ALT 156 H Alkaline Phosphatase 64 Total Creatine Kinase 1242 H Total Protein 6.7 Albumin 3.9 Triglycerides 205 H Cholesterol 188 LDL Cholesterol, Calc 120 H HDL Cholesterol 27 L TSH 1.41 Urine Color Urine Appearance Urine pH Ur Specific [place] Urine Protein Urine Glucose (UA) Urine Ketones Urine Blood Urine Nitrite Ur Leukocyte Esterase Urine RBC Urine WBC Ur Squamous Epith Cells Urine Bacteria Hyaline Casts Urine Opiates Screen Ur Buprenorphine Scrn Ur Oxycodone Screen Urine Methadone Screen Urine Fentanyl Screen Ur Barbiturates Screen Ur Phencyclidine Scrn Ur Amphetamines Screen U Benzodiazepines Scrn Urine Cocaine Screen U Marijuana (THC) Screen 02/28/25 02/28/25 02/28/25 07:09 08:07 11:29 MCV MCH MCHC RDW Plt Count MPV Immature Gran % (Auto) Neut % (Auto) Lymph % (Auto) [place] % (Auto) Eos % (Auto) Baso % (Auto) Lymph # (Auto) [place] # (Auto) Eos # (Auto) Baso # (Auto) Abs Immat Gran (auto) Absolute Neuts (auto) Absolute Nucleated RBC Nucleated RBC % (auto) D-Dimer High Sensitivty Anion Gap Estim Creat Clear Calc Estimated GFR POC Glucose 128 H 158 H 163 H Random Glucose Estimat Average Glucose Hemoglobin A1c % Calcium Magnesium Total Bilirubin AST ALT Alkaline Phosphatase Total Creatine Kinase Total Protein Albumin Triglycerides Cholesterol LDL Cholesterol, Calc HDL Cholesterol TSH Urine Color Urine Appearance Urine pH Ur Specific [place] Urine Protein Urine Glucose (UA) Urine Ketones Urine Blood Urine Nitrite Ur Leukocyte Esterase Urine RBC Urine WBC Ur Squamous Epith Cells Urine Bacteria Hyaline Casts Urine Opiates Screen Ur Buprenorphine Scrn Ur Oxycodone Screen Urine Methadone Screen Urine Fentanyl Screen Ur Barbiturates Screen Ur Phencyclidine Scrn Ur Amphetamines Screen U Benzodiazepines Scrn Urine Cocaine Screen U Marijuana (THC) Screen Assessment and Plan (1) Rhabdomyolysis: Status: Acute Plan d2, 34yo M with chronic HFrEF, DM2, obesity, ALEISHA presenting with R knee pain/swelling, occasional R-sided retro-orbital WHITING + LUE numbness in context of ramping up exercise regimen, admitted for rhabdomyolysis rhabdomyolysis - likely exercise-induced, continue IV LR until CPK <1000, hold statin migraine - Neuro consulted; rn [email or web address] HTN - lisinopril + metoprolol succinate morbid obesity - diet/exercise counseling DM2 - basal-bolus insulin- but A1c onyl 7.8 so consider d/c'gin on MTF alone chronic HFrEF - holding furosemide [TTE September 2024 with LVEF 40%]; continue lisinopril + metoprolol succinate HLD - hold statin VTE ppx - enoxaparin dispo - eventual home In my clinical judgment, the patient requires continued inpatient hospitalization for the following reasons: IV fluid hydration Total time managing care of this patient today: 35 minutes. Quality Stroke Does the patient have a stroke diagnosis?: No VTE Prior VTE?: No VTE Risk Level:: Medical - moderate - high VTE Device Contraindication: Treatment Not Indicated VTE Drug Contraindication: N/A - Med Ordered
[2025-02-28 15:13] VITALS: BP 113/69; PULSE 70; RESP 18; TEMP 36.7; O2SAT 93
[2025-02-28 16:08] LABS: Glucose, Whole Blood 144 mg/dL (60-115)
[2025-02-28 19:36] VITALS: BP 137/75; PULSE 80; RESP 20; TEMP 36.7; O2SAT 92
[2025-02-28 21:27] LABS: Glucose, Whole Blood 222 mg/dL (60-115)
[2025-02-28] MEDS: 0.9 % Sodium Chloride Flush 3 ML SYRINGE IVFLUSH (22:10)
[2025-02-28] MEDS: oxyCODONE HCl Immed Release 5 MG TABLET PO (22:55)
[2025-03-01] VITALS: BP 127/78; PULSE 71; RESP 20; TEMP 36.8; O2SAT 96
[2025-03-01 04:00] VITALS: BP 122/76; PULSE 78; RESP 20; TEMP 36.7; O2SAT 95
[2025-03-01] MEDS: Lactated Ringers 1,000 ML 100 ML IVCONT (04:12)
[2025-03-01 07:46] LABS: Glucose, Whole Blood 134 mg/dL (60-115)
[2025-03-01 07:49] VITALS: BP 118/79; PULSE 70; RESP 20; TEMP 36.8; O2SAT 93
[2025-03-01] MEDS: 0.9 % Sodium Chloride Flush 3 ML SYRINGE IVFLUSH (07:56)
[2025-03-01] MEDS: Metoprolol Succinate ER 50 MG TAB.ER.24H PO (07:57)
[2025-03-01] MEDS: Insulin Glargine,Hum.rec.anlog 100 UNIT/ML 10 ML VIAL 10 UNIT SUBCUT (07:57)
[2025-03-01 11:26] VITALS: BP 95/44; PULSE 65; RESP 20; TEMP 36.6; O2SAT 92
[2025-03-01 11:26] LABS: Glucose, Whole Blood 180 mg/dL (60-115)
--- NOTE | 2025-03-01 12:10 | MHC.CM.PN ---
Patient has been medically cleared for dc to home today, self care. Last IMM was addressed on 02/28/2025.
--- NOTE | 2025-03-01 12:10 | PM.DS ---
DS: Providers Provider Date of Service: 03/01/25 Date of admission: 02/27/25 16:29 Date of discharge: 03/01/25 Primary care physician: Kuldip Robertson MD Consults: 02/28/25 09:41 Consult to Neurology Routine Consulting Provider: [facility] Reason for consultation: intermittent R-sided retroorbital headache with LUE numbness/weakness DS: Diagnosis Discharge Diagnosis (1) Rhabdomyolysis: Status: Acute (2) Migraine with aura, not intractable, without status migrainosus: Status: Acute (3) Morbid obesity: Status: Acute DS: Summary Hospital Course Hospital Course: From the history and physical by the admitting hospitalist, Shruti Joe, 02/27/25: Amy Cifuentes is a 34 years old man with past medical history significant for obstructive sleep apnea, HFrEF (TTE September 2024 - EF 40%), type 2 diabetes mellitus and morbid obesity presents to the emergency department complaining of right knee pain and swelling over the last week. He denied trauma to the knee or prior history of knee swelling. He also reported having multiple episodes of right eye pain and blurry vision as well as left upper extremity numbness without weakness that has been going on and off for a month. He mentioned that recently he has been walking about 5 miles daily to help his girlfriend. He also reported going to the gym daily (last time he went was last ). He also complained of left-sided chest pain. Denied shortness on breath, fever or chills. He admits that he does not take his medications at times. He only uses Trulicity for diabetes and has not been using it for a while. The patient was seen earlier today in the ED but left the ED without knowing CPK resides. He was instructed to return to the emergency department after his CPK was found to to be 4659. He did not report illicit drug use. He denied any use of antibiotics. In the ED, he was found to have normal vital signs. Blood workup showed no leukocytosis. Hemoglobin is 12.9 and platelets 275. General electrolyte imbalances. BUN is 14 and creatinine 0.89. Glucose is 320. Total bilirubin is 1.3, transaminases are elevated, 176 each. Total CK is already decreasing from 4659 to 2108. BNP is less than 10. Right knee showed no acute fracture or dislocations. ECG yesterday showed normal sinus rhythm without acute ischemia. 34yo M with chronic HFrEF [40%], DM2, obesity, ALEISHA presenting with R knee pain/swelling, occasional R-sided retro-orbital WHITING + LUE numbness in context of ramping up exercise regimen, admitted for rhabdomyolysis without renal injury. He was given IV LR hydration until CPK fell below 1000. Neurology was consulted and recommended trial of sumatriptan for likely migraine with aura. He was discharged with prescription for sumatriptan and instructed to repeat CPK in 1 week and return to exercise gradually after following up with his primary care doctor. Time Attestation Discharge Coordination Time (in mins): 35 Quality: Safe Use of Opioids Does Pt have an Active Cancer Diagnosis on the Problem List?: No Quality: Stroke Does the patient have a stroke diagnosis?: No Physical Exam Vital Signs: Vital Signs: Last Vital Signs Temp 97.9 F 03/01/25 11:26 Pulse 65 03/01/25 11:26 Resp 20 03/01/25 11:26 BP 95/44 L 03/01/25 11:26 Pulse Ox 92 03/01/25 11:26 O2 Del Method Room Air 03/01/25 11:26 O2 Flow Rate 2 02/27/25 14:49 BMI result Body Mass Index 51.3 Gen: in no acute distress HEENT: sclera anicteric, moist mucus membranes Neck: supple Lungs: clear to auscultation bilaterally Heart: regular rate and rhythm, no murmurs Abd: soft, non-tender, non-distended, obese Ext: no edema Skin: warm/well-perfused Neuro: alert and oriented x3, no focal findings Psych: appropriate affect DS: Data Data Completed and Pending Completed studies during hospitalization [Text1]: Laboratory Results WBC 9.0 X10*3/uL (4.8-10.8) 02/28/25 06:23 RBC 4.56 X10*6/uL (4.60-5.80) L 02/28/25 06:23 Hgb 13.0 g/dl (14.0-18.0) L 02/28/25 06:23 Hct 40.5 % (42.0-52.0) L 02/28/25 06:23 MCV 88.8 fL (80.0-98.0) 02/28/25 06:23 MCH 28.5 pg (27.0-33.0) 02/28/25 06: MCHC 32.1 g/dl (31.0-36.0) 02/28/25 06: RDW 11.5 % (11.0-16.0) 02/28/25 06:23 Plt Count 279 X10*3/uL (160-400) 02/28/25 06:23 MPV 10.6 fL (9.4-12.4) 02/28/25 06:23 Immature Gran % (Auto) 0.3 % (0.0-0.4) 02/28/25 06: Neut % (Auto) 57.4 % (45-73) 02/28/25 06: Lymph % (Auto) 32.4 % (20-40) 02/28/25 06:23 [place] % (Auto) 6.3 % (2-11) 02/28/25 06: Eos % (Auto) 2.9 % (0-4) 02/28/25 06:23 Baso % (Auto) 0.7 % (0-2) 02/28/25 06:23 Lymph # (Auto) 2.9 X10*3/uL (1.2-4.9) 02/28/25 06:23 [place] # (Auto) 0.6 X10*3/uL (0.1-1.2) 02/28/25 06:23 Eos # (Auto) 0.3 X10*3/uL (0.0-0.4) 02/28/25 06:23 Baso # (Auto) 0.1 X10*3/uL (0.0-0.2) 02/28/25 06:23 Abs Immat Gran (auto) 0.03 X10*3/uL (0.00-0.03) 02/28/25 06:23 Absolute Neuts (auto) 5.2 x10*3/uL (2.0-8.3) 02/28/25 06:23 Absolute Nucleated RBC 0.000 X10*3/uL (0.0-0.012) 02/28/25 06: Nucleated RBC % (auto) 0.0 /100WBC (0.0-0.2) 02/28/25 06:23 Hold Purple Top SEE NOTE 03/01/25 06:21 D-Dimer High Sensitivty < 150 NG/ML 02/27/25 18:00 Sodium 139 mmol/L (135-145) 02/28/25 06:23 Potassium 4.0 mmol/L (3.3-5.1) 02/28/25 06:23 Chloride 107 mmol/L (96-108) 02/28/25 06:23 Carbon Dioxide 26 mmol/L (22-29) 02/28/25 06:23 Anion Gap 10 (12-20) L 02/28/25 06:23 BUN 13 mg/dL (9-16) 02/28/25 06:23 Creatinine 0.79 mg/dL (0.5-1.4) 02/28/25 06:23 Estim Creat Clear Calc 206.1 02/28/25 06:23 Estimated GFR > 60 02/28/25 06:23 POC Glucose 180 mg/dL (60-115) H 03/01/25 11:22 Random Glucose 165 mg/dL (60-115) H 02/28/25 06:23 Estimat Average Glucose 177 mg/dL 02/27/25 18:00 Hemoglobin A1c % 7.8 % (<6.0) H 02/27/25 18:00 Calcium 8.7 mg/dL (8.4-10.2) 02/28/25 06:23 Magnesium 1.8 mg/dL (1.6-2.6) 02/28/25 06:23 Total Bilirubin 1.1 mg/dL (0.0-1.0) H 02/28/25 06:23 Direct Bilirubin 0.3 mg/dL (0.0-0.5) 02/27/25 11:57 AST 116 U/L (5-37) H 02/28/25 06:23 ALT 156 U/L (0-40) H 02/28/25 06:23 Alkaline Phosphatase 64 U/L (39-117) 02/28/25 06:23 Total Creatine Kinase 648 U/L (38-174) H 03/01/25 06:21 Troponin I High Sens < 2.7 ng/L (<3.5-35.0) 02/27/25 18:00 B-Natriuretic Peptide < 10 pg/mL (<100) 02/27/25 11:57 Total Protein 6.7 g/dL (6.5-8.0) 02/28/25 06:23 Albumin 3.9 g/dL (3.5-5.0) 02/28/25 06:23 Triglycerides 205 mg/dL (<150) H 02/27/25 18:00 Cholesterol 188 mg/dL (<200) 02/27/25 18:00 LDL Cholesterol, Calc 120 mg/dL (<100) H 02/27/25 18:00 HDL Cholesterol 27 mg/dL (>40) L 02/27/25 18:00 TSH 1.41 uIU/mL (0.32-4.0) 02/27/25 18:00 Urine Color Yellow 02/27/25 16:39 Urine Appearance Clear 02/27/25 16:39 Urine pH 6.0 (5.0-9.0) 02/27/25 16:39 Ur Specific [place] >= 1.030 (1.005-1.025) H 02/27/25 16:39 Urine Protein Negative mg/dL (Neg-Trace) 02/27/25 16:39 Urine Glucose (UA) >=1000 mg/dL (Negative) H 02/27/25 16:39 Urine Ketones Negative mg/dL (Negative) 02/27/25 16:39 Urine Blood Negative (Negative) 02/27/25 16:39 Urine Nitrite Negative (Negative) 02/27/25 16:39 Ur Leukocyte Esterase Negative (Negative) 02/27/25 16:39 Urine RBC 0-2 /HPF (0-2) 02/27/25 16:39 Urine WBC 0-5 /HPF (0-5) 02/27/25 16:39 Ur Squamous Epith Cells 0-2 /HPF (0-2) 02/27/25 16:39 Urine Bacteria None Seen (None Seen) 02/27/25 16:39 Hyaline Casts 0-2 /LPF (0-2) 02/27/25 16:39 Urine Opiates Screen Not Detected (Not Detect) 02/27/25 16:39 Ur Buprenorphine Scrn Not Detected ng/mL (Not Detect) 02/27/25 16:39 Ur Oxycodone Screen Not Detected ng/mL (Not Detect) 02/27/25 16:39 Urine Methadone Screen Not Detected ng/mL (Not Detect) 02/27/25 16:39 Urine Fentanyl Screen Not Detected (Not Detect) 02/27/25 16:39 Ur Barbiturates Screen Not Detected (Not Detect) 08 16:39 Ur Phencyclidine Scrn Not Detected (Not Detect) 08 16:39 Ur Amphetamines Screen Not Detected (Not Detect) 02/27/25 16:39 U Benzodiazepines Scrn Not Detected (Not Detect) 02/27/25 16:39 Urine Cocaine Screen Not Detected (Not Detect) 02/27/25 16:39 U Marijuana (THC) Screen Not Detected (Not Detect) 02/27/25 16:39 Discharge Plan Discharge Anticipated Discharge Date/Time: 03/01/25 12:03 Patient Disposition: Home, Self-Care Discharge Diagnosis: rhabdomyolysis migraine headaches Referrals: Kuldip Robertson MD [Primary Care Provider, Internal Medicine] - 1 Week Discharge Medications: New sumatriptan succinate 50 mg Tablet 50 mg PO DAILY MRX1 PRN (Reason: Migraine Headache) Qty: 12 0RF Continued (DME) blood-glucose meter Kit See Rx Instructions .Route Qty: 1 0RF Rx Instructions: As directed (DME) OneTouch Ultra Test Strip See Rx Instructions .Route Qty: 100 1RF Rx Instructions: As directed up to three times per day (DME) blood-glucose meter [OneTouch Ultra2 Meter] Misc See Rx Instructions .Route Qty: 1 0RF Rx Instructions: As directed (DME) lancets 25 gauge misc See Rx Instructions .Route Qty: 100 1RF Rx Instructions: As directed up to three times a day furosemide 40 mg tablet 40 mg PO DAILY 90 Days Qty: 90 1RF (DME) lancets [Accu-Chek Fastclix Lancet Drum] Misc See Rx Instructions .Route Qty: 100 0RF Rx Instructions: As directed lisinopril 2.5 mg tablet 2.5 mg PO DAILY Trulicity 0.75 mg/0.5 mL pen injector 0.75 mg subcut FR metoprolol succinate 50 mg tablet extended release 24 hr 50 mg PO DAILY Qty: 90 1RF Discharge Orders: Discharge Order (Routine); Ordered 03/01/25 Ordered By: Nirali Ordonez Diet: Diabetic diet Activity on Discharge: As tolerated Stand Alone Forms: Patient Portal Discharge page Print Language: Palauan Other Ambulatory Orders: Creatine Kinase Total (Routine) Timeframe: 1 Week Facility: [facility] - Location: Laboratory Ordered By: Nirali Ordonez Care Plan Goals: renal health headache relief Health Concerns: rhabdomyolysis migraine headaches Plan of Treatment: recheck CPK in 1 week; ease back into exercise gradually identify and avoid migraine triggers; trial of sumatriptan Please follow up with your primary care doctor within 1 week. Return to the hospital if you experience recurrent or worsening symptoms. Assessment: See Discharge Summary.
== END 2025-03-01 12:51 | disposition home or self-care (01) | DRG 558 ==
LOC: HO.ED 15:39 → HO.EDOVER 17:17 → HO.IMC 02-28 07:03
PROVIDERS: Physician Assistant; Admitting Provider Internal Medicine; Emergency Provider Emergency Medicine; PCP Internal Medicine; Visit Provider Family Medicine
DX: M62.82 Rhabdomyolysis (principal); I50.22 Chronic systolic (congestive) heart failure; Z68.43 Body mass index [BMI] 50.0-59.9, adult; I11.0 Hypertensive heart disease with heart failure; G43.909 Migraine, unspecified, not intractable, without status migrainosus; M25.461 Effusion, right knee; G47.33 Obstructive sleep apnea (adult) (pediatric); E66.01 Morbid (severe) obesity due to excess calories; Z71.3 Dietary counseling and surveillance; Z79.85 Long-term (current) use of injectable non-insulin antidiabetic drugs; Z79.899 Other long term (current) drug therapy
CPT/HCPCS: 36415; 70450; 71045; 80048; 80053; 80061; 80076; 80307; 81001; 82550; 82947; 83036; 83735; 83880; 84443; 84484; 85025; 85379; 93005; 97161; 99285; J1650; J7120

== ENCOUNTER 2025-02-27 16:29 | Outpatient (BNV) | payer OTHER, SELFPAY | END 2025-02-27 17:24 | PROVIDERS: Admitting Provider Internal Medicine; Emergency Provider Emergency Medicine; PCP Internal Medicine; Visit Provider Specialist | DX: H57.11 Ocular pain, right eye (principal); R07.9 Chest pain, unspecified; R20.0 Anesthesia of skin | CPT/HCPCS: 70450; 71045 ==

== ENCOUNTER 2025-02-27 16:29 | Outpatient (BNV) | payer OTHER, SELFPAY | END 2025-02-27 17:31 | PROVIDERS: Admitting Provider Internal Medicine; Emergency Provider Emergency Medicine; PCP Internal Medicine; Visit Provider Internal Medicine | DX: R00.1 Bradycardia, unspecified (principal) | CPT/HCPCS: 93010 ==

== ENCOUNTER → 2025-02-27 16:29 | Outpatient (BNV) | payer OTHER, SELFPAY | PROVIDERS: Admitting Provider Internal Medicine; Emergency Provider Emergency Medicine; PCP Internal Medicine; Visit Provider Psychiatry & Neurology Neurology | DX: T79.6XXA Traumatic ischemia of muscle, initial encounter (principal); G43.109 Migraine with aura, not intractable, without status migrainosus | CPT/HCPCS: 99222 ==

== ENCOUNTER → 2025-02-27 16:29 | Outpatient (BNV) | payer OTHER, SELFPAY | PROVIDERS: Admitting Provider Internal Medicine; Emergency Provider Emergency Medicine; PCP Internal Medicine; Visit Provider Internal Medicine | DX: T79.6XXA Traumatic ischemia of muscle, initial encounter (principal); M25.561 Pain in right knee | CPT/HCPCS: 99223; 99232 ==

== ENCOUNTER 2025-03-07 11:47 | Outpatient (AMB) | payer OTHER, SELFPAY ==
[2025-03-07 12:40] VITALS: BP 118/76; RESP 18; BMI 49.8
--- NOTE | 2025-03-07 12:40 | A.OFFPC_ITS ---
Vital Signs 03/07/25 12:40 Height 5 ft 11 in Weight 357 lb 2 oz BMI 49.8 BP 118/76 Blood Pressure Location Lt brachial Position Sitting Respiration 18 Pulse Source Pulse Oximeter Temp Source Temporal Artery Scan Oxygen Delivery Method Room Air Intake Visit Reasons: [facility] 03/01 Rhabdomyelitis Digital Specialist Required: No Accompanied by: Self / Same As Patient Allergies morphine Adverse Reaction (Unknown, Verified 03/07/25 13:41) projectile vomiting Medication List - Last Reconciled 03/07/25 by LAYO Jaquez blood sugar diagnostic (OneTouch Ultra Test strips) As directed up to three times per day blood-glucose meter As directed blood-glucose meter (OneTouch Ultra2 Meter) As directed dulaglutide (Trulicity) 0.75 mg subcut FR furosemide 40 mg PO DAILY 90 days lancets As directed up to three times a day lancets (Accu-Chek Fastclix Lancet Drum) As directed lisinopril 2.5 mg PO DAILY metoprolol succinate ER 50 mg PO DAILY sumatriptan succinate 50 mg PO DAILY MRX1 PRN Tobacco use date assessed: 03/07/25 Dental Screening Dental Screen Date: 03/07/25 Did you have a dental visit in the last 12 months?: Yes Did you have a dental problem in the last 6 months where you did not have access to dental care?: No Was dental information given to patient?: Patient has dentist HPI [facility] 03/01 Rhabdomyelitis HPI Details Patient is a 34-year-old male with significant past medical history of obstructive sleep apnea, heart failure the EF of 40%, type 2 diabetes and morbid obesity. Presenting for post hospital follow up. Apparently, he went into the hospital with complaints of right knee pain. Right knee xray did not show any acute finding. He was sent home and called back to return to the ED after his CPK was noted to be elevated at 4659. He was treated with IV fluids with much improvement. He is scheduled to repeat this tomorrow, which would be week from his hospital discharge The patient also c/o right periorbital pain extending to the back of his head. He was ordered sumatriptan and was recommended to be referred to neurology for migraines. The patient reports that he has been having numbness down his left arm. Apparently, he has been working out and is having this symptom whenever, he over exerts himself, encouraged the patient to follow with cardiology. 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 [facility] Medical History Rhabdomyolysis Endogenous depression Obstructive sleep apnea syndrome, mild Left ventricular ejection fraction of 40-49% Snoring Chest pain Morbid obesity with BMI of 50.0-59.9, adult Non-alcoholic fatty liver disease Hypertriglyceridemia Diabetes mellitus Congestive heart failure (CHF) Surgical History History of tooth extraction Hx of excision of mass (~03/30/18) History of ankle surgery (~06/29/12) Family History Mother IBS (irritable bowel syndrome) Father Heart problem Sister Crohn disease Paternal Grandfather Cancer Social History Household Members: Significant Other and Children Housing: Apartment Do you presently have visiting nurse or other home services: Yes Alcohol intake: former Patient Tobacco Use Status: Never used Tobacco e-Cigarette/Vaping Use: Former Use Second Hand Smoke Exposure: No Substance Use Type: Marijuana service: No Current occupational status: unemployed Cognitive needs: No Hearing needs: No Vision needs: Yes Questionnaire PHQ-9 Over the last 2 weeks, how often have you been bothered by any of the following problems? 1. Little interest or pleasure in doing things: more than half the days 2. Feeling down, depressed, or hopeless: more than half the days 3. Trouble falling or staying asleep, or sleeping too much: nearly every day 4. Feeling tired or having little energy: nearly every day 5. Poor appetite or overeating: nearly every day 6. Feeling bad about yourself - or that you are a failure or have let yourself or your family down: more than half the days 7. Trouble concentrating on things, such as reading the newspaper or watching television: nearly every day 8. Moving or speaking so slowly that other people could have noticed. Or the opposite - being so fidgety or restless that you have been moving around a lot more than usual: not at all 9. Thoughts that you would be better off or of hurting yourself in some way: more than half the days (thought) Total score: 20 Depression Screening Interpretation: Positive Depression Screening Done: Yes Source: Developed by Drs. Cm Rebolledo, Juanita Izquierdo, Horace Hall and colleagues, with an educational lise from [employer]. Thrive Questionnaire Date Thrive assessed: 03/07/25 I am a: Patient What is your living situation today?: I have a steady place to live Within the past 12 months, did the food you bought not last and you didn't have the money to get more?: Never true Within the past 12 months, did you worry whether your food would run out before you got money to buy more?: Never true Do you have trouble paying for medicines?: No Do you have trouble getting transportation to medical appointments?: No Do you have trouble paying your heating and electricity bill?: No Do you have trouble taking care of your child, family member or friend?: No Do you have trouble with day-to-day activities such as bathing, preparing meals, shopping, managing finances, etc.?: No Are you currently unemployed and looking for a job?: No Are you interested in more education?: No Please select the resources that you would like help with: None Currently or been in a relationship where the following occur: No concerns reported THRIVE Score: 0 AUDIT C Alcohol Use Questionnaire (AUDIT-C) 1. How often do you have a drink containing alcohol?: Never 3. How often do you have six or more drinks on one occasion?: Never Total Score: 0 SUDHAKAR-7 AMB Questionnaire SUDHAKAR-7 Date SUDHAKAR - 7 assessed: 03/07/25 Feeling nervous, anxious, or on edge: 0 = Not at all Not being able to stop or control worryin = Not at all Worrying too much about different things: 0 = Not at all Trouble relaxin = Not at all Being so restless that it is hard to sit still: 0 = Not at all Becoming easily annoyed or irritable: 0 = Not at all Feeling afraid as if something awful might happen: 0 = Not at all Total SUDHAKAR-7 score (0-4 normal; 5-9 mild; 10-14 moderate; 15-21 severe): 0 Source: Developed by Drs. Cm Rebolledo, Juanita Izquierdo, Horace Hall and colleagues, with an educational lise from [employer]. Review of Systems Const Reports headache(s) (pain from around right eye extending to the back of right head) Eyes Denies loss of vision and Reports eye pain (periorbital right eye) ENT Denies vertigo, Denies dizziness, Reports headache(s) (pain from around right eye extending to the back of right head) and Denies sore throat Card Denies chest pain, Denies leg edema and Denies lightheadedness Resp Denies cough, Denies hemoptysis and Denies wheezing GI Reports abdominal pain (on and off at right side between upper and lower quadr ants), Denies melena, Denies constipation, Denies diarrhea and Denies vomiting Denies dysuria, Denies urinary frequency and Denies urinary urgency Musc Reports arthralgias (right knee ), Reports joint swelling (right knee), Reports numbness (3 times during exertion, plus mild chest discomfort) and Denies tingling Neuro Denies Abnormal speech present, Denies behavioral changes, Denies vertigo, Denies dizziness, Reports headache(s) (pain from around right eye extending to the back of right head), Denies loss of vision, Denies memory loss, Reports numbness (3 times during exertion, plus mild chest discomfort) and Denies tingling Psych Denies anxiety, Denies behavioral changes, Denies depression, Denies memory loss and Denies panic attacks Lars/Lymph Denies easy bleeding and Denies easy bruising Aller/Immun Denies wheezing Physical exam (Primary Care) Vital Signs: Last Vital Signs Resp 18 03/07/25 12:40 BP 118/76 03/07/25 12:40 Oxygen Delivery Method Room Air 03/07/25 12:40 BMI result Body Mass Index 49.8 Tobacco/Smoking Status: Tobacco use Status Tobacco use date assessed 03/07/25 03/07/25 12:42 Patient Tobacco Use Status Never used Tobacco 03/07/25 12:42 e-Cigarette/Vaping Use Former Use 03/07/25 12:42 PHQ-9: PHQ-9 Score PHQ-9: Total score 20 03/07/25 13:54 Depression Screening Interpretation: Positive Thrive Assessment: Date of Thrive Assessment Date Thrive assessed 03/07/25 03/07/25 12:42 Currently or been in a relationship where the following occur: No concerns reported Const General: healthy appearing, no acute distress, alert and awake Nutritional Appearance: well nourished Orientation/consciousness: oriented to person, oriented to place and oriented to time HENMT Ears: hearing grossly normal bilaterally General nose exam: Normal external nose present Eyes Conjunctivae: conjunctivae normal Sclerae: sclerae normal Pupils: Equal, round and reactive pupils present Neck Neck: Yes no lymphadenopathy and Yes no JVD Thyroid: Thyroid normal Carotids: no bruits Resp Effort & Inspection: normal respiratory effort and not tachypneic Auscultation: no crackles, no rales, no rhonchi and no wheezes Cardio Rate: regular rate Rhythm: regular rhythm Heart sounds: S1 normal heart sound present, S2 normal heart sound present, no murmurs and normal S1 and S2 GI Palpation (GI): Soft to palpation, nontender, Hepatomegaly present (hx) and no splenomegaly Auscultation: normal bowel sounds General: Yes no CVA tenderness Back/Spine/Pelvis Back: no CVA tenderness Skin General skin exam: no rashes or lesions noted and dry skin Neuro General: oriented to person, oriented to place and oriented to time Cranial nerves: Yes Equal, round and reactive pupils present Speech: No Abnormal speech present Gait exam (Neuro): Normal gait present Motor exam (neuro): no tremor noted Extrem Right upper extremity: full ROM Left upper extremity: full ROM Right lower extremity: full ROM and knee Details: tenderness Location: of the medial joint line (severe pain) and swelling; no edema Left lower extremity: full ROM; no edema Psych Mental Status: mental status grossly normal Speech and movement: Normal speech and movement present Affect: normal affect Attitude: cooperative Thought process: Normal thought process present Coding Level of Care Code TCM High MDM <= 7 Days Diagnoses Traumatic rhabdomyolysis, initial encounter T79.6XXA Encounter type: initial encounter Rhabdomyolysis type: traumatic Acute pain of right knee M25.561 Chronicity: acute Migraine with aura, not intractable, without status migrainosus G43.109 Cardiomyopathy, unspecified type I42.9 Cardiomyopathy type: unspecified Type 2 diabetes mellitus with unspecified complications E11.8 Time Spent (min) 41 Assessment & Plan Assessment & Plan (1) Rhabdomyolysis: Code(s): M62.82 - Rhabdomyolysis Category: Medical Qualifiers: Encounter type: initial encounter Rhabdomyolysis type: traumatic Qualified Code(s): T79.6XXA - Traumatic ischemia of muscle, initial encounter Plan: Recently diagnosed after found to have a Total CK of 4659; he was treated with IV fluids, upon discharge his total CK was 648. Recommendation to repeat this in 1 week. Patient reports that he is going to complete his labs tomorrow. (2) Right knee pain: Code(s): M25.561 - Pain in right knee Category: Medical Qualifiers: Chronicity: acute Qualified Code(s): M25.561 - Pain in right knee Plan: Right knee pain and swelling. Knee x-ray done in hospital showed no acute findings. Patient is having severe pain and right knee. Struggling to walk in office. Pain with palpation of the medial aspect of his knee proximal patella. A knee splint was given in office. Will order an MRI and refer the patient to orthopedics. (3) Migraine with aura, not intractable, without status migrainosus: Code(s): G43.109 - Migraine with aura, not intractable, without status migrainosus Category: Medical Plan: Periorbital pain that radiates across the right side of face to the occipital lobe. He was ordered sumatriptan in the hospital. Neurology referral placed (4) Cardiomyopathy: Code(s): I42.9 - Cardiomyopathy, unspecified Category: Medical Qualifiers: Cardiomyopathy type: unspecified Qualified Code(s): I42.9 - Cardiomyopathy, unspecified Plan: Intermittent numbness down his arm associated with mild chest discomfort while working out at the gym. He was worked up in the hospital. Encouraged him to fo llow with cardiology (5) Type 2 diabetes mellitus with unspecified complications: Code(s): E11.8 - Type 2 diabetes mellitus with unspecified complications Category: Medical Plan: AIC 7.8%-goal less than 7%. 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 Orders: Orders MR knee RT wo con Today M25.461 - Effusion, right knee, M25.561 - Pain in right knee Referrals Neurology Referral G43.109 - Migraine with aura, not intractable, without status migrainosus, H57.10 - Ocular pain, unspecified eye Orthopedics Referral M25.461 - Effusion, right knee, M25.561 - Pain in right knee
--- OUTSIDE RECORDS SUMMARY | 2025-03-07 12:41 | XMS_ITS | Clinical Summary ---
Author Organization [facility] Address [address] [place] [address] Care Team Providers Care Clothes Ironer Name Role Phone Andrzej Beach MD Primary Care Provider [phone] Allergies No known active allergies Active Problems [...] age to complete this topic Care Teams Clothes Ironer Relationship Specialty Start Date End Date Andrzej Beach MD [address] [place] [address] PCP - General Internal Medicine 03/25/12
--- OUTSIDE RECORDS SUMMARY | 2025-03-07 12:41 | XMS_ITS | Encounter Summary ---
Author Organization [employer] Address [address] [facility] 7[address] [place] [address] Care Team Providers Care Hogshead Stock Clerk Name Role Phone Unavailable Primary Care Provider Unavailabl e Encounter Details Date Type Department Care Team (Late st Contact Info) Description 02/23/2025 Telephone [facility] [address], [place] [phone] Alexys Lagos MD [address], [place] [phone] Social History Tobacco Use Types Packs/Day Years [...]
== END 2025-03-07 14:22 | disposition home or self-care (01) ==
LOC: HO.HMCH 11:47
PROVIDERS: PCP Internal Medicine
DX: M25.561 Pain in right knee (principal); I42.9 Cardiomyopathy, unspecified; E11.8 Type 2 diabetes mellitus with unspecified complications; T79.6XXA Traumatic ischemia of muscle, initial encounter; G43.109 Migraine with aura, not intractable, without status migrainosus

== ENCOUNTER → 2025-03-07 11:47 | Outpatient (BNVA) | payer OTHER, SELFPAY | PROVIDERS: PCP Internal Medicine | DX: G47.33 Obstructive sleep apnea (adult) (pediatric) (principal); I50.9 Heart failure, unspecified; E11.9 Type 2 diabetes mellitus without complications; E66.01 Morbid (severe) obesity due to excess calories; Z68.42 Body mass index [BMI] 45.0-49.9, adult; M25.561 Pain in right knee; R20.0 Anesthesia of skin; G43.109 Migraine with aura, not intractable, without status migrainosus; I42.9 Cardiomyopathy, unspecified; T79.6XXA Traumatic ischemia of muscle, initial encounter; X58.XXXA Exposure to other specified factors, initial encounter; Y93.9 Activity, unspecified; Y92.9 Unspecified place or not applicable; Y99.9 Unspecified external cause status | CPT/HCPCS: 96127; 99496 ==

== ENCOUNTER 2025-04-16 13:45 | Outpatient (AMB) | payer OTHER, SELFPAY ==
--- NOTE | 2025-04-16 13:51 | MHC.OFFVIS ---
Vital Signs 04/16/25 13:52 Height 5 ft 11 in Weight 366 lb 6.532 oz BMI 51.1 BP 112/62 Blood Pressure Location Rt brachial Position Sitting Pulse 94 Pulse Source Pulse Oximeter Intake Visit Reasons: 6m follow up Traffic Line Painter Required: No Accompanied by: Self / Same As Patient Allergies morphine Adverse Reaction (Unknown, Verified 04/16/25 13:56) projectile vomiting Medication List - Last Reconciled 04/16/25 by Halle Hanson NP-C blood sugar diagnostic (OneTouch Ultra Test strips) As directed up to three times per day blood-glucose meter As directed blood-glucose meter (OneTouch Ultra2 Meter) As directed furosemide 40 mg PO DAILY 90 days lancets As directed up to three times a day lancets (Accu-Chek Fastclix Lancet Drum) As directed lisinopril 2.5 mg PO DAILY metoprolol succinate ER 50 mg PO DAILY sumatriptan succinate 50 mg PO DAILY MRX1 PRN HPI HPI 6m follow up: Details: Timbo is a 34-year-old male with past medical history of morbid obesity, diabetes, obstructive sleep apnea, Congestive heart failure 2020, cardiomyopathy who presents for follow-up. Today he reports he does not have sleep apnea treatment as of yet. He said he had the sleep study in October and was given a mask but no machine to go with it. He has been having some social issues and was out of the area for a period of time. He believes he may have missed calls for appointments. Things are now more settled in his life. He still has daytime sleepiness, napping and fatigue upon wakening. He has some shortness of breath with exertion which is not new. No PND, orthopnea or edema. No chest discomfort at rest or with activity. No concerning heart palpitations. Has been trying to increase his physical activity. Forgets to take his medications at times. Now has his girlfriend and her 2-year-old twin sons living with him. [facility] Medical History Rhabdomyolysis Endogenous depression Obstructive sleep apnea syndrome, mild Left ventricular ejection fraction of 40-49% Snoring Chest pain Morbid obesity with BMI of 50.0-59.9, adult Non-alcoholic fatty liver disease Hypertriglyceridemia Diabetes mellitus Congestive heart failure (CHF) Surgical History History of tooth extraction Hx of excision of mass (~03/30/18) History of ankle surgery (~06/29/12) Family History Mother IBS (irritable bowel syndrome) Father Heart problem Sister Crohn disease Paternal Grandfather Cancer Social History Household Members: Significant Other and Children Housing: Apartment Do you presently have visiting nurse or other home services: Yes Alcohol intake: former Patient Tobacco Use Status: Never used Tobacco e-Cigarette/Vaping Use: Former Use Second Hand Smoke Exposure: No Substance Use Type: Marijuana service: No Current occupational status: unemployed Cognitive needs: No Hearing needs: No Vision needs: Yes Review of Systems Const All systems reviewed & are unremarkable except as noted in HPI and below Denies daytime sleepiness, Denies difficulty sleeping, Reports fatigue, Denies snoring, Denies stops breathing during sleep and Denies weakness Card Denies chest pain, Denies rapid heart rate, Denies irregular heart rhythm, Denies claudication, Denies leg edema, Denies lightheadedness, Denies palpitations, Denies dyspnea, Reports dyspnea on exertion, Denies orthopnea, Denies paroxysmal nocturnal dyspnea and Denies slow heart rate Resp Denies cough, Denies dyspnea, Reports dyspnea on exertion and Denies snoring GI Reports no additional complaints, Denies hematochezia, Denies change in stool character and Denies dyspepsia Musc Denies abnormal gait, Denies muscle weakness and Denies numbness Neuro Denies abnormal gait, Denies numbness and Denies weakness Endo Reports fatigue and Denies palpitations Physical Exam Vital Signs: Last Vital Signs Pulse 94 04/16/25 13:52 BP 112/62 04/16/25 13:52 BMI result Body Mass Index 51.1 Const Other: morbidly obese General: cooperative and no acute distress Orientation/consciousness: patient oriented x3 Neck Neck: Yes normal visual inspection and Yes no JVD Resp Effort & Inspection: normal respiratory effort Auscultation: clear to auscultation bilaterally, no rales, no rhonchi and no wheezes Cardio Rate: regular rate Rhythm: regular rhythm Heart sounds: S1 normal heart sound present, S2 normal heart sound present, no gallops, no murmurs and no rubs Neuro General: patient oriented x3 Extrem General: Yes normal to inspection, No no pedal edema and No calf tenderness Psych Appearance: grossly normal Mental Status: mental status grossly normal Speech and movement: Normal speech and movement present Assessment & Plan Assessment & Plan (1) Cardiomyopathy: Code(s): I42.9 - Cardiomyopathy, unspecified Category: Medical Qualifiers: Cardiomyopathy type: unspecified Qualified Code(s): I42.9 - Cardiomyopathy, unspecified Plan: History of nonischemic cardiomyopathy. Cardiac catheterization from 04/01/2023 showed normal coronary arteries. Last echo done 10/05/2024 shows EF 40%, no valve abnormalities. He has morbid obesity and untreated sleep apnea both of which can contribute to cardiomyopathy. He still misses his medications at times. The need for medication compliance reviewed again. Continue metoprolol and lisinopril for neurohormonal modulation. Continue Lasix. We discussed reducing his dose down to 20 mg daily. He does better with once daily medications. For this reason carvedilol and Entresto are not being used at this time. Signs and symptoms of heart failure reviewed. Will update echo prior to his next visit. Cardiology follow-up 6 months, sooner if needed. (2) Left ventricular ejection fraction of 40-49%: Code(s): R94.30 - Abnormal result of cardiovascular function study, unspecified Category: Medical Plan: As above, current EF 40%. Prior echo showed EF 49%. (3) Obstructive sleep apnea: Comment: Severe obstructive sleep apnea, sleep study 11/20/2024 Code(s): G47.33 - Obstructive sleep apnea (adult) (pediatric) Category: Medical Plan: Home sleep study done on 10/28/2022 as ordered by PCP. It states mild obstructive sleep apnea that can be treated with conservative measures however due to associated hypoxemia patient would benefit from CPAP therapy. He has not had follow-up on this. He reports symptoms of altered sleep, hypersomnia, difficulty concentrating. His mother previously confirmed witnessed apnea. Split night sleep study done 11/20/2024 showing severe obstructive sleep apnea with recommendation for CPAP. He was referred to pulmonology and apparently did not attend that appointment. At this time his sleep apnea is untreated. With his cardiomyopathy it is important that CPAP be instituted. Will refer again to pulmonology at this time. (4) Palpitations: Code(s): R00.2 - Palpitations Category: Medical Plan: Prior Report of intermittent heart palpitations. With his untreated sleep apnea and morbid obesity he is at increased risk for atrial fibrillation. Holter monitor ordered an according to record patient wore it for 5.5 hours and it had no data on it. At this time he denies heart palpitations. Will hold off on repeat Holter at present. (5) Congestive heart failure (CHF): Code(s): I50.9 - Heart failure, unspecified Category: Medical Qualifiers: Heart failure chronicity: chronic Heart failure type: unspecified Qualified Code(s): I50.9 - Heart failure, unspecified Plan: Congestive heart failure admission 2020. He has not had recurrent Congestive heart failure since that time. He is maintained on Lasix 40 mg daily. He reports compliance with the Lasix but has issues with urinary incontinence. He finds that it just leaks out . Will refer to Urology. Will forward this note to his PCP. Discussed reducing Lasix down to 20 mg daily. Signs and symptoms of heart failure reviewed with him. (6) Morbid obesity due to excess calories: Code(s): E66.01 - Morbid (severe) obesity due to excess calories Category: Medical Plan: The patient is aware of the need to lose weight. Will work on treating the sleep apnea 1st since that is urgent. He then may be motivated to work on increasing physical activity and weight loss. (7) Elevated BP without diagnosis of hypertension: Code(s): R03.0 - Elevated blood-pressure reading, without diagnosis of hypertension Category: Medical Plan: Blood pressure goal less than 130/80. Normal range today. The need for med compliance reviewed with him. Plan Time spent on chart review, documentation, interview and assessment Orders: Orders CA echo transthoracic complete 10/08/25 I42.9 - Cardiomyopathy, unspecified, R94.30 - Abnormal result of cardiovascular function study, unspecified Referrals Pulmonology Referral G47.33 - Obstructive sleep apnea (adult) (pediatric) Coding Level of Care Code Est Pt Level 4 (98286) Complex EM visit Add On G2211 Diagnoses Cardiomyopathy, unspecified type I42.9 Cardiomyopathy type: unspecified Left ventricular ejection fraction of 40-49% R94.30 Obstructive sleep apnea G47.33 Palpitations R00.2 Chronic congestive heart failure, unspecified heart failure type I50.9 Heart failure chronicity: chronic Heart failure type: unspecified Morbid obesity due to excess calories E66.01 Elevated BP without diagnosis of hypertension R03.0 Time Spent (min) 32
[2025-04-16 13:52] VITALS: BP 112/62; PULSE 94; BMI 51.1
== END 2025-04-16 14:28 | disposition home or self-care (01) ==
LOC: HO.HCS 13:45
PROVIDERS: PCP Nurse Practitioner Family; Visit Provider Nurse Practitioner Family
DX: I42.9 Cardiomyopathy, unspecified (principal); R94.30 Abnormal result of cardiovascular function study, unspecified; G47.33 Obstructive sleep apnea (adult) (pediatric); R00.2 Palpitations; I50.9 Heart failure, unspecified; E66.01 Morbid (severe) obesity due to excess calories; R03.0 Elevated blood-pressure reading, without diagnosis of hypertension
CPT/HCPCS: 99214; G2211

== ENCOUNTER → 2025-04-16 13:45 | Outpatient (BNVA) | payer OTHER, SELFPAY | PROVIDERS: PCP Nurse Practitioner Family; Visit Provider Nurse Practitioner Family | DX: E66.01 Morbid (severe) obesity due to excess calories (principal); I50.9 Heart failure, unspecified; R94.30 Abnormal result of cardiovascular function study, unspecified; I42.9 Cardiomyopathy, unspecified; R03.0 Elevated blood-pressure reading, without diagnosis of hypertension; G47.33 Obstructive sleep apnea (adult) (pediatric); R00.2 Palpitations | CPT/HCPCS: 99212 ==

== ENCOUNTER 2025-05-25 13:28 | Outpatient (AMB) | payer OTHER, SELFPAY ==
--- NOTE | 2025-05-25 13:40 | MHC.OFFVIS ---
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 Patient reports ongoing pain for about for a month. He notices that his pain is on the media aspect of the knee. He states that his pain is worse when he is walking, bending and standing. Patient has tried Tylenol and ibuprofen with no relief. Patient was diagnosed with rhabdomyolysis IMPRESSION: 1. No acute fracture or dislocation injury identified at the right knee. Allergies morphine Adverse Reaction (Unknown, Verified 05/25/25 13:44) projectile vomiting HPI HPI COMMITTEE MEMBER-RT knee Pain: Details: Mr. Cifuentes is a 34-year-old male who presents to the office today for right knee pain. Patient reports that his pain has been ongoing for the past month. He notes that the pain is located on the anterior medial aspect of the patella and points to this area. He states that he has been walking more than normal and doing a lot of squatting and kneeling. His pain worsens with prolonged standing, walking, bending and kneeling. He has tried ibuprofen and Tylenol with no relief. [facility] Medical History Rhabdomyolysis Endogenous depression Obstructive sleep apnea syndrome, mild Left ventricular ejection fraction of 40-49% Snoring Chest pain Morbid obesity with BMI of 50.0-59.9, adult Non-alcoholic fatty liver disease Hypertriglyceridemia Diabetes mellitus Congestive heart failure (CHF) Surgical History History of tooth extraction Hx of excision of mass (~03/30/18) History of ankle surgery (~06/29/12) Family History Mother IBS (irritable bowel syndrome) Father Heart problem Sister Crohn disease Paternal Grandfather Cancer Social History Household Members: Significant Other and Children Housing: Apartment Do you presently have visiting nurse or other home services: Yes Alcohol intake: former Patient Tobacco Use Status: Never used Tobacco e-Cigarette/Vaping Use: Former Use Second Hand Smoke Exposure: No Substance Use Type: Marijuana service: No Current occupational status: unemployed Cognitive needs: No Hearing needs: No Vision needs: Yes Review of Systems Const All systems reviewed & are unremarkable except as noted in HPI and below Physical Exam Vital Signs: BMI result Body Mass Index 51.0 Const General: cooperative, healthy appearing and no acute distress Resp Effort & Inspection: normal respiratory effort and able to speak in complete sentences Extrem Other: Right knee normal to inspection. No ecchymosis, erythema or joint effusion. Range of motion 0-120. Crepitus felt with range of motion. Tenderness to palpation along the medial aspect of the patella. Negative Nilesh's. Negative anterior drawer. NVI. Psych Appearance: grossly normal Mental Status: mental status grossly normal Attitude: cooperative Office Procedures AMB Joint Injection/Aspiration Joint Injection/Aspiration Primary Site: right knee Prep: site was prepped using aseptic technique, ethochloride spray was applied and injection warnings given Injected: 40 mg of, with 3 mL of, 1% plain lidocaine, 0.25% bupivacaine, in the joint and decadron Approach Used: posterolateral Procedure: The patient tolerated the procedure well, but had some pain with the injection and there was some relief with the local anesthesia Coding 46195 - Large joint Procedure code (CPT) selection complete Assessment & Plan Assessment & Plan (1) Internal derangement of right knee: Code(s): M23.91 - Unspecified internal derangement of right knee Category: Medical (2) Patellofemoral syndrome of right knee: Code(s): M22.2X1 - Patellofemoral disorders, right knee Category: Medical Plan Mr. Cifuentes is a 34-year-old male who presents to the office today for right knee pain. Patient reports that his pain has been ongoing for the past month. He notes that the pain is located on the anterior medial aspect of the patella and points to this area. He states that he has been walking more than normal and doing a lot of squatting and kneeling. His pain worsens with prolonged standing, walking, bending and kneeling. He has tried ibuprofen and Tylenol with no relief. The patient was offered a cortisone injection in the right knee. The patient was explained the risks, benefits, and alternatives to receiving this injection. After receiving consent for the injection, the patient had the procedure done while in the office today. The patient tolerated the procedure well with no complications. Additionally, I have recommended physical therapy in which the patient is amenable to attend. An order has been placed while in the office today. Follow-up will be PRN, or sooner if needed X-rays of the right knee which were obtained while in the office today and were reviewed by me, Malena Mauricio PA-C, revealed mild arthritic changes in the patellofemoral joint. Orders: Orders XR knee RT 3V Today M25.569 - Pain in unspecified knee Coding Level of Care Code New Pt Level 3 (69369) Diagnoses Internal derangement of right knee M23.91 Patellofemoral syndrome of right knee M22.2X1 CPT Codes Coding - 84181 Large joint: 46656 - Large joint ([id number])
[2025-05-25 13:46] VITALS: BMI 51.0
--- OUTSIDE RECORDS SUMMARY | 2025-05-25 14:32 | XMS_ITS | Clinical Summary ---
Author Organization [employer] Address [address] [place] [address] Care Team Providers Care Manager Perioperative Name Role Phone Andrzej Beach MD Primary Care Provider [phone] Allergies No known active allergies Active Problems [...] of 3 - 19+ 3-dose series) 2009 HPV Vaccines (1 - 3-dose SCD M series) 2017 HIV Screening 06/24/2022 Hepatitis C Screening 06/24/2022 Social Influencers of Health Screening 06/24/2022 Depression Screening 07/26/2024 COVID-19 Vaccine (1 - 2023-2 5 season) 2025 Influenza Vaccine (#1) 2025 RSV Immunization Adult Patie nts (1 - 1-dose 75+ series) 2065 HIB Vaccines Aged Out No longer eligi [...] age to complete this topic Care Teams Manager Perioperative Relationship Specialty Start Date End Date Andrzej Beach MD [address] [place] [phone] PCP - General Internal Medicine 03/25/12
--- OUTSIDE RECORDS SUMMARY | 2025-05-25 14:32 | XMS_ITS | Clinical Summary ---
Author Organization [employer] Address [address] [facility] 7[address] [place] [address] Care Team Providers Care Gas Golf Cart Repairer Name Role Phone Unavailable Primary Care Provider Unavailabl e Allergies Active Allergy Reactions Criticality Noted Date Comments Morphine Nausea 12/17/2023 Medications albuterol 108 (90 Base) MCG/ACT inhaler INHALE 2 PUFFS INTO THE LUNGS EVERY 4 TO 6 HOURS NEEDED FOR SHORTNESS OF BREATH OR WHEEZING. 3 Active Trulicity 0.75 MG/0.5ML solution pen-injector INJECT 0.75 MG (0.5 ML) SUBCUTANEOUSLY WEEKLY Active Encounters Date Type Department Care Team Description 02/23/2025 Telephone [facility] [address] [place] [phone] Alexys Lagos MD from Last 3 Months Social History Tobacco Use Types Packs/Day Years [...] 1990 Lipid Panel 1990 SDOH Screening 1990 Disability Screening 1990 Alcohol/Substance Use Screening 2002 Family Planning (PISQ) 2005 HPV Vaccines (1 - Male 3-dose series) 2005 Hepatitis C Screening 2008 Pneumococcal Vaccine: Pediatrics (0 to 5 Years) and At-Risk Patients (6 to 49) Years (1 of 2 - PCV) 2009 Tobacco Screening 12/16/2024 12/17/2023 COVID-19 Vaccine (1 - 2023- season) 2025 Influenza Vaccine (#1) 2025 DTaP/Tdap/Td Vaccines (7 - Td or Tdap) [...] to complete this topic Insurance DENTAL - [facility] [place] [id number]
== END 2025-05-25 14:23 | disposition home or self-care (01) ==
LOC: HO.HOS 13:29
PROVIDERS: Visit Provider Physician Assistant
DX: M23.91 Unspecified internal derangement of right knee (principal); M22.2X1 Patellofemoral disorders, right knee
CPT/HCPCS: 20610; 99203

== ENCOUNTER → 2025-05-25 13:32 | Outpatient (BNV) | payer OTHER, SELFPAY | PROVIDERS: Visit Provider Radiology Diagnostic Radiology | DX: M25.561 Pain in right knee (principal) | CPT/HCPCS: 73562 ==

== ENCOUNTER 2025-05-25 14:25 | Outpatient (REF) | payer OTHER, SELFPAY ==
--- NOTE | ~2025-05-25 | XR_ITS ---
EXAMINATION: XR KNEE 3 VIEWS RIGHT HISTORY: M25.569 - Pain in unspecified knee COMPARISON: Comparison is made with the prior examination dated 02/26/2025. FINDINGS: Standing AP views of both knees and additional lateral and sunrise patellar views of the right knee are submitted. Osseous mineralization is normal. There is no fracture or dislocation. The joint spaces are preserved. The soft tissues are unremarkable. There is no joint effusion. XR/XR knee RT 3V IMPRESSION: Unremarkable examination of the right knee. Electronically signed by: Cm Gamboa MD 05/25/2025 01:44 PM EDT
--- OUTSIDE RECORDS SUMMARY | 2025-05-27 14:29 | XMS_ITS | Clinical Summary ---
Author Organization [employer] Address [address] [facility] [address] [place] [address] Care Team Providers Care Can Repairer Name Role Phone Unavailable Primary Care [...] to complete this topic Insurance DENTAL - [facility] [place] [id number]
--- OUTSIDE RECORDS SUMMARY | 2025-05-27 14:29 | XMS_ITS | Clinical Summary ---
Author Organization [facility] Address [address] [place] [address] Care Team Providers Care Scrap Iron Cutter Name Role Phone Andrzej Beach MD Primary Care Provider [phone] Allergies No known active allergies Active Problems [...] age to complete this topic Care Teams Scrap Iron Cutter Relationship Specialty Start Date End Date Andrzej Beach MD [address] [place] [phone] PCP - General Internal Medicine 03/25/12
== END 2025-05-25 14:26 | disposition home or self-care (01) ==
LOC: HO.HOSX 14:25
PROVIDERS: Visit Provider Physician Assistant
DX: M23.91 Unspecified internal derangement of right knee (principal); M22.2X1 Patellofemoral disorders, right knee
CPT/HCPCS: 20610; 73562; 99202; J0665; J1100; J2003

== ENCOUNTER 2025-06-07 10:46 | Outpatient (AMB) | payer OTHER, SELFPAY ==
--- NOTE | 2025-06-07 11:24 | MHC.PC.OV ---
Vital Signs 06/07/25 11:25 Height 5 ft 11 in Weight 363 lb 6 oz BMI 50.7 BP 130/76 Blood Pressure Location Lt brachial Position Sitting Pulse 102 H Pulse Source Pulse Oximeter Temp 97.1 F Temp Source Temporal Artery Scan Pulse Oximetry (%) 94 Oxygen Delivery Method Room Air Intake Visit Reasons: htn/dm/chf with Dr. Jovan xiong comments Handle Machine Operator Required: No Mill Recorder: Not Required per policy Accompanied by: Self / Same As Patient Allergies morphine Adverse Reaction (Unknown, Verified 06/07/25 11:25) projectile vomiting Tobacco use date assessed: 03/07/25 Dental Screening Dental Screen Date: 03/07/25 [facility] Medical History Rhabdomyolysis Endogenous depression Obstructive sleep apnea syndrome, mild Left ventricular ejection fraction of 40-49% Snoring Chest pain Morbid obesity with BMI of 50.0-59.9, adult Non-alcoholic fatty liver disease Hypertriglyceridemia Diabetes mellitus Congestive heart failure (CHF) Surgical History History of tooth extraction Hx of excision of mass (~03/30/18) History of ankle surgery (~06/29/12) Family History Mother IBS (irritable bowel syndrome) Father Heart problem Sister Crohn disease Paternal Grandfather Cancer Social History Household Members: Significant Other and Children Housing: Apartment Do you presently have visiting nurse or other home services: Yes Alcohol intake: former Patient Tobacco Use Status: Never used Tobacco Tobacco use type: Cigarette e-Cigarette/Vaping Use: Former Use Second Hand Smoke Exposure: No Substance Use Type: Marijuana service: No Current occupational status: unemployed Cognitive needs: No Hearing needs: No Vision needs: Yes Questionnaire PHQ-9 Over the last 2 weeks, how often have you been bothered by any of the following problems? 1. Little interest or pleasure in doing things: several days 2. Feeling down, depressed, or hopeless: several days 3. Trouble falling or staying asleep, or sleeping too much: more than half the days 4. Feeling tired or having little energy: nearly every day 5. Poor appetite or overeating: more than half the days 6. Feeling bad about yourself - or that you are a failure or have let yourself or your family down: more than half the days 7. Trouble concentrating on things, such as reading the newspaper or watching television: more than half the days 8. Moving or speaking so slowly that other people could have noticed. Or the opposite - being so fidgety or restless that you have been moving around a lot more than usual: not at all 9. Thoughts that you would be better off or of hurting yourself in some way: not at all Total score: 13 Depression Screening Interpretation: Positive Depression Screening Done: Yes Source: Developed by Drs. Cm Rebolledo, Juanita Izquierdo, Horace Hall and colleagues, with an educational lise from [employer] at work. Thrive Questionnaire Date Thrive assessed: 03/07/25 I am a: Patient What is your living situation today?: I have a steady place to live Within the past 12 months, did the food you bought not last and you didn't have the money to get more?: Sometimes True Within the past 12 months, did you worry whether your food would run out before you got money to buy more?: Sometimes True Do you have trouble paying for medicines?: No Do you have trouble getting transportation to medical appointments?: No Do you have trouble paying your heating and electricity bill?: No Do you have trouble taking care of your child, family member or friend?: I choose not to answer this question Do you have trouble with day-to-day activities such as bathing, preparing meals, shopping, managing finances, etc.?: No Are you currently unemployed and looking for a job?: I choose not to answer this question Are you interested in more education?: No Please select the resources that you would like help with: None Currently or been in a relationship where the following occur: No concerns reported THRIVE Score: 2 AUDIT C Alcohol Use Questionnaire (AUDIT-C) 1. How often do you have a drink containing alcohol?: Monthly or less 2. How many drinks containing alcohol do you have on a typical day when you are drinking?: 1 or 2 3. How often do you have six or more drinks on one occasion?: Never Total Score: 1 SUDHAKAR-7 AMB Questionnaire SUDHAKAR-7 Date SUDHAKAR - 7 assessed: 03/07/25 Feeling nervous, anxious, or on edge: 1 = Several days Not being able to stop or control worryin = More than half the days Worrying too much about different things: 2 = More than half the days Trouble relaxin = Several days Being so restless that it is hard to sit still: 2 = More than half the days Becoming easily annoyed or irritable: 1 = Several days Feeling afraid as if something awful might happen: 1 = Several days Total SUDHAKAR-7 score (0-4 normal; 5-9 mild; 10-14 moderate; 15-21 severe): 10 Source: Developed by Drs. Cm Rebolledo, Juanita Izquierdo, Horace Hall and colleagues, with an educational lise from [employer] at work. Physical exam (Primary Care) Vital Signs: Last Vital Signs Temp 97.1 F 06/07/25 11:25 Pulse 102 H 06/07/25 11:25 BP 130/76 06/07/25 11:25 Pulse Ox 94 06/07/25 11:25 Oxygen Delivery Method Room Air 06/07/25 11:25 BMI result Body Mass Index 50.7 Tobacco/Smoking Status: Tobacco use Status Tobacco use date assessed 03/07/25 06/07/25 11:26 Patient Tobacco Use Status Never used Tobacco 06/07/25 11:26 Tobacco use type Cigarette 06/07/25 11:26 e-Cigarette/Vaping Use Former Use 06/07/25 11:26 PHQ-9: PHQ-9 Score PHQ-9: Total score 13 06/07/25 11:33 Depression Screening Interpretation: Positive Thrive Assessment: Date of Thrive Assessment Date Thrive assessed 03/07/25 06/07/25 11:26 Currently or been in a relationship where the following occur: No concerns reported Office Procedures Flu Questionnaire Does the patient have a severe egg allergy?: No Does the patient have severe life threatening allergies?: No Does the patient have a fever or illness today?: No Has the patient ever had Guillain-[place] Syndrome?: No Has the patient ever had any past reaction to a flu shot?: No Results AMB Hemoglobin A1c AMB Hemoglobin A1c 10.2 % Last Edit by HELEN Hannah on 06/07/25 11:39 Immunizations Fluarix [id number] (PF) 45 mcg (15 mcg x 3)/0.5 mL IM syringe Performing Provider: Kuldip Robertson MD [facility] Administered by: Brooke Payton CMA on 06/07/25 11:52 Dose Route Admin Location Dispensed Lot Number Expiration Date NDC Bag End Sewer 0.5 mL IM Left Deltoid 0.5 mL [id number] 01/22/26 10330-274-28 Do It Original VIS Given Date VIS Provided VIS Publication Date 06/07/25 Single Vaccine 24 Eligibility Eligibility Date Funding Source Not [facility] Eligible 06/07/25 Private Results Reviewed Results Reviewed: Laboratory Last Values Hgb A1c (Clinic) 10.2 % (4.0-6.0) H 06/07/25 11:11 Coding Assessment & Plan Assessment & Plan Orders: Orders AMB Random Glucose (hemocue) Today Z13.9 - Encounter for screening, unspecified AMB Hemoglobin A1c Today E11.65 - Type 2 diabetes mellitus with hyperglycemia, E11.8 - Type 2 diabetes mellitus with unspecified complications Influenza [id number] Immunization Today Z23 - Encounter for immunization
[2025-06-07 11:25] VITALS: BP 130/76; PULSE 102; TEMP 36.2; O2SAT 94; BMI 50.7
--- OUTSIDE RECORDS SUMMARY | 2025-06-07 13:18 | XMS_ITS | Clinical Summary ---
Author Organization [employer] Address [address] [place] [address] Care Team Providers Care Geographic Information System Surveyor Name Role Phone Unavailable Primary Care Provider [...] Screening 12/16/2024 12/17/2023 COVID-19 Vaccine (1 - 2024- season) 2025 Influenza Vaccine (#1) 2025 DTaP/Tdap/Td [...] to complete this topic Insurance DENTAL - [facility] [place] [phone]
--- OUTSIDE RECORDS SUMMARY | 2025-06-07 13:18 | XMS_ITS | Clinical Summary ---
Author Organization [facility] Address [address] [place] [address] Care Team Providers Care Powerhouse Electrician Apprentice Name Role Phone Andrzej Beach MD Primary Care Provider [phone] Allergies No known active allergies Active Problems [...] Depression Screening 07/26/2024 COVID-19 Vaccine (1 - 2024-2 6 season) 2025 Influenza Vaccine (#1) 2025 RSV [...] age to complete this topic Care Teams Powerhouse Electrician Apprentice Relationship Specialty Start Date End Date Andrzej Beach MD [address] [place] [id number] PCP - General Internal Medicine 03/25/12
== END 2025-06-07 12:34 | disposition home or self-care (01) ==
LOC: HO.HMCH 10:47
PROVIDERS: PCP Internal Medicine; Visit Provider Internal Medicine
DX: E11.8 Type 2 diabetes mellitus with unspecified complications (principal); E11.65 Type 2 diabetes mellitus with hyperglycemia; Z23 Encounter for immunization; Z13.9 Encounter for screening, unspecified

== ENCOUNTER → 2025-06-07 10:46 | Outpatient (BNVA) | payer OTHER, SELFPAY | PROVIDERS: PCP Internal Medicine; Visit Provider Internal Medicine | DX: E11.65 Type 2 diabetes mellitus with hyperglycemia (principal); Z23 Encounter for immunization | CPT/HCPCS: 82948; 83036; 90471; 90656; 96127; 99212 ==

== ENCOUNTER 2025-07-06 03:15 | Emergency (ER) | payer OTHER, SELFPAY ==
--- NOTE | 2025-07-06 | ECG_ITS ---
Test Reason : cp Blood Pressure : */* mmHG Vent. Rate : 85 BPM Atrial Rate : 85 BPM P-R Int : 166 ms QRS Dur : 86 ms QT Int : 348 ms P-R-T Axes : 40 -3 23 degrees QTcB Int : 414 ms Normal sinus rhythm Normal ECG When compared with ECG of 27-Feb-2025 17:31, No significant change was found Referred By: Generic ED Physician Electronically Signed By: KISHOR WHEELER MD
[2025-07-06 03:27] VITALS: BP 114/57; BP 151/71; PULSE 84; PULSE 88; RESP 20; TEMP 36.9; O2SAT 100; O2SAT 94; BMI 51.2
[2025-07-06 03:29] LABS: Glucose, Whole Blood 305 mg/dL (60-115)
[2025-07-06 03:42] LABS: Venous Blood Gas Refer to POC result
[2025-07-06 03:45] LABS: Hematocrit 43.3 % (42.0-52.0); Hemoglobin 14.4 g/dl (14.0-18.0); Imm Gran Abs Auto 0.02 X10*3/uL (0.00-0.03); Imm Gran Pct Auto 0.2 % (0.0-0.4); Lymphocytes Absolute Auto 2.6 X10*3/uL (1.2-4.9); MANUAL DIFF FLAG NO; Mean Corpuscular HGB Conc 33.3 g/dl (31.0-36.0); Mean Corpuscular Hemoglobin 28.2 pg (27.0-33.0); Mean Corpuscular Volume 84.7 fL (80.0-98.0); NRBC Abs Auto 0.000 X10*3/uL (0.0-0.012); NRBC Pct Auto 0.0 /100WBC (0.0-0.2); Platelet Count 281 X10*3/uL (160-400); Red Blood Count 5.11 X10*6/uL (4.60-5.80); White Blood Count 8.1 X10*3/uL (4.8-10.8)
--- OUTSIDE RECORDS SUMMARY | 2025-07-06 03:49 | XMS_ITS | Clinical Summary ---
Author Organization [facility] Address [address] [place] [address] Care Team Providers Care Director Digital Name Role Phone Andrzej Beach MD Primary Care Provider [phone] Allergies No known active allergies Active Problems [...] on file Sexual Orientation Not on file Plan of Treatment Health Maintenance Due Date [...] age to complete this topic Care Teams Director Digital Relationship Specialty Start Date End Date Andrzej Beach MD [address] [place] [address] PCP - General Internal Medicine 03/25/12
--- OUTSIDE RECORDS SUMMARY | 2025-07-06 03:49 | XMS_ITS | Clinical Summary ---
Author Organization [employer] Address [address] [facility] [facility] [address] [place] [address] Care Team Providers Care Beef Cattle Specialist Name Role Phone Unavailable Primary Care Provider [...] to complete this topic Insurance DENTAL - [facility] [place] [address]
[2025-07-06 03:52] LABS: VBG HCO3 23 mmol/L (22-26); VBG O2 % Saturation 88.0 %
[2025-07-06 04:03] LABS: Alanine Aminotransferase 96 U/L (0-40); Albumin Level 4.3 g/dL (3.5-5.0); Alkaline Phosphatase 79 U/L (39-117); Anion Gap 13 (12-20); Aspartate Amino Transferase 34 U/L (5-37); Blood Urea Nitrogen 18 mg/dL (9-16); Calcium 9.2 mg/dL (8.4-10.2); Carbon Dioxide 22 mmol/L (22-29); Chloride 101 mmol/L (96-108); Creatinine Clr Calc Pharmacy 186.9; Estimated Glomerular Filt Rate > 60; Lipase 154 U/L (8-78); Potassium 4.3 mmol/L (3.3-5.1); Sodium 132 mmol/L (135-145); Total Protein 7.0 g/dL (6.5-8.0)
[2025-07-06 04:16] LABS: Troponin-I High Sensitivity < 2.7 ng/L (<3.5-35.0)
--- NOTE | 2025-07-06 04:51 | ED.CHESTPAIN ---
HPI - Chest Pain General Chief Complaint: Chest Pain Stated Complaint: HIGH BS FOR DAYS,BS 357,CP PER EMS Time Seen by Provider: 07/06/25 03:36 Source: patient and EMS Mode of arrival: EMS Limitations: no limitations History of Present Illness ED Provider: Dr. Caprice Baez HPI narrative: Patient comes to the emergency room complaining of chest pain for a proximally 4-5 hours, also complaining of high blood sugar. Patient states that he takes Trulicity. Patient denies any shortness of breath. Patient denies any chest trauma. Related Data Home Medications ?Medication ?Instructions ?Recorded ?Confirmed lisinopril 2.5 mg tablet 2.5 mg PO DAILY 02/27/25 04/16/25 Previous Rx's ?Medication ?Instructions ?Recorded blood sugar diagnostic (OneTouch #100 ea 07/12/24 Ultra Test strips) blood-glucose meter #1 ea 07/12/24 blood-glucose meter (OneTouch #1 ea 07/13/24 Ultra2 Meter) lancets 25 gauge #100 ea 08/02/24 lancets (Accu-Chek Fastclix Lancet #100 ea 09/12/24 Drum) sumatriptan succinate 50 mg tablet 50 mg PO DAILY MRX1 PRN Migraine 03/01/25 Headache #12 tabs furosemide 40 mg tablet 40 mg PO DAILY 90 days #90 tabs 05/27/25 metoprolol succinate 50 mg 50 mg PO DAILY #90 tabs 05/28/25 tablet,extended release 24 hr dulaglutide 0.75 mg/0.5 mL 0.75 mg (0.5 mL) subcut QWEEK #2 mL 07/06/25 subcutaneous pen injector (Trulicity) Allergies Allergy/AdvReac Type Severity Reaction Status Date / Time morphine AdvReac Unknown projectile Verified 07/06/25 03:31 vomiting Review of Systems Review of Systems: Constitutional : No Weight loss, No Fever, No Chills, No Night Sweats, No Fatigue, No Malaise ENT/Mouth : No Hearing loss, No Ear Pain, No Nasal Congestion, No Sinus Pain, No Hoarseness, No sore throat, No Rhinorrhea, No Swallowing Difficulty Eyes: No Eye Pain, No Swelling, No Redness, No Foreign Body, No Discharge, No Vision Changes Cardiovascular : Complaining of left-sided chest pain that has been present for a proximally 4-5 hours., No SOB, No Dyspnea on Exertion, No Orthopnea, No Edema, No Palpitations Respiratory : No Cough, No Sputum, No Wheezing, No Smoke Exposure, No Dyspnea Gastrointestinal : No Nausea, No Vomiting, No Diarrhea, No Constipation, No abdominal Pain, No Hematochezia, No Melena Genitourinary : no irregular bleeding, No Dysuria, No Urinary Frequency, No Hematuria, No Urinary Incontinence, No Urgency, No Flank Pain, No Urinary Flow Changes, No Hesitancy Musculoskeletal : No joint pain, No Myalgias, No Joint Swelling Skin : No Skin Lesions, No rash Neuro : No Weakness, No Numbness, No Paresthesias, No Loss of Consciousness, No Dizziness, No Headache Psych : No Anxiety/Panic, No Depression, No SI/HI/AH/VH, No Social Issues, Heme/Lymph: No Bruising, No Bleeding,No Lymphadenopathy Endocrine : Complaining of high glucose, No Polyuria, No Polydipsia, No Temperature Intolerance [facility] Past Medical History Medical History Rhabdomyolysis Endogenous depression Obstructive sleep apnea syndrome, mild Left ventricular ejection fraction of 40-49% Snoring Chest pain Morbid obesity with BMI of 50.0-59.9, adult Non-alcoholic fatty liver disease Hypertriglyceridemia Diabetes mellitus Congestive heart failure (CHF) Surgical History History of tooth extraction Hx of excision of mass (~03/30/18) History of ankle surgery (~06/29/12) Family History Family History Mother IBS (irritable bowel syndrome) Father Heart problem Sister Crohn disease Paternal Grandfather Cancer Social History Social History Household Members: Significant Other and Children Housing: Apartment Do you presently have visiting nurse or other home services: Yes Alcohol intake: former Patient Tobacco Use Status: Never used Tobacco Tobacco use type: Cigarette e-Cigarette/Vaping Use: Former Use Second Hand Smoke Exposure: No Substance Use Type: Marijuana Advance Directives: Yes Advance Directives Information Provided: Yes Advance Directives on File: No Do you have a plan to hurt others: No Plan service: No Current occupational status: unemployed Cognitive needs: No Hearing needs: No Vision needs: Yes Physical Exam Exam: Exam: Appearance: Alert. Oriented X3. No acute distress. Eyes: Pupils equal, round and reactive to light. ENT: Pharynx normal. Neck: Normal inspection. Neck supple. No lymph nodes noted. No crepitus CVS: Normal heart rate and rhythm. Pulses normal. Normal S1 and S2 Respiratory: No respiratory distress. Breath sounds normal. No Wheezing. No rales Abdomen: Soft and nontender. No rigidity. No distention. Skin: Skin warm and dry. Normal skin color. Normal skin turgor. Extremities: No lower extremity edema. No Lacerations. No Rash Neuro: Oriented X 3. No motor deficit. No sensory deficit. Moving all extremities. No slurred speech. CN 2 through 12 grossly intact Psych: calm, cooperative, normal affect Vital Signs: Vital Signs: Last Vital Signs Temp 98.4 F 07/06/25 03:27 Pulse 84 07/06/25 05:52 Resp 16 07/06/25 05:52 BP 125/71 07/06/25 05:52 Pulse Ox 97 07/06/25 05:52 O2 Del Method Nasal Cannula 07/06/25 05:52 O2 Flow Rate 2 07/06/25 05:52 BMI result Body Mass Index 51.2 Course Course Course Narrative: All of patient's labs and imaging pending. Patient receiving IV fluids, 10 units of insulin. I reviewed patient's medical chart, patient has been seen multiple times for chest pain Medications Administered Discontinued Medications Generic Name Dose Route Start Last Admin Trade Name Rhoda PRN Reason Stop Dose Admin Aspirin 325 mg 07/06/25 04:58 07/06/25 05:18 Aspirin Enteric Coated 325 Mg Tablet.Dr PO 07/06/25 04:59 325 mg ONCE ONE Administration Sodium Chloride 1,000 mls @ 999 mls/hr 07/06/25 04:34 07/06/25 05:27 Ns IVCONT 07/06/25 05:34 Infused .Q1H1M ONE Infusion Insulin Human Regular 10 unit 07/06/25 04:34 07/06/25 04:53 Insulin Regular, Human 100 Unit/Ml 10 Ml Vial IVPUSH 07/06/25 04:35 10 unit ONCE ONE Administration Medical Decision Making Medical Decision Making [facility] Narrative: My interpretation of EKG: Normal sinus rhythm, heart rate 85, no ST segment depression or elevation, no T-wave inversion, QTC 414 My interpretation of labs: No significant abnormality in patient's hematology or chemistry, other than a glucose of 332. Patient has a lipase of 154, previously elevated. Patient has no abdominal pain. After IV fluids and insulin, patient's glucose improved to 190. I discussed with the patient that he may need to be in 2 different types of insulin. Patient will follow-up with his primary care physician. Patient's chest pain most likely musculoskeletal, unlikely to be cardiac in nature Patient states that he is taking medication for diabetes. However, I do not see any prescription for Trulicity since July of 2024, almost 1 year. Patient states that he has been out of his Trulicity for about a month now, states that his PCP did refill it but he does not know which pharmacy it went. I sent a prescription to the patient's pharmacy. When patient's sleeps, it was noted that patient's oxygen saturation drops to the high 80s. Patient states that he already has a sleep study test done. He is just waiting for his follow-up appointment. Differential Diagnosis Differential Diagnoses: The differential diagnosis associated with the presentation includes (ACS, type 2 diabetes, hyperglycemia, medication noncompliance) Admission/Observation Consideration of admission/observation: Escalation of care including admission/observation considered (Given patient's comorbidities and presentation, observation was considered) Lab Data [facility] Lab Attestation statement: I reviewed the patient's lab results. 07/06/25 03:39 07/06/25 03:39 Labs: Lab Results 07/06/25 07/06/25 07/06/25 Range/Units 03:24 03:39 03:43 WBC 8.1 (4.8-10.8) X10*3/uL RBC 5.11 (4.60-5.80) X10*6/uL Hgb 14.4 (14.0-18.0) g/dl Hct 43.3 (42.0-52.0) % MCV 84.7 (80.0-98.0) fL MCH 28.2 (27.0-33.0) pg MCHC 33.3 (31.0-36.0) g/dl RDW 11.4 (11.0-16.0) % Plt Count 281 (160-400) X10*3/uL MPV 10.9 (9.4-12.4) fL Immature Gran % (Auto) 0.2 (0.0-0.4) % Neut % (Auto) 58.2 (45-73) % Lymph % (Auto) 32.3 (20-40) % [place] % (Auto) 7.2 (2-11) % Eos % (Auto) 1.6 (0-4) % Baso % (Auto) 0.5 (0-2) % Lymph # (Auto) 2.6 (1.2-4.9) X10*3/uL [place] # (Auto) 0.6 (0.1-1.2) X10*3/uL Eos # (Auto) 0.1 (0.0-0.4) X10*3/uL Baso # (Auto) 0.0 (0.0-0.2) X10*3/uL Abs Immat Gran (auto) 0.02 (0.00-0.03) X10*3/uL Absolute Neuts (auto) 4.7 (2.0-8.3) x10*3/uL Absolute Nucleated RBC 0.000 (0.0-0.012) X10*3/uL Nucleated RBC % (auto) 0.0 (0.0-0.2) /100WBC VBG pH 7.41 (7.32-7.43) VBG pCO2 37 mmHg VBG pO2 64 mmHg VBG HCO3 23 (22-26) mmol/L VBG O2 Saturation 88.0 % VBG Base Excess -0.4 mmol/L Sodium 132 L (135-145) mmol/L Potassium 4.3 (3.3-5.1) mmol/L Chloride 101 (96-108) mmol/L Carbon Dioxide 22 (22-29) mmol/L Anion Gap 13 (12-20) BUN 18 H (9-16) mg/dL Creatinine 0.88 (0.5-1.4) mg/dL Estim Creat Clear Calc 186.9 Estimated GFR > 60 POC Glucose 305 H (60-115) mg/dL Random Glucose 332 H (60-115) mg/dL Calcium 9.2 (8.4-10.2) mg/dL Total Bilirubin 1.0 (0.0-1.0) mg/dL AST 34 (5-37) U/L ALT 96 H (0-40) U/L Alkaline Phosphatase 79 (39-117) U/L Troponin I High Sens < 2.7 (<3.5-35.0) ng/L Total Protein 7.0 (6.5-8.0) g/dL Albumin 4.3 (3.5-5.0) g/dL Lipase 154 H (8-78) U/L Beta-Hydroxybutyrate 0.15 (0.02-0.27) mmol/L 07/06/25 Range/Units 05:51 WBC (4.8-10.8) X10*3/uL RBC (4.60-5.80) X10*6/uL Hgb (14.0-18.0) g/dl Hct (42.0-52.0) % MCV (80.0-98.0) fL MCH (27.0-33.0) pg MCHC (31.0-36.0) g/dl RDW (11.0-16.0) % Plt Count (160-400) X10*3/uL MPV (9.4-12.4) fL Immature Gran % (Auto) (0.0-0.4) % Neut % (Auto) (45-73) % Lymph % (Auto) (20-40) % [place] % (Auto) (2-11) % Eos % (Auto) (0-4) % Baso % (Auto) (0-2) % Lymph # (Auto) (1.2-4.9) X10*3/uL [place] # (Auto) (0.1-1.2) X10*3/uL Eos # (Auto) (0.0-0.4) X10*3/uL Baso # (Auto) (0.0-0.2) X10*3/uL Abs Immat Gran (auto) (0.00-0.03) X10*3/uL Absolute Neuts (auto) (2.0-8.3) x10*3/uL Absolute Nucleated RBC (0.0-0.012) X10*3/uL Nucleated RBC % (auto) (0.0-0.2) /100WBC VBG pH (7.32-7.43) VBG pCO2 mmHg VBG pO2 mmHg VBG HCO3 (22-26) mmol/L VBG O2 Saturation % VBG Base Excess mmol/L Sodium (135-145) mmol/L Potassium (3.3-5.1) mmol/L Chloride (96-108) mmol/L Carbon Dioxide (22-29) mmol/L Anion Gap (12-20) BUN (9-16) mg/dL Creatinine (0.5-1.4) mg/dL Estim Creat Clear Calc Estimated GFR POC Glucose 190 H (60-115) mg/dL Random Glucose (60-115) mg/dL Calcium (8.4-10.2) mg/dL Total Bilirubin (0.0-1.0) mg/dL AST (5-37) U/L ALT (0-40) U/L Alkaline Phosphatase (39-117) U/L Troponin I High Sens (<3.5-35.0) ng/L Total Protein (6.5-8.0) g/dL Albumin (3.5-5.0) g/dL Lipase (8-78) U/L Beta-Hydroxybutyrate (0.02-0.27) mmol/L Independent Interpretation I performed an independent interpretation of an: EKG Critical Care Time Critical Care Time Critical Care Time: Yes Total Critical Care Time: 35 Attestation: I have personally provided critical care time. Time includes review of lab data, radiology results, discussion with consultants, and monitoring for potential decompensation. Intervention performed as documented. Discharge Plan Discharge Clinical Impression: Hyperglycemia, Atypical chest pain Patient Disposition: Home, Self-Care Instructions: Chest Pain (ED), Diabetic Hyperglycemia (ED) Additional Instructions: Please follow-up with your primary care physician tomorrow. If you have any worsening or new symptoms, please return to the emergency room or call 911 Prescriptions: New Trulicity 0.75 mg/0.5 mL pen injector 0.75 mg subcut QWEEK Qty: 2 0RF No Action (DME) blood-glucose meter Kit See Rx Instructions .Route Qty: 1 0RF Rx Instructions: As directed (DME) OneTouch Ultra Test Strip See Rx Instructions .Route Qty: 100 1RF Rx Instructions: As directed up to three times per day (DME) blood-glucose meter [OneTouch Ultra2 Meter] Misc See Rx Instructions .Route Qty: 1 0RF Rx Instructions: As directed (DME) lancets 25 gauge misc See Rx Instructions .Route Qty: 100 1RF Rx Instructions: As directed up to three times a day (DME) lancets [Accu-Chek Fastclix Lancet Drum] Misc See Rx Instructions .Route Qty: 100 0RF Rx Instructions: As directed furosemide 40 mg tablet 40 mg PO DAILY 90 Days Qty: 90 1RF metoprolol succinate 50 mg tablet extended release 24 hr 50 mg PO DAILY Qty: 90 3RF lisinopril 2.5 mg tablet 2.5 mg PO DAILY sumatriptan succinate 50 mg Tablet 50 mg PO DAILY MRX1 PRN (Reason: Migraine Headache) Qty: 12 0RF Print Language: Kinyarwanda
[2025-07-06] MEDS: Aspirin Enteric Coated 325 MG TABLET.DR PO (05:18)
[2025-07-06 05:52] VITALS: BP 125/71; PULSE 84; RESP 16; O2SAT 97
[2025-07-06 05:55] LABS: Glucose, Whole Blood 190 mg/dL (60-115)
[2025-07-06 06:19] VITALS: BP 125/71; PULSE 84; RESP 16; TEMP 36.9; O2SAT 97
== END 2025-07-06 06:37 | disposition home or self-care (01) ==
PROVIDERS: Emergency Provider Emergency Medicine; PCP Internal Medicine
DX: E11.65 Type 2 diabetes mellitus with hyperglycemia (principal); R07.89 Other chest pain; Z79.899 Other long term (current) drug therapy
CPT/HCPCS: 36415; 80053; 82010; 82803; 82947; 83690; 84484; 85025; 93005; 96361; 96374; 99284

== ENCOUNTER → 2025-07-06 03:24 | Outpatient (BNV) | payer OTHER, SELFPAY | PROVIDERS: Emergency Provider Emergency Medicine; PCP Internal Medicine; Visit Provider Internal Medicine Cardiovascular Disease | DX: R07.9 Chest pain, unspecified (principal) | CPT/HCPCS: 93010 ==